=== PATIENT | male | born 1980 | race Caucasian/White ===

== ENCOUNTER 2019-11-26 11:50 | Inpatient (IN) | payer MEDICARE, MEDICAID ==
[~2019-11-26] VITALS: Ht 175.3 cm; Wt 83.0 kg
[~2019-11-26 11:50] MED LIST: LITH300C43; PALI6TAB3 PO
[2019-11-29] MEDS ORDERED: NICOTINE POLACRILEX 2 MG LOZENGE BC PRN ×2 (15:10→19:55)
[2019-11-29] MEDS ORDERED: loperamide 2mg capsule PO PRN (15:10)
[2019-11-29] MEDS ORDERED: LORazepam 1 MG tablet PO PRN ×2 (15:10)
[2019-11-29] MEDS ORDERED: haloperidol 5mg tablet PO PRN (15:10)
[2019-11-29] MEDS ORDERED: magnesium hydroxide 30ml (MOM) UD suspension PO PRN (15:10)
[2019-11-29] MEDS ORDERED: acetaminophen 325mg tablet PO PRN ×2 (15:10)
[2019-11-29] MEDS ORDERED: diphenhydrAMINE 25mg capsule PO PRN (15:10)
[2019-11-29] MEDS ORDERED: traZODone 50mg tablet PO PRN (15:10)
[2019-11-29] MEDS ORDERED: mag hydrox/Alum hydrox/simeth 30ml oral suspension PO PRN (15:10)
[2019-11-29] MEDS ORDERED: OXCA300T16 PO (17:52)
[2019-11-29] MEDS ORDERED: PALI6TAB PO (17:52)
[2019-11-29] MEDS ORDERED: BENZ1TAB7 PO (17:52)
[2019-11-29] MEDS ORDERED: LITH600C PO (17:52)
[2019-11-29] MEDS ORDERED: LEVO25TA2 PO (17:52)
[2019-11-29] MEDS ORDERED: HALO10TA13 PO (17:52)
[2019-11-29] MEDS ORDERED: HALO5TAB PO (17:52)
[2019-11-29 19:49] VITALS: BP 111/78
[2019-11-29] MEDS: benztropine 1mg tablet PO SCH (20:34)
[2019-11-29] MEDS: lithium carbonate 150mg capsule PO SCH (20:34)
[2019-11-29] MEDS: oxcarbazepine 150mg tablet PO SCH (20:34)
[2019-11-29] MEDS: haloperidol 5mg tablet PO SCH ×2 (20:35)
--- NOTE | 2019-11-30 00:38 | NUR ---
Admit Note Pt arrived prior to evening shift at 1600. 2 person skin check was completed and skin was clear. Pt is LPS conserved. He eloped from [facility] in [facility] multiple times and was transferred here until a more secure living arrangement can be made. Pt has history of Schizoaffective, Bipolar type and Cluster B traits. Pt has Hx of Etoh abuse, cannibis and nicotine dependance. Pt states "I was drinking and smokin doobies and they told me to stay out of the park, so I had to get outta there." Pts tox screen is negative. Pt states "Im in a great mood, Im glad to be back home in [place]." Pt is delusional believes he is a member of the [employer]. Pt states "Joselyn been on a mission and I've been to 13 places because of the peace act." He then states "but don't write that down, that I said that."
[2019-11-30 07:30] VITALS: BP 88/58
[2019-11-30] MEDS: levoTHYROXINE 25mcg tablet PO SCH (08:12)
[2019-11-30] MEDS: haloperidol 5mg tablet PO SCH ×3 (08:13→20:22)
[2019-11-30] MEDS: PALIPERIDONE 3 MG TAB.ER.24 PO SCH (08:15)
[2019-11-30] MEDS: benztropine 1mg tablet PO SCH ×2 (08:16→20:21)
[2019-11-30] MEDS: lithium carbonate 150mg capsule PO SCH ×2 (08:16→20:20)
[2019-11-30] MEDS: oxcarbazepine 150mg tablet PO SCH ×2 (08:20→20:21)
[2019-11-30] MEDS: nicotine 21mg patch - 24 hr TD SCH (08:23)
[2019-11-30 19:26] LABS: BASOPHILS # (AUTO) 0.1 X10'3 (0-0.2); EOSINOPHILS # (AUTO) 0.2 X10'3 (0-0.9); EOSINOPHILS % (AUTO) 2.3 % (0-6); HEMATOCRIT 43.2 % (42.0-52.0); HEMOGLOBIN 14.9 g/dl (14.0-17.9); LYMPHOCYTES # (AUTO) 2.2 X10'3 (1.1-4.8); LYMPHOCYTES % (AUTO) 28.2 % (21-51); MEAN CORPUSCULAR HEMOGLOBIN 31.6 PG (27.0-31.0); MEAN CORPUSCULAR HGB CONC 34.5 g/dL (33.0-36.5); MEAN CORPUSCULAR VOLUME 91.6 FL (78-98); MEAN PLATELET VOLUME 8.3 FL (7.4-10.4); MONOCYTES # (AUTO) 0.7 X10'3 (0-0.9); MONOCYTES % (AUTO) 8.6 % (2-12); NEUTROPHILS # (AUTO) 4.6 X10'3 (1.8-7.7); NEUTROPHILS % (AUTO) 59.9 % (42-75); PLATELET COUNT 198 X10'3 (140-440); RED BLOOD COUNT 4.72 X10'6 (4.70-6.10); RED CELL DISTRIBUTION WIDTH 12.5 % (11.5-14.5); WHITE BLOOD COUNT 7.7 X10'3 (4.5-11.0)
[2019-11-30 19:46] LABS: ALANINE AMINOTRANSFERASE 16 U/L (12-78); ALBUMIN/GLOBULIN RATIO 1.4 (1.1-1.5); ALKALINE PHOSPHATASE 108 IU/L (46-116); ANION GAP 6 (8-16); ASPARTATE AMINO TRANSFERASE 21 U/L (10-37); BILIRUBIN,TOTAL 0.2 MG/DL (0.1-1.0); BLOOD UREA NITROGEN 12 MG/DL (7-18); BUN/CREATININE RATIO 12.4 (5.4-32.0); CALCIUM 8.8 MG/DL (8.5-10.1); CHLORIDE 104 MMOL/L (99-107); CHOL/HDL RATIO 3.6 (0.00-4.99); CHOLESTEROL 160 MG/DL (0-200); CREATININE 0.97 MG/DL (0.60-1.10); GLUCOSE 83 MG/DL (70-104); HDL CHOLESTEROL 44 MG/DL (35-60); LDL CHOLESTEROL 98 MG/DL (50-100); POTASSIUM 4.2 MMOL/L (3.5-5.1); SODIUM 139 MMOL/L (135-145); TOTAL CARBON DIOXIDE 29.3 MMOL/L (24-32); TOTAL PROTEIN 6.9 G/DL (6.4-8.2); TRIGLYCERIDES 236 MG/DL (20-135); eGFR 86 ML/MIN
[2019-11-30 20:25] VITALS: BP 112/64
--- NOTE | 2019-11-30 21:14 | NUR ---
NURSING PROGRESS NOTE: Legal hold: Conserved Client on involuntary status for DTS. Report received from XANDER Mahan with use of SBAR. Why are they here: Pt is LPS conserved. He eloped from [facility] in [facility] multiple times and was transferred here until a more secure living arrangement can be made. Pt has history of Schizoaffective, Bipolar type and Cluster B traits. Pt has Hx of Etoh abuse, cannibis and nicotine dependance. Pt states "I was drinking and smokin doobies and they told me to stay out of the park, so I had to get outta there." Pts tox screen is negative. Pt states "Im in a great mood, Im glad to be back home in [place]." Pt is delusional believes he is a member of the [employer]. Pt states "Joselyn been on a mission and I've been to 13 places because of the peace act." He then states "but don't write that down, that I said that." Assessment What has happened this shift: Pt was resting in his room at change of shift. During assessment patient states he had a good day, he is happy to be here. Pt states the only thing better would be if he could go out and smoke a cigarette twice a day because he doesnt like nicotine patches. Pt is in a pleasant mood, laughing and joking, states during med pass "you can give me whatever you want, I've been doing this for 17 years and I know it messes up my liver so Im careful to drink a lot of water, I know all about the system." Pt interacts pleasantly with other patients and staff. SI/HI: Denies A/VH: Denies Sleep: Pt. states he slept good ADL's: Independent Group attendance: N/A Were Meds taken: Yes Any med S/E: None observed or reported Mental Status Exam Appearance: Disheveled, wearing green scrubs and ball cap Eye contact: Good Behavior: Cooperative, friendly, anxious Speech: Hyperverbal, clear Mood: Euthymic Affect: congruent Thought process: Tangential. Delusional Thought Content: Delusions of grandeur about working for the [employer] Cognition: A/O X 4 Insight: Fair. Judgment: Fair. Interventions PRN's used: None Therapeutic interventions: provided 1:1 assessment w/therapeutic communication and active listening, medication administration/education/monitoring, positive reinforcement, Q 15 min safety checks. Restraints/seclusion/emergency medication: N/A Justification of Continued Inpatient Treatment: Continued therapeutic support and medication management and monitoring needed to prevent decompensation, and improve coping mechanisms decreasing risk to patient and re-admittance. Addendum: 11/30/19 at 1753 by David Jefferson RN What has happened this shift: Pt. is asleep at start of shift. Pt. took medications and ate breakfast and then went back to bed. 1:1 done at bedside, pt. is friendly and social, states that he is here because he wanted to drink and smoke now and then and that his shelter would not allow this. However, as pt. 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 Pt. isolated to his room most of the day and found laying in bed, although does not appear to be sleeping. Pt. social when approached by other patients.
[2019-12-01 07:50] VITALS: BP 86/57
[2019-12-01] MEDS: nicotine 21mg patch - 24 hr TD SCH (08:00)
[2019-12-01] MEDS: oxcarbazepine 150mg tablet PO SCH ×2 (08:01→20:23)
[2019-12-01] MEDS: levoTHYROXINE 25mcg tablet PO SCH (08:02)
[2019-12-01] MEDS: haloperidol 5mg tablet PO SCH ×3 (08:02→20:23)
[2019-12-01] MEDS: lithium carbonate 150mg capsule PO SCH ×2 (08:03→20:22)
[2019-12-01] MEDS: benztropine 1mg tablet PO SCH ×2 (08:03→20:22)
[2019-12-01] MEDS: PALIPERIDONE 3 MG TAB.ER.24 PO SCH (08:04)
--- NOTE | 2019-12-01 09:23 | NUR ---
PSYCHOSOCIAL ASSESSMENT Derick is a 39 y/o male who is on [facility] conservatorship with a history of Schizoaffective Disorder, Bipolar Type. He was previously placed at [facility] and was is in need of a higher level of care due to elopement. He has been conserved for the past 17 years. He presented as paranoid and delusional. He stated, "everyone was talking shit about me" in regards to his last placement. He reported he works for the [employer] and would not disclose what type of work he does. [facility], [place] office, will be looking for placement. BART Rollins Addendum: 12/01/19 at 0924 by Daisha Robert Amended: Links added.
--- NOTE | 2019-12-01 17:11 | NUR ---
NURSING PROGRESS NOTE: Legal hold: Conserved Client on involuntary status for DTS. Report received from XANDER Garcia with use of SBAR. Why are they here: Pt is LPS conserved. He eloped from [facility] in [facility] multiple times and was transferred here until a more secure living arrangement can be made. Pt has history of Schizoaffective, Bipolar type and Cluster B traits. Pt has Hx of Etoh abuse, cannibis and nicotine dependance. Pt states "I was drinking and smokin doobies and they told me to stay out of the park, so I had to get outta there." Pts tox screen is negative. Pt states "Im in a great mood, Im glad to be back home in [place]." Pt is delusional believes he is a member of the [employer]. Assessment What has happened this shift: Pt. asleep at start of shift. Pt. awake for breakfast and medication. Pt.took all meds and ate all meals in his room. 1:1 done at bedside. Pt. is in a jovial mood, states, Its been nice to be here, Im getting lots of rest. But Im getting out of here today, the nurse told me so. When this RN told the pt. 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 I was in [place] [employer] and then I got out and worked for [employer]. Pt. denies SI/HI, A/V hallucinations. Pt. is isolative to his room, however, when pt. comes out he is social. Pt. overheard talking with his roommate and laughing. Pt. went outside to [facility] and was cooperative, playing basketball. Pt. seen pacing the halls and talking with other patients in the afternoon. SI/HI: Denies A/VH: Denies Sleep: Pt. napped most of the morning. ADL's: Independent Group attendance: N/A Were Meds taken: Yes Any med S/E: Denies Mental Status Exam Appearance: Disheveled, wearing green scrubs and ball cap Eye contact: Good Behavior: Cooperative, friendly, isolates to his room in AM. More social in afternoon. Speech: Hyperverbal, clear Mood: Euthymic becoming Elated at times. Affect: congruent Thought process: Tangential. Delusional. Thought Content: Delusions of grandeur about working for the [employer] Cognition: A/O X 4 Insight: Poor. Judgment: Poor. Interventions PRN's used: None Therapeutic interventions: provided 1:1 assessment w/therapeutic communication and active listening, medication administration/education/monitoring, positive reinforcement, Q 15 min safety checks. Restraints/seclusion/emergency medication: N/A Justification of Continued Inpatient Treatment: Continued therapeutic support and medication management and monitoring needed to prevent decompensation, and improve coping mechanisms decreasing risk to patient and re-admittance.
[2019-12-01 20:00] VITALS: BP 118/67
--- NOTE | 2019-12-02 03:20 | NUR ---
NURSING PROGRESS NOTE: Legal hold: Conserved Client on involuntary status for DTS. Report received from XANDER Hernandez with use of SBAR. Why are they here: Pt is LPS conserved. He eloped from [facility] in [facility] multiple times and was transferred here until a more secure living arrangement can be made. Pt has history of Schizoaffective, Bipolar type and Cluster B traits. Pt has Hx of Etoh abuse, cannibis and nicotine dependance. Pt states "I was drinking and smokin doobies and they told me to stay out of the park, so I had to get outta there." Pts tox screen is negative. Pt states "Im in a great mood, Im glad to be back home in [place]." Pt is delusional believes he is a member of the [employer]. Assessment What has happened this shift: Pt was in his room at the start of shift. He states he had a good day today. He took all of his medications with no problem. He denies having any S/I or H/I at this time. Pt states he did feel a little irritable, like he wants to punch the door. He states that he just is ready to leave and that he has been here too long. SI/HI: Denies A/VH: Denies Sleep: Pt slept well. ADL's: Independent Group attendance: N/A Were Meds taken: Yes Any med S/E: Denies Mental Status Exam Appearance: Clean, wearing green scrubs and ball cap Eye contact: Good Behavior: Cooperative, friendly, isolates to his room. Social this evening. Speech: Hyperverbal, clear Mood: Euthymic becoming Elated at times. Affect: congruent Thought process: Tangential. Delusional. Thought Content: Delusions of grandeur about working for the [employer] Cognition: A/O X 4 Insight: Poor. Judgment: Poor. Interventions PRN's used: None Therapeutic interventions: provided 1:1 assessment w/therapeutic communication and active listening, medication administration/education/monitoring, positive reinforcement, Q 15 min safety checks. Restraints/seclusion/emergency medication: N/A Justification of Continued Inpatient Treatment: Continued therapeutic support and medication management and monitoring needed to prevent decompensation, and improve coping mechanisms decreasing risk to patient and re-admittance.
[2019-12-02 08:00] VITALS: BP 104/59
[2019-12-02] MEDS: nicotine 21mg patch - 24 hr TD SCH (08:00)
[2019-12-02] MEDS: lithium carbonate 150mg capsule PO SCH ×2 (08:02→20:41)
[2019-12-02] MEDS: PALIPERIDONE 3 MG TAB.ER.24 PO SCH (08:03)
[2019-12-02] MEDS: oxcarbazepine 150mg tablet PO SCH ×2 (08:03→20:44)
[2019-12-02] MEDS: benztropine 1mg tablet PO SCH ×2 (08:03→20:41)
[2019-12-02] MEDS: levoTHYROXINE 25mcg tablet PO SCH (08:04)
[2019-12-02] MEDS: haloperidol 5mg tablet PO SCH ×3 (08:04→21:12)
--- NOTE | 2019-12-02 17:54 | NUR ---
NURSING PROGRESS NOTE: Legal hold: Conserved Client on involuntary status for DTS. Report received from XANDER Garcia with use of SBAR. Why are they here: Pt is LPS conserved. He eloped from [facility] in [facility] multiple times and was transferred here until a more secure living arrangement can be made. Pt has history of Schizoaffective, Bipolar type and Cluster B traits. Pt has Hx of Etoh abuse, cannibis and nicotine dependance. Pt states "I was drinking and smokin doobies and they told me to stay out of the park, so I had to get outta there." Pts tox screen is negative. Pt states "Im in a great mood, Im glad to be back home in [place]." Pt is delusional believes he is a member of the [employer]. Assessment What has happened this shift: Pt awoke for breakfast and medications and then went back to sleep for majority of AM. Pt. ate all meals in his room. 1:1 done at bedside, pt. states he is great. Pt denies SI/HI, A/V hallucinations. Pt. states, I hope I get discharged today. Pt. did not speak of delusions about working for the [employer] today. Pt. talking with peers and playing guitar in hallway. SI/HI: Denies A/VH: Denies Sleep: Pt. napped most of the morning. ADL's: Independent. Pt. showered today. Group attendance: N/A Were Meds taken: Yes Any med S/E: Denies Mental Status Exam Appearance: Disheveled, wearing green scrubs and ball cap Eye contact: Good Behavior: Cooperative, social, sleeping in AM. More social in afternoon. Speech: Hyperverbal, clear Mood: Jovial Affect: congruent with mood Thought process: Linear Thought Content: Future oriented, hoping for discharge soon. Cognition: A/O X 4 Insight: Poor. Judgment: Poor. Interventions PRN's used: None Therapeutic interventions: provided 1:1 assessment w/therapeutic communication and active listening, medication administration/education/monitoring, positive reinforcement, Q 15 min safety checks. Restraints/seclusion/emergency medication: N/A Justification of Continued Inpatient Treatment: Continued therapeutic support and medication management and monitoring needed to prevent decompensation, and improve coping mechanisms decreasing risk to patient and re-admittance.
[2019-12-02 20:10] VITALS: BP 128/73
--- NOTE | 2019-12-03 01:45 | NUR ---
NURSING PROGRESS NOTE: Legal hold: LPS Conserved Client on involuntary status for DTS. Report received from XANDER Ramírez with use of SBAR. Why are they here: Patient s LPS conserved. He eloped from [facility] in [facility] multiple times and was transferred here until a more secure living arrangement can be made. Patient has history of Schizoaffective, Bipolar type and Cluster B traits. Patient has history of ETOH abuse, cannabis and nicotine dependence. Patient states "I was drinking and smokin doobies and they told me to stay out of the park, so I had to get outta there." Patients tox screen is negative. Patient states "Im in a great mood, Im glad to be back home in [place]." Patient is delusional believes he is a member of the [employer]. Assessment What has happened this shift: Patient was sitting in the hallway with another peer conversing and talking about playing the guitar. Patient is calm and cooperative. 1:1 was completed at bedside. Patient was asked what brought him to [facility] Life, life brought me here. 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 I work for the [employer]. During HS medication pass, pt. brought up how drugs are okay, I dabble in a little drugs. I smoke a little dobbie and maybe snort a little line here and there (pt. holds nose as if snorting). Pt. states these drugs (meaning his scheduled meds) dont do anything to me, just ruins my liver. Patient talks about riding his horses, and his [employer] he skies a lot. Patient denies SI, A/VH. [place] level is 0.6 drawn on 11/29. SI/HI: Patient denies, none observed. A/VH: Patient denies, none observed. Sleep: Pt. napped most of the morning. ADL's: Independent. Patient shaved this shift. 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 Were Meds taken: Yes, without hesitation. Any med S/E: None observed, or reported. Mental Status Exam Appearance: Clean, wearing green unit scrubs and a ball cap Eye contact: Good Behavior: Cooperative, grandiose, friendly. Speech: Hyperverbal, clear Mood: Upbeat, friendly Affect: Congruent with mood Thought process: Linear to delusional Thought Content: Hoping for discharge, so he can go ride his "Brock" and go skiing. Cognition: A/O X 4 Insight: Poor. Judgment: Poor. Interventions PRN's used: None Therapeutic interventions: provided 1:1 assessment w/therapeutic communication and active listening, medication administration/education/monitoring, positive reinforcement, Q 15 min safety checks. Restraints/seclusion/emergency medication: N/A Justification of Continued Inpatient Treatment: Continued therapeutic support and medication management and monitoring needed to prevent decompensation, and improve coping mechanisms decreasing risk to patient and re-admittance.
[2019-12-03 08:00] VITALS: BP 101/56
[2019-12-03] MEDS: haloperidol 5mg tablet PO SCH ×3 (08:24→21:16)
[2019-12-03] MEDS: benztropine 1mg tablet PO SCH ×2 (08:24→20:49)
[2019-12-03] MEDS: lithium carbonate 150mg capsule PO SCH ×2 (08:25→20:49)
[2019-12-03] MEDS: levoTHYROXINE 25mcg tablet PO SCH (08:25)
[2019-12-03] MEDS: oxcarbazepine 150mg tablet PO SCH ×2 (08:25→20:48)
[2019-12-03] MEDS: PALIPERIDONE 3 MG TAB.ER.24 PO SCH (08:29)
--- NOTE | 2019-12-03 13:13 | NUR ---
PLACEMENT Faxed packet to [facility] office so they can look for placement. BART Rollins
--- NOTE | 2019-12-03 17:17 | NUR ---
NURSING PROGRESS NOTE: Legal hold: Conserved Client on involuntary status for DTS. Report received from RN with use of SBAR. Why are they here: Pt is LPS conserved. [facility] multiple times and was transferred here until a more secure living arrangement can be made. Pt has history of Schizoaffective, Bipolar type and Cluster B traits. Pt has Hx of Etoh abuse, cannibis and nicotine dependance. Pt states "I was drinking and smokin doobies and they told me to stay out of the park, so I had to get outta there." Pts tox screen is negative. Pt states "Im in a great mood, Im glad to be back home in [place]." Pt is delusional believes he is a member of the [employer]. Assessment What has happened this shift: Received pt in bed sleeping w/o distres at beginning of shift. Pt awoke for vitals, breakfast and medications and was pleasant and cooperative. He tolerated assessments well and willing to engage in conversation. Pt took a nap in the morning. In afternoon he went outside to [facility], was walking halls and interacting with peers in good mood, laughing and singing at one point with another Pt. Pt denies SI/HI, A/V hallucinations. Pt speaks respectfully and asked for coffee often in afternoon and watched TV with peers appropriately. SI/HI: Denies A/VH: Denies Sleep: Pt. Napped in morning. ADL's: Independent Group attendance: N/A Were Meds taken: Yes Any med S/E: Denies Mental Status Exam Appearance: Casual, wearing own clothes Eye contact: Good Behavior: Cooperative, social in afternoon. Speech: Hyperverbal, clear Mood: Jovial Affect: congruent with mood Thought process: Linear Thought Content: About future, hoping for discharge Cognition: A/O X 4 Insight: Poor. Judgment: Poor. Interventions PRN's used: None Therapeutic interventions: provided 1:1 assessment w/therapeutic communication and active listening, medication administration/education/monitoring, positive reinforcement, Q 15 min safety checks. Restraints/seclusion/emergency medication: N/A Justification of Continued Inpatient Treatment: Continued therapeutic support and medication management and monitoring needed to prevent decompensation, and improve coping mechanisms decreasing risk to patient and re-admittance.
[2019-12-03 19:47] VITALS: BP 113/59
--- NOTE | 2019-12-04 02:59 | NUR ---
NURSING PROGRESS NOTE: Legal hold: LPS Conserved Client on involuntary status for DTS. Report received from XANDER Ramírez with use of SBAR. Why are they here: Patient s LPS conserved. He eloped from [facility] in [facility] multiple times and was transferred here until a more secure living arrangement can be made. Patient has history of Schizoaffective, Bipolar type and Cluster B traits. Patient has history of ETOH abuse, cannabis and nicotine dependence. Patient states "I was drinking and smokin doobies and they told me to stay out of the park, so I had to get outta there." Patients tox screen is negative. Patient states "Im in a great mood, Im glad to be back home in [place]." Patient is delusional believes he is a member of the [employer]. Assessment What has happened this shift: Patient is observed walking the halls at shift change. Patient is upbeat and friendly with staff and peers. Patient denies any psychotic symptoms. Patient talks about his situation and states he is going to be getting a lot of money soon and will be taking his family with him when he leaves [place]. Patient mentions his grandpa "I sure love my grandpa, not sure where he is but he is out building houses so the whole family can come live with him." Talks about his grandpa "pumping iron" at the age of 96. Patient presents with a bright, animated affect. Patient continues to endorse the delusion that he works for the [employer]. Patient is cooperative with 1:1 assessment and medication administration. [place] level is 0.6 drawn on 11/29. SI/HI: Patient denies, none observed. A/VH: Patient denies, none observed. Sleep: No issue falling asleep. See Sleep Assessment for total hours. ADL's: Independent. 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 Were Meds taken: Yes, without hesitation. Any med S/E: None observed, or reported. Mental Status Exam Appearance: Clean, wearing green scrub bottoms, briscoe sweatshirt and a beanie. Eye contact: Good Behavior: Cooperative, friendly. Speech: Hyperverbal, clear Mood: Upbeat, friendly, animated Affect: Congruent with mood Thought process: Linear to delusional Thought Content: Hoping for discharge. Cognition: A/O X 4 Insight: Poor. Judgment: Poor. Interventions PRN's used: None Therapeutic interventions: provided 1:1 assessment w/therapeutic communication and active listening, medication administration/education/monitoring, positive reinforcement, Q 15 min safety checks. Restraints/seclusion/emergency medication: N/A Justification of Continued Inpatient Treatment: LPS conserved. Patient is gravely disabled and unable to formulate a plan to safely meet his basic needs of food, clothing, long term due to the severity of his mental illness.
[2019-12-04 07:11] VITALS: BP 101/64
[2019-12-04] MEDS: oxcarbazepine 150mg tablet PO SCH ×2 (08:00→20:34)
[2019-12-04] MEDS: levoTHYROXINE 25mcg tablet PO SCH (08:01)
[2019-12-04] MEDS: haloperidol 5mg tablet PO SCH ×3 (08:01→21:08)
[2019-12-04] MEDS: lithium carbonate 150mg capsule PO SCH ×2 (08:01→20:34)
[2019-12-04] MEDS: benztropine 1mg tablet PO SCH ×2 (08:01→20:34)
[2019-12-04] MEDS: PALIPERIDONE 3 MG TAB.ER.24 PO SCH (08:02)
--- NOTE | 2019-12-04 16:58 | NUR ---
Legal hold: LPS Conserved Client on involuntary status for DTS. Report received from Night RN with use of SBAR. Why are they here: Patient s LPS conserved. [facility] and was transferred here until a more secure living arrangement can be made. Patient has history of Schizoaffective, Bipolar type and Cluster B traits. Patient has history of ETOH abuse, cannabis and nicotine dependence. Patient states "I was drinking and smokin doobies and they told me to stay out of the park, so I had to get outta there." Patients tox screen is negative. Patient states "Im in a great mood, Im glad to be back home in [place]." Patient is delusional believes he is a member of the [employer]. Assessment What has happened this shift: Patient is observed walking the halls several times. Has been upbeat and friendly with staff and peers. Patient denies any psychotic symptoms. Has not voiced any delusions to this RN. Spent time in recreation room socializing. Has some conflict with his roommate over door being closed. Very restless after lunch, frequently ambulating up and down halls. SI/HI: Patient denies, none observed. A/VH: Patient denies, none observed. Sleep: Napping ADL's: Independent. Group attendance: N/A Were Meds taken: Yes, without hesitation. Any med S/E: None observed, or reported. Mental Status Exam Appearance: Clean, wearing green scrub bottoms, br[employer]e sweatshirt and a beanie. Eye contact: Good Behavior: Cooperative, friendly. Speech: Hyperverbal, clear Mood: Upbeat, friendly, animated Affect: Congruent with mood Thought process: Linear to delusional Thought Content: Hoping for discharge. Cognition: A/O X 4 Insight: Poor. Judgment: Poor. Interventions PRN's used: None Therapeutic interventions: provided 1:1 assessment w/therapeutic communication and active listening, medication administration/education/monitoring, positive reinforcement, Q 15 min safety checks. Restraints/seclusion/emergency medication: N/A Justification of Continued Inpatient Treatment: LPS conserved. Patient is gravely disabled and unable to formulate a plan to safely meet his basic needs of food, clothing, prison due to the severity of his mental illness.
[2019-12-04 19:45] VITALS: BP 121/71
--- NOTE | 2019-12-05 01:15 | NUR ---
NURSING PROGRESS NOTE: Legal hold: LPS Conserved Client on involuntary status for DTS. Report received from XANDER Ramírez with use of SBAR. Why are they here: Patient s LPS conserved. He eloped from [facility] in [facility] multiple times and was transferred here until a more secure living arrangement can be made. Patient has history of Schizoaffective, Bipolar type and Cluster B traits. Patient has history of ETOH abuse, cannabis and nicotine dependence. Patient states "I was drinking and smokin doobies and they told me to stay out of the park, so I had to get outta there." Patients tox screen is negative. Patient states "Im in a great mood, Im glad to be back home in [place]." Patient is delusional believes he is a member of the [employer]. Assessment What has happened this shift: Patient was observed walking the subramanian with his roommate, engaged in conversation. When asked how his day was patient responded "you know it was good, just hanging out waiting to go home." " I have been locked up in mental facilities for seventeen years, I am ready to go home." "If I was in shelter at least I could smoke, even a dobbie now and then." Patient's affect is friendly and bright. Patient is compliant with care. Patient is social and acts appropriately with peers and staff. [place] level is 0.6 drawn on 11/29. SI/HI: Patient denies, none observed. A/VH: Patient denies, none observed. Sleep: No issue falling asleep. See Sleep Assessment for total hours. ADL's: Independent. 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 Were Meds taken: Yes, without hesitation. Any med S/E: None observed, or reported. Mental Status Exam Appearance: Clean, wearing green scrub bottoms, briscoe sweatshirt and a ball cap. Eye contact: Good Behavior: Cooperative, friendly. Speech: Less rapid speech, clear Mood: Upbeat, friendly, animated Affect: Congruent with mood Thought process: Linear to delusional Thought Content: Wants to go home. Cognition: A/O X 4 Insight: Poor. Judgment: Poor. Interventions PRN's used: None Therapeutic interventions: provided 1:1 assessment w/therapeutic communication and active listening, medication administration/education/monitoring, positive reinforcement, Q 15 min safety checks. Restraints/seclusion/emergency medication: N/A Justification of Continued Inpatient Treatment: LPS conserved. Patient gravely disabled and unable to formulate a plan to safely meet his basic needs of food, clothing, group home due to the severity of his mental illness.
[2019-12-05] MEDS: benztropine 1mg tablet PO SCH ×2 (07:24→20:38)
[2019-12-05] MEDS: PALIPERIDONE 3 MG TAB.ER.24 PO SCH (07:24)
[2019-12-05] MEDS: levoTHYROXINE 25mcg tablet PO SCH (07:24)
[2019-12-05] MEDS: haloperidol 5mg tablet PO SCH ×3 (07:24→20:38)
[2019-12-05] MEDS: lithium carbonate 150mg capsule PO SCH ×2 (07:25→20:37)
[2019-12-05] MEDS: oxcarbazepine 150mg tablet PO SCH ×2 (07:25→20:38)
[2019-12-05 07:36] VITALS: BP 98/65
--- NOTE | 2019-12-05 11:00 | NUR ---
Initial: Pt admit DX schizoaffective disorder hx meth abuse and mild cannabinoid/etoh abuse per EMR. MCV WNL. Pt PO 100% avg regular diet meeting needs. LBM 12/02. No nutrition concerns at this time. Will continue to monitor. Rec: 1. advance diet as medically indicated to heart healthy 2. bowel care as needed 3. wt per rx Addendum: 12/05/19 at [address] Amended: Links added.
--- NOTE | 2019-12-05 16:01 | NUR ---
NURSING PROGRESS NOTE: Richard Laguerre Legal hold: Conserved Client on involuntary status for DTS. Report received from RN with use of SBAR. Why are they here: Pt is LPS conserved. He eloped from [facility] in [facility] multiple times and was transferred here until a more secure living arrangement can be made. Pt has history of Schizoaffective, Bipolar type and Cluster B traits. Pt has Hx of Etoh abuse, cannibis and nicotine dependance. Pt states "I was drinking and smokin doobies and they told me to stay out of the park, so I had to get outta there." Pts tox screen is negative. Pt states "Im in a great mood, Im glad to be back home in [place]." Pt is delusional believes he is a member of the [employer]. Assessment What has happened this shift: Pleasant and cooperative. Tolerated vitals, medications, and assessment well. Slept until noon then awoke for lunch and conversed with fellow patients in the subramanian before placing a call to someone then going back to sleep. Patient has been very appreicative and respectful. Patient was encouraged to discuss feelings several times but has expressed no desire to at this time. SI/HI: Denies A/VH: Denies Sleep: Pt. Napped in morning, woke for lunch, napped again the afternoon. ADL's: Independent Group attendance: cancelled due to Covid Were Meds taken: Yes Any med S/E: Denies Mental Status Exam Appearance: Casual, wearing own clothes. Eye contact: Good Behavior: Cooperative, apprieciative, respectful. Speech: clear Mood: Pleasant. Affect: Euthymic Thought process: Linear Thought Content: Cognition: A/O X 4 Insight: Poor. Judgment: Poor. Interventions PRN's used: None Therapeutic interventions: provided 1:1 assessment w/therapeutic communication and active listening, medication administration/education/monitoring, positive reinforcement, Q 15 min safety checks. Restraints/seclusion/emergency medication: N/A Justification of Continued Inpatient Treatment: Continued therapeutic support and medication management and monitoring needed to prevent decompensation, and improve coping mechanisms decreasing risk to patient and re-admittance.
[2019-12-05 20:00] VITALS: BP 112/67
--- NOTE | 2019-12-06 02:49 | NUR ---
NURSING PROGRESS NOTE: Richard Laguerre Legal hold: Conserved Client on involuntary status for DTS. Report received from Desiree TERRELL with use of SBAR. Why are they here: Pt is LPS conserved. He eloped from [facility] in [facility] multiple times and was transferred here until a more secure living arrangement can be made. Pt has history of Schizoaffective, Bipolar type and Cluster B traits. Pt has Hx of Etoh abuse, cannibis and nicotine dependance. Pt states "I was drinking and smokin doobies and they told me to stay out of the park, so I had to get outta there." Pts tox screen is negative. Pt states "Im in a great mood, Im glad to be back home in [place]." Pt is delusional believes he is a member of the [employer]. Assessment What has happened this shift: Patient up and social with peers telling stories of his growing up. 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 Pt is pleasant and states I dont know why they keep me here I just want to live in the area and smoke pot and drink once in a while and settle down and get a job. SI/HI: Denies A/VH: Denies Sleep: Pt. Napped in morning, woke for lunch, napped again the afternoon. ADL's: Independent Group attendance: cancelled due to Covid Were Meds taken: Yes Any med S/E: Denies Mental Status Exam Appearance: Casual, wearing own clothes. Eye contact: Good Behavior: Cooperative, apprieciative, respectful. Speech: clear Mood: Pleasant. Affect: Euthymic Thought process: Linear Thought Content: Cognition: A/O X 4 Insight: Poor. Judgment: Poor. Interventions PRN's used: None Therapeutic interventions: provided 1:1 assessment w/therapeutic communication and active listening, medication administration/education/monitoring, positive reinforcement, Q 15 min safety checks. Restraints/seclusion/emergency medication: N/A Justification of Continued Inpatient Treatment: Continued therapeutic support and medication management and monitoring needed to prevent decompensation, and improve coping mechanisms decreasing risk to patient and re-admittance.
[2019-12-06 07:33] VITALS: BP 104/60
[2019-12-06] MEDS: haloperidol 5mg tablet PO SCH ×3 (08:21→20:20)
[2019-12-06] MEDS: benztropine 1mg tablet PO SCH ×2 (08:21→20:21)
[2019-12-06] MEDS: levoTHYROXINE 25mcg tablet PO SCH (08:22)
[2019-12-06] MEDS: oxcarbazepine 150mg tablet PO SCH ×2 (08:22→20:20)
[2019-12-06] MEDS: lithium carbonate 150mg capsule PO SCH ×2 (08:22→20:19)
[2019-12-06] MEDS: PALIPERIDONE 3 MG TAB.ER.24 PO SCH (08:22)
--- NOTE | 2019-12-06 17:09 | NUR ---
NURSING PROGRESS NOTE Legal hold: Conserved Client on involuntary status for DTS. Report received from JACQUIE Agustin with use of SBAR. Why are they here: Pt is LPS conserved. He eloped from [facility] in [facility] multiple times and was transferred here until a more secure living arrangement can be made. Pt has history of Schizoaffective, Bipolar type and Cluster B traits. Pt has Hx of Etoh abuse, cannibis and nicotine dependance. Pt states "I was drinking and smokin doobies and they told me to stay out of the park, so I had to get outta there." Pts tox screen is negative. Pt states "Im in a great mood, Im glad to be back home in [place]." Pt is delusional believes he is a member of the [employer]. Assessment What has happened this shift: Asleep at change of shift. Ate breakfast and took all medications then slept until after lunch. Up walking in hallway. Pleasantly grandiose, smiling, friendly. Talks of attending [employer], working for the [employer], going to school and working for the [employer]. Eating well. SI/HI: Denies A/VH: Denies Sleep: Pt. Slept all morning ADL's: Independent Group attendance: N/A Were Meds taken: Yes Any med S/E: Denies Mental Status Exam Appearance: Casual, wearing own clothes. Eye contact: Good Behavior: Cooperative, respectful. Speech: clear Mood: Pleasant. Affect: Euthymic Thought process: Linear Thought Content: Cognition: A/O X 4 Insight: Poor. Judgment: Poor. Interventions PRN's used: None Therapeutic interventions: provided 1:1 assessment w/therapeutic communication and active listening, medication administration/education/monitoring, positive reinforcement, Q 15 min safety checks. Restraints/seclusion/emergency medication: N/A Justification of Continued Inpatient Treatment: Continued therapeutic support and medication management and monitoring needed to prevent decompensation, and improve coping mechanisms decreasing risk to patient and re-admittance.
[2019-12-06 20:00] VITALS: BP 115/66
--- NOTE | 2019-12-07 00:45 | NUR ---
NURSING PROGRESS NOTE Legal hold: Conserved Client on involuntary status for DTS. Report received from Desiree TERRELL with use of SBAR. Why are they here: Pt is LPS conserved. He eloped from [facility] in [facility] multiple times and was transferred here until a more secure living arrangement can be made. Pt has history of Schizoaffective, Bipolar type and Cluster B traits. Pt has Hx of Etoh abuse, cannibis and nicotine dependance. Pt states "I was drinking and smokin doobies and they told me to stay out of the park, so I had to get outta there." Pts tox screen is negative. Pt states "Im in a great mood, Im glad to be back home in [place]." Pt is delusional believes he is a member of the [employer]. Assessment What has happened this shift: Patient was up pacing the halls and doing pushups. Pt continues to make grandiose statements that he works for the [employer]. He states he is glad to be back in [place].He denies SI/HI and AH/VH. He is very social with peers. SI/HI: Denies A/VH: Denies Sleep: Pt. Slept all nite ADL's: Independent Group attendance: N/A Were Meds taken: Yes Any med S/E: Denies Mental Status Exam Appearance: Casual, wearing own clothes. Eye contact: Good Behavior: Cooperative, respectful. Speech: clear Mood: Pleasant. Affect: Euthymic Thought process: Linear Thought Content: Cognition: A/O X 4 Insight: Poor. Judgment: Poor. Interventions PRN's used: None Therapeutic interventions: provided 1:1 assessment w/therapeutic communication and active listening, medication administration/education/monitoring, positive reinforcement, Q 15 min safety checks. Restraints/seclusion/emergency medication: N/A Justification of Continued Inpatient Treatment: Continued therapeutic support and medication management and monitoring needed to prevent decompensation, and improve coping mechanisms decreasing risk to patient and re-admittance.
[2019-12-07 07:52] VITALS: BP 90/50
[2019-12-07] MEDS: oxcarbazepine 150mg tablet PO SCH ×2 (07:58→20:21)
[2019-12-07] MEDS: lithium carbonate 150mg capsule PO SCH ×2 (07:59→20:19)
[2019-12-07] MEDS: levoTHYROXINE 25mcg tablet PO SCH (07:59)
[2019-12-07] MEDS: benztropine 1mg tablet PO SCH ×2 (07:59→20:17)
[2019-12-07] MEDS: haloperidol 5mg tablet PO SCH ×3 (07:59→20:18)
[2019-12-07] MEDS: PALIPERIDONE 3 MG TAB.ER.24 PO SCH (07:59)
--- NOTE | 2019-12-07 10:24 | NUR ---
NURSING PROGRESS NOTE Legal hold: Conserved Client on involuntary status for DTS. Report received from XANDER Garcia with use of SBAR. Why are they here: Pt is LPS conserved. He eloped from [facility] in [facility] multiple times and was transferred here until a more secure living arrangement can be made. Pt has history of Schizoaffective, Bipolar type and Cluster B traits. Pt has Hx of Etoh abuse, cannibis and nicotine dependance. Pt states "I was drinking and smokin doobies and they told me to stay out of the park, so I had to get outta there." Pts tox screen is negative. Pt states "Im in a great mood, Im glad to be back home in [place]." Pt is delusional believes he is a member of the [employer]. Assessment What has happened this shift: Asleep at change of shift. Ate breakfast and took all medications then slept all morning. Up walking in hallway. Pleasantly grandiose, smiling, friendly. Talks of attending [employer], working for the [email or web address], going to school and working for the [employer]. Eating well. No new changes in behavior or mood. SI/HI: Denies A/VH: Denies Sleep: Pt. Slept all morning ADL's: Independent Group attendance: N/A Were Meds taken: Yes Any med S/E: Denies Mental Status Exam Appearance: Casual, wearing own clothes. Eye contact: Good Behavior: Cooperative, respectful. Speech: clear Mood: Pleasant. Affect: Euthymic Thought process: Linear Thought Content: Cognition: A/O X 4 Insight: Poor. Judgment: Poor. Interventions PRN's used: None Therapeutic interventions: provided 1:1 assessment w/therapeutic communication and active listening, medication administration/education/monitoring, positive reinforcement, Q 15 min safety checks. Restraints/seclusion/emergency medication: N/A Justification of Continued Inpatient Treatment: Continued therapeutic support and medication management and monitoring needed to prevent decompensation, and improve coping mechanisms decreasing risk to patient and re-admittance.
[2019-12-07 20:00] VITALS: BP 127/68
--- NOTE | 2019-12-08 00:23 | NUR ---
NURSING PROGRESS NOTE Legal hold: Conserved Client on involuntary status for DTS. Report received from XANDER Lowery with use of SBAR. Why are they here: Pt is LPS conserved. He eloped from [facility] in [facility] multiple times and was transferred here until a more secure living arrangement can be made. Pt has history of Schizoaffective, Bipolar type and Cluster B traits. Pt has Hx of Etoh abuse, cannibis and nicotine dependance. Pt states "I was drinking and smokin doobies and they told me to stay out of the park, so I had to get outta there." Pts tox screen is negative. Pt states "Im in a great mood, Im glad to be back home in [place]." Pt is delusional believes he is a member of the [employer]. Assessment What has happened this shift: Patient was up and pacing the subramanian getting exercise at the start of the shift. He retired to his room before snack. Pt stayed in his room Meds given and he went to sleep. Pt was more isolative today than normal. SI/HI: Denies A/VH: Denies Sleep: Pt. Slept all morning ADL's: Independent Group attendance: N/A Were Meds taken: Yes Any med S/E: Denies Mental Status Exam Appearance: Casual, wearing own clothes. Eye contact: Good Behavior: Cooperative, respectful. Speech: clear Mood: Pleasant. Affect: Euthymic Thought process: Linear Thought Content: Cognition: A/O X 4 Insight: Poor. Judgment: Poor. Interventions PRN's used: None Therapeutic interventions: provided 1:1 assessment w/therapeutic communication and active listening, medication administration/education/monitoring, positive reinforcement, Q 15 min safety checks. Restraints/seclusion/emergency medication: N/A Justification of Continued Inpatient Treatment: Continued therapeutic support and medication management and monitoring needed to prevent decompensation, and improve coping mechanisms decreasing risk to patient and re-admittance.
[2019-12-08 08:00] VITALS: BP 109/49
[2019-12-08] MEDS: levoTHYROXINE 25mcg tablet PO SCH (08:17)
[2019-12-08] MEDS: PALIPERIDONE 3 MG TAB.ER.24 PO SCH (08:17)
[2019-12-08] MEDS: haloperidol 5mg tablet PO SCH ×3 (08:17→20:16)
[2019-12-08] MEDS: benztropine 1mg tablet PO SCH ×2 (08:17→20:14)
[2019-12-08] MEDS: lithium carbonate 150mg capsule PO SCH ×2 (08:18→20:14)
[2019-12-08] MEDS: oxcarbazepine 150mg tablet PO SCH ×2 (08:18→20:15)
--- NOTE | 2019-12-08 14:38 | NUR ---
NURSING PROGRESS NOTE: Legal hold: Conserved Client on involuntary status for DTS. Report received from RN with use of SBAR. Why are they here: Pt is LPS conserved. He eloped from [facility] in [facility] multiple times and was transferred here until a more secure living arrangement can be made. Pt has history of Schizoaffective, Bipolar type and Cluster B traits. Pt has Hx of Etoh abuse, cannibis and nicotine dependance. Pt states "I was drinking and smokin doobies and they told me to stay out of the park, so I had to get outta there." Pts tox screen is negative. Pt states "Im in a great mood, Im glad to be back home in [place]." Pt is delusional believes he is a member of the [employer]. Assessment What has happened this shift: Received pt in bed sleeping w/o distres at beginning of shift. Pt awoke for vitals, breakfast and medications and was pleasant and cooperative. He tolerated assessments well and willing to engage in conversation r/t his involvement, work and being tracked by the [employer]. Pt took a nap in the morning. Interacted with peers a bit in the afternoon and walked halls for exercise. Overall Pt is isolative, delusional and pleasant. SI/HI: Denies A/VH: Denies Sleep: Pt. Napped in morning. ADL's: Independent Group attendance: N/A Were Meds taken: Yes Any med S/E: Denies Mental Status Exam Appearance: Casual Eye contact: Good Behavior: Cooperative, isolative Speech: Clear Mood: Euthymic Affect: Congruent with mood Thought process: Linear Thought Content: About future, hoping for discharge Cognition: A/O X 4 Insight: Poor. Judgment: Poor. Interventions PRN's used: None Therapeutic interventions: provided 1:1 assessment w/therapeutic communication and active listening, medication administration/education/monitoring, positive reinforcement, Q 15 min safety checks. Restraints/seclusion/emergency medication: N/A Justification of Continued Inpatient Treatment: Continued therapeutic support and medication management and monitoring needed to prevent decompensation, and improve coping mechanisms decreasing risk to patient and re-admittance.
--- NOTE | 2019-12-08 15:58 | NUR ---
MANUEL Sepulveda's packet is currently at [facility]. TAD office believes he has been turned down by a couple facilities already. BART Rollins
[2019-12-08 20:00] VITALS: BP 125/75
[2019-12-09] MEDS: benztropine 1mg tablet PO SCH ×2 (07:31→21:10)
[2019-12-09] MEDS: haloperidol 5mg tablet PO SCH ×3 (07:31→21:10)
[2019-12-09] MEDS: lithium carbonate 150mg capsule PO SCH ×2 (07:32→21:09)
[2019-12-09] MEDS: PALIPERIDONE 3 MG TAB.ER.24 PO SCH (07:32)
[2019-12-09] MEDS: levoTHYROXINE 25mcg tablet PO SCH (07:32)
[2019-12-09] MEDS: oxcarbazepine 150mg tablet PO SCH ×2 (07:32→21:09)
[2019-12-09 08:00] VITALS: BP 97/66
--- NOTE | 2019-12-09 15:56 | NUR ---
Nursing Progress Note: Legal hold: LPS Client on involuntary status for GD Report received from nurse with use of SBAR: XANDER Garcia Why are they here: [facility] multiple times and was transferred here until a more secure living arrangement can be made. Pt has history of Schizoaffective, Bipolar type and Cluster B traits. Pt has Hx of Etoh abuse, Cannibis and nicotine dependance. Pt states, "I was drinking and smokin doobies and they told me to stay out of the park, so I had to get outta there." Pt's tox screen is negative. Pt states "Im in a great mood, Im glad to be back home in [place]." Pt is delusional believes he is a member of the [employer]. Assessment What has happened this shift: Received pt. laying in bed sleeping this shift, he awoke and appropriately greeted this fiction writer. Pt. presents as cooperative and pleasant, and is compliant with all medications. 1:1 completed at bedside, he denies all MH s/s and does not present as internally preoccupied. Pt. is A&O X3, not to why he is on the unit, however no delusional statements made this shift. Pt. remains in bed throughout much of the shift, up for meals, and returns to bed. When questioned by this fiction writer regarding why he has remained in bed, pt. denies any depression or anxiety. He states, "I'm just catching up on rest I guess," will endorse to Noc shift and monitor. S/I, H/I: Denies A/VH: Denies Sleep: Slept 7.75 hours last night. Remains in bed throughout this shift ADL's: Requires some direction from staff Group attendance: N/A Were meds taken: Yes Any med S/E: None Mental Status Exam Appearance: Hair disheveled r/t laying in bed, appropriately dressed Eye contact: Good Behavior: Pleasant and cooperative Speech: Soft and WNL Mood: Pleasant Affect: Blunted Thought process: Circumstantial Thought Content: Per KARMEN Villasenor pt. remains delusional at times Cognition: A&O X3 Insight: Poor Judgment: Poor to fair Interventions PRN's used: None Therapeutic interventions: Introduced self and established rapport, ensured contract for safety, maintained a safe and supportive environment, provided clear and simple instructions, provided active listening and positive encouragement, and maintained a safe and supportive environment. Restraints/seclusion/emergency medication: N/A Justification of Continued Inpatient Treatment: KARMEN Grace pt. remains gravely disabled and awaits placement.
[2019-12-09 19:49] VITALS: BP 109/72
--- NOTE | 2019-12-09 23:46 | NUR ---
NURSING PROGRESS NOTE Legal hold: LPS conserved Client on involuntary status for DTS. Report received from FRANCOISE Mahan with use of SBAR. Why are they here: Pt is LPS conserved. He eloped from [facility] in [facility] multiple times and was transferred here until a more secure living arrangement can be made. Pt has history of Schizoaffective, Bipolar type and Cluster B traits. Pt has Hx of Etoh abuse, cannabis and nicotine dependance. Pt states "I was drinking and smokin doobies and they told me to stay out of the park, so I had to get outta there." Pts tox screen is negative. Pt states "Im in a great mood, Im glad to be back home in [place]." Pt is delusional believes he is a member of the [employer]. Assessment What has happened this shift: Patient is visible on the unit and is observed socializing and having conversation with peers. He is very pleasant and cooperative. He is said his day went well and he worked out. He denies SI/HI/AH/VH at this time. SI/HI: Denies A/VH: Denies Sleep: Pt. Slept all morning ADL's: Independent Group attendance: N/A Were Meds taken: Yes Any med S/E: Denies Mental Status Exam Appearance: Casual, wearing own clothes. Eye contact: Good Behavior: Cooperative, respectful. Speech: clear Mood: Pleasant. Affect: Euthymic Thought process: Linear Thought Content: Cognition: A/O X 4 Insight: Poor. Judgment: Poor. Interventions PRN's used: None Therapeutic interventions: provided 1:1 assessment w/therapeutic communication and active listening, medication administration/education/monitoring, positive reinforcement, Q 15 min safety checks. Restraints/seclusion/emergency medication: N/A Justification of Continued Inpatient Treatment: Continued therapeutic support and medication management and monitoring needed to prevent decompensation, and improve coping mechanisms decreasing risk to patient and re-admittance.
--- NOTE | 2019-12-09 23:48 | NUR ---
PREVIOUS NOTE ENTERED IN ERROR, DISREGARD.
--- NOTE | 2019-12-09 23:50 | NUR ---
NURSING PROGRESS NOTE Legal hold: LPS conserved Client on involuntary status for DTS. Report received from FRANCOISE Mahan with use of SBAR. Why are they here: Pt is LPS conserved. He eloped from [facility] multiple times and was transferred here until a more secure living arrangement can be made. Pt has history of Schizoaffective, Bipolar type and Cluster B traits. Pt has Hx of Etoh abuse, cannibis and nicotine dependance. Pt states "I was drinking and smokin doobies and they told me to stay out of the park, so I had to get outta there." Pts tox screen is negative. Pt states "Im in a great mood, Im glad to be back home in [place]." Pt is delusional believes he is a member of the [employer]. Assessment What has happened this shift: Pt was in his room resting during shift change. Pt continues to interact appropriately with other patients and appeared to be very pleasant and friendly. He was cooperative during 1:1 physical assessment and took all his meds. When asked what had brought him here he states well I've been locked up for about 17 years and also I have been working for the [employer] for that long. Pt has other grandiose delusions such as he believes that his grandmother is Queen Jo and his great grandfather is Sahil Burns. He denies any A/VH, S/I, H/I, depression or anxiety I've never had any of that. Pt was observed talking on the phone and when questioned who he was talking to he says it was his brother. Pt continued to ambulated the isles for a little longer before going to sleep. 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 Speech: clear, normal rate and rhythm. Mood: "mellow" pt appears to be in a good mood Affect: Appropriate, congruent with mood. Thought process: Mostly linear, does make a few delusional statements Thought Content: Grandiose delusions about working for the [employer] and Queen Jo being his grandmother Cognition: A/O X 4 Insight: Poor. Judgment: Poor. Interventions PRN's used: None Therapeutic interventions: provided 1:1 assessment w/therapeutic communication and active listening, medication administration/education/monitoring, positive reinforcement, Q 15 min safety checks. Restraints/seclusion/emergency medication: N/A Justification of Continued Inpatient Treatment: Continued therapeutic support and medication management and monitoring needed to prevent decompensation, and improve coping mechanisms decreasing risk to patient and re-admittance.
[2019-12-10] MEDS: benztropine 1mg tablet PO SCH ×2 (07:09→20:49)
[2019-12-10] MEDS: haloperidol 5mg tablet PO SCH ×3 (07:09→20:50)
[2019-12-10] MEDS: lithium carbonate 150mg capsule PO SCH ×2 (07:09→20:49)
[2019-12-10] MEDS: levoTHYROXINE 25mcg tablet PO SCH (07:10)
[2019-12-10] MEDS: oxcarbazepine 150mg tablet PO SCH ×2 (07:10→20:50)
[2019-12-10] MEDS: PALIPERIDONE 3 MG TAB.ER.24 PO SCH (07:10)
[2019-12-10 08:00] VITALS: BP 102/58
--- NOTE | 2019-12-10 12:33 | NUR ---
Nursing Progress Note: Legal hold: LPS Client on involuntary status for GD Report received from nurse with use of SBAR: XANDER Jon Why are they here: He eloped from [facility] in [facility] multiple times and was transferred here until a more secure living arrangement can be made. Pt has history of Schizoaffective, Bipolar type and Cluster B traits. Pt has Hx of Etoh abuse, Cannibis and nicotine dependance. Pt states, "I was drinking and smokin doobies and they told me to stay out of the park, so I had to get outta there." Pt's tox screen is negative. Pt states "Im in a great mood, Im glad to be back home in [place]." Pt is delusional believes he is a member of the [employer]. Assessment What has happened this shift: Received pt. laying in bed sleeping this shift, he continues to isolate here throughout most of the shift getting up for meals and to attend assessment with the doctor. Pt. continues to presents as cooperative and pleasant, and is compliant with all medications. 1:1 completed at bedside, and he continues to deny all M/H s/s, states, "I'm in pretty good spirits!" Pt. does make some delusional statements this shift when questioned by this marine underwriter if he plans to continue to take his medications upon discharge. Pt. becomes slightly defensive and states, "I don't need medication, there is noting wrong with my brain. I like to smoke weed and do a little speed. Medications don't do anything unless they are uppers or downers." This marine underwriter attempted to provide medication education, however pt. appeared unable to understand this, and continue to make delusional statements with a tangental thought process. 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 The [place] came to my aide." Pt. continued to isolate throughout the shift, however was observed to be interacting minimally with others. Will continue to monitor. S/I, H/I: Denies A/VH: Denies Sleep: Slept 6.75 hours last night. Remains in bed throughout this shift ADL's: Requires some direction from staff Group attendance: N/A Were meds taken: Yes Any med S/E: None Mental Status Exam Appearance: Hair disheveled r/t laying in bed, appropriately dressed Eye contact: Good Behavior: Pleasant and cooperative Speech: Soft and WNL Mood: Pleasant, becomes defensive at times Affect: Blunted Thought process: Tangental Thought Content: Continues to make delusional statements. Preoccupation with desire to discharge Cognition: A&O X3 Insight: Poor Judgment: Poor to fair Interventions PRN's used: None Therapeutic interventions: Ensured contract for safety, maintained a safe and supportive environment, provided clear and simple instructions, provided active listening and positive encouragement, provided medication education, and maintained a safe and supportive environment. Restraints/seclusion/emergency medication: N/A Justification of Continued Inpatient Treatment: KARMEN Grace pt. remains gravely disabled and awaits placement.
[2019-12-10 20:00] VITALS: BP 105/61
--- NOTE | 2019-12-11 00:48 | NUR ---
NURSING PROGRESS NOTE Legal hold: LPS conserved Client on involuntary status for DTS. Report received from FRANCOISE Mahan with use of SBAR. Why are they here: Pt is LPS conserved. He eloped from [facility] in [facility] multiple times and was transferred here until a more secure living arrangement can be made. Pt has history of Schizoaffective, Bipolar type and Cluster B traits. Pt has Hx of Etoh abuse, cannibis and nicotine dependance. Pt states "I was drinking and smokin doobies and they told me to stay out of the park, so I had to get outta there." Pts tox screen is negative. Pt states "Im in a great mood, Im glad to be back home in [place]." Pt is delusional believes he is a member of the [employer]. Assessment What has happened this shift: Pt was in his room sleeping during shift change. Pt was cooperative during 1:1 physical assessment and took all his HS meds. He begins to talk about how he feels like he could go off his med and feel okay. He states yeah its not like Im crazy, I dont feel suicidal or homicidal. I think I would feel more clear without all these meds. Pt then proceed to make some delusional statements about how he is BRENDEN and he is here to help his family. yeah I almost my cousin thats 86 but shes very beautiful and young looking because she uses the [employer]. She ended up marrying my grandfather and having a baby with him. Pt continues to make more delusional statements, some that are rastafari in nature. Pt was very animated and calm, did not experience any agitation. Denies any A/H, V/H, S/I, H/I, anxiety or depression. Pt continued to ambulate the isles for a little longer before going to bed. 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 Mood: "pretty good" Affect: Appropriate, congruent with mood. Thought process: Circumstantial Thought Content: Medication, grandiose delusions Cognition: A/O X 4 Insight: Poor. Judgment: Poor. Interventions PRN's used: None Therapeutic interventions: provided 1:1 assessment w/therapeutic communication and active listening, medication administration/education/monitoring, positive reinforcement, Q 15 min safety checks. Restraints/seclusion/emergency medication: N/A Justification of Continued Inpatient Treatment: Continued therapeutic support and medication management and monitoring needed to prevent decompensation, and improve coping mechanisms decreasing risk to patient and re-admittance.
[2019-12-11] MEDS: benztropine 1mg tablet PO SCH ×2 (07:57→21:17)
[2019-12-11] MEDS: PALIPERIDONE 3 MG TAB.ER.24 PO SCH (07:57)
[2019-12-11] MEDS: levoTHYROXINE 25mcg tablet PO SCH (07:57)
[2019-12-11] MEDS: haloperidol 5mg tablet PO SCH ×3 (07:58→21:17)
[2019-12-11] MEDS: oxcarbazepine 150mg tablet PO SCH ×2 (07:58→21:17)
[2019-12-11] MEDS: lithium carbonate 150mg capsule PO SCH ×2 (07:58→21:17)
[2019-12-11 08:00] VITALS: BP 102/60
--- NOTE | 2019-12-11 17:10 | NUR ---
Nursing Progress Note: Legal hold: LPS Client on involuntary status for GD Report received from nurse with use of SBAR: XANDER Jon Why are they here: He eloped from [facility] in [facility] multiple times and was transferred here until a more secure living arrangement can be made. Pt has history of Schizoaffective, Bipolar type and Cluster B traits. Pt has Hx of Etoh abuse, Cannibis and nicotine dependance. Pt states, "I was drinking and smokin doobies and they told me to stay out of the park, so I had to get outta there." Pt's tox screen is negative. Pt states "Im in a great mood, Im glad to be back home in [place]." Pt is delusional believes he is a member of the [employer]. Assessment What has happened this shift: Patient resting in bed peacefully at change of shift. He is pleasant and cooperative with care and takes his medications without incident. Currently denies A/VH and does not appear to be internally preoccupied or responding to internal stimuli. He continues to isolate to room throughout most of the shift, eats meals in his room although he jennifer get up to walk in the subramanian and socializes with his roommate. 1:1 completed at bedside, and he denies all M/H s/s, states, "I'm doing good" Pt. made no delusional statements this shift. S/I, H/I: Denies A/VH: Denies Sleep: isolates to room and naps intermittently ADL's: Requires some direction from staff Group attendance: N/A Were meds taken: Yes Any med S/E: None Mental Status Exam Appearance: Hat, appropriately dressed in street clothing Eye contact: Good Behavior: Pleasant and cooperative Speech: Soft and WNL Mood: Pleasant Affect: Blunted Thought process: Tangential Thought Content: "I'm good". Cognition: A&O X3 Insight: Poor Judgment: Poor to fair Interventions PRN's used: None Therapeutic interventions: Ensured contract for safety, maintained a safe and supportive environment, provided clear and simple instructions, provided active listening and positive encouragement, provided medication education, and maintained a safe and supportive environment. Restraints/seclusion/emergency medication: N/A Justification of Continued Inpatient Treatment: Per KARMEN Villasenor pt. remains gravely disabled and awaits placement.
[2019-12-11 19:12] VITALS: BP 113/77
--- NOTE | 2019-12-11 20:51 | NUR ---
Omit 19:12 hour vital signs, wrong patient.
--- NOTE | 2019-12-12 00:20 | NUR ---
NURSING PROGRESS NOTE Legal hold: LPS conserved Client on involuntary status for DTS. Report received from FRANCOISE Mahan with use of SBAR. Why are they here: Pt is LPS conserved. He eloped from [facility] in [facility] multiple times and was transferred here until a more secure living arrangement can be made. Pt has history of Schizoaffective, Bipolar type and Cluster B traits. Pt has Hx of Etoh abuse, cannibis and nicotine dependance. Pt states "I was drinking and smokin doobies and they told me to stay out of the park, so I had to get outta there." Pts tox screen is negative. Pt states "Im in a great mood, Im glad to be back home in [place]." Pt is delusional believes he is a member of the [employer]. Assessment What has happened this shift: Pt was in his room sleeping during shift change. Pt was cooperative during 1:1 physical assessment and Pt was observed outside of his room for a little while interacting with other patients appropriately but then returned to his room to take a nap. Pt was cooperative during 1:1 physical assessment and took all his meds without any issues. Pt denies S/I, H/I, A/VH but does make some delusional statements. He says Im not allowed to have any prns. I was having a ton of caffeine because I just wanted to stay up and alliance party but my grandpa told them not to give me any. He states that his grandfather is Ba Trimble and has power of title attorney over him. When asked to describe his mood, he states I feel nila okay nila lazy, I was going to do some sit ups but just felt really lazy. Pt did not make any other delusional statements and retired to bed after medication pass. SI/HI: Denies A/VH: Denies Sleep: Currently sleeping, see sleep assessment for total hours ADL's: Independent Group attendance: None during emergency physician Were Meds taken: Yes Any med S/E: None reported or observed Mental Status Exam Appearance: Appropriately dressed wearing personal clothing Eye contact: Good, direct Behavior: Cooperative, respectful, friendly, calm Speech: clear, normal rate and rhythm. Mood: "nila okay, nila lazy." Affect: Constricted Thought process: Circumstantial Thought Content: Medication, grandiose delusions, believes his grandfather is Ba Trimble Cognition: A/O X 4 Insight: Poor. Judgment: Poor. Interventions PRN's used: None Therapeutic interventions: provided 1:1 assessment w/therapeutic communication and active listening, medication administration/education/monitoring, positive reinforcement, Q 15 min safety checks. Restraints/seclusion/emergency medication: N/A Justification of Continued Inpatient Treatment: Continued therapeutic support and medication management and monitoring needed to prevent decompensation, and improve coping mechanisms decreasing risk to patient and re-admittance.
[2019-12-12] MEDS: benztropine 1mg tablet PO SCH ×2 (07:51→21:22)
[2019-12-12] MEDS: haloperidol 5mg tablet PO SCH ×3 (07:51→21:22)
[2019-12-12] MEDS: lithium carbonate 150mg capsule PO SCH ×2 (07:52→21:23)
[2019-12-12] MEDS: oxcarbazepine 150mg tablet PO SCH ×2 (07:52→21:22)
[2019-12-12] MEDS: PALIPERIDONE 3 MG TAB.ER.24 PO SCH (07:52)
[2019-12-12] MEDS: levoTHYROXINE 25mcg tablet PO SCH (07:52)
[2019-12-12 08:11] VITALS: BP 94/63
--- NOTE | 2019-12-12 14:33 | NUR ---
NURSING PROGRESS NOTE: Legal hold: Conserved Client on involuntary status for DTS. Report received from RN with use of SBAR. Why are they here: Pt is LPS conserved. [facility] multiple times and was transferred here until a more secure living arrangement can be made. Pt has history of Schizoaffective, Bipolar type and Cluster B traits. Pt has Hx of Etoh abuse, cannibis and nicotine dependance. Pt states "I was drinking and smokin doobies and they told me to stay out of the park, so I had to get outta there." Pts tox screen is negative. Pt states "Im in a great mood, Im glad to be back home in [place]." Pt is delusional believes he is a member of the [employer]. Assessment What has happened this shift: Received pt in bed sleeping w/o distress at beginning of shift. Pt awoke for vitals, breakfast and medications and was pleasant and cooperative. Pt is guarded but will engage in short conversation. He tolerated assessments well and napped for most of morning. Pt continues to speak delusionally about working and being tracked by the [employer]. Watched TV in afternoon as well as laying in bed. Overall pleasant and cooperative yet isolative. SI/HI: Denies A/VH: Denies Sleep: Pt. Napped in morning. ADL's: Independent Group attendance: N/A Were Meds taken: Yes Any med S/E: Denies Mental Status Exam Appearance: Casual Eye contact: Good Behavior: Cooperative, isolative Speech: Clear Mood: Euthymic Affect: Congruent with mood Thought process: Linear Thought Content: Immediate needs Cognition: A/O X 4 Insight: Poor. Judgment: Poor. Interventions PRN's used: None Therapeutic interventions: provided 1:1 assessment w/therapeutic communication and active listening, medication administration/education/monitoring, positive reinforcement, Q 15 min safety checks. Restraints/seclusion/emergency medication: N/A Justification of Continued Inpatient Treatment: Continued therapeutic support and medication management and monitoring needed to prevent decompensation, and improve coping mechanisms decreasing risk to patient and re-admittance.
[2019-12-12 20:02] VITALS: BP 128/71
--- NOTE | 2019-12-12 23:54 | NUR ---
NURSING PROGRESS NOTE Legal hold: LPS conserved Client on involuntary status for DTS. Report received from FRANCOISE Mahan with use of SBAR. Why are they here: Pt is LPS conserved. He eloped from [facility] in [facility] multiple times and was transferred here until a more secure living arrangement can be made. Pt has history of Schizoaffective, Bipolar type and Cluster B traits. Pt has Hx of Etoh abuse, cannibis and nicotine dependance. Pt states "I was drinking and smokin doobies and they told me to stay out of the park, so I had to get outta there." Pts tox screen is negative. Pt states "Im in a great mood, Im glad to be back home in [place]." Pt is delusional believes he is a member of the [employer]. Assessment What has happened this shift: Pt was seen in his room during shift change. He states that he still feels pretty lazy and pretty much didnt do anything all day. Planned on exercising but just didnt feel like it. He was observed ambulating the isles and socializing with other patients but for the most part he was isolative to his room. Pt denies any A/VH, S/I, H/I, depression or anxiety and did not make any delusional statements per this shift. He was compliant with 1:1 physical assessment and took all his HS meds without any issues. He retired to bed after medication pass and was not seen out of his room all night. SI/HI: Denies A/VH: Denies, does not appear to be responding to internal stimuli Sleep: Currently sleeping, see sleep assessment for total hours ADL's: Independent Group attendance: None during [facility] shift lead Were Meds taken: Yes Any med S/E: None reported or observed Mental Status Exam Appearance: Appropriately dressed wearing personal clothing Eye contact: Good, direct Behavior: Cooperative, respectful, calm, less talkative today, isolative Speech: clear, normal rate and rhythm, minimal. Mood: "I'm pretty good." Affect: Constricted Thought process: Circumstantial Thought Content: Exercise, medication Cognition: A/O X 4 Insight: Poor. Judgment: Poor. Interventions PRN's used: None Therapeutic interventions: provided 1:1 assessment w/therapeutic communication and active listening, medication administration/education/monitoring, positive reinforcement, Q 15 min safety checks. Restraints/seclusion/emergency medication: N/A Justification of Continued Inpatient Treatment: Continued therapeutic support and medication management and monitoring needed to prevent decompensation, and improve coping mechanisms decreasing risk to patient and re-admittance.
[2019-12-13] MEDS: PALIPERIDONE 3 MG TAB.ER.24 PO SCH (08:09)
[2019-12-13] MEDS: oxcarbazepine 150mg tablet PO SCH ×2 (08:09→21:33)
[2019-12-13] MEDS: lithium carbonate 150mg capsule PO SCH ×2 (08:09→21:35)
[2019-12-13] MEDS: haloperidol 5mg tablet PO SCH ×3 (08:09→21:34)
[2019-12-13] MEDS: levoTHYROXINE 25mcg tablet PO SCH (08:09)
[2019-12-13] MEDS: benztropine 1mg tablet PO SCH ×2 (08:10→21:34)
[2019-12-13 08:55] VITALS: BP 102/60
--- NOTE | 2019-12-13 12:21 | NUR ---
NURSING PROGRESS NOTE: Legal hold: Conserved, LPS Client on involuntary status for DTS. Report received from XANDER Bean with use of SBAR. Why are they here: Pt is LPS conserved. He eloped from [facility] in [facility] multiple times and was transferred here until a more secure living arrangement can be made. Pt has history of Schizoaffective, Bipolar type and Cluster B traits. Pt has Hx of ETOH abuse, cannabis and nicotine dependance. Pt states "I was drinking and smokin' doobies and they told me to stay out of the park, so I had to get outta there." Pts tox screen is negative. Pt states "Im in a great mood, Im glad to be back home in [place]." Pt is delusional believes he is a member of the [employer]. Assessment: What has happened this shift: Patient was resting in bed peacefully at change of shift. He is pleasant and cooperative with care and takes his medications as ordered without incident. He continues to isolate in his room. He eats his meals in his room. He denies SI/HI, A/VH. He states "i feel good", "I am just chillin'". SI/HI: Denies A/VH: Denies Sleep: Pt. Napped most of shift. ADL's: Independent Group attendance: N/A Were Meds taken: Yes Any med S/E: Denies Mental Status Exam Appearance: Casual, in sweatshirt and green scrub pants Eye contact: Good, direct Behavior: Cooperative, isolative Speech: Clear Mood: Euthymic Affect: Congruent with mood Thought process: Linear Thought Content: Immediate needs Cognition: A/O X 4 Insight: Poor. Judgment: Poor. Interventions PRN's used: None Therapeutic interventions: provided 1:1 assessment w/therapeutic communication and active listening, medication administration/education/monitoring, positive reinforcement, Q 15 min safety checks. Restraints/seclusion/emergency medication: N/A Justification of Continued Inpatient Treatment: Continued therapeutic support and medication management and monitoring needed to prevent decompensation, and improve coping mechanisms decreasing risk to patient and re-admittance. Addendum: 12/13/19 at 1557 by Bonny Gage RN Patient asked for number of public guardian and this was provided. He is seen in the afternoon ambulating in the halls and interacting with peers. Behavior appropriate.
[2019-12-13 20:13] VITALS: BP 114/65
--- NOTE | 2019-12-13 23:26 | NUR ---
NURSING PROGRESS NOTE Legal hold: LPS conserved Client on involuntary status for DTS Report received from FRANCOISE Mahan with use of SBAR. Why are they here: Pt is LPS conserved. He eloped from [facility] in [facility] multiple times and was transferred here until a more secure living arrangement can be made. Pt has history of Schizoaffective, Bipolar type and Cluster B traits. Pt has Hx of Etoh abuse, cannibis and nicotine dependance. Pt states "I was drinking and smokin' doobies and they told me to stay out of the park, so I had to get outta there." Pts tox screen is negative. Pt states "Im in a great mood, Im glad to be back home in [place]." Pt is delusional believes he is a member of the [employer]. Assessment What has happened this shift: Pt walking around, engaging with peers most of the shift. Pt is observed to be laughing and behaving in a pleasant manner. Pt denies all signs and symptoms, and did not make any delusional statements. Over heard discussing wanting to leave, and hoping the "staff gets its act together so I can get out of here" with a peer, but remains cooperative with care. Pt requested a shower this evening then took his HS medications and retired to sleep. SI/HI: Denies A/VH: Denies, does not appear to be responding to internal stimuli Sleep:See Sleep Assessment ADL's: Independent Group attendance: N/A Were Meds taken: Yes Any med S/E: None reported nor observed Mental Status Exam Appearance: Appropriately dressed, wearing personal shirt, hat and unit scrub pants, took a shower Eye contact: Direct Behavior: Cooperative, Calm, Walking the unit, engaging with peers Speech: Clear, normal rate and rhythm Mood: "I'm pretty good." Affect: Congruent to mood Thought process: Circumstantial Thought Content: wanting to shower Cognition: A&Ox4 Insight: Poor Judgment: Poor Interventions PRN's used: None Therapeutic interventions: provided 1:1 assessment w/therapeutic communication and active listening, medication administration/education/monitoring, positive reinforcement, Q 15 min safety checks. Restraints/seclusion/emergency medication: N/A Justification of Continued Inpatient Treatment: Continued therapeutic support and medication management and monitoring needed to prevent decompensation, and improve coping mechanisms decreasing risk to patient and re-admittance.
[2019-12-14 07:35] VITALS: BP 104/69
[2019-12-14] MEDS: PALIPERIDONE 3 MG TAB.ER.24 PO SCH (08:05)
[2019-12-14] MEDS: lithium carbonate 150mg capsule PO SCH ×2 (08:05→20:45)
[2019-12-14] MEDS: oxcarbazepine 150mg tablet PO SCH ×2 (08:05→20:46)
[2019-12-14] MEDS: haloperidol 5mg tablet PO SCH ×3 (08:05→20:46)
[2019-12-14] MEDS: benztropine 1mg tablet PO SCH ×2 (08:05→20:46)
[2019-12-14] MEDS: levoTHYROXINE 25mcg tablet PO SCH (08:06)
--- NOTE | 2019-12-14 10:25 | NUR ---
Reassessment: Pt PO 100% avg regular diet meeting needs. LBM 12/11. No nutrition concerns at this time. Will continue to monitor. Rec: 1. advance diet as medically indicated to heart healthy 2. bowel care as needed 3. wt per rx Addendum: 12/14/19 at [address] Amended: Links added.
--- NOTE | 2019-12-14 15:14 | NUR ---
NURSING PROGRESS NOTE: Legal hold: Conserved, LPS Client on involuntary status for DTS. Report received from XANDER Bean with use of SBAR. Why are they here: Pt is LPS conserved. He eloped from [facility] in [facility] multiple times and was transferred here until a more secure living arrangement can be made. Pt has history of Schizoaffective, Bipolar type and Cluster B traits. Pt has Hx of ETOH abuse, cannabis and nicotine dependance. Pt states "I was drinking and smokin' doobies and they told me to stay out of the park, so I had to get outta there." Pts tox screen is negative. Pt states "Im in a great mood, Im glad to be back home in [place]." Pt is delusional believes he is a member of the [employer]. Assessment: What has happened this shift: Patient was comfortably resting in bed at beggining of the shift. he is pleasant and cooperative with care and medication administration, after counting every pill individually. He continues to isolate in his room nad nap most of the day. He eats his meals in his room. He denies SI/HI, A/VH. He states "I am doing well, today is a good day.". SI/HI: Denies A/VH: Denies Sleep: Pt. Napped most of shift. ADL's: Independent Group attendance: N/A Were Meds taken: Yes Any med S/E: Denies Mental Status Exam Appearance: comfortable wrapped in blanket with green scrub pants and no shirt, Eye contact: Good, direct Behavior: Cooperative, isolative Speech: Clear Mood: Euthymic Affect: Congruent with mood Thought process: Linear Thought Content: Immediate needs Cognition: A/O X 4 Insight: Poor. Judgment: Poor. Interventions PRN's used: None Therapeutic interventions: provided 1:1 assessment w/therapeutic communication and active listening, medication administration/education/monitoring, positive reinforcement, Q 15 min safety checks. Restraints/seclusion/emergency medication: N/A Justification of Continued Inpatient Treatment: Continued therapeutic support and medication management and monitoring needed to prevent decompensation, and improve coping mechanisms decreasing risk to patient and re-admittance.
[2019-12-14 20:15] VITALS: BP 110/78
--- NOTE | 2019-12-15 02:39 | NUR ---
NURSING PROGRESS NOTE Legal hold: LPS conserved Client on involuntary status for DTS Report received from FRANCOISE Mahan with use of SBAR. Why are they here: Pt is LPS conserved. He eloped from [facility] in [facility] multiple times and was transferred here until a more secure living arrangement can be made. Pt has history of Schizoaffective, Bipolar type and Cluster B traits. Pt has Hx of Etoh abuse, cannibis and nicotine dependance. Pt states "I was drinking and smokin' doobies and they told me to stay out of the park, so I had to get outta there." Pts tox screen is negative. Pt states "Im in a great mood, Im glad to be back home in [place]." Pt is delusional believes he is a member of the [employer]. Assessment What has happened this shift: Pt walking around, engaging with peers most of the shift. Pt is observed to be laughing and behaving in a pleasant manner. Pt denies all signs and symptoms, and did not make any delusional statements. Pt watched TV and attended snack, then went to sleep immediately after medication administration. Pt woke one time to request a snack before returning to bed. SI/HI: Denies A/VH: Denies, does not appear to be responding to internal stimuli Sleep:See Sleep Assessment ADL's: Independent Group attendance: N/A Were Meds taken: Yes Any med S/E: None reported nor observed Mental Status Exam Appearance: Appropriately dressed, wearing personal shirt, hat and unit scrub pants Eye contact: Direct Behavior: Cooperative, Calm, Walking the unit, engaging with peers Speech: Clear, normal rate and rhythm Mood: "Good" Affect: Congruent to mood Thought process: Circumstantial Thought Content: bored Cognition: A&Ox4 Insight: Poor Judgment: Poor to fair Interventions PRN's used: None Therapeutic interventions: provided 1:1 assessment w/therapeutic communication and active listening, medication administration/education/monitoring, positive reinforcement, Q 15 min safety checks. Restraints/seclusion/emergency medication: N/A Justification of Continued Inpatient Treatment: Continued therapeutic support and medication management and monitoring needed to prevent decompensation, and improve coping mechanisms decreasing risk to patient and re-admittance.
[2019-12-15] MEDS: haloperidol 5mg tablet PO SCH ×3 (08:04→21:43)
[2019-12-15] MEDS: benztropine 1mg tablet PO SCH ×2 (08:04→20:55)
[2019-12-15] MEDS: PALIPERIDONE 3 MG TAB.ER.24 PO SCH (08:05)
[2019-12-15] MEDS: oxcarbazepine 150mg tablet PO SCH ×2 (08:05→20:56)
[2019-12-15] MEDS: lithium carbonate 150mg capsule PO SCH ×2 (08:05→21:43)
[2019-12-15] MEDS: levoTHYROXINE 25mcg tablet PO SCH (08:05)
[2019-12-15 08:06] VITALS: BP 95/50
[2019-12-15 08:30] VITALS: BP 120/80
--- NOTE | 2019-12-15 13:26 | NUR ---
Nursing Progress Note: Legal hold: LPS Client on involuntary status for GD Report received from nurse with use of SBAR: Radha RN Why are they here: He eloped from [facility] in [facility] multiple times and was transferred here until a more secure living arrangement can be made. Pt has history of Schizoaffective, Bipolar type and Cluster B traits. Pt has Hx of Etoh abuse, Cannibis and nicotine dependance. Pt states, "I was drinking and smokin doobies and they told me to stay out of the park, so I had to get outta there." Pt's tox screen is negative. Pt states "Im in a great mood, Im glad to be back home in [place]." Pt is delusional believes he is a member of the [employer]. Assessment What has happened this shift: Received pt. laying in bed sleeping at the beginning of the shift, he awakens for breakfast and appropriately greets this commercial loan underwriter. 1:1 completed at bedside, pt. continues to deny all M/H s/s, however makes occasional delusional statements. He states, "I bet you're jealous that I get to sleep all day and get paid for it by my boss." This commercial loan underwriter questioned pt. regarding who his "Boss" is, and he stated, "I can't tell you." Pt. continues to talk about discharging to go and live with his family on a "b[place] land." He is up in the hallway throughout the shift, interacting appropriately with others. A/VH: Denies Sleep: Pt. reports that he had difficulty falling asleep last night, sleep hours are 5 ADL's: Requires some direction from staff Group attendance: N/A Were meds taken: Yes Any med S/E: None Mental Status Exam Appearance: Hair disheveled r/t laying in bed, appropriately dressed Eye contact: Good Behavior: Pleasant and cooperative Speech: Soft and WNL Mood: Pleasant Affect: Blunted Thought process: Tangental Thought Content: Continues to make delusional statements. Preoccupation with desire to discharge Cognition: A&O X3 Insight: Poor Judgment: Poor to fair Interventions PRN's used: None Therapeutic interventions: Ensured contract for safety, maintained a safe and supportive environment, provided clear and simple instructions, provided active listening and positive encouragement, provided medication education, and maintained a safe and supportive environment. Restraints/seclusion/emergency medication: N/A Justification of Continued Inpatient Treatment: Per Young Mckeon PA, pt. remains pleasantly psychotic and continues to require a safe and supportive environment.
--- NOTE | 2019-12-15 13:47 | NUR ---
PLACEMENT Faxed packet to [facility] office for placement purposes. BART Rollins
[2019-12-15 20:00] VITALS: BP 122/74
--- NOTE | 2019-12-16 01:25 | NUR ---
NURSING PROGRESS NOTE Legal hold: LPS conserved Client on involuntary status for DTS Report received XANDER Quach with use of SBAR. Why are they here: Patient is LPS conserved. [facility] multiple times and was transferred here until a more secure living arrangement can be made. Pt has history of Schizoaffective, Bipolar type and Cluster B traits. Pt has Hx of Etoh abuse, cannibis and nicotine dependance. Pt states "I was drinking and smokin' doobies and they told me to stay out of the park, so I had to get outta there." Pt's tox screen is negative. Patient states "I'm in a great mood, I'm glad to be back home in [place]." Patient is delusional believes he is a member of the [employer]. Assessment What has happened this shift: Patient resting in his bed at shift change. Patient rouses to name "Ya I'm just relaxing." By the way I did wash my sweatshirt last night, I only have 2 shirts." Patient showed this advertising copy writer an [employer] shirt and stated "I got it from Gulshan Bray he is my cousin." Patient continues to deny all symptoms. Patient is cooperative with 1:1 assessment completed at bedside. Patient appeared a little more fatigued this shift. Patient went to bed immediatly after night time medications administered. [place] level 0.6 on 11/29. SI/HI: Denies A/VH: Denies Sleep: No issue falling asleep. Up once for a snack then back to bed. See Sleep Assessment for total hours. ADL's: Independent Group attendance: shift superintendent caustic cresylate, no group. Were Meds taken: Yes, without incident. Any med S/E: None observed or reported. Mental Status Exam Appearance: Appropriately dressed, wearing personal shirt, hat and unit scrub pants. Eye contact: Direct Behavior: Cooperative, calm, a little fatigued this shift. Speech: Clear, normal rate and rhythm Mood: "Good, ya I'm good." "Just hanging out." Affect: Bright. Thought process: Circumstantial Thought Content: Cognition: A&Ox4 Insight: Poor Judgment: Poor to fair Interventions PRN's used: None Therapeutic interventions: provided 1:1 assessment w/therapeutic communication and active listening, medication administration/education/monitoring, positive reinforcement, Q 15 min safety checks. Restraints/seclusion/emergency medication: N/A Justification of Continued Inpatient Treatment: Patient is LPS conserved. Patient is stable per Dr. Dale last progress note. Patient is awaiting placement and contineus to receive medication adjustment and mangement in a therapeutic environment.
[2019-12-16 07:36] VITALS: BP 106/62
[2019-12-16] MEDS: oxcarbazepine 150mg tablet PO SCH ×2 (08:25→20:57)
[2019-12-16] MEDS: levoTHYROXINE 25mcg tablet PO SCH (08:25)
[2019-12-16] MEDS: PALIPERIDONE 3 MG TAB.ER.24 PO SCH (08:25)
[2019-12-16] MEDS: haloperidol 5mg tablet PO SCH ×3 (08:26→21:19)
[2019-12-16] MEDS: lithium carbonate 150mg capsule PO SCH ×2 (08:26→21:18)
[2019-12-16] MEDS: benztropine 1mg tablet PO SCH ×2 (08:26→20:57)
--- NOTE | 2019-12-16 10:36 | NUR ---
MANUEL Sepulveda's packet is currently at [facility], [facility], and [facility]. BART Rollins
--- NOTE | 2019-12-16 16:56 | NUR ---
Nursing Progress Note: Legal hold: LPS Client on involuntary status for GD Report received from nurse with use of SBAR: Radha RN Why are they here: [facility] and was transferred here until a more secure living arrangement can be made. Pt has history of Schizoaffective, Bipolar type and Cluster B traits. Pt has Hx of Etoh abuse, Cannibis and nicotine dependance. Pt states, "I was drinking and smoking doobies and they told me to stay out of the park, so I had to get outta there." Pt's tox screen is negative. Pt states "Im in a great mood, Im glad to be back home in [place]." Pt is delusional believes he is a member of the [employer]. Assessment What has happened this shift: Received pt. laying in bed sleeping at the beginning of the shift, he awakens for breakfast and appropriately greets this aligner typewriter. 1:1 completed at bedside, pt. continues to deny all M/H s/s, however makes occasional delusional statements. He is up in the hallway, interacting appropriately with others. Mostly stays in his room. A/VH: Denies Sleep: Pt reports that he slept fairly well ADL's: independent Group attendance: N/A Were meds taken: Yes Any med S/E: None Mental Status Exam Appearance: Hair disheveled r/t laying in bed, appropriately dressed Eye contact: Good Behavior: Pleasant and cooperative Speech: WNL Mood: Pleasant Affect: Blunted Thought process: Tangental Thought Content: Continues to make delusional statements. Preoccupation with desire to discharge Cognition: A&O X3 Insight: Poor Judgment: Poor to fair Interventions PRN's used: None Therapeutic interventions: Ensured contract for safety, maintained a safe and supportive environment, provided clear and simple instructions, provided active listening and positive encouragement, provided medication education, and maintained a safe and supportive environment. Restraints/seclusion/emergency medication: N/A Justification of Continued Inpatient Treatment: Per KARMEN Barnes, pt. remains pleasantly psychotic and continues to require a safe and supportive environment.
[2019-12-16 19:00] VITALS: BP 105/78
--- NOTE | 2019-12-17 01:14 | NUR ---
NURSING PROGRESS NOTE Legal hold: LPS conserved Client on involuntary status for DTS Report received from FRANCOISE Ramírez with use of SBAR. Why are they here: Pt is LPS conserved. He eloped from [facility] in [facility] multiple times and was transferred here until a more secure living arrangement can be made. Pt has history of Schizoaffective, Bipolar type and Cluster B traits. Pt has Hx of Etoh abuse, cannabis and nicotine dependance. Pt states "I was drinking and smokin' doobies and they told me to stay out of the park, so I had to get outta there." Pt's tox screen is negative. Pt states "Im in a great mood, I'm glad to be back home in [place]." Pt is delusional believes he is a member of the [employer]. Assessment What has happened this shift: Patient was in his room resting at shift change, patient rouses to name. Patient presents as sedated, but patient denies feeling tired, "I am just resting." Patient has dark circles under his eyes. Patient makes no delusional statements this shift. Patient is cooperative with care and compliant with medication. Patient remains in bed most of shift is up for snack walks the halls for a short time then returns to bed. [place] level 0.6 drawn on 11/30/19. SI/HI: Patient denies, none observed. A/VH: Patient denies, none observed. Sleep: Falls asleep without issue. See Sleep Assessment for total hours. ADL's: Independent Group attendance: supervisor polishing, no group. Were Meds taken: Takes medication without incident. Any med S/E: None observed or reported. Mental Status Exam Appearance: Appropriately dressed, wearing personal sweatshirt, hat and unit scrub pants Eye contact: Good Behavior: Cooperative, sedated, friendly Speech: Clear, normal rate/rhythm Mood: "I am feeling relaxed" Affect: Congruent to mood Thought process: Circumstantial Thought Content: Sedated Cognition: A&Ox4 Insight: Poor Judgment: Poor to fair Interventions PRN's used: None Therapeutic interventions: provided 1:1 assessment w/therapeutic communication and active listening, medication administration/education/monitoring, positive reinforcement, Q 15 min safety checks. Restraints/seclusion/emergency medication: N/A Justification of Continued Inpatient Treatment: Patient is LPS conserved waiting placement. Patient continues to receive therapeutic support and medication management.
[2019-12-17 07:57] VITALS: BP 91/56
[2019-12-17] MEDS: benztropine 1mg tablet PO SCH ×2 (08:31→20:53)
[2019-12-17] MEDS: PALIPERIDONE 3 MG TAB.ER.24 PO SCH (08:31)
[2019-12-17] MEDS: haloperidol 5mg tablet PO SCH ×3 (08:31→20:54)
[2019-12-17] MEDS: levoTHYROXINE 25mcg tablet PO SCH (08:32)
[2019-12-17] MEDS: oxcarbazepine 150mg tablet PO SCH ×2 (08:32→20:53)
[2019-12-17] MEDS: lithium carbonate 150mg capsule PO SCH ×2 (08:32→20:53)
--- NOTE | 2019-12-17 15:45 | NUR ---
Nursing Progress Note: Legal hold: LPS Client on involuntary status for GD Report received from nurse with use of SBAR: Sona Garcia RN Why are they here: He eloped from [facility] in [facility] multiple times and was transferred here until a more secure living arrangement can be made. Pt has history of Schizoaffective, Bipolar type and Cluster B traits. Pt has Hx of Etoh abuse, Cannibis and nicotine dependance. Pt states, "I was drinking and smoking doobies and they told me to stay out of the park, so I had to get outta there." Pt's tox screen is negative. Pt states "Im in a great mood, Im glad to be back home in [place]." Pt is delusional believes he is a member of the [employer]. Assessment What has happened this shift: Pt remained in bed most of the morning. Pt up and visible more in the afternoon. Pt pleasant with bright affect. Pt interacting intermittently but appropriately with staff and peers. Pt denies suicidal and homicidal thoughts and denies hallucinations. SI/HI: denies A/VH: denies Sleep: Pt reports that he slept fairly well ADL's: independent Group attendance: N/A Were meds taken: Yes Any med S/E: None Mental Status Exam Appearance: Hair disheveled r/t laying in bed, appropriately dressed Eye contact: Good Behavior: Pleasant and cooperative Speech: WNL Mood: Pleasant Affect: Blunted Thought process: Tangental Thought Content: Continues to make delusional statements. Preoccupation with desire to discharge Cognition: A&O X3 Insight: Poor Judgment: Poor to fair Interventions PRN's used: None Therapeutic interventions: Ensured contract for safety, maintained a safe and supportive environment, provided clear and simple instructions, provided active listening and positive encouragement, provided medication education, and maintained a safe and supportive environment. Restraints/seclusion/emergency medication: N/A Justification of Continued Inpatient Treatment: Per KARMEN Barnes, pt. remains pleasantly psychotic and continues to require a safe and supportive environment.
[2019-12-17 19:00] VITALS: BP 109/79
--- NOTE | 2019-12-18 03:20 | NUR ---
NURSING PROGRESS NOTE Legal hold: LPS conserved Client on involuntary status for DTS Report received from XANDER Ramírez with use of SBAR. Why are they here: Pt is LPS conserved. He eloped from [facility] in [facility] multiple times and was transferred here until a more secure living arrangement can be made. Pt has history of Schizoaffective, Bipolar type and Cluster B traits. Pt has Hx of Etoh abuse, cannabis and nicotine dependance. Pt states "I was drinking and smokin' doobies and they told me to stay out of the park, so I had to get outta there." Pt's tox screen is negative. Pt states "Im in a great mood, I'm glad to be back home in [place]." Pt is delusional believes he is a member of the [employer]. Assessment What has happened this shift: Patient was in the shower at shift change. Patient is later observed walking the subramanian with peers, socializing appropriately. This leader writer overheard him talking about "all the houses he has and will be leaving here soon." Patient takes medication without incident and 1:1 assessment completed at bedside. Patient appears less sedated then last night. Patient states he is not tired, "there is just nothing to do." [place] level 0.6 drawn on 11/30/19. SI/HI: Patient denies, none observed. A/VH: Patient denies, none observed. Sleep: Falls asleep without issue. See Sleep Assessment for total hours. ADL's: Independent. Patient showered this shift. Group attendance: telecasting technician, no group. Were Meds taken: Takes medication without incident. Any med S/E: None observed or reported. Mental Status Exam Appearance: Appropriately dressed, wearing red beanie, black shirt and unit scrub pants Eye contact: Good Behavior: Cooperative, pleasant, polite, Speech: Clear, normal rate/rhythm Mood: Bored Affect: Congruent to mood Thought process: Circumstantial Thought Content: Grandiose Cognition: A&Ox3 Insight: Poor Judgment: Poor to fair Interventions PRN's used: None Therapeutic interventions: provided 1:1 assessment w/therapeutic communication and active listening, medication administration/education/monitoring, positive reinforcement, Q 15 min safety checks. Restraints/seclusion/emergency medication: N/A Justification of Continued Inpatient Treatment: Patient is LPS conserved waiting placement. Patient continues to receive therapeutic support and medication management.
[2019-12-18 07:42] VITALS: BP 111/68
[2019-12-18] MEDS: oxcarbazepine 150mg tablet PO SCH ×2 (07:56→20:19)
[2019-12-18] MEDS: PALIPERIDONE 3 MG TAB.ER.24 PO SCH (07:56)
[2019-12-18] MEDS: haloperidol 5mg tablet PO SCH ×3 (07:57→20:18)
[2019-12-18] MEDS: benztropine 1mg tablet PO SCH ×2 (07:57→20:17)
[2019-12-18] MEDS: levoTHYROXINE 25mcg tablet PO SCH (07:57)
[2019-12-18] MEDS: lithium carbonate 150mg capsule PO SCH ×2 (07:57→20:19)
--- NOTE | 2019-12-18 17:26 | NUR ---
Nursing Progress Note: Legal hold: LPS Client on involuntary status for GD Report received from nurse with use of SBAR: Sona Garcia RN Why are they here: He eloped from [facility] in [facility] multiple times and was transferred here until a more secure living arrangement can be made. Pt has history of Schizoaffective, Bipolar type and Cluster B traits. Pt has Hx of Etoh abuse, Cannibis and nicotine dependance. Pt states, "I was drinking and smoking doobies and they told me to stay out of the park, so I had to get outta there." Pt's tox screen is negative. Pt states "Im in a great mood, Im glad to be back home in [place]." Pt is delusional believes he is a member of the [employer]. Assessment What has happened this shift: Patient eats all meals in his room and takes medications without incident. Patient reports that he is doing good. Reports that when he is discharged he is going to go home to his family, and meet his children for the first time. Patient makes delusional statements such as: I went to school with Giuseppe son. My ex ran off with Vamsi Armijo son. Patient slept until lunch and has been socializing appropriately on the unit with peers. SI/HI: denies A/VH: denies Sleep: Napped in a.m. ADL's: independent Group attendance: N/A Were meds taken: Yes Any med S/E: None Mental Status Exam Appearance: Hair disheveled r/t laying in bed, appropriately dressed in unit attire. Eye contact: Good Behavior: Pleasant and cooperative Speech: Clear, normal rate and volume. Mood: Pleasant Affect: Blunted Thought process: Delusions. Thought Content: Continues to make delusional statements. Preoccupation with desire to discharge Cognition: A&O X3 Insight: Poor Judgment: Poor Interventions PRN's used: None Therapeutic interventions: Ensured contract for safety, maintained a safe and supportive environment, provided clear and simple instructions, provided active listening and positive encouragement, provided medication education, and maintained a safe and supportive environment. Restraints/seclusion/emergency medication: N/A Justification of Continued Inpatient Treatment: Per KARMEN Barnes, pt. remains pleasantly psychotic and continues to require a safe and supportive environment.
[2019-12-18 20:00] VITALS: BP 116/70
--- NOTE | 2019-12-19 00:47 | NUR ---
Nursing Progress Note: Legal hold: LPS Client on involuntary status for GD Report received from nurse with use of SBAR: XANDER Ramírez Why are they here: He eloped from [facility] in [facility] multiple times and was transferred here until a more secure living arrangement can be made. Pt has history of Schizoaffective, Bipolar type and Cluster B traits. Pt has Hx of Etoh abuse, Cannibis and nicotine dependance. Pt states, "I was drinking and smoking doobies and they told me to stay out of the park, so I had to get outta there." Pt's tox screen is negative. Pt states "Im in a great mood, Im glad to be back home in [place]." Pt is delusional believes he is a member of the [employer]. Assessment What has happened this shift: Patient in room at the start of shift. Pt stating I'm not realy sleeping just resting. Pt got up for snack and meds. He paced the subramanian for awhile before returning to his room. Pt is very social when he is up. SI/HI: denies A/VH: denies Sleep: Napped in a.m. ADL's: independent Group attendance: N/A Were meds taken: Yes Any med S/E: None Mental Status Exam Appearance: Hair disheveled r/t laying in bed, appropriately dressed in unit attire. Eye contact: Good Behavior: Pleasant and cooperative Speech: Clear, normal rate and volume. Mood: Pleasant Affect: Blunted Thought process: Delusions. Thought Content: Continues to make delusional statements. Preoccupation with desire to discharge Cognition: A&O X3 Insight: Poor Judgment: Poor Interventions PRN's used: None Therapeutic interventions: Ensured contract for safety, maintained a safe and supportive environment, provided clear and simple instructions, provided active listening and positive encouragement, provided medication education, and maintained a safe and supportive environment. Restraints/seclusion/emergency medication: N/A Justification of Continued Inpatient Treatment: Per KARMEN Barnes, pt. remains pleasantly psychotic and continues to require a safe and supportive environment.
[2019-12-19 07:49] VITALS: BP 91/58
[2019-12-19] MEDS: benztropine 1mg tablet PO SCH ×2 (08:32→20:33)
[2019-12-19] MEDS: PALIPERIDONE 3 MG TAB.ER.24 PO SCH (08:36)
[2019-12-19] MEDS: levoTHYROXINE 25mcg tablet PO SCH (08:37)
[2019-12-19] MEDS: lithium carbonate 150mg capsule PO SCH ×2 (08:37→20:34)
[2019-12-19] MEDS: oxcarbazepine 150mg tablet PO SCH ×2 (08:37→20:33)
[2019-12-19] MEDS: haloperidol 5mg tablet PO SCH ×3 (08:37→20:33)
--- NOTE | 2019-12-19 17:46 | NUR ---
Nursing Progress Note: Legal hold: LPS Client on involuntary status for GD Report received from nurse with use of SBAR: Why are they here: He eloped from [facility] in [facility] multiple times and was transferred here until a more secure living arrangement can be made. Pt has history of Schizoaffective, Bipolar type and Cluster B traits. Pt has Hx of Etoh abuse, Cannabis and nicotine dependence. Pt states, "I was drinking and smoking doobies and they told me to stay out of the park, so I had to get outta there." Pt's tox screen is negative. Pt states "Im in a great mood, Im glad to be back home in [place]." Pt is delusional believes he is a member of the [employer]. Assessment What has happened this shift: Patient attends all meals in the dining room, then returns to his room to sleep. 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 Patient states that he doesnt like to talk about the work that he does for the [employer], because no one believes him. Patient is pleasantly delusional. SI/HI: denies A/VH: denies Sleep: Slept most of the day. ADL's: independent Group attendance: N/A Were meds taken: Yes Any med S/E: None Mental Status Exam Appearance: Clean, disheveled in personal attire. Eye contact: Good Behavior: Pleasant and cooperative Speech: Clear, normal rate and volume. Mood: Euthymic. Affect: Blunted Thought process: Delusions. Thought Content: Continues to make delusional statements. Believes he will be leaving soon. Cognition: A&O X3 Insight: Poor Judgment: Poor Interventions PRN's used: None Therapeutic interventions: Ensured contract for safety, maintained a safe and supportive environment, provided clear and simple instructions, provided active listening and positive encouragement, provided medication education, and maintained a safe and supportive environment. Restraints/seclusion/emergency medication: N/A Justification of Continued Inpatient Treatment: Per Young Mckeon PA, pt. remains pleasantly psychotic and continues to require a safe and supportive environment.
[2019-12-19 20:00] VITALS: BP 106/67
--- NOTE | 2019-12-20 00:23 | NUR ---
Nursing Progress Note: Legal hold: LPS Client on involuntary status for GD Report received from nurse with use of SBAR: Why are they here: He eloped from [facility] in [facility] multiple times and was transferred here until a more secure living arrangement can be made. Pt has history of Schizoaffective, Bipolar type and Cluster B traits. Pt has Hx of Etoh abuse, Cannabis and nicotine dependence. Pt states, "I was drinking and smoking doobies and they told me to stay out of the park, so I had to get outta there." Pt's tox screen is negative. Pt states "Im in a great mood, Im glad to be back home in [place]." Pt is delusional believes he is a member of the [employer]. Assessment What has happened this shift: Patient up and in the subramanian at shift change. He is social with peers talking about his past hospital stays. He is happy and compliant. Pt up for snacks and meds then going to bed. Pt states that he would like to go to a IMD. or board and care when discharged. SI/HI: denies A/VH: denies Sleep: Slept most of the day. ADL's: independent Group attendance: N/A Were meds taken: Yes Any med S/E: None Mental Status Exam Appearance: Clean, disheveled in personal attire. Eye contact: Good Behavior: Pleasant and cooperative Speech: Clear, normal rate and volume. Mood: Euthymic. Affect: Blunted Thought process: Delusions. Thought Content: Continues to make delusional statements. Believes he will be leaving soon. Cognition: A&O X3 Insight: Poor Judgment: Poor Interventions PRN's used: None Therapeutic interventions: Ensured contract for safety, maintained a safe and supportive environment, provided clear and simple instructions, provided active listening and positive encouragement, provided medication education, and maintained a safe and supportive environment. Restraints/seclusion/emergency medication: N/A Justification of Continued Inpatient Treatment: KARMEN Kaur, pt. remains pleasantly psychotic and continues to require a safe and supportive environment.
[2019-12-20 07:51] VITALS: BP 103/63
[2019-12-20] MEDS: oxcarbazepine 150mg tablet PO SCH ×2 (07:51→20:25)
[2019-12-20] MEDS: benztropine 1mg tablet PO SCH ×2 (07:51→20:25)
[2019-12-20] MEDS: levoTHYROXINE 25mcg tablet PO SCH (07:51)
[2019-12-20] MEDS: lithium carbonate 150mg capsule PO SCH ×2 (07:52→20:27)
[2019-12-20] MEDS: haloperidol 5mg tablet PO SCH ×3 (07:52→20:26)
[2019-12-20] MEDS: PALIPERIDONE 3 MG TAB.ER.24 PO SCH (07:52)
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
[2019-12-20 20:00] VITALS: BP 111/69
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
[2019-12-21] MEDS: benztropine 1mg tablet PO SCH ×2 (08:16→20:18)
[2019-12-21] MEDS: PALIPERIDONE 3 MG TAB.ER.24 PO SCH (08:16)
[2019-12-21] MEDS: oxcarbazepine 150mg tablet PO SCH ×2 (08:17→20:19)
[2019-12-21] MEDS: levoTHYROXINE 25mcg tablet PO SCH (08:17)
[2019-12-21] MEDS: lithium carbonate 150mg capsule PO SCH ×2 (08:17→20:20)
[2019-12-21] MEDS: haloperidol 5mg tablet PO SCH ×3 (08:18→20:19)
--- NOTE | 2019-12-21 15:28 | NUR ---
Nursing Progress Note: Legal hold: LPS Client on involuntary status for GD Report received from nurse Radha RN with use of SBAR: Why are they here: He eloped from [facility] multiple times and was transferred here until a more secure living arrangement can be made. Pt has history of Schizoaffective, Bipolar type and Cluster B traits. Pt has Hx of ETOH abuse, Cannabis and nicotine dependence. Pt states, "I was drinking and smoking doobies and they told me to stay out of the park, so I had to get outta there." Pt's tox screen is negative. Pt states "Im in a great mood, Im glad to be back home in [place]." Pt is delusional believes he is a member of the [employer]. Assessment What has happened this shift: Pt was up for breakfast but went back to bed immediately afterwards. He woke up to take his pills, counted them, was pleasant and cooperative then went back to sleep. Pt refused lunch despite encouragement from PCT and this nurse. Pt stated that he wasn't hungry and would be fine until dinner. Pt stated, "thanks for checking though." Pt reported his mood as "good." Pt got up out of bed around 1500. He was alert, bright, and friendly. He went out on the patio and socialized with peers. SI/HI: Pt denied. A/VH: Pt denied. Sleep: Pt slept 8 hours last night per noc shift report, he has slept for most of the day. ADL's: Independent Group attendance: N/A Were meds taken: Yes Any med S/E: None noted or reported. Mental Status Exam Appearance: Clean, dressed in street clothes and a beanie. Eye contact: Good Behavior: Pleasant, cooperatives, pt is not an early riser; he sleeps for most of the day ,wakes up in the afternoon. Speech: Clear, audible, polite,normal rate and rhythm. Mood: Good Affect: Bright, affable Thought process: Pleasantly delusional Thought Content: He didn't need lunch today Cognition: A/O X 3, disoriented to situation. Insight: Impaired Judgment: Poor Interventions PRN's used: None Therapeutic interventions: 1;1 assessment, active listening, ensured contract for safety, encouraged pt to get up out of bed, maintained a safe and supportive environment, medication administration/education/monitoring, Q 15 minute safety checks. Restraints/seclusion/emergency medication: N/A Justification of Continued Inpatient Treatment: Per KARMEN Barnes, pt. remains pleasantly psychotic and continues to require a safe and supportive environment awaiting placement.
[2019-12-21 20:17] VITALS: BP 113/53
--- NOTE | 2019-12-21 22:52 | NUR ---
Nursing Progress Note: Legal hold: LPS Client on involuntary status for GD Report received from nurse Desiree TERRELL with use of SBAR: Why are they here: He eloped from [facility] in [facility] multiple times and was transferred here until a more secure living arrangement can be made. Pt has history of Schizoaffective, Bipolar type and Cluster B traits. Pt has Hx of ETOH abuse, Cannabis and nicotine dependence. Pt states, "I was drinking and smoking doobies and they told me to stay out of the park, so I had to get outta there." Pt's tox screen is negative. Pt states "Im in a great mood, Im glad to be back home in [place]." Pt is delusional believes he is a member of the [employer]. Assessment What has happened this shift: Pt up on unit social with peers. Pt watched tv for awhile and paced the subramanian. Pt states that he feels good and would like to go to a board and care. but states its nice here to. Pt is med compliant denies any SI/HI and AH/VH. Pt ate snack and went to bed. SI/HI: Pt denied. A/VH: Pt denied. Sleep: Pt slept 8 hours last night per noc shift report, he has slept for most of the day. ADL's: Independent Group attendance: N/A Were meds taken: Yes Any med S/E: None noted or reported. Mental Status Exam Appearance: Clean, dressed in street clothes and a beanie. Eye contact: Good Behavior: Pleasant, cooperatives, pt is not an early riser; he sleeps for most of the day ,wakes up in the afternoon. Speech: Clear, audible, polite,normal rate and rhythm. Mood: Good Affect: Bright, affable Thought process: Pleasantly delusional Thought Content: He didn't need lunch today Cognition: A/O X 3, disoriented to situation. Insight: Impaired Judgment: Poor Interventions PRN's used: None Therapeutic interventions: 1;1 assessment, active listening, ensured contract for safety, encouraged pt to get up out of bed, maintained a safe and supportive environment, medication administration/education/monitoring, Q 15 minute safety checks. Restraints/seclusion/emergency medication: N/A Justification of Continued Inpatient Treatment: Per R. Mike, PA, pt. remains pleasantly psychotic and continues to require a safe and supportive environment awaiting placement.
[2019-12-22] MEDS: benztropine 1mg tablet PO SCH ×2 (07:37→20:36)
[2019-12-22] MEDS: levoTHYROXINE 25mcg tablet PO SCH (07:38)
[2019-12-22] MEDS: lithium carbonate 150mg capsule PO SCH ×2 (07:38→20:36)
[2019-12-22] MEDS: haloperidol 5mg tablet PO SCH ×3 (07:38→20:37)
[2019-12-22] MEDS: oxcarbazepine 150mg tablet PO SCH ×2 (07:38→20:36)
[2019-12-22] MEDS: PALIPERIDONE 3 MG TAB.ER.24 PO SCH (07:38)
[2019-12-22 08:00] VITALS: BP 99/60
--- NOTE | 2019-12-22 15:28 | NUR ---
Nursing Progress Note: Legal hold: LPS Client on involuntary status for GD Report received from nurse with use of SBAR: Radha RN Why are they here: He eloped from [facility] in [facility] multiple times and was transferred here until a more secure living arrangement can be made. Pt has history of Schizoaffective, Bipolar type and Cluster B traits. Pt has Hx of Etoh abuse, Cannibis and nicotine dependance. Pt states, "I was drinking and smokin doobies and they told me to stay out of the park, so I had to get outta there." Pt's tox screen is negative. Pt states "Im in a great mood, Im glad to be back home in [place]." Pt is delusional believes he is a member of the [employer]. Assessment What has happened this shift: Received pt. laying in bed sleeping at the beginning of the shift, he awoke with some prompting for breakfast. Pt. presents as cooperative, withdrawn, guarded, and fatigued. 1:1 completed at bedside, pt. denies all MH s/s and does not make any delusional statements this shift. He remains in bed throughout much of the day, however attends all meals and is observed to be interacting appropriately with others. Will endorse to Noc shift, and continue to monitor. A/VH: Denies Sleep: Pt. reports he slept well, sleep hours are 8.75 ADL's: Requires some direction from staff Group attendance: No Were meds taken: Yes Any med S/E: None Mental Status Exam Appearance: Hair disheveled r/t laying in bed, appropriately dressed Eye contact: Good Behavior: Pleasant and cooperative Speech: Soft and WNL Mood: Pleasant Affect: Blunted Thought process: Linear Thought Content: Continued preoccupation with desire to discharge Cognition: A&O X3 Insight: Poor Judgment: Fair Interventions PRN's used: None Therapeutic interventions: Ensured contract for safety, maintained a safe and supportive environment, provided clear and simple instructions, provided positive encouragement and encouraged participation on the unit, and maintained a safe and supportive environment. Restraints/seclusion/emergency medication: N/A Justification of Continued Inpatient Treatment: Per Dr. Dale, pt. is at baseline and continues to require a safe and supportive environment while he awaits placement by [facility] at an IMD.
[2019-12-22 20:00] VITALS: BP 142/72
--- NOTE | 2019-12-23 01:13 | NUR ---
Nursing Progress Note: Legal hold: LPS Client on involuntary status for GD Report received from nurse Main RN with use of SBAR: Why are they here: He eloped from [facility] in [facility] multiple times and was transferred here until a more secure living arrangement can be made. Pt has history of Schizoaffective, Bipolar type and Cluster B traits. Pt has Hx of ETOH abuse, Cannabis and nicotine dependence. Pt states, "I was drinking and smoking doobies and they told me to stay out of the park, so I had to get outta there." Pt's tox screen is negative. Pt states "Im in a great mood, Im glad to be back home in [place]." Pt is delusional believes he is a member of the [employer]. Assessment What has happened this shift: Pt walking around the unit and engaging with a few of his peers this evening. He is polite and pleasant during assessment, denying all sx/s. This RN overheard pt talking to mother on the phone, endorsing multiple delusions: "I'm with the [employer]/I gotta quite the partying because there is going to be an Armageddon/I can't keep running from the FBI", however none of these were directly endorsed to the nurse. Pt went to bed early and woke for a snack before returning to bed. SI/HI: Pt denies A/VH: Pt denies Sleep: See Sleep Assessment ADL's: Independent Group attendance: N/A Were meds taken: Yes Any med S/E: None noted or reported. Mental Status Exam Appearance: Clean, dressed in street clothes and a beanie Eye contact: Good Behavior: Pleasant, Cooperative, Engaging with staff/peers, talking on the phone Speech: Clear, audible, normal rate and rhythm. Mood: "I'm alright" Affect: Affable Thought process: Pleasantly delusional Thought Content: Cognition: A/Ox3, disoriented to situation. Insight: Impaired Judgment: Poor Interventions PRN's used: None Therapeutic interventions: 1;1 assessment, active listening, ensured contract for safety, encouraged pt to get up out of bed, maintained a safe and supportive environment, medication administration/education/monitoring, Q 15 minute safety checks. Restraints/seclusion/emergency medication: N/A Justification of Continued Inpatient Treatment: Per KARMEN Barnes, pt. remains pleasantly psychotic and continues to require a safe and supportive environment awaiting placement.
[2019-12-23] MEDS: benztropine 1mg tablet PO SCH ×2 (07:25→20:42)
[2019-12-23] MEDS: PALIPERIDONE 3 MG TAB.ER.24 PO SCH (07:26)
[2019-12-23] MEDS: lithium carbonate 150mg capsule PO SCH ×2 (07:26→20:44)
[2019-12-23] MEDS: haloperidol 5mg tablet PO SCH ×3 (07:26→20:43)
[2019-12-23] MEDS: levoTHYROXINE 25mcg tablet PO SCH (07:26)
[2019-12-23] MEDS: oxcarbazepine 150mg tablet PO SCH ×2 (07:27→20:43)
[2019-12-23 08:24] VITALS: BP 105/50
[2019-12-23 09:00] VITALS: BP 105/50
--- NOTE | 2019-12-23 17:42 | NUR ---
Nursing Progress Note: Legal hold: LPS Client on involuntary status for GD Report received from nurse with use of SBAR: XANDER Garcia Why are they here: He eloped from [facility] multiple times and was transferred here until a more secure living arrangement can be made. Pt has history of Schizoaffective, Bipolar type and Cluster B traits. Pt has Hx of Etoh abuse, Cannibis and nicotine dependance. Pt states, "I was drinking and smokin doobies and they told me to stay out of the park, so I had to get outta there." Pt's tox screen is negative. Pt states "Im in a great mood, Im glad to be back home in [place]." Pt is delusional believes he is a member of the [employer]. Assessment What has happened this shift: Received pt. laying in bed sleeping at the beginning of the shift, awoke to administer AM medications. 1:1 completed at bedside, pt. states, "I feel like a million bucks!" He is animated and denies all MH s/s. When questioned regarding any A/V/, pt. states, "Only when I so acid or mushrooms." This ghost writer questioned pt. regarding any plans to continue to use drugs when he leaves, and he denied this stated, "I'm done partying." Education provided regarding how drug use will negatively affect medications, pt. reported understanding. Pt. continues to make some occasional delusional statements regarding his plan to discharge to his grandfathers house, but admits that he does not know where his grandfather currently lives. He remains in bed throughout much of the day, however attends all meals and is observed to be interacting appropriately with others. A/VH: Denies Sleep: Pt. reports he slept well ADL's: Requires some direction from staff Group attendance: No Were meds taken: Yes Any med S/E: None Mental Status Exam Appearance: Hair disheveled r/t laying in bed, appropriately dressed Eye contact: Good Behavior: Pleasant and cooperative Speech: Soft and WNL Mood: Pleasant Affect: Blunted Thought process: Linear Thought Content: Some ongoing delusional statements Cognition: A&O X3 Insight: Poor Judgment: Fair Interventions PRN's used: None Therapeutic interventions: Ensured contract for safety, maintained a safe and supportive environment, provided clear and simple instructions, provided positive encouragement and encouraged participation on the unit, and maintained a safe and supportive environment. Restraints/seclusion/emergency medication: N/A Justification of Continued Inpatient Treatment: Per Dr. Dale, pt. is at baseline and continues to require a safe and supportive environment while he awaits placement by [facility] at an D.
[2019-12-23 19:00] VITALS: BP 127/75
--- NOTE | 2019-12-24 00:15 | NUR ---
Nursing Progress Note: Legal hold: LPS Client on involuntary status for GD Report received from nurse XANDER Mahan with use of SBAR: Why are they here: He eloped from [facility] in [facility] multiple times and was transferred here until a more secure living arrangement can be made. Pt has history of Schizoaffective, Bipolar type and Cluster B traits. Pt has Hx of ETOH abuse, Cannabis and nicotine dependence. Pt states, "I was drinking and smoking doobies and they told me to stay out of the park, so I had to get outta there." Pt's tox screen is negative. Pt states "Im in a great mood, Im glad to be back home in [place]." Pt is delusional believes he is a member of the [employer]. Assessment What has happened this shift: Pt walking around the unit and engaging with a few of his peers this evening. He is polite and pleasant during assessment, denying all sx/s. Pt compliant with evening medications. Pt went to bed early and woke for a snack before returning to bed. SI/HI: Pt denies A/VH: Pt denies Sleep: See Sleep Assessment ADL's: Independent Group attendance: N/A Were meds taken: Yes Any med S/E: None noted nor reported. Mental Status Exam Appearance: Clean, dressed in street clothes and a beanie Eye contact: Good Behavior: Pleasant, Cooperative, engaging with staff/peers Speech: Clear, audible, normal rate and rhythm. Mood: "I'm alright" Affect: Affable Thought process: Pleasantly delusional Thought Content: Pt talked about snacks, and how he will not be partying any longer Cognition: A/Ox3, disoriented to situation. Insight: Impaired Judgment: Poor Interventions PRN's used: None Therapeutic interventions: 1;1 assessment, active listening, ensured contract for safety, encouraged pt to get up out of bed, maintained a safe and supportive environment, medication administration/education/monitoring, Q 15 minute safety checks. Restraints/seclusion/emergency medication: N/A Justification of Continued Inpatient Treatment: Per KARMEN Barnes, pt. remains pleasantly psychotic and continues to require a safe and supportive environment awaiting placement.
[2019-12-24] MEDS: benztropine 1mg tablet PO SCH ×2 (07:32→20:38)
[2019-12-24] MEDS: haloperidol 5mg tablet PO SCH ×3 (07:32→20:38)
[2019-12-24] MEDS: oxcarbazepine 150mg tablet PO SCH ×2 (07:33→20:37)
[2019-12-24] MEDS: PALIPERIDONE 3 MG TAB.ER.24 PO SCH (07:33)
[2019-12-24] MEDS: levoTHYROXINE 25mcg tablet PO SCH (07:33)
[2019-12-24] MEDS: lithium carbonate 150mg capsule PO SCH ×2 (07:33→20:38)
[2019-12-24 08:00] VITALS: BP 97/59
--- NOTE | 2019-12-24 08:14 | NUR ---
PLACEMENT Derick has been accepted at [facility] and [facility] pending bed availability. BART Rollins
--- NOTE | 2019-12-24 14:52 | NUR ---
Nursing Progress Note: Legal hold: LPS Client on involuntary status for GD Report received from nurse with use of SBAR: XANDER Jon Why are they here: He eloped from [facility] in [facility] multiple times and was transferred here until a more secure living arrangement can be made. Pt has history of Schizoaffective, Bipolar type and Cluster B traits. Pt has Hx of Etoh abuse, Cannibis and nicotine dependance. Pt states, "I was drinking and smokin doobies and they told me to stay out of the park, so I had to get outta there." Pt's tox screen is negative. Pt states "Im in a great mood, Im glad to be back home in [place]." Pt is delusional believes he is a member of the [employer]. Assessment What has happened this shift: Awoke patient to administer AM medications, he was cooperative with medications, however promptly returned back to sleep. Pt. up for all meals and then returned back to bed as is his usual routine, he usually awakens and interacts with others in the late afternoon. Attempted to complete 1:1 at bedside, however r/t fatigue, pt. is minimally responsive to questions. He denies all MH s/s and no delusional statements made. Pt. does not attend group despite prompting from staff, he is observed to be appropriately interacting with others in the late afternoon. S/I/H/I: Denies A/VH: Denies, does not appear internally preoccupied Sleep: Pt. reports he slept well ADL's: Requires some direction from staff Group attendance: No Were meds taken: Yes Any med S/E: None Mental Status Exam Appearance: Hair disheveled r/t laying in bed, appropriately dressed Eye contact: Good Behavior: Animated and cooperative Speech: Soft and WNL Mood: Pleasant Affect: Blunted Thought process: Circumstantial Thought Content: Some ongoing delusional statements at times, but no spontaneous delusional statements made this shift Cognition: A&O X3 Insight: Poor Judgment: Fair Interventions PRN's used: None Therapeutic interventions: Ensured contract for safety, maintained a safe and supportive environment, provided clear and simple instructions, provided positive encouragement and encouraged participation on the unit, and maintained a safe and supportive environment. Restraints/seclusion/emergency medication: N/A Justification of Continued Inpatient Treatment: Pt. continues to require a safe and supportive environment while he awaits placement by [facility] at an IMD.
[2019-12-24 20:18] VITALS: BP 112/79
--- NOTE | 2019-12-25 00:36 | NUR ---
Nursing Progress Note: Legal hold: LPS Client on involuntary status for GD Report received from nurse XANDER Mahan with use of SBAR: Why are they here: He eloped from [facility] in [facility] multiple times and was transferred here until a more secure living arrangement can be made. Pt has history of Schizoaffective, Bipolar type and Cluster B traits. Pt has Hx of ETOH abuse, Cannabis and nicotine dependence. Pt states, "I was drinking and smoking doobies and they told me to stay out of the park, so I had to get outta there." Pt's tox screen is negative. Pt states "Im in a great mood, Im glad to be back home in [place]." Pt is delusional believes he is a member of the [employer]. Assessment What has happened this shift: Pt was visible in the unit, walking the halls during shift change. He was pleasant and socializing appropriately with other patients. When asked how his day had gone he states that he felt very tired so he slept for most of it. 1:1 was done at bedside and pt took all his HS meds but did make a comment about them. I really dont need all this meds, Im going to take them anyways Pt denies any AV/H, anxiety, or depression. There were no delusional statements made by patient and he seems to be at baseline. He requested water and snacks a couple more times before retiring to bed. SI/HI: Pt denies A/VH: Pt denies Sleep: See Sleep Assessment ADL's: Independent Group attendance: N/A Were meds taken: Yes Any med S/E: None noted nor reported. Mental Status Exam Appearance: Clean, dressed in street clothes and a beanie Eye contact: Good Behavior: Pleasant, Cooperative, socializing appropriately with other patients and staff Speech: Clear, audible, normal rate and rhythm. Mood: Euthymic Affect: Congruent with mood Thought process: Circumstantial Thought Content: Snack, exercising, medications Cognition: A/Ox3, disoriented to situation. Insight: Poor Judgment: Poor Interventions PRN's used: None Therapeutic interventions: 1;1 assessment, active listening, ensured contract for safety, encouraged pt to get up out of bed, maintained a safe and supportive environment, medication administration/education/monitoring, Q 15 minute safety checks. Restraints/seclusion/emergency medication: N/A Justification of Continued Inpatient Treatment: Per KARMEN Barnes, pt. remains pleasantly psychotic and continues to require a safe and supportive environment awaiting placement.
[2019-12-25] MEDS: lithium carbonate 150mg capsule PO SCH ×2 (07:55→20:13)
[2019-12-25] MEDS: benztropine 1mg tablet PO SCH ×2 (07:55→20:13)
[2019-12-25] MEDS: oxcarbazepine 150mg tablet PO SCH ×2 (07:55→20:13)
[2019-12-25] MEDS: PALIPERIDONE 3 MG TAB.ER.24 PO SCH (07:56)
[2019-12-25] MEDS: levoTHYROXINE 25mcg tablet PO SCH (07:56)
[2019-12-25] MEDS: haloperidol 5mg tablet PO SCH ×3 (07:56→20:14)
[2019-12-25 08:00] VITALS: BP 90/49
--- NOTE | 2019-12-25 12:10 | NUR ---
Nurse Progress Note for half-shift RN received report from Jennifer OLIVAS. Pt. awoken for AM medications. Pt. took all medications and ate breakfast in community room and then went back to sleep. Endorsed 1:1 assessment to Derick TERRELL. Derick TERRELL assumed care of pt. for afternoon.
--- NOTE | 2019-12-25 13:20 | NUR ---
Nursing Progress Note: Legal hold: LPS Client on involuntary status for GD Report received from RN with use of SBAR Why are they here: He eloped from [facility] in [facility] multiple times and was transferred here until a more secure living arrangement can be made. Pt has history of Schizoaffective, Bipolar type and Cluster B traits. Pt has Hx of Etoh abuse, Cannibis and nicotine dependance. Pt states, "I was drinking and smokin doobies and they told me to stay out of the park, so I had to get outta there." Pt's tox screen is negative. Pt states "Im in a great mood, Im glad to be back home in [place]." Pt is delusional believes he is a member of the [employer]. Assessment What has happened this shift: Pt. awoken for AM medications. Pt. took all medications and ate breakfast in community room and then went back to sleep. Pt ate lunch and interacted with others appropriately and enjoyed a cup of decaf coffee. He is pleasant and cooperative while being guarded and delusional related to his knowledge and involvement with [employer] operations. Pt. came out of his room in the afternoon and interacted with others as per his norm. S/I/H/I: Denies A/VH: Denies, does not appear internally preoccupied Sleep: Pt. reports he slept well ADL's: Requires some direction from staff Group attendance: No Were meds taken: Yes Any med S/E: None Mental Status Exam Appearance: Casual in own clothes Eye contact: Good Behavior: Animated, pleasant and cooperative Speech: Soft and WNL Mood: Pleasant Affect: Blunted Thought process: Circumstantial Thought Content: Some ongoing delusional statements at times, but no spontaneous delusional statements made this shift Cognition: A&O X3 Insight: Poor Judgment: Fair Interventions PRN's used: None Therapeutic interventions: Ensured contract for safety, maintained a safe and supportive environment, provided clear and simple instructions, provided positive encouragement and encouraged participation on the unit, and maintained a safe and supportive environment. Restraints/seclusion/emergency medication: N/A Justification of Continued Inpatient Treatment: Pt. continues to require a safe and supportive environment while he awaits placement by [facility] at an IMD.
[2019-12-25 20:05] VITALS: BP 116/67
--- NOTE | 2019-12-26 00:47 | NUR ---
Nursing Progress Note: Legal hold: LPS Client on involuntary status for GD Report received from nurse XANDER Mahan with use of SBAR: Why are they here: He eloped from [facility] in [facility] multiple times and was transferred here until a more secure living arrangement can be made. Pt has history of Schizoaffective, Bipolar type and Cluster B traits. Pt has Hx of ETOH abuse, Cannabis and nicotine dependence. Pt states, "I was drinking and smoking doobies and they told me to stay out of the park, so I had to get outta there." Pt's tox screen is negative. Pt states "Im in a great mood, Im glad to be back home in [place]." Pt is delusional believes he is a member of the [employer]. Assessment What has happened this shift: Pt is seen walking the halls and smiling at shift change. He appears to keep to himself or isolate in his room but is polite and smiles at peers and staff. At snack pt came out and got his food but returned back to his room and ate in the dark. Pt is cooperative with 1:1 assessment and medication compliant. He denies SI/HI/AH/VH at this time. He does not make any delusional statements this shift. SI/HI: Pt denies A/VH: Pt denies Sleep: See Sleep Assessment ADL's: Independent Group attendance: N/A Were meds taken: Yes Any med S/E: None noted nor reported. Mental Status Exam Appearance: Clean, dressed in street clothes and a beanie Eye contact: Good Behavior: Pleasant, Cooperative, socializing appropriately with other patients and staff Speech: Clear, audible, normal rate and rhythm. Mood: Euthymic Affect: Congruent with mood Thought process: Circumstantial Thought Content: Snack, exercising, medications Cognition: A/Ox3, disoriented to situation. Insight: Poor Judgment: Poor Interventions PRN's used: None Therapeutic interventions: 1;1 assessment, active listening, ensured contract for safety, encouraged pt to get up out of bed, maintained a safe and supportive environment, medication administration/education/monitoring, Q 15 minute safety checks. Restraints/seclusion/emergency medication: N/A Justification of Continued Inpatient Treatment: Per KARMEN Barnes, pt. remains pleasantly psychotic and continues to require a safe and supportive environment awaiting placement.
[2019-12-26 08:00] VITALS: BP 110/52
[2019-12-26] MEDS: oxcarbazepine 150mg tablet PO SCH ×2 (08:14→20:16)
[2019-12-26] MEDS: lithium carbonate 150mg capsule PO SCH ×2 (08:14→20:16)
[2019-12-26] MEDS: PALIPERIDONE 3 MG TAB.ER.24 PO SCH (08:14)
[2019-12-26] MEDS: haloperidol 5mg tablet PO SCH ×3 (08:14→20:15)
[2019-12-26] MEDS: levoTHYROXINE 25mcg tablet PO SCH (08:15)
[2019-12-26] MEDS: benztropine 1mg tablet PO SCH ×2 (08:15→20:16)
[2019-12-26] MEDS ORDERED: pantoprazole 40mg Tablet.DR PO ONE ×2 (08:45→09:25)
[2019-12-26 09:36] LABS: BASOPHILS % (AUTO) 0.4 % (0-1); EOSINOPHILS # (AUTO) 0.2 X10'3 (0-0.9); EOSINOPHILS % (AUTO) 2.5 % (0-6); HEMATOCRIT 41.7 % (42.0-52.0); HEMOGLOBIN 14.4 g/dl (14.0-17.9); LYMPHOCYTES # (AUTO) 2.4 X10'3 (1.1-4.8); LYMPHOCYTES % (AUTO) 35.4 % (21-51); MEAN CORPUSCULAR HEMOGLOBIN 31.3 PG (27.0-31.0); MEAN CORPUSCULAR HGB CONC 34.6 g/dL (33.0-36.5); MEAN CORPUSCULAR VOLUME 90.3 FL (78-98); MEAN PLATELET VOLUME 7.8 FL (7.4-10.4); MONOCYTES # (AUTO) 0.4 X10'3 (0-0.9); MONOCYTES % (AUTO) 5.8 % (2-12); NEUTROPHILS # (AUTO) 3.8 X10'3 (1.8-7.7); NEUTROPHILS % (AUTO) 55.9 % (42-75); PLATELET COUNT 180 X10'3 (140-440); RED BLOOD COUNT 4.62 X10'6 (4.70-6.10); RED CELL DISTRIBUTION WIDTH 12.6 % (11.5-14.5); WHITE BLOOD COUNT 6.8 X10'3 (4.5-11.0)
--- NOTE | 2019-12-26 17:34 | NUR ---
Nursing Progress Note: Legal hold: LPS Client on involuntary status for GD Report received from nurse XANDER Mahan with use of SBAR: Why are they here: [facility] multiple times and was transferred here until a more secure living arrangement can be made. Pt has history of Schizoaffective, Bipolar type and Cluster B traits. Pt has Hx of ETOH abuse, Cannabis and nicotine dependence. Pt states, "I was drinking and smoking doobies and they told me to stay out of the park, so I had to get outta there." Pt's tox screen is negative. Pt states "Im in a great mood, Im glad to be back home in [place]." Pt is delusional believes he is a member of the [employer]. Assessment What has happened this shift: Pt. asleep at start of shift. Pt. woken up for breakfast. Pt. c/o of spitting up blood for the past week. Pt showed this RN bright red blood that he spit up. RN contacted hospitalist and received order for STAT CBC. CBC was unremarkable. Orders are to continue to monitor pt. no further action taken. Pt. started on pantoprazole 40mg q am. Pt. slept majority of the AM. Pt. awake in afternoon and 1:1 done at bedside. Pt. denies SI/HI, A/V hallucinations. Pt. reports he is in a good mood. Pt. has some d/o delusional thinking, states, [place]s, Im a [place]. Pt. isolates to his room majority of the day. SI/HI: Pt denies A/VH: Pt denies Sleep: Pt. napped for 5 hours intermittently today. ADL's: Independent Group attendance: N/A Were meds taken: Yes Any med S/E: None noted nor reported. Mental Status Exam Appearance: Disheveled, unshaven, dressed in green scrub bottom, street clothes top and a beanie Eye contact: Good Behavior: Isolates to room majority of the AM. Pt. is Pleasant, Cooperative, socializing appropriately with other patients and staff Speech: Clear, audible, normal rate, and rhythm. Mood: Euthymic Affect: Congruent with mood Thought process: Circumstantial, delusional and d/o at times. Thought Content: Food Cognition: A/Ox3, disoriented to situation. Insight: Poor Judgment: Poor Interventions PRN's used: None Therapeutic interventions: 1;1 assessment, active listening, ensured contract for safety, encouraged pt to get up out of bed, maintained a safe and supportive environment, medication administration/education/monitoring, Q 15 minute safety checks. Restraints/seclusion/emergency medication: N/A Justification of Continued Inpatient Treatment: Per KARMEN Barnes, pt. remains pleasantly psychotic and continues to require a safe and supportive environment awaiting placement.
[2019-12-26 20:04] VITALS: BP 108/54
--- NOTE | 2019-12-27 01:22 | NUR ---
Nursing Progress Note: Legal hold: LPS Client on involuntary status for GD Report received from nurse XANDER Mahan with use of SBAR: Why are they here: [facility] multiple times and was transferred here until a more secure living arrangement can be made. Pt has history of Schizoaffective, Bipolar type and Cluster B traits. Pt has Hx of ETOH abuse, Cannabis and nicotine dependence. Pt states, "I was drinking and smoking doobies and they told me to stay out of the park, so I had to get outta there." Pt's tox screen is negative. Pt states "Im in a great mood, Im glad to be back home in [place]." Pt is delusional believes he is a member of the [employer]. Assessment What has happened this shift: Pt. Up on unit socializing with staff and other pts. Pt. denies SI/HI, A/V hallucinations. Pt. reports he is in a good mood. He did not make any delusional statements. Pt unable state any discharge goals or any preference as to where he will go when discharged. No c/o any bleeding from his mouth. SI/HI: Pt denies A/VH: Pt denies Sleep: Asleep at this time ADL's: Independent Group attendance: N/A Were meds taken: Yes Any med S/E: None noted nor reported. Mental Status Exam Appearance: Disheveled, unshaven, dressed in green scrub bottom, street clothes top and a beanie Eye contact: Good Behavior: Up on unit. Pt. is Pleasant, Cooperative, socializing appropriately with other patients and staff Speech: Clear, audible, normal rate, and rhythm. Mood: Euthymic Affect: Congruent with mood Thought process: Circumstantial, Thought Content: Food Cognition: A/Ox3, disoriented to situation. Insight: Poor Judgment: Poor Interventions PRN's used: None Therapeutic interventions: 1;1 assessment, active listening, ensured contract for safety, encouraged pt to get up out of bed, maintained a safe and supportive environment, medication administration/education/monitoring, Q 15 minute safety checks. Restraints/seclusion/emergency medication: N/A Justification of Continued Inpatient Treatment: Per KARMEN Barnes, pt. remains pleasantly psychotic and continues to require a safe and supportive environment awaiting placement.
[2019-12-27] MEDS ORDERED: pantoprazole 40mg Tablet.DR PO SCH (07:30)
[2019-12-27 08:00] VITALS: BP 95/46
[2019-12-27] MEDS: oxcarbazepine 150mg tablet PO SCH ×2 (08:12→19:37)
[2019-12-27] MEDS: lithium carbonate 150mg capsule PO SCH ×2 (08:12→19:38)
[2019-12-27] MEDS: haloperidol 5mg tablet PO SCH ×3 (08:12→20:05)
[2019-12-27] MEDS: PALIPERIDONE 3 MG TAB.ER.24 PO SCH (08:12)
[2019-12-27] MEDS: levoTHYROXINE 25mcg tablet PO SCH (08:13)
[2019-12-27] MEDS: pantoprazole 40mg Tablet.DR PO SCH (08:13)
[2019-12-27] MEDS: benztropine 1mg tablet PO SCH ×2 (08:13→19:38)
[2019-12-27 11:00] VITALS: BP 92/55
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
[2019-12-27 20:15] VITALS: BP 115/69
--- NOTE | 2019-12-27 23:41 | NUR ---
Nursing Progress Note: Legal hold: LPS Client on involuntary status for GD Report received from nurse XANDER Mahan with use of SBAR: Why are they here: He eloped from [facility] in [facility] multiple times and was transferred here until a more secure living arrangement can be made. Pt has history of Schizoaffective, Bipolar type and Cluster B traits. Pt has Hx of ETOH abuse, Cannabis and nicotine dependence. Pt states, "I was drinking and smoking doobies and they told me to stay out of the park, so I had to get outta there." Pt's tox screen is negative. Pt states "Im in a great mood, Im glad to be back home in [place]." Pt is delusional believes he is a member of the [employer]. Assessment What has happened this shift: Pt. Up on unit socializing with staff and other pts, pt continues to be friendly and outgoing. Pt. denies SI/HI, A/V hallucinations, when asked, stated, "I only hear voices if someone is talking to me," and then laughed. Pt was seen walking the halls at various times during the evening with a smile on his face. Pt took a shower, took all hs meds without issue and went to bed. SI/HI: Pt denies A/VH: Pt denies Sleep: Asleep at this time ADL's: Independent Group attendance: N/A Were meds taken: Yes Any med S/E: None noted nor reported. Mental Status Exam Appearance: in clean clothes, pt showered this meena Eye contact: Good Behavior: Up on unit. Pt. is Pleasant, Cooperative, socializing appropriately with other patients and staff Speech: Clear, audible, normal rate, and rhythm. Mood: Euthymic Affect: Congruent with mood Thought process: Circumstantial, Thought Content: coffee, socializing Cognition: A/Ox3, disoriented to situation. Insight: Poor Judgment: Poor Interventions PRN's used: None Therapeutic interventions: 1;1 assessment, active listening, ensured contract for safety, encouraged pt to get up out of bed, maintained a safe and supportive environment, medication administration/education/monitoring, Q 15 minute safety checks. Restraints/seclusion/emergency medication: N/A Justification of Continued Inpatient Treatment: Per KARMEN Barnes, pt. remains pleasantly psychotic and continues to require a safe and supportive environment awaiting placement.
[2019-12-28 07:00] VITALS: BP 86/51
[2019-12-28] MEDS: levoTHYROXINE 25mcg tablet PO SCH (07:38)
[2019-12-28] MEDS: PALIPERIDONE 3 MG TAB.ER.24 PO SCH (07:38)
[2019-12-28] MEDS: benztropine 1mg tablet PO SCH ×2 (07:38→19:21)
[2019-12-28] MEDS: lithium carbonate 150mg capsule PO SCH ×2 (07:38→19:21)
[2019-12-28] MEDS: haloperidol 5mg tablet PO SCH ×3 (07:38→20:21)
[2019-12-28] MEDS: pantoprazole 40mg Tablet.DR PO SCH (07:38)
[2019-12-28] MEDS: oxcarbazepine 150mg tablet PO SCH ×2 (07:38→19:22)
--- NOTE | 2019-12-28 11:23 | NUR ---
Reassessment: Pt PO 75-100% avg regular diet meeting needs. LBM 12/27. No nutrition concerns at this time. Will continue to monitor. Rec: 1. advance diet as medically indicated to heart healthy 2. bowel care as needed 3. wt per rx Addendum: 12/28/19 at [address] Amended: Links added.
--- NOTE | 2019-12-28 17:27 | NUR ---
Nursing Progress Note: Legal hold: LPS Client on involuntary status for GD Report received from FRANCOISE Garcia with use of SBAR: Why are they here: [facility] and was transferred here until a more secure living arrangement can be made. Pt has history of Schizoaffective, Bipolar type and Cluster B traits. Pt has Hx of ETOH abuse, Cannabis and nicotine dependence. Pt states, "I was drinking and smoking doobies and they told me to stay out of the park, so I had to get outta there." Pt's tox screen is negative. Pt states "Im in a great mood, Im glad to be back home in [place]." Pt is delusional believes he is a member of the [employer]. Assessment What has happened this shift: Received pt. sleeping in bed at shift change. Patient awakens for medications and breakfast. Attends all meals in dining room. Patient isolates to his room and sleeps on and off during the day. Otherwise patient seems to be in a good mood while awake. Patient states that he is just "tired". SI/HI: Denies A/VH: Denies Sleep: Slept on and off during the day. ADL's: Independent Group attendance: No Were meds taken: Yes Any med S/E: None noted nor reported. Mental Status Exam Appearance: Neat and clean in street clothes. Eye contact: Direct Behavior: Withdrawn and isolating, sleeping. Speech: Normal rate and rhythm Mood: Euthymic Affect: Congruent with mood Thought process: Circumstantial Thought Content: Feeling tired and sleeps when he can. Cognition: A/Ox3, disoriented to situation. Insight: Poor Judgment: Poor Interventions PRN's used: None Therapeutic interventions: 1;1 assessment, active listening, ensured contract for safety, encouraged pt to get up out of bed, maintained a safe and supportive environment, medication administration/education/monitoring, Q 15 minute safety checks. Restraints/seclusion/emergency medication: N/A Justification of Continued Inpatient Treatment: Pt on LPS conservatorship for GD is unable to verbalize a plan for food, clothing and prison. He requires a safe and supportive environment while awaiting placement.
[2019-12-28 20:05] VITALS: BP 107/73
--- NOTE | 2019-12-29 00:14 | NUR ---
Nursing Progress Note: Legal hold: LPS Client on involuntary status for GD Report received from nurse XANDER Mahan with use of SBAR: Why are they here: He eloped from [facility] multiple times and was transferred here until a more secure living arrangement can be made. Pt has history of Schizoaffective, Bipolar type and Cluster B traits. Pt has Hx of ETOH abuse, Cannabis and nicotine dependence. Pt states, "I was drinking and smoking doobies and they told me to stay out of the park, so I had to get outta there." Pt's tox screen is negative. Pt states "Im in a great mood, Im glad to be back home in [place]." Pt is delusional believes he is a member of the [employer]. Assessment What has happened this shift: Pt. Up on unit socializing with staff and other pts, pt continues to be friendly and outgoing. Pt. denies SI/HI, A/V hallucinations. Pt was cooperative for 1:1 and accepted all hs meds without issue. Pt continues to believe that "he has something in his body that he needs to flush out." Pt was drinking an excessive amount of water, at least 6 pitchers during noc shift so pt was encouraged to not drink so much. Pt was agreeable to this. SI/HI: Pt denies A/VH: Pt denies Sleep: Asleep at this time ADL's: Independent Group attendance: N/A Were meds taken: Yes Any med S/E: None noted nor reported. Mental Status Exam Appearance: in clean clothes Eye contact: Good Behavior: Up on unit. Pt. is Pleasant, Cooperative, socializing appropriately with other patients and staff Speech: Clear, audible, normal rate, and rhythm. Mood: Euthymic Affect: Congruent with mood Thought process: "blood in his mouth" Thought Content: coffee, socializing Cognition: A/Ox3, disoriented to situation. Insight: Poor Judgment: Poor Interventions PRN's used: None Therapeutic interventions: 1;1 assessment, active listening, ensured contract for safety, encouraged pt to get up out of bed, maintained a safe and supportive environment, medication administration/education/monitoring, Q 15 minute safety checks. Restraints/seclusion/emergency medication: N/A Justification of Continued Inpatient Treatment: Per KARMEN Barnes, pt. remains pleasantly psychotic and continues to require a safe and supportive environment awaiting placement.
[2019-12-29 07:38] VITALS: BP 121/100
[2019-12-29] MEDS: pantoprazole 40mg Tablet.DR PO SCH (09:21)
[2019-12-29] MEDS: benztropine 1mg tablet PO SCH ×2 (09:21→20:31)
[2019-12-29] MEDS: PALIPERIDONE 3 MG TAB.ER.24 PO SCH (09:22)
[2019-12-29] MEDS: haloperidol 5mg tablet PO SCH ×3 (09:22→20:31)
[2019-12-29] MEDS: lithium carbonate 150mg capsule PO SCH ×2 (09:22→20:31)
[2019-12-29] MEDS: oxcarbazepine 150mg tablet PO SCH ×2 (09:23→20:30)
[2019-12-29] MEDS: levoTHYROXINE 25mcg tablet PO SCH (09:23)
--- NOTE | 2019-12-29 13:13 | NUR ---
Nursing Progress Note: Legal hold: LPS Client on involuntary status for GD Report received from nurse with use of SBAR: Radha RN Why are they here: He eloped from [facility] in [facility] multiple times and was transferred here until a more secure living arrangement can be made. Pt has history of Schizoaffective, Bipolar type and Cluster B traits. Pt has Hx of Etoh abuse, Cannibis and nicotine dependance. Pt states, "I was drinking and smokin doobies and they told me to stay out of the park, so I had to get outta there." Pt's tox screen is negative. Pt states "Im in a great mood, Im glad to be back home in [place]." Pt is delusional believes he is a member of the [employer]. Assessment What has happened this shift: Awoke patient to administer AM medications, he continues to present as cooperative, pleasant, fatigued, withdrawn, and guarded. Pt. up for all meals and then returned back to bed, states, "I'm waiting for the doctor to get here and then I will get up". 1:1 completed at bedside, pt. continues to deny all MH s/s. No delusional statements made, and when questioned by this fiction writer regarding his plans for discharge, pt. states, "They are trying to find a place for me." Pt. is again out of bed in the late afternoon interacting appropriately with others. S/I/H/I: Denies A/VH: Denies, does not appear internally preoccupied Sleep: Pt. reports he slept well, 7 hours recorded ADL's: Requires some direction from staff Group attendance: No Were meds taken: Yes Any med S/E: None Mental Status Exam Appearance: Hair disheveled r/t laying in bed, appropriately dressed Eye contact: Good Behavior: Cooperative, pleasant, fatigued, withdrawn, and guarded Speech: Soft and WNL Mood: Pleasant Affect: Blunted Thought process: Linear Thought Content: WNL Cognition: A&O X3 Insight: Poor Judgment: Fair Interventions PRN's used: None Therapeutic interventions: Ensured contract for safety, maintained a safe and supportive environment, provided clear and simple instructions, provided positive encouragement and encouraged participation on the unit, and maintained a safe and supportive environment. Restraints/seclusion/emergency medication: N/A Justification of Continued Inpatient Treatment: Pt. continues to require a safe and supportive environment while he awaits placement by [facility] at an D.
[2019-12-29 20:16] VITALS: BP 107/71
--- NOTE | 2019-12-30 02:29 | NUR ---
Nursing Progress Note: Legal hold: LPS Client on involuntary status for GD Report received from nurse Main RN with use of SBAR: Why are they here: He eloped from [facility] in [facility] multiple times and was transferred here until a more secure living arrangement can be made. Pt has history of Schizoaffective, Bipolar type and Cluster B traits. Pt has Hx of ETOH abuse, Cannabis and nicotine dependence. Pt states, "I was drinking and smoking doobies and they told me to stay out of the park, so I had to get outta there." Pt's tox screen is negative. Pt states "Im in a great mood, Im glad to be back home in [place]." Pt is delusional believes he is a member of the [employer]. Assessment What has happened this shift: Pt appears to keep to himself or isolate in his room but is polite and smiles at peers and staff. At snack pt came out and got his food but returned back to his room and ate in the dark. Pt is cooperative with 1:1 assessment and medication compliant. He denies SI/HI/AH/VH at this time. He does not make any delusional statements this shift. SI/HI: Pt denies A/VH: Pt denies Sleep: See Sleep Assessment ADL's: Independent Group attendance: N/A Were meds taken: Yes Any med S/E: None noted nor reported. Mental Status Exam Appearance: Clean, dressed in street clothes and a beanie Eye contact: Good Behavior: Pleasant, Cooperative, socializing appropriately with other patients and staff Speech: Clear, audible, normal rate and rhythm. Mood: Euthymic Affect: Congruent with mood Thought process: Circumstantial Thought Content: Snack, exercising, medications Cognition: A/Ox3, disoriented to situation. Insight: Poor Judgment: Poor Interventions PRN's used: None Therapeutic interventions: 1;1 assessment, active listening, ensured contract for safety, encouraged pt to get up out of bed, maintained a safe and supportive environment, medication administration/education/monitoring, Q 15 minute safety checks. Restraints/seclusion/emergency medication: N/A Justification of Continued Inpatient Treatment: Per KARMEN Barnes, pt. remains pleasantly psychotic and continues to require a safe and supportive environment awaiting placement.
[2019-12-30 07:06] VITALS: BP 113/67
[2019-12-30] MEDS: benztropine 1mg tablet PO SCH ×2 (07:31→20:41)
[2019-12-30] MEDS: lithium carbonate 150mg capsule PO SCH ×2 (07:31→20:42)
[2019-12-30] MEDS: levoTHYROXINE 25mcg tablet PO SCH (07:31)
[2019-12-30] MEDS: pantoprazole 40mg Tablet.DR PO SCH (07:31)
[2019-12-30] MEDS: haloperidol 5mg tablet PO SCH ×3 (07:31→20:42)
[2019-12-30] MEDS: oxcarbazepine 150mg tablet PO SCH ×2 (07:31→20:41)
[2019-12-30] MEDS: PALIPERIDONE 3 MG TAB.ER.24 PO SCH (07:31)
--- NOTE | 2019-12-30 15:52 | NUR ---
NURSING PROGRESS NOTE Legal hold: LPS Client on involuntary status for GD Report received from nurse XANDER Garcia with use of SBAR Why are they here: He eloped from [facility] in [facility] multiple times and was transferred here until a more secure living arrangement can be made. Pt has history of Schizoaffective, Bipolar type and Cluster B traits. Pt has Hx of ETOH abuse, Cannabis and nicotine dependence. Pt states, "I was drinking and smoking doobies and they told me to stay out of the park, so I had to get outta there." Pt's tox screen is negative. Pt states "Im in a great mood, Im glad to be back home in [place]." Pt is delusional believes he is a member of the [employer]. Assessment What has happened this shift: Patient is asleep nearly all shift. He is up to meals and eating and drinking fluids. When he is awake he is pleasant, friendly to others and smiling. Isolates to room Denies SI/HI/A/VH. SI/HI: Pt denies A/VH: Pt denies Sleep: See Sleep Assessment ADL's: Independent Group attendance: No Were meds taken: Yes Any med S/E: None noted nor reported. Mental Status Exam Appearance: Clean and neat Eye contact: Good Behavior: Pleasant, Cooperative, isolative Speech: Clear, audible, normal rate and rhythm. Mood: Euthymic Affect: Congruent with mood Thought process: Circumstantial Thought Content: Food, conversing with peers, medications Cognition: Alert Insight: Poor Judgment: Poor Interventions PRN's used: None Therapeutic interventions: 1;1 assessment, active listening, ensured contract for safety, encouraged pt to get up out of bed, maintained a safe and supportive environment, medication administration/education/monitoring, Q 15 minute safety checks. Restraints/seclusion/emergency medication: N/A Justification of Continued Inpatient Treatment: Per KARMEN Barnes, pt. remains pleasantly psychotic and continues to require a safe and supportive environment awaiting placement.
[2019-12-30 19:00] VITALS: BP 116/63
--- NOTE | 2019-12-31 00:55 | NUR ---
Nursing Progress Note: Legal hold: LPS Client on involuntary status for GD Report received from nurse XANDER Ramírez with use of SBAR: Why are they here: He el[facility] multiple times and was transferred here until a more secure living arrangement can be made. Pt has history of Schizoaffective, Bipolar type and Cluster B traits. Pt has Hx of ETOH abuse, Cannabis and nicotine dependence. Pt states, "I was drinking and smoking doobies and they told me to stay out of the park, so I had to get outta there." Pt's tox screen is negative. Pt states "Im in a great mood, Im glad to be back home in [place]." Pt is delusional believes he is a member of the [employer]. Assessment What has happened this shift: Pt as in his room resting in bed during shift change. He states that he is feeling okay, not really tired just passing the time. Pt continues to be pleasantly delusional. He was cooperative during 1:1 physical assessment and took all his HS meds. Denies any S/I, H/I, A/VH, anxiety or depression. Talks about his meds and how the first time he took Haldol it felt like someone was digging into his heart with a spoon. He then goes on to talk about how he believes people in [place] eat other people. He perseverates somewhat about this, as he goes on to make more delusional statements about [place]. He also talks about how his grandfather performs magic tricks where he tells people what to do or how to feel. Pt states that he didnt have lunch or dinner because he was sleeping so he was feeling pretty hungry. [place] was provided. Encouraged pt to let day staff know he would be like to be woken up for meals. Pt spent some time in community area watching TV and interacting with other patients appropriately before going to bed. Pt was observed out in the unit asking for snack a couple more times. SI/HI: Denies A/VH: Denies Sleep: Currently sleeping, see sleep assessment for total hours ADL's: Independent Group attendance: N/A Were meds taken: Yes Any med S/E: None noted nor reported. Mental Status Exam Appearance: Clean, dressed in street clothes, a beanie, and oversized jacket Eye contact: Good, direcgt Behavior: Pleasant, Cooperative, somewhat isolative but does socialize appropriately with peers Speech: Clear, audible, normal rate and rhythm. Mood: Euthymic Affect: Congruent with mood Thought process: Circumstantial Thought Content: delusions about [place], medications, magic and his grandfather, snacks Cognition: A/Ox3, disoriented to situation. Insight: Poor Judgment: Poor Interventions PRN's used: None Therapeutic interventions: 1;1 assessment, active listening, ensured contract for safety, encouraged pt to get up out of bed, maintained a safe and supportive environment, medication administration/education/monitoring, Q 15 minute safety checks. Restraints/seclusion/emergency medication: N/A Justification of Continued Inpatient Treatment: Per KARMEN Barnes, pt. remains pleasantly psychotic and continues to require a safe and supportive environment awaiting placement.
[2019-12-31 08:00] VITALS: BP 107/73
[2019-12-31] MEDS: levoTHYROXINE 25mcg tablet PO SCH (08:18)
[2019-12-31] MEDS: haloperidol 5mg tablet PO SCH ×3 (08:18→21:05)
[2019-12-31] MEDS: benztropine 1mg tablet PO SCH ×2 (08:18→21:04)
[2019-12-31] MEDS: lithium carbonate 150mg capsule PO SCH ×2 (08:19→21:04)
[2019-12-31] MEDS: PALIPERIDONE 3 MG TAB.ER.24 PO SCH (08:19)
[2019-12-31] MEDS: oxcarbazepine 150mg tablet PO SCH ×2 (08:19→21:05)
[2019-12-31] MEDS: pantoprazole 40mg Tablet.DR PO SCH (08:19)
--- NOTE | 2019-12-31 16:52 | NUR ---
NURSING PROGRESS NOTE Legal hold: LPS Client on involuntary status for GD Report received from nurse Radha RN with use of SBAR Why are they here: He el[facility] from [facility] in [facility] multiple times and was transferred here until a more secure living arrangement can be made. Pt has history of Schizoaffective, Bipolar type and Cluster B traits. Pt has Hx of ETOH abuse, Cannabis and nicotine dependence. Pt states, "I was drinking and smoking doobies and they told me to stay out of the park, so I had to get outta there." Pt's tox screen is negative. Pt states "Im in a great mood, Im glad to be back home in [place]." Pt is delusional believes he is a member of the [employer]. Assessment What has happened this shift: Patient is asleep nearly all shift. He is up to meals and eating and drinking fluids. When he is awake he is pleasant, friendly to others and smiling. Isolates to room Denies SI/HI/A/VH. SI/HI: Pt denies A/VH: Pt denies Sleep: See Sleep Assessment ADL's: Independent Group attendance: No Were meds taken: Yes Any med S/E: None noted nor reported. Mental Status Exam Appearance: Clean and neat Eye contact: Good Behavior: Pleasant, Cooperative, isolative Speech: Clear, audible, normal rate and rhythm. Mood: Euthymic Affect: Congruent with mood Thought process: Circumstantial Thought Content: Food, conversing with peers, medications Cognition: Alert Insight: Poor Judgment: Poor Interventions PRN's used: None Therapeutic interventions: 1;1 assessment, active listening, ensured contract for safety, encouraged pt to get up out of bed, maintained a safe and supportive environment, medication administration/education/monitoring, Q 15 minute safety checks. Restraints/seclusion/emergency medication: N/A Justification of Continued Inpatient Treatment: Per KARMEN Barnes, pt. remains pleasantly psychotic and continues to require a safe and supportive environment awaiting placement. Addendum: 12/31/19 at 1655 by Tonja Gonzalez RN (Lee) Accidently hit the enter button, please disregard, see next nursing note.
--- NOTE | 2019-12-31 16:56 | NUR ---
CORRECTED NURSING PROGRESS NOTE 12/31/19: Legal hold: LPS Client on involuntary status for GD Report received from nurse XANDER Graham with use of SBAR Why are they here: He eloped from [facility] in [facility] multiple times and was transferred here until a more secure living arrangement can be made. Pt has history of Schizoaffective, Bipolar type and Cluster B traits. Pt has Hx of ETOH abuse, Cannabis and nicotine dependence. Pt states, "I was drinking and smoking doobies and they told me to stay out of the park, so I had to get outta there." Pt's tox screen is negative. Pt states "Im in a great mood, Im glad to be back home in [place]." Pt is delusional believes he is a member of the [employer]. Assessment What has happened this shift: Pt slept for the majority of the shift. He is up and wide awake for meals but returns immediately back to bed. He is pleasant, cooperative, and polite. Pt makes pleasantly delusional statements when engaged in conversation, socializes with peers. SI/HI: Pt denies A/VH: Pt denies Sleep: Pt slept all night, pt slept for most of the day. ADL's: Independent Group attendance: No Were meds taken: Yes Any med S/E: None noted or reported. Mental Status Exam Appearance: Clean and neat, dressed in street clothes. Eye contact: Good Behavior: Pleasant, Cooperative,polite, likes to sleep. Speech: Clear, audible, normal rate and rhythm. Mood: Good Affect: Affable Thought process: Delusional Thought Content: Just wants to sleep. Cognition: A/O X 3 Insight: Poor Judgment: Poor Interventions PRN's used: None Therapeutic interventions: 1;1 assessment, active listening, ensured contract for safety, encouraged pt to get up out of bed, maintained a safe and supportive environment, medication administration/education/monitoring, Q 15 minute safety checks. Restraints/seclusion/emergency medication: N/A Justification of Continued Inpatient Treatment: Per KARMEN Barnes, pt. remains pleasantly psychotic and continues to require a safe and supportive environment awaiting placement.
[2019-12-31 19:47] VITALS: BP 98/70
--- NOTE | 2020-01-01 01:34 | NUR ---
Nursing Progress Note: Legal hold: LPS Client on involuntary status for GD Report received from nurse XANDER Ramírez with use of SBAR: Why are they here: He eloped from [facility] in [facility] multiple times and was transferred here until a more secure living arrangement can be made. Pt has history of Schizoaffective, Bipolar type and Cluster B traits. Pt has Hx of ETOH abuse, Cannabis and nicotine dependence. Pt states, "I was drinking and smoking doobies and they told me to stay out of the park, so I had to get outta there." Pt's tox screen is negative. Pt states "Im in a great mood, Im glad to be back home in [place]." Pt is delusional believes he is a member of the [employer]. Assessment What has happened this shift: Pt was in his room sleeping during shift change. Pt continues to isolate to his room for the rest of the evening. He states that he had a good day but was spent mostly sleeping. Pt was cooperative during 1:1 physical assessment and took all his HS meds without any issues. Continues to be pleasantly delusional. He makes several delusional statements related to druze. 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 Denies any A/VH, depression or anxiety. Pt requested water a couple more times and snack before returning to bed. SI/HI: Denies A/VH: Denies Sleep: Currently sleeping, see sleep assessment for total hours ADL's: Independent Group attendance: N/A Were meds taken: Yes Any med S/E: None noted nor reported. Mental Status Exam Appearance: Clean, dressed in street clothes, a beanie, and oversized jacket Eye contact: Good, direct Behavior: Pleasant, Cooperative, isolative Speech: Clear, audible, normal rate and rhythm. Mood: Tired Affect: Constricted Thought process: Circumstantial Thought Content: Zoroastrianism, medication, his new roommate, snacks Cognition: A/Ox3, disoriented to situation. Insight: Poor Judgment: Poor Interventions PRN's used: None Therapeutic interventions: 1;1 assessment, active listening, ensured contract for safety, encouraged pt to get up out of bed, maintained a safe and supportive environment, medication administration/education/monitoring, Q 15 minute safety checks. Restraints/seclusion/emergency medication: N/A
[2020-01-01 07:40] VITALS: BP 102/49
[2020-01-01] MEDS: benztropine 1mg tablet PO SCH ×2 (08:25→20:40)
[2020-01-01] MEDS: pantoprazole 40mg Tablet.DR PO SCH (08:25)
[2020-01-01] MEDS: haloperidol 5mg tablet PO SCH ×3 (08:25→20:40)
[2020-01-01] MEDS: lithium carbonate 150mg capsule PO SCH ×2 (08:26→20:39)
[2020-01-01] MEDS: PALIPERIDONE 3 MG TAB.ER.24 PO SCH (08:27)
[2020-01-01] MEDS: oxcarbazepine 150mg tablet PO SCH ×2 (08:28→20:40)
[2020-01-01] MEDS: levoTHYROXINE 25mcg tablet PO SCH (08:28)
--- NOTE | 2020-01-01 17:52 | NUR ---
Nursing Progress Note: Legal hold: LPS Client on involuntary status for GD Report received from nurse XANDER Jon with use of SBAR: Why are they here: He eloped from [facility] in [facility] multiple times and was transferred here until a more secure living arrangement can be made. Pt has history of Schizoaffective, Bipolar type and Cluster B traits. Pt has Hx of ETOH abuse, Cannabis and nicotine dependence. Pt states, "I was drinking and smoking doobies and they told me to stay out of the park, so I had to get outta there." Pt's tox screen is negative. Pt states "Im in a great mood, Im glad to be back home in [place]." Pt is delusional believes he is a member of the [employer]. Assessment What has happened this shift: Pt is cooperative and engaging in conversation with RN in the morning. He is polite and asks questions. He then took a nap after breakfast and again after lunch. He was isolative to room and slept most of the day. SI/HI: Pt Denies A/VH: Pt Denies Sleep: 7.25 h per noc assessment ADL's: Independent Group attendance: No Were meds taken: Yes Any med S/E: None noted. Mental Status Exam Appearance: Clean, dressed in street clothes, a beanie, and oversized jacket Eye contact: Direct Behavior: Pleasant, Isolative, Cooperative Speech: WNL Mood: Tired Affect: Bright Thought process: Circumstantial Thought Content: Going home Cognition: A/Ox3, disoriented to situation. Insight: Poor Judgment: Poor Interventions PRN's used: None Therapeutic interventions: 1;1 assessment, active listening, ensured contract for safety, encouraged pt to get up out of bed, maintained a safe and supportive environment, medication administration/education/monitoring, Q 15 minute safety checks. Restraints/seclusion/emergency medication: N/A
--- NOTE | 2020-01-01 17:58 | NUR ---
Pt out of bed for dinner. He socializes with others at his table.
[2020-01-01 20:00] VITALS: BP 115/64
--- NOTE | 2020-01-01 22:34 | NUR ---
Nursing Progress Note: Legal hold: LPS Client on involuntary status for GD Report received from Desiree OWUSU with use of SBAR: Why are they here: He eloped from [facility] in [facility] multiple times and was transferred here until a more secure living arrangement can be made. Pt has history of Schizoaffective, Bipolar type and Cluster B traits. Pt has Hx of ETOH abuse, Cannabis and nicotine dependence. Pt states, "I was drinking and smoking doobies and they told me to stay out of the park, so I had to get outta there." Pt's tox screen is negative. Pt states "Im in a great mood, Im glad to be back home in [place]." Pt is delusional believes he is a member of the [employer]. Assessment What has happened this shift: Asleep in bed at start of shift. Awakened easily for medications. Pt denies depression or SI "Never". No delusional statements. Stayed awake up in halls. Social and pleasant with other pts. Went back to sleep, sleeping at this time. SI/HI: Pt Denies A/VH: Pt Denies Sleep: Asleep at this time ADL's: Independent Group attendance: No Were meds taken: Yes Any med S/E: None noted. Mental Status Exam Appearance: Clean neat Eye contact: Direct Behavior: Pleasant, Isolative, Cooperative Speech: WNL Mood: "happy" per pt Affect: Bright Thought process: Circumstantial Thought Content: Going home Cognition: A/Ox3, disoriented to situation. Insight: Poor Judgment: Poor Interventions PRN's used: None Therapeutic interventions: 1;1 assessment, active listening, ensured contract for safety, encouraged pt to get up out of bed, maintained a safe and supportive environment, medication administration/education/monitoring, Q 15 minute safety checks. Restraints/seclusion/emergency medication: N/A
[2020-01-02 07:38] VITALS: BP 105/77
[2020-01-02] MEDS: levoTHYROXINE 25mcg tablet PO SCH (08:23)
[2020-01-02] MEDS: oxcarbazepine 150mg tablet PO SCH ×2 (08:23→20:07)
[2020-01-02] MEDS: benztropine 1mg tablet PO SCH ×2 (08:23→20:06)
[2020-01-02] MEDS: haloperidol 5mg tablet PO SCH ×3 (08:23→20:08)
[2020-01-02] MEDS: pantoprazole 40mg Tablet.DR PO SCH (08:23)
[2020-01-02] MEDS: lithium carbonate 150mg capsule PO SCH ×2 (08:23→20:07)
[2020-01-02] MEDS: PALIPERIDONE 3 MG TAB.ER.24 PO SCH (08:23)
[2020-01-02 20:23] VITALS: BP 108/73
--- NOTE | 2020-01-03 00:16 | NUR ---
Nursing Progress Note: Legal hold: LPS Client on involuntary status for GD Report received from Desiree TERRELL with use of SBAR: Why are they here: He eloped from [facility] in [facility] multiple times and was transferred here until a more secure living arrangement can be made. Pt has history of Schizoaffective, Bipolar type and Cluster B traits. Pt has Hx of ETOH abuse, Cannabis and nicotine dependence. Pt states, "I was drinking and smoking doobies and they told me to stay out of the park, so I had to get outta there." Pt's tox screen is negative. Pt states "Im in a great mood, Im glad to be back home in [place]." Pt is delusional believes he is a member of the [employer]. Assessment What has happened this shift: The patient was seen at bedside for 1:1. He remains pleasantly psychotic, and always seems to be in a good mood. "I just been catching up on sleep, you know, doing what I should be doing. I really just want to go home to be with my family. We're all really close. When asked when he thinks that might happen, "my grandpa will probably come get me, but I don't know when." The patient denies any depression, SI/HI, or AV/H. He reports that he's always happy. SI/HI: Denies A/VH: Denies Sleep: See sleep assessment ADL's: Independent Group attendance: No night groups Were meds taken: Yes Any med S/E: None reported or observed. Mental Status Exam Appearance: Clean, neat, wears a beenie on his head. Eye contact: Direct Behavior: Pleasant, Isolative, but sociable Speech: Normal rate/volume Mood: "Always good" Affect: Bright Thought process: Circumstantial Thought Content: Going home Cognition: A/Ox3, disoriented to situation. Insight: Poor Judgment: Poor Interventions PRN's used: None Therapeutic interventions: 1;1 assessment, active listening, ensured contract for safety, encouraged pt to get up out of bed, maintained a safe and supportive environment, medication administration/education/monitoring, Q 15 minute safety checks. Restraints/seclusion/emergency medication: N/A Justification of Continued Inpatient Treatment: KARMEN Kaur, pt. remains pleasantly psychotic and continues to require a safe and supportive environment awaiting placement.
[2020-01-03 07:55] VITALS: BP 133/71
[2020-01-03] MEDS: benztropine 1mg tablet PO SCH ×2 (08:26→20:32)
[2020-01-03] MEDS: lithium carbonate 150mg capsule PO SCH ×2 (08:26→20:35)
[2020-01-03] MEDS: haloperidol 5mg tablet PO SCH ×3 (08:26→20:38)
[2020-01-03] MEDS: levoTHYROXINE 25mcg tablet PO SCH (08:26)
[2020-01-03] MEDS: PALIPERIDONE 3 MG TAB.ER.24 PO SCH (08:26)
[2020-01-03] MEDS: pantoprazole 40mg Tablet.DR PO SCH (08:26)
[2020-01-03] MEDS: oxcarbazepine 150mg tablet PO SCH ×2 (08:26→20:38)
--- NOTE | 2020-01-03 16:58 | NUR ---
NURSING PROGRESS NOTE Legal hold: LPS Client on involuntary status for GD Report received from nurse Gina RN with use of SBAR Why are they here: He eloped from [facility] in [facility] multiple times and was transferred here until a more secure living arrangement can be made. Pt has history of Schizoaffective, Bipolar type and Cluster B traits. Pt has Hx of ETOH abuse, Cannabis and nicotine dependence. Pt states, "I was drinking and smoking doobies and they told me to stay out of the park, so I had to get outta there." Pt's tox screen is negative. Pt states "Im in a great mood, Im glad to be back home in [place]." Pt is delusional believes he is a member of the [employer]. Assessment What has happened this shift: Patient is asleep nearly all shift. He is up to meals and eating and drinking fluids. When he is awake he is pleasant, friendly to others and smiling. Isolates to room Denies SI/HI/A/VH. Pt did c/o blood in his mouth, It only happens when I suck really hard MD notified, no new orders at this time. Pt informed to not suck and let us know if it gets any worse. SI/HI: Pt denies A/VH: Pt denies Sleep: See Sleep Assessment ADL's: Independent Group attendance: No Were meds taken: Yes Any med S/E: None noted nor reported. Mental Status Exam Appearance: Clean and neat Eye contact: Good Behavior: Pleasant, Cooperative, isolative Speech: Clear, audible, normal rate and rhythm. Mood: Euthymic Affect: Congruent with mood Thought process: Circumstantial Thought Content: Food, conversing with peers, medications Cognition: Alert Insight: Poor Judgment: Poor Interventions PRN's used: None Therapeutic interventions: 1;1 assessment, active listening, ensured contract for safety, encouraged pt to get up out of bed, maintained a safe and supportive environment, medication administration/education/monitoring, Q 15 minute safety checks. Restraints/seclusion/emergency medication: N/A Justification of Continued Inpatient Treatment: Per KARMEN Barnes, pt. remains pleasantly psychotic and continues to require a safe and supportive environment awaiting placement.
[2020-01-03 20:31] VITALS: BP 115/65
--- NOTE | 2020-01-04 01:19 | NUR ---
Nursing Progress Note: Legal hold: LPS Client on involuntary status for GD Report received from Desiree TERRELL with use of SBAR: Why are they here: He eloped from [facility] in [facility] multiple times and was transferred here until a more secure living arrangement can be made. Pt has history of Schizoaffective, Bipolar type and Cluster B traits. Pt has Hx of ETOH abuse, Cannabis and nicotine dependence. Pt states, "I was drinking and smoking doobies and they told me to stay out of the park, so I had to get outta there." Pt's tox screen is negative. Pt states "Im in a great mood, Im glad to be back home in [place]." Pt is delusional believes he is a member of the [employer]. Assessment What has happened this shift: The patient was sleeping at shift change. 1:1 attempted, but was interrupted by a phone call from his brother. Tried later, but the patient was tired, "I just want to sleep, no reason, just tired." Asked if everything is ok, "nothing really bothering me...at least, nothing I want to talk about...just thinking about home." The patient was compliant with HS meds, then went back to sleep. SI/HI: Denies A/VH: Denies Sleep: See sleep assessment ADL's: Independent Group attendance: No night groups Were meds taken: Yes Any med S/E: None reported or observed. Mental Status Exam Appearance: Clean, neat, lying in bed with covers on. Eye contact: Direct Behavior: Pleasant, Isolative, but sociable Speech: Normal rate/volume Mood: "Happy, easy going" Affect: Bright Thought process: Circumstantial Thought Content: Going home Cognition: A/Ox3, disoriented to situation. Insight: Poor Judgment: Poor Interventions PRN's used: None Therapeutic interventions: 1;1 assessment, active listening, ensured contract for safety, encouraged pt to get up out of bed, maintained a safe and supportive environment, medication administration/education/monitoring, Q 15 minute safety checks. Restraints/seclusion/emergency medication: N/A Justification of Continued Inpatient Treatment: Per KARMEN Barnes, pt. remains pleasantly psychotic and continues to require a safe and supportive environment awaiting placement.
[2020-01-04] MEDS: levoTHYROXINE 25mcg tablet PO SCH (07:36)
[2020-01-04] MEDS: pantoprazole 40mg Tablet.DR PO SCH (07:36)
[2020-01-04] MEDS: oxcarbazepine 150mg tablet PO SCH ×2 (07:37→20:14)
[2020-01-04] MEDS: benztropine 1mg tablet PO SCH ×2 (07:37→20:14)
[2020-01-04] MEDS: haloperidol 5mg tablet PO SCH ×3 (07:38→20:15)
[2020-01-04] MEDS: PALIPERIDONE 3 MG TAB.ER.24 PO SCH (07:39)
[2020-01-04] MEDS: lithium carbonate 150mg capsule PO SCH ×2 (07:39→20:14)
[2020-01-04 08:00] VITALS: BP 112/90
--- NOTE | 2020-01-04 11:33 | NUR ---
Reassessment: Pt continues meeting nutrient needs with documented 75-100% PO intake. [facility] 01/01. Pt with PRN bowel care available. No nutrition intervention warranted at this time. Will continue to follow. Rec: 1. advance diet as medically indicated to heart healthy 2. bowel care as needed 3. wt per rx Addendum: 01/04/20 at [address] Amended: Links added.
[2020-01-04 13:46] LABS: PARTIAL THROMBOPLASTIN TIME 29 SECONDS (22-32)
--- NOTE | 2020-01-04 18:06 | NUR ---
NURSING PROGRESS NOTE Legal hold: LPS Client on involuntary status for GD Report received from nurse XANDER Garcia with use of SBAR Why are they here: He eloped from [facility] in [facility] multiple times and was transferred here until a more secure living arrangement can be made. Pt has history of Schizoaffective, Bipolar type and Cluster B traits. Pt has Hx of ETOH abuse, Cannabis and nicotine dependence. Pt states, "I was drinking and smoking doobies and they told me to stay out of the park, so I had to get outta there." Pt's tox screen is negative. Pt states "Im in a great mood, Im glad to be back home in [place]." Pt is delusional believes he is a member of the [employer]. Assessment What has happened this shift: Pt. is asleep at start of shift. Pt. awake for medications. Pt. appears suspicious and states, I think someone wants to kill me. I could have been dreaming But I think there was a hit man hired to take me out RN reinforced that pt. was safe. Pt. quickly changed his demeanor, becoming friendly. Pt. ate breakfast and then went back to sleep and slept for the rest of the shift. SI/HI: Pt denies A/VH: Pt denies Sleep: Pt. slept majority of the day. ADL's: Independent Group attendance: No Were meds taken: Yes Any med S/E: Denies symptoms Mental Status Exam Appearance: disheveled but clean Eye contact: Good Behavior: Pleasant, Cooperative, isolative Speech: Clear, audible, normal rate and rhythm. Mood: Euthymic Affect: Congruent with mood Thought process: Circumstantial Thought Content: Paranoid delusions about hit men being hired to kill him. Cognition: Alert Insight: Poor Judgment: Poor Interventions PRN's used: None Therapeutic interventions: 1;1 assessment, active listening, ensured contract for safety, encouraged pt to get up out of bed, maintained a safe and supportive environment, medication administration/education/monitoring, Q 15 minute safety checks. Restraints/seclusion/emergency medication: N/A Justification of Continued Inpatient Treatment: Per KARMEN Barnes, pt. remains pleasantly psychotic and continues to require a safe and supportive environment awaiting placement.
[2020-01-04 20:00] VITALS: BP 101/60
--- NOTE | 2020-01-05 00:22 | NUR ---
Nursing Progress Note: Legal hold: LPS Client on involuntary status for GD Report received from Desiree TERRELL with use of SBAR: Why are they here: He eloped from [facility] in [facility] multiple times and was transferred here until a more secure living arrangement can be made. Pt has history of Schizoaffective, Bipolar type and Cluster B traits. Pt has Hx of ETOH abuse, Cannabis and nicotine dependence. Pt states, "I was drinking and smoking doobies and they told me to stay out of the park, so I had to get outta there." Pt's tox screen is negative. Pt states "Im in a great mood, Im glad to be back home in [place]." Pt is delusional believes he is a member of the [employer]. Assessment What has happened this shift: The patient was found sleeping. Attempted to wake him, but he wouldn't wake at this time. Went back with HS meds, and was finally able to wake him. Asked him if he would talk to me, but he was more concerned with getting a shower and having clothes washed. he took his HS meds, had a shower, then went back to bed. SI/HI: Denies A/VH: States he thought someone was going to kill him this morning Sleep: See sleep assessment ADL's: Independent Group attendance: No night groups Were meds taken: Yes Any med S/E: None reported or observed. Mental Status Exam Appearance: Clean, neat, freshly showered wearing appropriate street clothes. Eye contact: Direct Behavior: Pleasant, Isolative, but sociable Speech: Normal rate/volume Mood: "great" Affect: Bright Thought process: Circumstantial Thought Content: Going home Cognition: A/Ox3, disoriented to situation. Insight: Poor Judgment: Poor Interventions PRN's used: None Therapeutic interventions: 1;1 assessment, active listening, ensured contract for safety, encouraged pt to get up out of bed, maintained a safe and supportive environment, medication administration/education/monitoring, Q 15 minute safety checks. Restraints/seclusion/emergency medication: N/A Justification of Continued Inpatient Treatment: Per KARMEN Barnes, pt. remains pleasantly psychotic and continues to require a safe and supportive environment awaiting placement.
[2020-01-05 07:39] LABS: BASOPHILS % (AUTO) 0.4 % (0-1); EOSINOPHILS # (AUTO) 0.1 X10'3 (0-0.9); EOSINOPHILS % (AUTO) 1.4 % (0-6); HEMATOCRIT 39.6 % (42.0-52.0); HEMOGLOBIN 13.6 g/dl (14.0-17.9); LYMPHOCYTES # (AUTO) 2.2 X10'3 (1.1-4.8); LYMPHOCYTES % (AUTO) 29.1 % (21-51); MEAN CORPUSCULAR HEMOGLOBIN 30.9 PG (27.0-31.0); MEAN CORPUSCULAR HGB CONC 34.4 g/dL (33.0-36.5); MEAN CORPUSCULAR VOLUME 89.9 FL (78-98); MEAN PLATELET VOLUME 7.8 FL (7.4-10.4); MONOCYTES # (AUTO) 0.7 X10'3 (0-0.9); MONOCYTES % (AUTO) 9.4 % (2-12); NEUTROPHILS # (AUTO) 4.5 X10'3 (1.8-7.7); NEUTROPHILS % (AUTO) 59.7 % (42-75); PLATELET COUNT 166 X10'3 (140-440); RED CELL DISTRIBUTION WIDTH 12.3 % (11.5-14.5); WHITE BLOOD COUNT 7.6 X10'3 (4.5-11.0)
[2020-01-05 08:00] VITALS: BP 116/75
[2020-01-05] MEDS: pantoprazole 40mg Tablet.DR PO SCH (08:16)
[2020-01-05] MEDS: levoTHYROXINE 25mcg tablet PO SCH (08:16)
[2020-01-05] MEDS: PALIPERIDONE 3 MG TAB.ER.24 PO SCH (08:16)
[2020-01-05] MEDS: benztropine 1mg tablet PO SCH ×2 (08:16→21:53)
[2020-01-05] MEDS: oxcarbazepine 150mg tablet PO SCH ×2 (08:17→21:54)
[2020-01-05] MEDS: lithium carbonate 150mg capsule PO SCH ×2 (08:17→21:53)
[2020-01-05] MEDS: haloperidol 5mg tablet PO SCH ×3 (08:17→21:57)
--- NOTE | 2020-01-05 09:53 | NUR ---
NURSING PROGRESS NOTE Legal hold: LPS Client on involuntary status for GD Report received from XANDER Garcia with use of SBAR Why are they here: He eloped from [facility] in [facility] multiple times and was transferred here until a more secure living arrangement can be made. Pt has history of Schizoaffective, Bipolar type and Cluster B traits. Pt has Hx of ETOH abuse, Cannabis and nicotine dependence. Pt states, "I was drinking and smoking doobies and they told me to stay out of the park, so I had to get outta there." Pt's tox screen is negative. Pt states "Im in a great mood, Im glad to be back home in [place]." Pt is delusional believes he is a member of the [employer]. Assessment What has happened this shift: Unusually awake at change of shift, out in hallway and talking with roommate. Reports his "teeth are bleeding." Encouraged to practice oral hygiene several times per day. States, "I brush my teeth everyday." Cooperative and pleasant. Delusional statements, "I met this Agent, but he was good to me, a nice lashell, he's probably watching us right now." Took meds, drank water, ate breakfast and was asleep again by 0930. He is arousable and will answer questions. Denies SI/hallucinations. SI/HI: Denies A/VH: Denies Sleep: Slept often ADL's: Independent Group attendance: No Were meds taken: Yes Any med S/E: Sleepy Mental Status Exam Appearance: Clean, neat Eye contact: Direct Behavior: cooperative Speech: clear Mood: euthymic Affect: mild anxiety at times Thought process: delusional at times Thought Content: bleeding gums, [employer] agents watching him/listening Cognition: Alert Insight: Poor Judgment: Poor Interventions PRN's used: None Therapeutic interventions: 1;1 assessment, active listening, ensured contract for safety, encouraged pt to get up out of bed, maintained a safe and supportive environment, medication administration/education/monitoring, Q 15 minute safety checks. Restraints/seclusion/emergency medication: N/A Justification of Continued Inpatient Treatment: Per KARMEN Barnes, pt. remains pleasantly psychotic and continues to require a safe and supportive environment awaiting placement.
--- NOTE | 2020-01-05 14:57 | NUR ---
Completed and faxed status report to [facility] per their request. Phone# [phone] Fax# [phone] BART Rollins
[2020-01-05 20:52] VITALS: BP 130/90
--- NOTE | 2020-01-06 04:04 | NUR ---
Nursing Progress Note: Legal hold: LPS Client on involuntary status for GD Report received from XANDER Hernandez with use of SBAR: Why are they here: He eloped from [facility] in [facility] multiple times and was transferred here until a more secure living arrangement can be made. Pt has history of Schizoaffective, Bipolar type and Cluster B traits. Pt. has Hx of ETOH abuse, cannabis and nicotine dependence. Pt states, "I was drinking and smoking doobies and they told me to stay out of the park, so I had to get outta there." Pt's tox screen is negative. Pt. states "Im in a great mood, Im glad to be back home in [place]." Pt. is delusional believes he is a member of the [employer]. Assessment What has happened this shift: Patient was sleeping at shift change. Patient was difficult to rouse, after several attempts patient woke up and went to the restroom. Patient was verbal, but seemed a little disorganized. Patient was cooperative with HS medications and 1:1 assessment. Patient has remained in bed sleeping this shift. [place] level 0.6 drawn on 12/21. SI/HI: Patient denies. A/VH: Patient mumbles, no. Sleep: Patient sleeping a majority of the shift. See Sleep Assessment for total hours. 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 Any med S/E: Patient is sedated. Mental Status Exam Appearance: Clean, wearing green unit scrubs. Eye contact: Sleepy. Behavior: Sedated, lying in bed, up to the restroom then back to bed. Pleasant for the short duration he was awake. Speech: Clear, minimal Mood: Sedated Affect: Sedated Thought process: Thought Content: Sleep. Cognition: A/Ox3, disoriented to situation. Insight: Poor Judgment: Poor Interventions PRN's used: None Therapeutic interventions: 1;1 assessment, active listening, encouraged patient to get up out of bed, maintained a safe and supportive environment, medication administration/education/monitoring, Q 15 minute safety checks. Restraints/seclusion/emergency medication: N/A Justification of Continued Inpatient Treatment: Per KARMEN Barnes, pt. remains pleasantly psychotic and continues to require a safe and supportive environment awaiting placement.
[2020-01-06] MEDS: benztropine 1mg tablet PO SCH ×2 (07:52→20:14)
[2020-01-06] MEDS: haloperidol 5mg tablet PO SCH ×3 (07:52→21:00)
[2020-01-06] MEDS: lithium carbonate 150mg capsule PO SCH ×2 (07:52→20:14)
[2020-01-06] MEDS: oxcarbazepine 150mg tablet PO SCH ×2 (07:52→20:15)
[2020-01-06] MEDS: PALIPERIDONE 3 MG TAB.ER.24 PO SCH (07:52)
[2020-01-06] MEDS: levoTHYROXINE 25mcg tablet PO SCH (07:53)
[2020-01-06] MEDS: pantoprazole 40mg Tablet.DR PO SCH (07:53)
[2020-01-06 08:05] VITALS: BP 107/65
--- NOTE | 2020-01-06 10:44 | NUR ---
NURSING PROGRESS NOTE Legal hold: LPS Client on involuntary status for GD Report received from XANDER Garcia with use of SBAR Why are they here: He eloped from [facility] in [facility] multiple times and was transferred here until a more secure living arrangement can be made. Pt has history of Schizoaffective, Bipolar type and Cluster B traits. Pt has Hx of ETOH abuse, Cannabis and nicotine dependence. Pt states, "I was drinking and smoking doobies and they told me to stay out of the park, so I had to get outta there." Pt's tox screen is negative. Pt states "Im in a great mood, Im glad to be back home in [place]." Pt is delusional believes he is a member of the [employer]. Assessment What has happened this shift: Asleep at shift change, up for breakfast and conversing with roommate. Came out to breakfast and when up and awke is very social and cooperative. Remains delusional, speaks of [employer], knowing them and being watched by them. Medication compliant. Sleeps after breakfast. No other changes. SI/HI: Denies A/VH: Denies Sleep: Slept often ADL's: Independent Group attendance: No Were meds taken: Yes Any med S/E: Sleepy Mental Status Exam Appearance: Clean, neat Eye contact: Direct Behavior: cooperative Speech: clear Mood: euthymic Affect: smiling and talkative when awake Thought process: delusional at times Thought Content: [employer] agents watching him Cognition: Alert Insight: Poor Judgment: Poor Interventions PRN's used: None Therapeutic interventions: 1;1 assessment, active listening, ensured contract for safety, encouraged pt to get up out of bed, maintained a safe and supportive environment, medication administration/education/monitoring, Q 15 minute safety checks. Restraints/seclusion/emergency medication: N/A Justification of Continued Inpatient Treatment: Per KARMEN Barnes, pt. remains pleasantly psychotic and continues to require a safe and supportive environment awaiting placement.
--- NOTE | 2020-01-06 17:52 | NUR ---
[facility] office requesting update PNs as Cranenataliia Huffman wants to review pt's packet. SS faxed updated notes & lab to TAD' office. Grace Agustin LCSW Addendum: 01/06/20 at 1754 by Grace Agustin Amended: Links added.
[2020-01-06 20:00] VITALS: BP 100/44
--- NOTE | 2020-01-07 04:14 | NUR ---
NURSING PROGRESS NOTE Legal hold: LPS Client on involuntary status for GD Report received from XANDER Quach with use of SBAR Why are they here: He eloped from [facility] in [facility] multiple times and was transferred here until a more secure living arrangement can be made. Pt has history of Schizoaffective, Bipolar type and Cluster B traits. Pt has Hx of ETOH abuse, Cannabis and nicotine dependence. Pt states, "I was drinking and smoking doobies and they told me to stay out of the park, so I had to get outta there." Pt's tox screen is negative. Pt states "Im in a great mood, Im glad to be back home in [place]." Pt is delusional believes he is a member of the [employer]. Assessment What has happened this shift: Patient self isolated and remained in bed after shift change. The patient was medication compliant. Patient is well oriented. Patient denies S/I or H/I. Patient believes that the room light might fall on him, especially if there is an earthquake. The patient is upbeat, he denies any problems. SI/HI: Denies. A/VH: Denies. Sleep: Patient sleeps from nearly shift change forward. ADL's: Independent. Group attendance: No group on nights. Were meds taken: Yes, patient is medication compliant. Any med S/E: None. Mental Status Exam Appearance: Appropriate dress, well groomed. Eye contact: Direct. Behavior: cooperative Speech: Clear, normal rate, rhythm, and tone. Mood: Euthymic Affect: Normal Thought process: Delusional to a rare degree. Thought Content: Patient talks about high school football. Cognition: Alert. Insight: Poor. Judgment: Poor. Interventions PRN's used: None Therapeutic interventions: 1;1 assessment, active listening, ensured contract for safety, encouraged pt to get up out of bed, maintained a safe and supportive environment, medication administration/education/monitoring, Q 15 minute safety checks. Restraints/seclusion/emergency medication: N/A Justification of Continued Inpatient Treatment: Per KARMEN Barnes, pt. remains pleasantly psychotic and continues to require a safe and supportive environment awaiting placement.
[2020-01-07] MEDS: haloperidol 5mg tablet PO SCH ×3 (07:43→22:39)
[2020-01-07] MEDS: benztropine 1mg tablet PO SCH ×2 (07:43→22:38)
[2020-01-07] MEDS: PALIPERIDONE 3 MG TAB.ER.24 PO SCH (07:43)
[2020-01-07] MEDS: oxcarbazepine 150mg tablet PO SCH ×2 (07:43→22:39)
[2020-01-07] MEDS: levoTHYROXINE 25mcg tablet PO SCH (07:44)
[2020-01-07] MEDS: lithium carbonate 150mg capsule PO SCH ×2 (07:44→22:38)
[2020-01-07] MEDS: pantoprazole 40mg Tablet.DR PO SCH (07:44)
[2020-01-07 09:29] VITALS: BP 113/83
--- NOTE | 2020-01-07 14:12 | NUR ---
NURSING PROGRESS NOTE Legal hold: LPS Client on involuntary status for GD Report received from XANDER Bean with use of SBAR Why are they here: He eloped from [facility] in [facility] multiple times and was transferred here until a more secure living arrangement can be made. Pt has history of Schizoaffective, Bipolar type and Cluster B traits. Pt has Hx of ETOH abuse, Cannabis and nicotine dependence. Pt states, "I was drinking and smoking doobies and they told me to stay out of the park, so I had to get outta there." Pt's tox screen is negative. Pt states "Im in a great mood, Im glad to be back home in [place]." Pt is delusional believes he is a member of the [employer]. Assessment What has happened this shift: Awake early, agreeable and polite. Med compliant. Remains pleasantly delusional, "I guess those Agents are going to be here soon, but it's ok because they are cool, its cool." Up to all meals and sleeping most of day. Denies suicidal thoughts and all hallucinations. SI/HI: Denies A/VH: Denies Sleep: Slept often ADL's: Independent Group attendance: No Were meds taken: Yes Any med S/E: Sleepy Mental Status Exam Appearance: Clean, neat Eye contact: Direct Behavior: cooperative Speech: clear Mood: euthymic Affect: smiling and talkative when awake Thought process: delusional at times Thought Content: [employer] agents coming here Cognition: Alert Insight: Poor Judgment: Poor Interventions PRN's used: None Therapeutic interventions: 1;1 assessment, active listening, ensured contract for safety, encouraged pt to get up out of bed, maintained a safe and supportive environment, medication administration/education/monitoring, Q 15 minute safety checks. Restraints/seclusion/emergency medication: N/A Justification of Continued Inpatient Treatment: Per KARMEN Barnes, pt. remains pleasantly psychotic and continues to require a safe and supportive environment awaiting placement.
[2020-01-07 19:00] VITALS: BP 100/62
--- NOTE | 2020-01-08 03:43 | NUR ---
NURSING PROGRESS NOTE Legal hold: LPS Client on involuntary status for GD Report received from XANDER Quach with use of SBAR Why are they here: He eloped from [facility] in [facility] multiple times and was transferred here until a more secure living arrangement can be made. Pt has history of Schizoaffective, Bipolar type and Cluster B traits. Pt has Hx of ETOH abuse, Cannabis and nicotine dependence. Pt states, "I was drinking and smoking doobies and they told me to stay out of the park, so I had to get outta there." Pt's tox screen is negative. Pt states "Im in a great mood, Im glad to be back home in [place]." Pt is delusional believes he is a member of the [employer]. Assessment What has happened this shift: Patient remains isolating in his room throughout the shift. He awakens for his first round of evening medications. Patient is sleepy, cooperative, no distress. Patient denies H/I or S/I at this time. SI/HI: Denies. A/VH: Denies. Sleep: Patient sleeps from nearly shift change forward. ADL's: Independent. Group attendance: No group on nights. Were meds taken: Yes, patient is medication compliant. Any med S/E: None. Mental Status Exam Appearance: Appropriate dress, well groomed. Eye contact: Direct. Behavior: Cooperative and upbeat. Speech: Clear, normal rate, rhythm, and tone. Mood: Euthymic Affect: Normal Thought process: Delusional to a rare degree. Thought Content: Tired, going back to sleep. Cognition: Alert, oriented to person, place, situation. Insight: Poor. Judgment: Poor. Interventions PRN's used: None Therapeutic interventions: 1;1 assessment, active listening, ensured contract for safety, encouraged pt to get up out of bed, maintained a safe and supportive environment, medication administration/education/monitoring, Q 15 minute safety checks. Restraints/seclusion/emergency medication: N/A Justification of Continued Inpatient Treatment: Per KARMEN Barnes, pt. remains pleasantly psychotic and continues to require a safe and supportive environment awaiting placement.
[2020-01-08] MEDS: levoTHYROXINE 25mcg tablet PO SCH (07:36)
[2020-01-08] MEDS: oxcarbazepine 150mg tablet PO SCH ×2 (07:36→21:45)
[2020-01-08] MEDS: PALIPERIDONE 3 MG TAB.ER.24 PO SCH (07:37)
[2020-01-08] MEDS: lithium carbonate 150mg capsule PO SCH ×2 (07:37→21:39)
[2020-01-08] MEDS: haloperidol 5mg tablet PO SCH ×3 (07:37→21:55)
[2020-01-08] MEDS: pantoprazole 40mg Tablet.DR PO SCH (07:37)
[2020-01-08] MEDS: benztropine 1mg tablet PO SCH ×2 (07:37→21:40)
[2020-01-08 08:00] VITALS: BP 104/69
--- NOTE | 2020-01-08 16:54 | NUR ---
NURSING PROGRESS NOTE Derick Carlotta Legal hold: LPS Client on involuntary status for GD Report received from Vikas TERRELL Why are they here: He eloped from [facility] in [facility] multiple times and was transferred here until a more secure living arrangement can be made. Pt has history of Schizoaffective, Bipolar type and Cluster B traits. Pt has Hx of ETOH abuse, Cannabis and nicotine dependence. Pt states, "I was drinking and smoking doobies and they told me to stay out of the park, so I had to get outta there." Pt's tox screen is negative. Pt states "Im in a great mood, Im glad to be back home in [place]." Pt is delusional believes he is a member of the [employer]. Assessment What has happened this shift: Patient remains more social with staff and peers this am. Medication compliant. No behavioral issues so far this shift. Client presented for am meal and consumed majority of it. Client returned to his room and isolated after am meal but presented for lunch. Behavior is appropriate, eye contact is good and client denies any thoughts self harm or harming others. Client states that, "I have worked for the [employer] for 17 years". Isolated to room most of the shift but presents for meals and medications. SI/HI: Denies. A/VH: Denies. Sleep: ADL's: Independent. Group attendance: no Were meds taken: Yes, patient is medication compliant. Any med S/E: None. Mental Status Exam Appearance: Appropriate dress, well groomed. Eye contact: Direct. Behavior: Cooperative and upbeat. Speech: Clear, normal rate, rhythm, and tone. Mood: Euthymic Affect: Normal Thought process: Delusional to a rare degree. Thought Content: Tired, going back to sleep. Cognition: Alert, oriented to person, place, situation. Insight: Poor. Judgment: Poor. Interventions PRN's used: None Therapeutic interventions: 1;1 assessment, active listening, ensured contract for safety, encouraged pt to get up out of bed, maintained a safe and supportive environment, medication administration/education/monitoring, Q 15 minute safety checks. Restraints/seclusion/emergency medication: N/A Justification of Continued Inpatient Treatment: Per KARMEN Barnes, pt. remains pleasantly psychotic and continues to require a safe and supportive environment awaiting placement.
[2020-01-08 19:00] VITALS: BP 93/40
--- NOTE | 2020-01-09 03:32 | NUR ---
NURSING PROGRESS NOTE Legal hold: LPS Client on involuntary status for GD Report received from Main TERRELL Why are they here: He eloped from [facility] in [facility] multiple times and was transferred here until a more secure living arrangement can be made. Pt has history of Schizoaffective, Bipolar type and Cluster B traits. Pt has Hx of ETOH abuse, Cannabis and nicotine dependence. Pt states, "I was drinking and smoking doobies and they told me to stay out of the park, so I had to get outta there." Pt's tox screen is negative. Pt states "Im in a great mood, Im glad to be back home in [place]." Pt is delusional believes he is a member of the [employer]. Assessment What has happened this shift: Patient self isolates to room and mostly sleeps. Patient is well oriented, polite, he is cooperative. Patient denies S/I, H/I, or any hallucinations. Patient is upbeat, he is without complaint. SI/HI: Denies. A/VH: Denies. Sleep: Will tally at 0500 hours. ADL's: Independent. Group attendance: N/A Were meds taken: Yes, patient is medication compliant. Any med S/E: None. Mental Status Exam Appearance: Appropriate dress, well groomed. Eye contact: Direct. Behavior: Cooperative and upbeat. Speech: Clear, normal rate, rhythm, and tone. Mood: Euthymic Affect: Normal Thought process: Linear.. Thought Content: . Cognition: Alert, oriented to person, place, situation. Insight: Fair.. Judgment: Fair.. Interventions PRN's used: None Therapeutic interventions: 1;1 assessment, active listening, ensured contract for safety, encouraged pt to get up out of bed, maintained a safe and supportive environment, medication administration/education/monitoring, Q 15 minute safety checks. Restraints/seclusion/emergency medication: N/A Justification of Continued Inpatient Treatment: Per KARMEN Barnes, pt. remains pleasantly psychotic and continues to require a safe and supportive environment awaiting placement.
[2020-01-09] MEDS: haloperidol 5mg tablet PO SCH ×2 (07:45→22:10)
[2020-01-09] MEDS: pantoprazole 40mg Tablet.DR PO SCH (07:45)
[2020-01-09] MEDS: benztropine 1mg tablet PO SCH ×2 (07:45→22:10)
[2020-01-09] MEDS: PALIPERIDONE 3 MG TAB.ER.24 PO SCH (07:46)
[2020-01-09] MEDS: lithium carbonate 150mg capsule PO SCH ×2 (07:46→22:10)
[2020-01-09] MEDS: oxcarbazepine 150mg tablet PO SCH ×2 (07:46→22:10)
[2020-01-09 07:51] VITALS: BP 122/79
[2020-01-09] MEDS: levoTHYROXINE 25mcg tablet PO SCH (07:55)
--- NOTE | 2020-01-09 14:43 | NUR ---
NURSING PROGRESS NOTE: Legal hold: LPS Client on involuntary status for GD Report received from RN with use of SBAR Why are they here: He eloped from [facility] in [facility] multiple times and was transferred here until a more secure living arrangement can be made. Pt has history of Schizoaffective, Bipolar type and Cluster B traits. Pt has Hx of ETOH abuse, Cannabis and nicotine dependence. Pt states, "I was drinking and smoking doobies and they told me to stay out of the park, so I had to get outta there." Pt's tox screen is negative. Pt states "Im in a great mood, Im glad to be back home in [place]." Pt is delusional believes he is a member of the [employer]. Assessment What has happened this shift: Received Pt in bed sleeping at change of shift. He awoke soon after report for vitals and was pleasant and cooperative. Pt took AM meds without issue and ate breakfast with others and interacted pleasantly and appropriately. Pt talkative and delusional at times about [employer] agents and his past work with the [employer]. He talked excitedly about possibly going to [facility] where he can smoke 13 cigarettes a day. Pt denies that he is delusional and denies SI/HI. Pt napped after lunch. SI/HI: Denies A/VH: Denies Sleep: Napped ADL's: Independent Group attendance: No Were meds taken: Yes Any med S/E: He states Haldol makes him tired Mental Status Exam Appearance: Clean, neat Eye contact: Direct Behavior: cooperative Speech: clear Mood: euthymic Affect: Pleasant, smiling and talkative Thought process: Delusional at times Thought Content: [employer] agents coming here Cognition: Alert Insight: Poor Judgment: Poor Interventions PRN's used: None Therapeutic interventions: 1;1 assessment, active listening, ensured contract for safety, encouraged pt to get up out of bed, maintained a safe and supportive environment, medication administration/education/monitoring, Q 15 minute safety checks. Restraints/seclusion/emergency medication: N/A Justification of Continued Inpatient Treatment: Pt. remains psychotic and continues to require a safe and supportive environment awaiting placement.
[2020-01-09 19:00] VITALS: BP 102/0
--- NOTE | 2020-01-10 02:01 | NUR ---
NURSING PROGRESS NOTE: Legal hold: LPS Client on involuntary status for GD Report received from XANDER Quach with use of SBAR Why are they here: He eloped from [facility] in [facility] multiple times and was transferred here until a more secure living arrangement can be made. Pt has history of Schizoaffective, Bipolar type and Cluster B traits. Pt has Hx of ETOH abuse, Cannabis and nicotine dependence. Pt states, "I was drinking and smoking doobies and they told me to stay out of the park, so I had to get outta there." Pt's tox screen is negative. Pt states "Im in a great mood, Im glad to be back home in [place]." Pt is delusional believes he is a member of the [facility]. Assessment What has happened this shift: Patient was sleeping following shift change. Patient color was good, he was W/D with no respiratory distress. Patient was left to sleep. The tech doing vital signs advised this service writer that the patient was hypotensive. This service writer immediately performed an exam/evaluation of this patient. The patients radial pulses were strong and regular with a rate of 60 BPM and regular in rhythm. Conjunctiva is pink. A manual blood pressure was taken which was 102/0. Lung vogel were clear and equal bilaterally with good tidal volume. Heart sounds reveal S1, S2 sounds, no gallops or murmurs noted. The abdomen soft and non tender with active bowel sounds. The patient is afebrile. The patient was awoken, although drowsy patients mentation was consistent with the past three shifts. Alert, pleasant, cooperative. Patient presents as linear but as the conversation travels a delusional state is revealed. e.g. Patients father is associated with the [employer], etc. This service writer consulted with KARMEN Paiz. Orders were taken to discontinue the patients 2100 hour scheduled dose of Haldol, this was done. All other medications were administered. The day shift RN will be advised of the diastolic blood pressure reading for possible consult with the hospitalist. SI/HI: Denies. A/VH: Denies. Sleep: Sleeping following shift change, brief awake period then back to sleep. ADL's: Independent. Group attendance: Not on days. Were meds taken: Yes, patient is medication compliant. Any med S/E: He states Haldol makes him tired. Mental Status Exam Appearance: Clean, neat. Eye contact: Direct. Behavior: Cooperative and friendly. Speech: Sluggish upon awakening, clear afterwards. Mood: Euthymic. Affect: Pleasant, smiling and talkative. Thought process: Delusional at times. Thought Content: Feeling tired. Wants to leave. Cognition: Oriented to person, place, year, delusional. Insight: Poor. Judgment: Poor. Interventions PRN's used: None Therapeutic interventions: 1;1 assessment, active listening, ensured contract for safety, encouraged pt to get up out of bed, maintained a safe and supportive environment, medication administration/education/monitoring, Q 15 minute safety checks. Restraints/seclusion/emergency medication: N/A Justification of Continued Inpatient Treatment: Pt. remains psychotic and continues to require a safe and supportive environment awaiting placement.
[2020-01-10 06:43] LABS: BASOPHILS % (AUTO) 0.5 % (0-1); EOSINOPHILS # (AUTO) 0.1 X10'3 (0-0.9); EOSINOPHILS % (AUTO) 1.8 % (0-6); HEMATOCRIT 41.3 % (42.0-52.0); HEMOGLOBIN 14.3 g/dl (14.0-17.9); LYMPHOCYTES # (AUTO) 1.6 X10'3 (1.1-4.8); LYMPHOCYTES % (AUTO) 25.8 % (21-51); MEAN CORPUSCULAR HEMOGLOBIN 31.2 PG (27.0-31.0); MEAN CORPUSCULAR HGB CONC 34.6 g/dL (33.0-36.5); MEAN CORPUSCULAR VOLUME 90.4 FL (78-98); MEAN PLATELET VOLUME 7.7 FL (7.4-10.4); MONOCYTES # (AUTO) 0.5 X10'3 (0-0.9); MONOCYTES % (AUTO) 8.4 % (2-12); NEUTROPHILS % (AUTO) 63.5 % (42-75); PLATELET COUNT 150 X10'3 (140-440); RED BLOOD COUNT 4.57 X10'6 (4.70-6.10); RED CELL DISTRIBUTION WIDTH 12.7 % (11.5-14.5); WHITE BLOOD COUNT 6.3 X10'3 (4.5-11.0)
[2020-01-10 07:04] LABS: ALANINE AMINOTRANSFERASE 35 U/L (12-78); ALBUMIN 3.8 G/DL (3.4-5.0); ALBUMIN/GLOBULIN RATIO 1.4 (1.1-1.5); ALKALINE PHOSPHATASE 84 IU/L (46-116); ANION GAP 8 (8-16); ASPARTATE AMINO TRANSFERASE 22 U/L (10-37); BILIRUBIN,TOTAL 0.3 MG/DL (0.1-1.0); BLOOD UREA NITROGEN 15 MG/DL (7-18); CALCIUM 8.7 MG/DL (8.5-10.1); CHLORIDE 105 MMOL/L (99-107); CREATININE 1.07 MG/DL (0.60-1.10); GLUCOSE 103 MG/DL (70-104); POTASSIUM 4.2 MMOL/L (3.5-5.1); SODIUM 139 MMOL/L (135-145); TOTAL CARBON DIOXIDE 26.5 MMOL/L (24-32); TOTAL PROTEIN 6.6 G/DL (6.4-8.2); eGFR 77 ML/MIN
[2020-01-10] MEDS: oxcarbazepine 150mg tablet PO SCH ×2 (07:54→20:32)
[2020-01-10] MEDS: pantoprazole 40mg Tablet.DR PO SCH (07:54)
[2020-01-10] MEDS: lithium carbonate 150mg capsule PO SCH ×2 (07:55→20:32)
[2020-01-10] MEDS: haloperidol 5mg tablet PO SCH ×2 (07:55→20:33)
[2020-01-10] MEDS: levoTHYROXINE 25mcg tablet PO SCH (07:55)
[2020-01-10] MEDS: benztropine 1mg tablet PO SCH ×2 (07:55→20:32)
[2020-01-10] MEDS: PALIPERIDONE 3 MG TAB.ER.24 PO SCH (07:55)
[2020-01-10 08:46] VITALS: BP 114/79
--- NOTE | 2020-01-10 17:25 | NUR ---
NURSING PROGRESS NOTE: Legal hold: LPS Client on involuntary status for GD Report received from RN with use of SBAR Why are they here: He eloped from [facility] in [facility] multiple times and was transferred here until a more secure living arrangement can be made. Pt has history of Schizoaffective, Bipolar type and Cluster B traits. Pt has Hx of ETOH abuse, Cannabis and nicotine dependence. Pt states, "I was drinking and smoking doobies and they told me to stay out of the park, so I had to get outta there." Pt's tox screen is negative. Pt states "Im in a great mood, Im glad to be back home in [place]." Pt is delusional believes he is a member of the [employer]. Assessment What has happened this shift: Patient awake shortly after shift change, socializing with peers on the unit. Pt. eats meals, then goes back to bed. Attempted 1:1, but patient is too groggy to stay awake. SI/HI: Denies A/VH: Denies Sleep: 10.25 hrs NOC, slept on hi. ADL's: Independent Group attendance: N/A Were meds taken: Yes Any med S/E: Fatigue. Mental Status Exam Appearance: Well groomed. Eye contact: Direct Behavior: cooperative and calm. Speech: clear, loud Mood: euthymic Affect: Blunted. Thought process: Delusional at times Thought Content: Working for the [employer]. Cognition: Alert Insight: Poor Judgment: Poor Interventions PRN's used: None Therapeutic interventions: 1;1 assessment, active listening, ensured contract for safety, encouraged pt to get up out of bed, maintained a safe and supportive environment, medication administration/education/monitoring, Q 15 minute safety checks. Restraints/seclusion/emergency medication: N/A Justification of Continued Inpatient Treatment: Pt. remains psychotic and continues to require a safe and supportive environment awaiting placement.
[2020-01-10 20:00] VITALS: BP 105/70
--- NOTE | 2020-01-11 02:36 | NUR ---
NURSING PROGRESS NOTE: Legal hold: LPS Client on involuntary status for GD Report received from XANDER Quach with use of SBAR Why are they here: He eloped from [facility] in [facility] multiple times and was transferred here until a more secure living arrangement can be made. Pt has history of Schizoaffective, Bipolar type and Cluster B traits. Pt has Hx of ETOH abuse, Cannabis and nicotine dependence. Pt states, "I was drinking and smoking doobies and they told me to stay out of the park, so I had to get outta there." Pt's tox screen is negative. Pt states "Im in a great mood, Im glad to be back home in [place]." Pt is delusional believes he is a member of the [employer]. Assessment What has happened this shift: Received Pt in bed sleeping at change of shift. He wakes for snack and vitals then returns to his bed. Pt intermittently delusional during assessment, stating he cannot go to the patio due to being arrested by the [employer] (this RN attempted reality orientation to reassure pt no arrests would be made and he should go enjoy some fresh air to which pt replied Okay...but if I do get arrested Im giving them your name! [smile]) and the toothpaste being poison. RN reassured pt the paste is safe to use and oral hygiene is important pt agreed and proceeded to brush his teeth. Pt voluntarily spoke about the mountain ranges with in view form his window, pointing and stating I think that one is [place]! Pt compliant with medications, and requested additional snack after administration before turning into sleep. SI/HI: Denies A/VH: Denies Sleep: Sleep well. See Sleep Assessment. ADL's: Independent Group attendance: No Were meds taken: Yes Any med S/E: None reported nor observed Mental Status Exam Appearance: Clean,wearing personal shirt and beanie with unit scrub pants and nonskid socks Eye contact: Direct Behavior: Cooperative, Isolates to room, sleeping Speech: Clear, normal rate Mood: Euthymic Affect: Bright Thought process: Intermittently delusional or paranoid Thought Content: toothpaste being poison, [employer] may come and arrest him if he goes to the patio, discussing mountains he can view from his window Cognition: Alert&Ox3 (off for circumstance) Insight: Poor Judgment: Poor Interventions PRN's used: None Therapeutic interventions: 1;1 assessment, active listening, ensured contract for safety, encouraged pt to get up out of bed, maintained a safe and supportive environment, medication administration/education/monitoring, Q 15 minute safety checks. Restraints/seclusion/emergency medication: N/A Justification of Continued Inpatient Treatment: Pt. Is chronically delusional and continues to require a safe and supportive environment awaiting placement.
[2020-01-11] MEDS: haloperidol 5mg tablet PO SCH ×2 (08:22→20:44)
[2020-01-11] MEDS: PALIPERIDONE 3 MG TAB.ER.24 PO SCH (08:22)
[2020-01-11] MEDS: oxcarbazepine 150mg tablet PO SCH ×2 (08:22→20:43)
[2020-01-11] MEDS: levoTHYROXINE 25mcg tablet PO SCH (08:22)
[2020-01-11] MEDS: benztropine 1mg tablet PO SCH ×2 (08:22→20:44)
[2020-01-11] MEDS: pantoprazole 40mg Tablet.DR PO SCH (08:23)
[2020-01-11] MEDS: lithium carbonate 150mg capsule PO SCH ×2 (08:23→20:42)
[2020-01-11 08:25] VITALS: BP 130/78
--- NOTE | 2020-01-11 15:48 | NUR ---
NURSING PROGRESS NOTE: Legal hold: LPS Client on involuntary status for GD Report received from XANDER Garcia with use of SBAR Why are they here: He eloped from [facility] in [facility] multiple times and was transferred here until a more secure living arrangement can be made. Pt has history of Schizoaffective, Bipolar type and Cluster B traits. Pt has Hx of ETOH abuse, Cannabis and nicotine dependence. Pt states, "I was drinking and smoking doobies and they told me to stay out of the park, so I had to get outta there." Pt's tox screen is negative. Pt states "Im in a great mood, Im glad to be back home in [place]." Pt is delusional believes he is a member of the [employer]. Assessment What has happened this shift: Patient awake shortly after shift change. Patient is loud and socializing on unit. Pt. appears to be in a good mood. Patient takes medications without incident. Pleasant and cooperative in all interactions. Patient tends to isolate to his room and sleeps most of the day. SI/HI: Denies A/VH: Denies Sleep: 9.25 hrs NOC, slept on hi. ADL's: Independent Group attendance: No Were meds taken: Yes Any med S/E: Fatigue. Mental Status Exam Appearance: Disheveled male in personal attire. Eye contact: Direct Behavior: cooperative and calm. Speech: clear, loud Mood: euthymic Affect: Blunted. Thought process: Delusional at times Thought Content: Getting sleep. Cognition: Alert Insight: Poor Judgment: Poor Interventions PRN's used: None Therapeutic interventions: 1;1 assessment, active listening, ensured contract for safety, encouraged pt to get up out of bed, maintained a safe and supportive environment, medication administration/education/monitoring, Q 15 minute safety checks. Restraints/seclusion/emergency medication: N/A Justification of Continued Inpatient Treatment: Pt. remains psychotic and continues to require a safe and supportive environment awaiting placement.
[2020-01-11 20:00] VITALS: BP 142/73
[2020-01-11] MEDS ORDERED: LORazepam 0.5 MG tablet PO PRN ×2 (22:57→22:58)
--- NOTE | 2020-01-12 04:58 | NUR ---
NURSING PROGRESS NOTE: Legal hold: LPS Client on involuntary status for GD Report received from XANDER Quach with use of SBAR Why are they here: He eloped from [facility] in [facility] multiple times and was transferred here until a more secure living arrangement can be made. Pt has history of Schizoaffective, Bipolar type and Cluster B traits. Pt has Hx of ETOH abuse, Cannabis and nicotine dependence. Pt states, "I was drinking and smoking doobies and they told me to stay out of the park, so I had to get outta there." Pt's tox screen is negative. Pt states "Im in a great mood, Im glad to be back home in [place]." Pt is delusional believes he is a member of the [employer]. Assessment What has happened this shift: Pt walking around, engaging with peers majority of shift. He is observed to talk loudly, laugh, and smile often. 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 Pt did not endorse any paranoias this shift, and remains compliant with medications. He turned in to sleep after administration. At 0300, pts roommate poured water on the patient while he was asleep. Pt tolerated the situation well, and assisted as we remade his bed. Pt said thank you and Now I can get some sleep! SI/HI: Denies A/VH: Denies Sleep: Sleeping interrupted this evening due to roommates psychotic behavior. See Sleep Assessment. ADL's: Independent Group attendance: N/A Were meds taken: Yes Any med S/E: None reported nor observed Mental Status Exam Appearance: Clean, wearing personal shirt and beanie with unit scrub pants and nonskid socks Eye contact: Direct Behavior: Walking around unit engaging with staff Speech: Clear, normal rate, occasionally loud Mood: Euthymic Affect: Bright Thought process: Intermittently delusional Thought Content: various topics brought up through conversation: old history teachers and delusional thoughts Cognition: Alert&Ox3 (off for circumstance) Insight: Poor Judgment: Poor Interventions PRN's used: None Therapeutic interventions: 1;1 assessment, active listening, ensured contract for safety, encouraged pt to get up out of bed, maintained a safe and supportive environment, medication administration/education/monitoring, Q 15 minute safety checks. Restraints/seclusion/emergency medication: N/A Justification of Continued Inpatient Treatment: Pt. Is chronically delusional and continues to require a safe and supportive environment awaiting placement.
[2020-01-12] MEDS: levoTHYROXINE 25mcg tablet PO SCH (08:09)
[2020-01-12] MEDS: oxcarbazepine 150mg tablet PO SCH ×2 (08:09→20:02)
[2020-01-12] MEDS: benztropine 1mg tablet PO SCH ×2 (08:09→20:01)
[2020-01-12] MEDS: haloperidol 5mg tablet PO SCH ×2 (08:10→20:01)
[2020-01-12] MEDS: pantoprazole 40mg Tablet.DR PO SCH (08:10)
[2020-01-12] MEDS: PALIPERIDONE 3 MG TAB.ER.24 PO SCH (08:10)
[2020-01-12] MEDS: lithium carbonate 150mg capsule PO SCH ×2 (08:10→20:02)
[2020-01-12 08:20] VITALS: BP 117/79
--- NOTE | 2020-01-12 10:31 | NUR ---
Reassessment: Pt continues with 100% PO intake on regular diet however noted that pt did refuse dinner 01/08. Overall pt still meeting nutrient needs given mostly good PO intake. LBM 01/10. No nutrition intervention warranted at this time. Will continue to follow. Rec: 1. advance diet as medically indicated to heart healthy 2. bowel care as needed 3. wt per rx Addendum: 01/12/20 at [address] Amended: Links added.
--- NOTE | 2020-01-12 14:56 | NUR ---
NURSING PROGRESS NOTE: Legal hold: LPS Client on involuntary status for GD Report received from XANDER Garcia with use of SBAR Why are they here: He eloped from [facility] in [facility] multiple times and was transferred here until a more secure living arrangement can be made. Pt has history of Schizoaffective, Bipolar type and Cluster B traits. Pt has Hx of ETOH abuse, Cannabis and nicotine dependence. Pt states, "I was drinking and smoking doobies and they told me to stay out of the park, so I had to get outta there." Pt's tox screen is negative. Pt states "Im in a great mood, Im glad to be back home in [place]." Pt is delusional believes he is a member of the [employer]. Assessment What has happened this shift: Pt up and out of room for meals. Pt is pleasant, cooperative, and very polite. Pt asked for coffee after lunch and was quite appreciative of it. Pt has good manners and says please and thank you, he calls this RN ma'am and doesn't ever seem to remember working with me previously. Asked pt if he was intentionally growing a davenport. Pt seemed ambivalent about it. Reminded pt that he could ask to shave if he wished to do so. Pt thought about it for a moment and said that maybe he would later. SI/HI: Pt denies A/VH: Pt denies Sleep: Pt slept 8 hours last night per noc shift report. ADL's: Independent Group attendance: No Were meds taken: Yes Any med S/E: None noted or reported Mental Status Exam Appearance: Neat, clean, with full davenport, wearing a burgundy beanie. Eye contact: Good Behavior: Pleasant, cooperative, got along well with roommate, sleeps majority of day shift though up and wide awake for meals. Speech: Clear, audible, minimal Mood: Euthymic Affect: Bright Thought process: Intermittently delusional Thought Content: Likes coffee, might shave later. Cognition: A/O x 3 (off for circumstance) Insight: Poor Judgment: Poor Interventions PRN's used: None Therapeutic interventions: 1;1 assessment, active listening,therapeutic conversation, encouraged pt to get up out of bed, maintained a safe and supportive environment, medication administration/education/monitoring, Q 15 minute safety checks. Restraints/seclusion/emergency medication: N/A Justification of Continued Inpatient Treatment: Pt. Is chronically delusional and continues to require a safe and supportive environment awaiting placement.
[2020-01-12 19:00] VITALS: BP 102/59
--- NOTE | 2020-01-13 03:48 | NUR ---
RN PROGRESS NOTE: LEGAL HOLD: LPS conserved. ADMISSION: Hx of schizophrenia. THIS SHIFT: Client stayed in room during shift. Client was sleeping but was easy to waken. Up for snack time. Compliant with medications. Client is agreeable and pleasant. Denies any side effects from medications. Clean and appropriately dressed. Fell asleep shortly after having snack. DISCHARGE: Client is unable to formulate a plan of care. Waiting for placement.
[2020-01-13 08:00] VITALS: BP 112/68
[2020-01-13] MEDS: PALIPERIDONE 3 MG TAB.ER.24 PO SCH (08:02)
[2020-01-13] MEDS: haloperidol 5mg tablet PO SCH ×2 (08:02→21:11)
[2020-01-13] MEDS: benztropine 1mg tablet PO SCH ×2 (08:02→21:11)
[2020-01-13] MEDS: lithium carbonate 150mg capsule PO SCH ×2 (08:02→21:12)
[2020-01-13] MEDS: oxcarbazepine 150mg tablet PO SCH ×2 (08:03→21:12)
[2020-01-13] MEDS: pantoprazole 40mg Tablet.DR PO SCH (08:03)
[2020-01-13] MEDS: levoTHYROXINE 25mcg tablet PO SCH (08:03)
--- NOTE | 2020-01-13 11:00 | NUR ---
PLACEMENT Packet is currently at [facility], [facility], and [facility]. BART Rollins
[2020-01-13] MEDS ORDERED: LORazepam 1 MG tablet PO PRN ×2 (11:43→11:44)
--- NOTE | 2020-01-13 13:40 | NUR ---
NURSING PROGRESS NOTE: Legal hold: LPS Client on involuntary status for GD Report received from XANDER Garcia with use of SBAR Why are they here: He eloped from [facility] in [facility] multiple times and was transferred here until a more secure living arrangement can be made. Pt has history of Schizoaffective, Bipolar type and Cluster B traits. Pt has Hx of ETOH abuse, Cannabis and nicotine dependence. Pt states, "I was drinking and smoking doobies and they told me to stay out of the park, so I had to get outta there." Pt's tox screen is negative. Pt states "Im in a great mood, Im glad to be back home in [place]." Pt is delusional believes he is a member of the [employer]. Assessment What has happened this shift: Pt spent more time out in the milieu today. He did not take his usual nap after breakfast. Pt burped quietly while walking in the subramanian and said, "excuse me ladies." Pt observed interacting with peers socializing, joking, and telling stories. The stories he tells are mostly full of delusional content, heard pt state, "my grandpa's 98 and pumpin' iron twice a week." Pt is jovial and polite. He frequently has encouraging and uplifting things to say to other patients. SI/HI: Pt denies A/VH: Pt denies Sleep: Pt slept 8.75 hours last night per noc shift report. ADL's: Independent Group attendance: No Were meds taken: Yes Any med S/E: None noted or reported Mental Status Exam Appearance: Neat, clean, trim man with short brown hair and a reddish brown davenport wearing a camo baseball cap, a green [employer] t-shirt, and blue jeans. Eye contact: Good Behavior: Pleasant, cooperative, friendly, awake and interacting on the milieu today. Speech: Clear, audible Mood: Euthymic Affect: Bright Thought process: Pleasantly delusional Thought Content: Focused on discharge, optimistic he will be discharged next week. Cognition: A/O x 3 (off for circumstance) Insight: Poor Judgment: Fair Interventions PRN's used: None Therapeutic interventions: 1:1 assessment, active listening,therapeutic conversation, maintained a safe and supportive environment, medication administration/education/monitoring, positive reinforcement, Q 15 minute safety checks. Restraints/seclusion/emergency medication: N/A Justification of Continued Inpatient Treatment: Pt. Is chronically delusional and continues to require a safe and supportive environment awaiting placement.
[2020-01-13 19:00] VITALS: BP 138/74
--- NOTE | 2020-01-14 04:09 | NUR ---
NURSING PROGRESS NOTE: Legal hold: LPS Client on involuntary status for GD Report received from XANDER Ramírez with use of SBAR Why are they here: He eloped from [facility] in [facility] multiple times and was transferred here until a more secure living arrangement can be made. Pt has history of Schizoaffective, Bipolar type and Cluster B traits. Pt has Hx of ETOH abuse, Cannabis and nicotine dependence. Pt states, "I was drinking and smoking doobies and they told me to stay out of the park, so I had to get outta there." Pt's tox screen is negative. Pt states "Im in a great mood, Im glad to be back home in [place]." Pt is delusional believes he is a member of the [employer]. Assessment What has happened this shift: Received patient sleeping at shift change, respirations even and unlabored. Patient had to be woke up for HS medications. Patient was easily roused. Patient was up to void then returned to bed where he has remained this shift, no distress noted. Encouraged patient to get up and walk around the unit Nah, Im just kind of tired. Patient is pleasant. SI/HI: Patient denies both. A/VH: Patient denies both. Sleep: No PRNs administered for sleep. See Sleep Assessment for total hours. 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 Were meds taken: Yes, without incident. Any med S/E: None observed or reported. Mental Status Exam Appearance: Clean, wearing jeans, [place] [employer] shirt, sleeping in bed. Eye contact: Good Behavior: Sleepy, cooperative. Speech: Clear, audible. Mood: Sleepy Affect: Congruent with mood. Thought process: Circumstantial Thought Content: Sleep Cognition: A&O x3 (off for circumstance) Insight: Poor Judgment: Poor Interventions PRN's used: None Therapeutic interventions: 1:1 assessment, active listening, encouraged patient to get up out of bed, maintained a safe and supportive environment, medication administration/education/monitoring, Q 15 minute safety checks. Restraints/seclusion/emergency medication: N/A Justification of Continued Inpatient Treatment: Patient is chronically delusional and continues to require a safe and supportive environment awaiting placement. Patient is LPS Conserved.
[2020-01-14 08:00] VITALS: BP 114/79
[2020-01-14] MEDS: levoTHYROXINE 25mcg tablet PO SCH (08:12)
[2020-01-14] MEDS: benztropine 1mg tablet PO SCH ×2 (08:12→21:27)
[2020-01-14] MEDS: pantoprazole 40mg Tablet.DR PO SCH (08:12)
[2020-01-14] MEDS: PALIPERIDONE 3 MG TAB.ER.24 PO SCH (08:12)
[2020-01-14] MEDS: haloperidol 5mg tablet PO SCH ×2 (08:12→21:27)
[2020-01-14] MEDS: lithium carbonate 150mg capsule PO SCH ×2 (08:12→21:27)
[2020-01-14] MEDS: oxcarbazepine 150mg tablet PO SCH ×2 (08:12→21:27)
--- NOTE | 2020-01-14 14:42 | NUR ---
NURSING PROGRESS NOTE: Legal hold: LPS Client on involuntary status for GD Report received from Sona Lin RN with use of SBAR Why are they here: He eloped from [facility] in [facility] multiple times and was transferred here until a more secure living arrangement can be made. Pt has history of Schizoaffective, Bipolar type and Cluster B traits. Pt has Hx of ETOH abuse, Cannabis and nicotine dependence. Pt states, "I was drinking and smoking doobies and they told me to stay out of the park, so I had to get outta there." Pt's tox screen is negative. Pt states "Im in a great mood, Im glad to be back home in [place]." Pt is delusional believes he is a member of the [employer]. Assessment What has happened this shift: Pt was up for breakfast with bright affect, friendly, cooperative and joking with this RN. This RN asked pt if he ever has one of those days where he keeps dropping things. Pt looked at this RN and said, "no" then smiled, laughed and said, "that's what my dad would have said! He was always doing things like that." Pt then looked worried and asked, "you know I'm just kidding with you right?" Reassured pt that everything was okay. Pt was once again awake more today like yesterday. His new room and roommate seems to be contributing to pt staying awake and out of his room more. Pt asked for coffee and refills of his water pitcher a few times today. Pt is polite and expresses gratitude. Later in the shift, pt again apologized for kidding with this RN earlier. It seemed important to him that he didn't offend anyone or hurt anyone's feelings. Did not hear patient make any obvious delusional statements today. SI/HI: Pt denies A/VH: Pt denies Sleep: Pt slept 9.75 hours last night per noc shift report. ADL's: Independent Group attendance: No Were meds taken: Yes Any med S/E: None noted or reported Mental Status Exam Appearance: Neat, clean, trim man with short brown hair and a reddish brown davenport wearing street clothes. Eye contact: Good Behavior: Pleasant, cooperative, friendly, kind, awake and interacting in the milieu today. Speech: Clear, audible Mood: Elevated, jovial Affect: Bright, affable Thought process: Pleasantly delusional Thought Content: Concerned about other people's feelings. Cognition: A/O x 3 (off for circumstance) Insight: Poor Judgment: Good Interventions PRN's used: None Therapeutic interventions: 1:1 assessment, active listening,therapeutic conversation, maintained a safe and supportive environment, medication administration/education/monitoring, positive reinforcement, Q 15 minute safety checks. Restraints/seclusion/emergency medication: N/A Justification of Continued Inpatient Treatment: Pt is chronically pleasantly delusional and continues to require a safe and supportive environment awaiting placement.
[2020-01-14 19:44] VITALS: BP 103/63
--- NOTE | 2020-01-15 00:44 | NUR ---
NURSING PROGRESS NOTE: Legal hold: LPS Client on involuntary status for GD Report received from XANDER Ramírez with use of SBAR Why are they here: He eloped from [facility] in [facility] multiple times and was transferred here until a more secure living arrangement can be made. Pt has history of Schizoaffective, Bipolar type and Cluster B traits. Pt has Hx of ETOH abuse, Cannabis and nicotine dependence. Pt states, "I was drinking and smoking doobies and they told me to stay out of the park, so I had to get outta there." Pt's tox screen is negative. Pt states "Im in a great mood, Im glad to be back home in [place]." Pt is delusional believes he is a member of the [employer]. Assessment What has happened this shift: Received patient again sleeping at shift change, respirations even and unlabored. Patient had to be woke up for HS medications. Patient was easily roused. Patient was up to void then returned to bed where he has remained this shift, no distress noted. Patient was encouraged to get up out of bed and ambulate or get up for HS snack. Patient was compliant with medications and 1:1 assessment. SI/HI: Patient denies both. A/VH: Patient denies both. Sleep: No PRNs administered for sleep. See Sleep Assessment for total hours. 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 Were meds taken: Yes, without incident. Any med S/E: None observed or reported. Mental Status Exam Appearance: Clean, balding middle age man, wearing personal clothing. Eye contact: Good Behavior: Sleepy, cooperative, pleasant. Speech: Clear, audible. Mood: Sleepy, but pleasant. Affect: Congruent with mood. Thought process: Circumstantial Thought Content: Sleep Cognition: Alert&Ox3 (off for circumstance) Insight: Poor Judgment: Poor Interventions PRN's used: None Therapeutic interventions: 1:1 assessment, active listening, encouraged patient to get up out of bed, maintained a safe and supportive environment, medication administration/education/monitoring, Q 15 minute safety checks. Restraints/seclusion/emergency medication: N/A Justification of Continued Inpatient Treatment: Patient is chronically delusional and continues to require a safe and supportive environment awaiting placement. Patient is LPS Conserved.
[2020-01-15] MEDS: lithium carbonate 150mg capsule PO SCH ×2 (07:11→20:00)
[2020-01-15] MEDS: PALIPERIDONE 3 MG TAB.ER.24 PO SCH (07:11)
[2020-01-15] MEDS: levoTHYROXINE 25mcg tablet PO SCH (07:12)
[2020-01-15] MEDS: pantoprazole 40mg Tablet.DR PO SCH (07:12)
[2020-01-15] MEDS: benztropine 1mg tablet PO SCH ×2 (07:12→20:00)
[2020-01-15] MEDS: haloperidol 5mg tablet PO SCH ×2 (07:12→20:00)
[2020-01-15] MEDS: oxcarbazepine 150mg tablet PO SCH ×2 (07:13→20:00)
[2020-01-15 07:48] VITALS: BP 98/69
--- NOTE | 2020-01-15 12:41 | NUR ---
NURSING PROGRESS NOTE: Legal hold: LPS Client on involuntary status for GD Report received from Sona Lin RN with use of SBAR Why are they here: [facility] from [facility] multiple times and was transferred here until a more secure living arrangement can be made. Pt has history of Schizoaffective, Bipolar type and Cluster B traits. Pt has Hx of ETOH abuse, Cannabis and nicotine dependence. Pt states, "I was drinking and smoking doobies and they told me to stay out of the park, so I had to get outta there." Pt's tox screen is negative. Pt states "Im in a great mood, Im glad to be back home in [place]." Pt is delusional believes he is a member of the [employer]. Assessment What has happened this shift: Patient was awake and socializing on the unit before and after breakfast. He ate well. He took all of his medications as prescribed. After breakfast client went to sleep. He did not participate much today and seemed very tired. Not much to report since client has spent the majority of the day in bed. SI/HI: Pt denies A/VH: Pt denies Sleep: Pt napped much of the day ADL's: Independent Group attendance: No Were meds taken: Yes Any med S/E: None noted or reported Mental Status Exam Appearance: Neat, clean, wearing street clothes. Eye contact: Good Behavior: Pleasant, cooperative, quiet Speech: Clear, audible, normal rate and rhythm Mood: I am good Affect: Bright, affable Thought process: Disorganized Thought Content: Focused on napping Cognition: A/O x 3 Insight: Poor Judgment: Poor Interventions PRN's used: None Therapeutic interventions: 1:1 assessment, active listening,therapeutic conversation, maintained a safe and supportive environment, medication administration/education/monitoring, positive reinforcement, Q 15 minute safety checks. Restraints/seclusion/emergency medication: N/A Justification of Continued Inpatient Treatment: Pt is chronically pleasantly delusional and continues to require a safe and supportive environment awaiting placement.
[2020-01-15 20:10] VITALS: BP 107/70
--- NOTE | 2020-01-16 02:16 | NUR ---
[facility] NURSING PROGRESS NOTE Legal hold: 1370 Client on involuntary status for GD Report received from XANDER Troncoso with SBAR Why are they here: Admitted from the [facility] for court competency; patient was found violating a restraining order and trespassing on property where she once lived with her boyfriend (who currently lives there and filed the order). Per chart, patient began to have mental health issues with the onset of menopause. Per patient, she has been hospitalized in [place], related to anxiety shortly after the onset of menopause. Assessment What has happened this shift: Pt up at beginning of shift. When RN introduced herself she right away requested milk of magnesia because she is stopped up. Pt had MOM within 12 h so RN asked if she could wait until it is time. Pt then came up to RN before breakfast and stated with bright eyes never mind, I finally went! She requested to have frequent prune juices today to keep things going. When RN went to give pt medication, pt stated I dont take anything what are you giving me and who ordered it?. RN stated it was [employer] ordered by KARMEN Gilliland and pt states this is a set up, Im not taking that; you tell her to go fly a kite and she walked away from RN. She sat in her room facing the window and listened to headphones. She was tearful when talking to RN later about not wanting to take medications. She denies SI/HI/AH/VH. S/I, H/I: Denies A/VH: Denies Sleep: 7 h per sleep assessment ADL's: Independent Group attendance: No Were Meds taken: Refused Any med S/E: None noted Mental Status Exam Appearance: Well put together, wearing her own clothes, hair done. Eye contact: Good Behavior: Isolative Speech: Pressured. Mood: Labile. Goes between friendly and pleasant to irritated and obstinate Affect: Constricted Thought process: Circumstantial Thought Content: Not wanting to be forced to take meds. Cognition: A&Ox3 Insight: Poor Judgment: Poor Interventions PRN's used: Motrin and Melatoni Therapeutic interventions: 1:1 assessment, provided therapeutic communication and active listening, medication administration/education/and monitoring its effects, encouraged bowel regimen, provide a safe and therapeutic environment, q15min safety checks. Restraints/seclusion/emergency medication: N/A Justification of Continued Inpatient Treatment: Patient requires evaluation and treatment for yazidism of competency to stand trial. Met patient in her room and her mood was pleasant. She was oriented and explained the reason she was admitted. No sign of distress and patient expressed how she wants to go back home and restart her life. She states "I need to figure out how to get back my life". patient was friendly and did request melatonin and motrin before going to sleep. She also wants to start doing arts because that is her passion. Patient states no sucidal ideation and wants to go see her family.
[2020-01-16] MEDS: benztropine 1mg tablet PO SCH ×2 (07:32→20:17)
[2020-01-16] MEDS: PALIPERIDONE 3 MG TAB.ER.24 PO SCH (07:32)
[2020-01-16] MEDS: haloperidol 5mg tablet PO SCH ×2 (07:32→20:17)
[2020-01-16] MEDS: oxcarbazepine 150mg tablet PO SCH ×2 (07:32→20:17)
[2020-01-16] MEDS: pantoprazole 40mg Tablet.DR PO SCH (07:33)
[2020-01-16] MEDS: levoTHYROXINE 25mcg tablet PO SCH (07:33)
[2020-01-16] MEDS: lithium carbonate 150mg capsule PO SCH ×2 (07:33→20:16)
[2020-01-16 07:51] VITALS: BP 98/65
--- NOTE | 2020-01-16 12:01 | NUR ---
NURSING PROGRESS NOTE: Legal hold: LPS Client on involuntary status for GD Report received from Sona Lin RN with use of SBAR Why are they here: He eloped from [facility] in [facility] multiple times and was transferred here until a more secure living arrangement can be made. Pt has history of Schizoaffective, Bipolar type and Cluster B traits. Pt has Hx of ETOH abuse, Cannabis and nicotine dependence. Pt states, "I was drinking and smoking doobies and they told me to stay out of the park, so I had to get outta there." Pt's tox screen is negative. Pt states "Im in a great mood, Im glad to be back home in [place]." Pt is delusional believes he is a member of the [employer]. Assessment What has happened this shift: Patient was asleep at change of shift. He stayed asleep until breakfast came. Then he was up and social. He ate well at breakfast. He showered afterwards and then exercised with the group. Afterwards he had help to shave his head and his face. He states he lost a lot of hair when he was treated with a chemotherapeutic agent for fungus that he had swallowed. He is looking forward to go home. He states he may be able to stay with his mom here in [place]. He took all of his medication s as prescribed and did not ask for any PRN medications. SI/HI: Pt denies A/VH: Pt denies Sleep: Pt only napped briefly in the afternoon ADL's: Independent Group attendance: No Were meds taken: Yes Any med S/E: None noted or reported Mental Status Exam Appearance: Neat, clean, wearing street clothes, shaved his head and his facial hair today Eye contact: Good Behavior: Pleasant, cooperative, quiet Speech: Clear, audible, normal rate and rhythm Mood: I am in a good mood. You have to stay in a good mood Affect: Bright, full Thought process: Disorganized Thought Content: Perseverating about his hair loss Cognition: A/O x 3 Insight: Poor Judgment: Poor Interventions PRN's used: None Therapeutic interventions: 1:1 assessment, active listening, therapeutic conversation, maintained a safe and supportive environment, medication administration/education/monitoring, positive reinforcement, Q 15 minute safety checks. Restraints/seclusion/emergency medication: N/A Justification of Continued Inpatient Treatment: Pt is chronically pleasantly delusional and continues to require a safe and supportive environment awaiting placement.
[2020-01-16 20:00] VITALS: BP 111/71
--- NOTE | 2020-01-16 22:39 | NUR ---
NURSING PROGRESS NOTE: Legal hold: LPS Client on involuntary status for GD Report received from Main RN with use of SBAR Why are they here: He eloped from [facility] in [facility] multiple times and was transferred here until a more secure living arrangement can be made. Pt has history of Schizoaffective, Bipolar type and Cluster B traits. Pt has Hx of ETOH abuse, Cannabis and nicotine dependence. Pt states, "I was drinking and smoking doobies and they told me to stay out of the park, so I had to get outta there." Pt's tox screen is negative. Pt states "Im in a great mood, Im glad to be back home in [place]." Pt is delusional believes he is a member of the [employer]. Assessment What has happened this shift: Patient was awake and social with peers at the start of shift. he was in the rec room watching tv with peers and exercising on the bike doing push up and walking the subramanian. Pt is friendly with everyone and cooperative. Pt states I'm just haning out till thay find a place to go. SI/HI: Pt denies A/VH: Pt denies Sleep: Pt only napped briefly in the afternoon ADL's: Independent Group attendance: No Were meds taken: Yes Any med S/E: None noted or reported Mental Status Exam Appearance: Neat, clean, wearing street clothes, shaved his head and his facial hair today Eye contact: Good Behavior: Pleasant, cooperative, quiet Speech: Clear, audible, normal rate and rhythm Mood: I am in a good mood. You have to stay in a good mood Affect: Bright, full Thought process: Disorganized Thought Content: Perseverating about his hair loss Cognition: A/O x 3 Insight: Poor Judgment: Poor Interventions PRN's used: None Therapeutic interventions: 1:1 assessment, active listening, therapeutic conversation, maintained a safe and supportive environment, medication administration/education/monitoring, positive reinforcement, Q 15 minute safety checks. Restraints/seclusion/emergency medication: N/A Justification of Continued Inpatient Treatment: Pt is chronically pleasantly delusional and continues to require a safe and supportive environment awaiting placement.
[2020-01-17 08:16] VITALS: BP 91/60
[2020-01-17] MEDS: lithium carbonate 150mg capsule PO SCH ×2 (08:28→20:17)
[2020-01-17] MEDS: PALIPERIDONE 3 MG TAB.ER.24 PO SCH (08:29)
[2020-01-17] MEDS: levoTHYROXINE 25mcg tablet PO SCH (08:29)
[2020-01-17] MEDS: oxcarbazepine 150mg tablet PO SCH ×2 (08:30→20:14)
[2020-01-17] MEDS: haloperidol 5mg tablet PO SCH ×2 (08:30→20:15)
[2020-01-17] MEDS: benztropine 1mg tablet PO SCH ×2 (08:30→20:14)
[2020-01-17] MEDS: pantoprazole 40mg Tablet.DR PO SCH (08:30)
--- NOTE | 2020-01-17 17:28 | NUR ---
NURSING PROGRESS NOTE: Legal hold: LPS Client on involuntary status for GD Report received from JACQUIE Agustin with use of SBAR Why are they here: He eloped from [facility] in [facility] multiple times and was transferred here until a more secure living arrangement can be made. Pt has history of Schizoaffective, Bipolar type and Cluster B traits. Pt has Hx of ETOH abuse, Cannabis and nicotine dependence. Pt states, "I was drinking and smoking doobies and they told me to stay out of the park, so I had to get outta there." Pt's tox screen is negative. Pt states "Im in a great mood, Im glad to be back home in [place]." Pt is delusional believes he is a member of the [employer]. Assessment What has happened this shift: Patient was asleep at change of shift. Pt. awoke for breakfast and medications. Pt. took all medications and ate all meals in the community room. 1:1 done at bedside. Pt. denies SI/HI, A/V hallucinations. Pt. delusional, stating that he was placed here by his boss and he works in [employer], for the [employer]. Pt. took a brief nap in the AM but was up for most of the day. Pt. c/o of gum bleeding, RN examined pt.s gums and did not see any sign of trauma. RN encouraged pt. to brush his teeth gently. Pt. social with peers and staff. SI/HI: Pt denies A/VH: Pt denies Sleep: Pt only napped briefly in the afternoon ADL's: Independent Group attendance: No Were meds taken: Yes Any med S/E: None noted or reported Mental Status Exam Appearance: Neat, clean, wearing street clothes, Eye contact: Good Behavior: Friendly, cooperative, social Speech: Clear, audible, normal rate and rhythm Mood: Good Affect: Bright Thought process: Delusional. Thought Content: Circumstantial. Cognition: A/O x 3 Not to situation (Pt. believes hes waiting here to go back to work for the [employer]) Insight: Poor Judgment: Poor Interventions PRN's used: None Therapeutic interventions: 1:1 assessment, active listening, therapeutic conversation, maintained a safe and supportive environment, medication administration/education/monitoring, positive reinforcement, Q 15 minute safety checks. Restraints/seclusion/emergency medication: N/A Justification of Continued Inpatient Treatment: Pt is chronically pleasantly delusional and continues to require a safe and supportive environment awaiting placement.
[2020-01-17 20:28] VITALS: BP 123/78
--- NOTE | 2020-01-17 23:18 | NUR ---
NURSING PROGRESS NOTE: Legal hold: LPS Client on involuntary status for GD Report received from XANDER Quach with use of SBAR Why are they here: He eloped from [facility] in [facility] multiple times and was transferred here until a more secure living arrangement can be made. Pt has history of Schizoaffective, Bipolar type and Cluster B traits. Pt has Hx of ETOH abuse, Cannabis and nicotine dependence. Pt states, "I was drinking and smoking doobies and they told me to stay out of the park, so I had to get outta there." Pt's tox screen is negative. Pt states "Im in a great mood, Im glad to be back home in [place]." Pt is delusional believes he is a member of the [employer]. Assessment What has happened this shift: Patient awake and in the subramanian talking with a peer and pacing the subramanian. Pt is in a good mood and was happy to see returning staff. Pt states that he wished this virus was over so he can go to a board and care. He says I just keep my self busy till then. SI/HI: Pt denies A/VH: Pt denies Sleep: Pt only napped briefly in the afternoon ADL's: Independent Group attendance: No Were meds taken: Yes Any med S/E: None noted or reported Mental Status Exam Appearance: Neat, clean, wearing street clothes, Eye contact: Good Behavior: Friendly, cooperative, social Speech: Clear, audible, normal rate and rhythm Mood: Good Affect: Bright Thought process: Delusional. Thought Content: Circumstantial. 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 Restraints/seclusion/emergency medication: N/A Justification of Continued Inpatient Treatment: Pt is chronically pleasantly delusional and continues to require a safe and supportive environment awaiting placement.
[2020-01-18 07:30] VITALS: BP 94/52
[2020-01-18] MEDS: benztropine 1mg tablet PO SCH ×2 (08:02→20:25)
[2020-01-18] MEDS: levoTHYROXINE 25mcg tablet PO SCH (08:03)
[2020-01-18] MEDS: lithium carbonate 150mg capsule PO SCH ×2 (08:03→20:25)
[2020-01-18] MEDS: oxcarbazepine 150mg tablet PO SCH ×2 (08:04→20:25)
[2020-01-18] MEDS: haloperidol 5mg tablet PO SCH ×2 (08:04→20:26)
[2020-01-18] MEDS: pantoprazole 40mg Tablet.DR PO SCH (08:05)
[2020-01-18] MEDS: PALIPERIDONE 3 MG TAB.ER.24 PO SCH (08:05)
--- NOTE | 2020-01-18 17:46 | NUR ---
NURSING PROGRESS NOTE: Legal hold: LPS Client on involuntary status for GD Report received from JACQUIE Agustin with use of SBAR Why are they here: He eloped from [facility] in [facility] multiple times and was transferred here until a more secure living arrangement can be made. Pt has history of Schizoaffective, Bipolar type and Cluster B traits. Pt has Hx of ETOH abuse, Cannabis and nicotine dependence. Pt states, "I was drinking and smoking doobies and they told me to stay out of the park, so I had to get outta there." Pt's tox screen is negative. Pt states "Im in a great mood, Im glad to be back home in [place]." Pt is delusional believes he is a member of the [employer]. Assessment What has happened this shift: Patient was asleep at change of shift. Pt. awoke for breakfast and medications. Pt. took all medications and ate all meals in the community room. 1:1 done at bedside. Pt. denies SI/HI, A/V hallucinations. Pt. c/o of enuresis last night, pt. pointed to dirty bed linen in hamper which was soaked and smelled strongly of urine. Pt. delusional, stating that a ninja comes in at night and puts a spell on him causing him to wet his bed. Pt. briefly became paranoid and agitated stating, If anyone tried to harm my family, thats when I become enraged. RN assured pt. that no one was coming after his family. Pt. napped briefly in the AM but was up most of the day. Pt. overheard socializing loudly with peers in chummy banter. SI/HI: Pt denies A/VH: Pt denies Sleep: Pt only napped briefly in the AM ADL's: Independent Group attendance: No Were meds taken: Yes Any med S/E: None noted or reported Mental Status Exam Appearance: Neat, clean, wearing street clothes, Eye contact: Good Behavior: Friendly, cooperative, social Speech: Clear, audible, normal rate and rhythm Mood: Good Affect: Bright Thought process: Delusional, paranoid, circumstantial. Thought Content: Mostly chummy banter, but becomes paranoid for his and his familys safety. 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 Restraints/seclusion/emergency medication: N/A Justification of Continued Inpatient Treatment: Pt is chronically pleasantly delusional and continues to require a safe and supportive environment awaiting placement.
[2020-01-18 20:00] VITALS: BP 131/80
--- NOTE | 2020-01-19 01:35 | NUR ---
Nursing Progress Note: Legal hold: LPS Client on involuntary status for GD Report received from Main RN with use of SBAR Why are they here: He eloped from [facility] in [facility] multiple times and was transferred here until a more secure living arrangement can be made. Pt has history of Schizoaffective, Bipolar type and Cluster B traits. Pt has Hx of ETOH abuse, Cannabis and nicotine dependence. Pt states, "I was drinking and smoking doobies and they told me to stay out of the park, so I had to get outta there." Pt's tox screen is negative. Pt states "Im in a great mood, Im glad to be back home in [place]." Pt is delusional believes he is a member of the [employer]. Assessment What has happened this shift: The patient was lying on his bed when this nurse entered the room. He was having an extended conversation with his roommate. They seem to have a good natured relationship. He denies wanting to harm himself or anybody else, "unless they come after my family, then its on." He continues to fairly happy in his delusional state. "I just want to get out of here, so I can see my people." He continues to be compliant with medications, and goes to sleep soon after. SI/HI: Denies A/VH: Denies Sleep: See sleep assessment ADL's: Independent Group attendance: No night groups Were meds taken: Yes Any med S/E: None observed or reported Mental Status Exam Appearance: Neat, clean, wearing street clothes, Eye contact: Good Behavior: Friendly, cooperative, social Speech: Clear, audible, normal rate and rhythm Mood: Good Affect: Bright Thought process: Delusional. Thought Content: Circumstantial. Cognition: A/O x 3 Not to situation. Insight: Poor Judgment: Poor Interventions PRN's used: None Therapeutic interventions: 1:1 assessment, active listening, therapeutic conversation, maintained a safe and supportive environment, medication administration/education/monitoring, positive reinforcement, Q 15 minute safety checks. Restraints/seclusion/emergency medication: N/A Justification of Continued Inpatient Treatment: Pt is chronically pleasantly delusional and continues to require a safe and supportive environment awaiting placement.
[2020-01-19 07:40] VITALS: BP 119/68
[2020-01-19] MEDS: levoTHYROXINE 25mcg tablet PO SCH (08:05)
[2020-01-19] MEDS: benztropine 1mg tablet PO SCH ×2 (08:05→20:23)
[2020-01-19] MEDS: PALIPERIDONE 3 MG TAB.ER.24 PO SCH (08:06)
[2020-01-19] MEDS: oxcarbazepine 150mg tablet PO SCH ×2 (08:07→20:22)
[2020-01-19] MEDS: haloperidol 5mg tablet PO SCH ×2 (08:08→20:22)
[2020-01-19] MEDS: pantoprazole 40mg Tablet.DR PO SCH (08:08)
[2020-01-19] MEDS: lithium carbonate 150mg capsule PO SCH ×2 (08:08→20:22)
--- NOTE | 2020-01-19 17:03 | NUR ---
NURSING PROGRESS NOTE: Legal hold: LPS Client on involuntary status for GD Report received from XANDER Garcia with use of SBAR Why are they here: He eloped from [facility] in [facility] multiple times and was transferred here until a more secure living arrangement can be made. Pt has history of Schizoaffective, Bipolar type and Cluster B traits. Pt has Hx of ETOH abuse, Cannabis and nicotine dependence. Pt states, "I was drinking and smoking doobies and they told me to stay out of the park, so I had to get outta there." Pt's tox screen is negative. Pt states "Im in a great mood, Im glad to be back home in [place]." Pt is delusional believes he is a member of the [employer]. Assessment What has happened this shift: Patient was asleep at change of shift. Pt. awoke for breakfast and medications. Pt. took all medications and ate all meals in the community room. 1:1 done at bedside. Pt. denies SI/HI, A/V hallucinations. Pt. c/o of repeated enuresis last night, pt. states, I totally pissed all over my sheets last night, I didnt even realize it until I woke up soaked. Pt. delusional, stating someone comes into his room at night and makes him urinate on himself. Pt. appears frustrated, stating, I just want to get out of here. Joselyn been here to long But it could be worse. Joselyn been in some hospitals where I almost got stabbed Pt. napped briefly in the AM but was up most of the day. Pt. overheard socializing loudly with peers in [facility]. Pt. continues to c/o of bleeding gums, pt. is delusional and believes that he drank ammonia Provider is aware. SI/HI: Pt denies A/VH: Pt denies Sleep: Pt napped at brief intervals. ADL's: Independent Group attendance: No Were meds taken: Yes Any med S/E: None noted or reported Mental Status Exam Appearance: Neat, clean, wearing street clothes. Eye contact: Good Behavior: Friendly, cooperative, social Speech: Clear, audible, normal rate and rhythm Mood: Good Affect: Bright Thought process: Delusional, paranoid, circumstantial. Thought Content: Mostly chummy banter, but becomes paranoid when he talks about delusions of a man making him urinate his bed at night. 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 Restraints/seclusion/emergency medication: N/A Justification of Continued Inpatient Treatment: Pt is chronically pleasantly delusional and continues to require a safe and supportive environment awaiting placement.
[2020-01-19 19:30] VITALS: BP 115/80
--- NOTE | 2020-01-19 23:27 | NUR ---
NURSING PROGRESS NOTE: Legal hold: LPS Client on involuntary status for GD Report received from XANDER Garcia with use of SBAR Why are they here: He eloped from [facility] in [facility] multiple times and was transferred here until a more secure living arrangement can be made. Pt has history of Schizoaffective, Bipolar type and Cluster B traits. Pt has Hx of ETOH abuse, Cannabis and nicotine dependence. Pt states, "I was drinking and smoking doobies and they told me to stay out of the park, so I had to get outta there." Pt's tox screen is negative. Pt states "Im in a great mood, Im glad to be back home in [place]." Pt is delusional believes he is a member of the [employer]. Assessment What has happened this shift: Pt. is awake at change of shift lying in bed. Pt. friendly and talked at length about cooking fried chicken, discussing every part of the cooking process. Pt. then became delusional, talking at length about how he believed that his grandpa was Ba Trimble (the 1st [place] President) and is 600 years old and that he has fought in every [employer] war. Pt. took his meds without issue and went to bed after evening snack. SI/HI: Pt denies A/VH: Pt denies Sleep: See sleep hours ADL's: Independent Group attendance: Attended evening snack then went to bed. Were meds taken: Yes Any med S/E: None noted or reported Mental Status Exam Appearance: Neat, clean, wearing street clothes. Eye contact: Good Behavior: Friendly, cooperative, social Speech: Clear, audible, normal rate and rhythm Mood: Great Affect: Congruent with mood Thought process: Delusional, circumstantial Thought Content: Talking about the details of cooking fried chicken, but then becomes delusional talking about how he believes Ba Trimble is his grandfather and is still alive. 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 Restraints/seclusion/emergency medication: N/A Justification of Continued Inpatient Treatment: Pt is chronically pleasantly delusional and continues to require a safe and supportive environment awaiting placement.
--- NOTE | 2020-01-20 04:53 | NUR ---
Enuresis: So far pt. has had no episodes of enuresis, however, on 01/16 and 01/17 pt.'s linens were soaked with urine.
[2020-01-20] MEDS: levoTHYROXINE 25mcg tablet PO SCH (07:31)
[2020-01-20] MEDS: PALIPERIDONE 3 MG TAB.ER.24 PO SCH (07:31)
[2020-01-20] MEDS: lithium carbonate 150mg capsule PO SCH ×2 (07:31→19:50)
[2020-01-20] MEDS: pantoprazole 40mg Tablet.DR PO SCH (07:32)
[2020-01-20] MEDS: haloperidol 5mg tablet PO SCH ×2 (07:32→19:51)
[2020-01-20] MEDS: benztropine 1mg tablet PO SCH ×2 (07:32→19:51)
[2020-01-20] MEDS: oxcarbazepine 150mg tablet PO SCH ×2 (07:32→19:51)
[2020-01-20 08:22] VITALS: BP 97/65
--- NOTE | 2020-01-20 11:10 | NUR ---
Reassessment: Pt continues with 100% PO intake and meeting nutrient No nutrition intervention warranted at this time. Will continue to follow. Rec: 1. advance diet as medically indicated to heart healthy 2. bowel care as needed 3. wt per rx Addendum: 01/20/20 at [address] Amended: Links added.
--- NOTE | 2020-01-20 16:18 | NUR ---
NURSING PROGRESS NOTE: [place] Legal hold: LPS Client on involuntary status for GD Report received from Manolo RN with use of SBAR Why are they here: He eloped from [facility] in [facility] multiple times and was transferred here until a more secure living arrangement can be made. Pt has history of Schizoaffective, Bipolar type and Cluster B traits. Pt has Hx of ETOH abuse, Cannabis and nicotine dependence. Pt states, "I was drinking and smoking doobies and they told me to stay out of the park, so I had to get outta there." Pt's tox screen is negative. Pt states "Im in a great mood, Im glad to be back home in [place]." Pt is delusional believes he is a member of the [employer]. Assessment: What has happened this shift: Client was resting in bed with eyes closed with even and unlabored respirations noted. Client woke for assessment and was compliant with medications. He came to dining room for breakfast and was social while eating with select peers. He has been visible and active on the unit and compliant with all aspects of his care. SI/HI: Pt denies A/VH: Pt denies Sleep: See sleep hours ADL's: Independent Group attendance: Were meds taken: Yes Any med S/E: None noted or reported Mental Status Exam Appearance: Neat, clean, wearing street clothes. Eye contact: Good Behavior: Friendly, cooperative, social Speech: Clear, audible, normal rate and rhythm Mood: Great Affect: Congruent with mood Thought process: Delusional, circumstantial Thought Content: Focused on snakes this am. 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 Restraints/seclusion/emergency medication: N/A Justification of Continued Inpatient Treatment: Pt is chronically pleasantly delusional and continues to require a safe and supportive environment awaiting placement.
[2020-01-20 20:00] VITALS: BP 100/75
--- NOTE | 2020-01-21 03:11 | NUR ---
Patient cooperative and pleasant. Took his meds. Denies SI/HI. Currently sleeping. No issues tonight.
[2020-01-21] MEDS: PALIPERIDONE 3 MG TAB.ER.24 PO SCH (07:29)
[2020-01-21] MEDS: lithium carbonate 150mg capsule PO SCH ×2 (07:30→20:10)
[2020-01-21] MEDS: oxcarbazepine 150mg tablet PO SCH ×2 (07:30→20:10)
[2020-01-21] MEDS: levoTHYROXINE 25mcg tablet PO SCH (07:31)
[2020-01-21] MEDS: pantoprazole 40mg Tablet.DR PO SCH (07:31)
[2020-01-21] MEDS: benztropine 1mg tablet PO SCH ×2 (07:31→20:10)
[2020-01-21] MEDS: haloperidol 5mg tablet PO SCH ×2 (07:31→20:10)
[2020-01-21 08:00] VITALS: BP 117/67
--- NOTE | 2020-01-21 17:08 | NUR ---
Nursing Progress Note Legal hold: LPS Client on involuntary status for GD Report received from Sona Garcia RN with use of SBAR Why are they here: He eloped from [facility] in [place], [place] multiple times and was transferred here until a more secure living arrangement can be made. Pt has history of Schizoaffective, Bipolar type and Cluster B traits. Pt has Hx of ETOH abuse, cannabis and nicotine dependence. Pt states, "I was drinking and smoking doobies and they told me to stay out of the park, so I had to get outta there." Pt's tox screen is negative. Pt states "Im in a great mood, Im glad to be back home in [place]." Pt is delusional believes he is a member of the [employer]. Assessment: What has happened this shift: Derick moves from his bed to the window then back to his bed. He stays in his room most of the day occasionally he will come out and talk briefly with staff then goes back to his room. SI/HI: Denies A/VH: Denies Sleep: Slept in the morning and then up most of the day ADL's: Independent Group attendance: No Were meds taken: Yes Any med S/E: None noted or reported Mental Status Exam Appearance: Neat, clean, wearing street clothes. Eye contact: Good Behavior: Friendly, cooperative, social Speech: Clear, audible, normal rate and rhythm Mood: Happy; Euthymic Affect: Congruent with mood Thought process: Delusional, circumstantial Thought Content: Focused on cleaning his room Cognition: A/O x 3 Insight: Poor Judgment: Poor Interventions PRN's used: None Therapeutic interventions: 1:1 assessment, therapeutic communication w/active listening, medication administration/education/monitoring,encouraged to go to groups, Q 15 minute safety checks. Restraints/seclusion/emergency medication: N/A Justification of Continued Inpatient Treatment: Pt is chronically pleasantly delusional and continues to require a safe and supportive environment awaiting placement.
[2020-01-21 19:27] VITALS: BP 114/66
--- NOTE | 2020-01-22 00:55 | NUR ---
Nursing Progress Note Legal hold: LPS Client on involuntary status for GD Report received from Sona Garcia RN with use of SBAR Why are they here: He eloped from [facility] in [place], [place] multiple times and was transferred here until a more secure living arrangement can be made. Pt has history of Schizoaffective, Bipolar type and Cluster B traits. Pt has Hx of ETOH abuse, cannabis and nicotine dependence. Pt states, "I was drinking and smoking doobies and they told me to stay out of the park, so I had to get outta there." Pt's tox screen is negative. Pt states "Im in a great mood, Im glad to be back home in [place]." Pt is delusional believes he is a member of the [employer]. Assessment: What has happened this shift: Patient was in his room since the start of shift. Patient was observed initially sitting up in a chair and occasionally ambulating around the room. Patient was sitting up on his bed when RN gave him his HS meds. Patient smiling and was friend with RN during medication administration. Patient now appears to be resting comfortably in his bed SI/HI: Denies A/VH: Denies Sleep: Slept in the morning and then up most of the day ADL's: Independent Group attendance: No Were meds taken: Yes Any med S/E: None noted or reported Mental Status Exam Appearance: Neat, clean, wearing street clothes. Eye contact: Good Behavior: Friendly, cooperative, social Speech: Clear, audible, normal rate and rhythm Mood: Happy; Euthymic Affect: Congruent with mood Thought process: Delusional, circumstantial Thought Content: Focused on cleaning his room Cognition: A/O x 3 Insight: Poor Judgment: Poor Interventions PRN's used: None Therapeutic interventions: 1:1 assessment, therapeutic communication w/active listening, medication administration/education/monitoring,encouraged to go to groups, Q 15 minute safety checks. Restraints/seclusion/emergency medication: N/A Justification of Continued Inpatient Treatment: Pt is chronically pleasantly delusional and continues to require a safe and supportive environment awaiting placement.
[2020-01-22] MEDS: pantoprazole 40mg Tablet.DR PO SCH (06:56)
[2020-01-22 08:00] VITALS: BP 112/78
[2020-01-22] MEDS: PALIPERIDONE 3 MG TAB.ER.24 PO SCH (08:29)
[2020-01-22] MEDS: lithium carbonate 150mg capsule PO SCH ×2 (08:29→20:26)
[2020-01-22] MEDS: levoTHYROXINE 25mcg tablet PO SCH (08:30)
[2020-01-22] MEDS: haloperidol 5mg tablet PO SCH ×2 (08:30→20:27)
[2020-01-22] MEDS: benztropine 1mg tablet PO SCH ×2 (08:30→20:27)
[2020-01-22] MEDS: oxcarbazepine 150mg tablet PO SCH ×2 (08:35→20:27)
[2020-01-22 20:00] VITALS: BP 117/76
--- NOTE | 2020-01-23 01:10 | NUR ---
Nursing Progress Note Legal hold: LPS Client on involuntary status for GD Report received from Sona Garcia RN with use of SBAR Why are they here: He eloped from [facility] in [place], [place] multiple times and was transferred here until a more secure living arrangement can be made. Pt has history of Schizoaffective, Bipolar type and Cluster B traits. Pt has Hx of ETOH abuse, cannabis and nicotine dependence. Pt states, "I was drinking and smoking doobies and they told me to stay out of the park, so I had to get outta there." Pt's tox screen is negative. Pt states "Im in a great mood, Im glad to be back home in [place]." Pt is delusional believes he is a member of the [employer]. Assessment: What has happened this shift: Pt slept until breakfast got up ate then went back to bed. Pt is compliant and pleasant with treatment. He spends time socializing and chatting with his roommate. He napped on and off during this shift. SI/HI: Denies A/VH: Denies Sleep: Slept in the morning and then up most of the day ADL's: Independent Group attendance: No Were meds taken: Yes Any med S/E: None noted or reported Mental Status Exam Appearance: Slept in his clothes from yesterday still in those clothes Eye contact: Good Behavior: Friendly, cooperative, social Speech: Clear, audible, normal rate and rhythm Mood: Happy; Euthymic Affect: Congruent with mood Thought process: Delusional, circumstantial Thought Content: Focused on cleaning his room Cognition: A/O x 3 Insight: Poor Judgment: Poor Interventions PRN's used: None Therapeutic interventions: 1:1 assessment, therapeutic communication w/active listening, medication administration/education/monitoring,encouraged to go to groups, Q 15 minute safety checks. Restraints/seclusion/emergency medication: N/A Justification of Continued Inpatient Treatment: Pt is chronically pleasantly delusional and continues to require a safe and supportive environment awaiting placement.
--- NOTE | 2020-01-23 01:11 | NUR ---
Nursing Progress Note Legal hold: LPS Client on involuntary status for GD Report received from Desiree TERRELL with use of SBAR Why are they here: He eloped from [facility] in [place], [place] multiple times and was transferred here until a more secure living arrangement can be made. Pt has history of Schizoaffective, Bipolar type and Cluster B traits. Pt has Hx of ETOH abuse, cannabis and nicotine dependence. Pt states, "I was drinking and smoking doobies and they told me to stay out of the park, so I had to get outta there." Pt's tox screen is negative. Pt states "Im in a great mood, Im glad to be back home in [place]." Pt is delusional believes he is a member of the [employer]. Assessment: What has happened this shift : ambulating in the room--good rapport with roommate. Quick physical assessment done, all findings wnl talkative/ supportive of roommate--has had no delusional thinking takes po meds without problems SI/HI: Denies A/VH: Denies Sleep: sleeping after midnight ADL's: Independent Group attendance: No Were meds taken: Yes Any med S/E: None noted or reported Mental Status Exam a/o x's 4 no delusions noted Appearance: Slept in his clothes from yesterday still in those clothes Eye contact: Good Behavior: Friendly, cooperative, social Speech: Clear, audible, normal rate and rhythm Mood: Happy; Euthymic Affect: Congruent with mood Thought process: Delusional, circumstantial Thought Content: Focused on cleaning his room Cognition: A/O x 3 Insight: Poor Judgment: Poor Interventions PRN's used: None Therapeutic interventions: 1:1 assessment, therapeutic communication w/active listening, medication administration/education/monitoring,encouraged to go to groups, Q 15 minute safety checks. Restraints/seclusion/emergency medication: N/A Justification of Continued Inpatient Treatment: Pt is chronically pleasantly delusional and continues to require a safe and supportive environment awaiting placement.
[2020-01-23] MEDS: PALIPERIDONE 3 MG TAB.ER.24 PO SCH (07:51)
[2020-01-23] MEDS: haloperidol 5mg tablet PO SCH ×2 (07:51→20:14)
[2020-01-23] MEDS: lithium carbonate 150mg capsule PO SCH ×2 (07:51→20:13)
[2020-01-23] MEDS: oxcarbazepine 150mg tablet PO SCH ×2 (07:52→20:15)
[2020-01-23] MEDS: levoTHYROXINE 25mcg tablet PO SCH (07:52)
[2020-01-23] MEDS: pantoprazole 40mg Tablet.DR PO SCH (07:52)
[2020-01-23] MEDS: benztropine 1mg tablet PO SCH ×2 (07:52→20:14)
[2020-01-23 08:00] VITALS: BP 104/65
--- NOTE | 2020-01-23 13:51 | NUR ---
Nursing Progress Note Legal hold: LPS Client on involuntary status for GD Report received from XANDER Mahan with use of SBAR Why are they here: He eloped from [facility] in [place], [place] multiple times and was transferred here until a more secure living arrangement can be made. Pt has history of Schizoaffective, Bipolar type and Cluster B traits. Pt has Hx of ETOH abuse, cannabis and nicotine dependence. Pt states, "I was drinking and smoking doobies and they told me to stay out of the park, so I had to get outta there." Pt's tox screen is negative. Pt states "Im in a great mood, Im glad to be back home in [place]." Pt is delusional believes he is a member of the [employer]. Assessment: What has happened this shift: Pt slept until breakfast he got up ate breakfast then went back to bed. He stayed in bed most of the day. Up just for meals. Pt is compliant and pleasant with treatment. He spends time socializing in the recreation room and chatting with his roommate. SI/HI: Denies A/VH: Denies Sleep: Slept ADL's: Independent Group attendance: No Were Meds taken: Yes Any med S/E: None noted or reported Mental Status Exam Appearance: Slept in the same clothing that he wore yesterday Eye contact: Good Behavior: Friendly, cooperative, social Speech: Clear, audible, normal rate and rhythm Mood: Happy; Euthymic Affect: Congruent with mood Thought process: Delusional, circumstantial Thought Content: Focused on cleaning his room Cognition: A/O x 3 Insight: Poor Judgment: Poor Interventions PRN's used: None Therapeutic interventions: 1:1 assessment, therapeutic communication w/active listening, medication administration/education/monitoring,encouraged to go to groups, encouraged to take a shower, Q 15 minute safety checks. Restraints/seclusion/emergency medication: N/A Justification of Continued Inpatient Treatment: Pt is chronically pleasantly delusional and continues to require a safe and supportive environment awaiting placement.
[2020-01-23 20:00] VITALS: BP 135/88
--- NOTE | 2020-01-24 00:53 | NUR ---
Nursing Progress Note: Legal hold: LPS Client on involuntary status for GD Report received from XANDER Ramírez with use of SBAR Why are they here: He eloped from [facility] in [facility] multiple times and was transferred here until a more secure living arrangement can be made. Pt has history of Schizoaffective, Bipolar type and Cluster B traits. Pt has Hx of ETOH abuse, Cannabis and nicotine dependence. Pt states, "I was drinking and smoking doobies and they told me to stay out of the park, so I had to get outta there." Pt's tox screen is negative. Pt states "Im in a great mood, Im glad to be back home in [place]." Pt is delusional believes he is a member of the [employer]. Assessment What has happened this shift: The patient was seen at bedside for 1:1. he was napping, but easily woke to talk. He has a good attitude, being pleasant and cooperative is his normal. The patient tends to isolate, but is also quite friendly out of his room. He has no complaints, other than being here. Compliant with meds. Patient seems to have a good relationship with his roommate, and they can sometimes be heard talking late into the night. SI/HI: Denies A/VH: Denies Sleep: See sleep assessment ADL's: Independent Group attendance: No night groups Were meds taken: Yes Any med S/E: None observed or reported Mental Status Exam Appearance: Neat, clean, wearing street clothes, and hat Eye contact: Good Behavior: Friendly, cooperative, social Speech: Clear, audible, normal rate and rhythm Mood: Doing good Affect: Bright Thought process: Logical, goal directed. Thought Content: Circumstantial. Cognition: A/O x 3 Not to situation. Insight: Poor Judgment: Poor Interventions PRN's used: None Therapeutic interventions: 1:1 assessment, active listening, therapeutic conversation, maintained a safe and supportive environment, medication administration/education/monitoring, positive reinforcement, Q 15 minute safety checks. Restraints/seclusion/emergency medication: N/A Justification of Continued Inpatient Treatment: Pt is chronically pleasantly delusional and continues to require a safe and supportive environment awaiting placement.
[2020-01-24 07:59] VITALS: BP 114/63
[2020-01-24] MEDS: lithium carbonate 150mg capsule PO SCH ×2 (08:15→20:18)
[2020-01-24] MEDS: PALIPERIDONE 3 MG TAB.ER.24 PO SCH (08:15)
[2020-01-24] MEDS: haloperidol 5mg tablet PO SCH ×2 (08:16→20:18)
[2020-01-24] MEDS: pantoprazole 40mg Tablet.DR PO SCH (08:16)
[2020-01-24] MEDS: benztropine 1mg tablet PO SCH ×2 (08:16→20:18)
[2020-01-24] MEDS: levoTHYROXINE 25mcg tablet PO SCH (08:16)
[2020-01-24] MEDS: oxcarbazepine 150mg tablet PO SCH ×2 (08:16→20:18)
--- NOTE | 2020-01-24 15:06 | NUR ---
Nursing Progress Note Legal hold: LPS Client on involuntary status for GD Report received from XANDER Mahan with use of SBAR Why are they here: He eloped from [facility] in [place], [place] multiple times and was transferred here until a more secure living arrangement can be made. Pt has history of Schizoaffective, Bipolar type and Cluster B traits. Pt has Hx of ETOH abuse, cannabis and nicotine dependence. Pt states, "I was drinking and smoking doobies and they told me to stay out of the park, so I had to get outta there." Pt's tox screen is negative. Pt states "Im in a great mood, Im glad to be back home in [place]." Pt is delusional believes he is a member of the [employer]. Assessment: What has happened this shift: Pt had a visit from his brother today. He stayed in bed most of the morning then got up for his visitor had lunch and stayed up the rest of the shift. He spoke on the phone for awhile. He is medication compliant, eats well and helpful on the unit following directions well. SI/HI: Denies A/VH: Denies Sleep: Slept in am ADL's: Independent Group attendance: No; stayed on the bed Were Meds taken: Yes Any med S/E: None noted or reported Mental Status Exam Appearance: same clothing that he wore yesterday Eye contact: Good Behavior: Friendly, cooperative, social Speech: Clear, audible, normal rate and rhythm Mood: Happy; Euthymic Affect: Congruent with mood Thought process: Delusional, circumstantial Thought Content: Focused on cleaning his room Cognition: A/O x 3 Insight: Poor Judgment: Poor Interventions PRN's used: None Therapeutic interventions: 1:1 assessment, therapeutic communication w/active listening, medication administration/education/monitoring,encouraged to go to groups, encouraged to take a shower, Q 15 minute safety checks. Restraints/seclusion/emergency medication: N/A Justification of Continued Inpatient Treatment: Pt is chronically pleasantly delusional and continues to require a safe and supportive environment awaiting placement.
[2020-01-24 20:40] VITALS: BP 122/81
--- NOTE | 2020-01-25 00:20 | NUR ---
Nursing Progress Note: Legal hold: LPS Client on involuntary status for GD Report received from XANDER Ramírez with use of SBAR Why are they here: He eloped from [facility] in [facility] multiple times and was transferred here until a more secure living arrangement can be made. Pt has history of Schizoaffective, Bipolar type and Cluster B traits. Pt has Hx of ETOH abuse, Cannabis and nicotine dependence. Pt states, "I was drinking and smoking doobies and they told me to stay out of the park, so I had to get outta there." Pt's tox screen is negative. Pt states "Im in a great mood, Im glad to be back home in [place]." Pt is delusional believes he is a member of the [employer]. Assessment What has happened this shift: The patient was seen at bedside for 1:1. He seems to be in a good mood as he had a call from his brother Pankaj. The patient holds his brother in high esteem. The patient has no complaints, except for still being here. He continues to be friendly with staff and patient's alike. He stayed mostly isolated to his room, except for snack time. he soon went back to his room for HS med pass, then went to sleep. SI/HI: Denies A/VH: Denies Sleep: See sleep assessment ADL's: Independent Group attendance: No night groups Were meds taken: Yes Any med S/E: None observed or reported Mental Status Exam Appearance: Neat, clean, wearing street clothes, and hat Eye contact: Good Behavior: Friendly, cooperative, social Speech: Clear, audible, normal rate and rhythm Mood: Doing good Affect: Bright Thought process: Logical, goal directed. Thought Content: Circumstantial. Cognition: A/O x 3 Not to situation. Insight: Poor Judgment: Poor Interventions PRN's used: None Therapeutic interventions: 1:1 assessment, active listening, therapeutic conversation, maintained a safe and supportive environment, medication administration/education/monitoring, positive reinforcement, Q 15 minute safety checks. Restraints/seclusion/emergency medication: N/A Justification of Continued Inpatient Treatment: Pt is chronically pleasantly delusional and continues to require a safe and supportive environment awaiting placement.
[2020-01-25 07:31] VITALS: BP 102/54
[2020-01-25] MEDS: levoTHYROXINE 25mcg tablet PO SCH (08:37)
[2020-01-25] MEDS: pantoprazole 40mg Tablet.DR PO SCH (08:37)
[2020-01-25] MEDS: lithium carbonate 150mg capsule PO SCH ×2 (08:38→20:22)
[2020-01-25] MEDS: benztropine 1mg tablet PO SCH ×2 (08:38→20:21)
[2020-01-25] MEDS: haloperidol 5mg tablet PO SCH ×2 (08:38→20:24)
[2020-01-25] MEDS: oxcarbazepine 150mg tablet PO SCH ×2 (08:38→20:23)
[2020-01-25] MEDS: PALIPERIDONE 3 MG TAB.ER.24 PO SCH (08:38)
--- NOTE | 2020-01-25 16:56 | NUR ---
Nursing Progress Note Legal hold: LPS Client on involuntary status for GD Report received from XANDER Mahan with use of SBAR Why are they here: He eloped from [facility] in [place], [place] multiple times and was transferred here until a more secure living arrangement can be made. Pt has history of Schizoaffective, Bipolar type and Cluster B traits. Pt has Hx of ETOH abuse, cannabis and nicotine dependence. Pt states, "I was drinking and smoking doobies and they told me to stay out of the park, so I had to get outta there." Pt's tox screen is negative. Pt states "Im in a great mood, Im glad to be back home in [place]." Pt is delusional believes he is a member of the [employer]. Assessment: What has happened this shift: Patient was asleep at change of shift and awoke after everybody was eating. Patient was pleasant and talkative today. Patient did not make any delusional statements today. Patient takes medication as prescribed. Patient does not go to group. Patient is pending IMD placement. SI/HI: Denies A/VH: Denies Sleep: Short naps ADL's: Independent Group attendance: No Were Meds taken: Yes Any med S/E: None noted or reported Mental Status Exam Appearance: Patient is neat and wearing his own clothes. Eye contact: Good Behavior: Friendly, cooperative, social Speech: Clear, audible, normal rate and rhythm Mood: Happy; Euthymic Affect: Congruent with mood Thought process: Linear Thought Content: being social Cognition: A/O x 3 Insight: Poor Judgment: Poor Interventions PRN's used: None Therapeutic interventions: 1:1 assessment, therapeutic communication w/active listening, medication administration/education/monitoring,encouraged to go to groups, encouraged to take a shower, Q 15 minute safety checks. Restraints/seclusion/emergency medication: N/A Justification of Continued Inpatient Treatment: Pt is chronically pleasantly delusional and continues to require a safe and supportive environment awaiting placement.shahid
[2020-01-25 20:25] VITALS: BP 121/80
--- NOTE | 2020-01-26 01:23 | NUR ---
Nursing Progress Note Legal hold: LPS Client on involuntary status for GD Report received from XANDER Ramírez with use of SBAR Why are they here: He eloped from [facility] in [place], [place] multiple times and was transferred here until a more secure living arrangement can be made. Pt has history of Schizoaffective, Bipolar type and Cluster B traits. Pt has Hx of ETOH abuse, cannabis and nicotine dependence. Pt states, "I was drinking and smoking doobies and they told me to stay out of the park, so I had to get outta there." Pt's tox screen is negative. Pt states "Im in a great mood, Im glad to be back home in [place]." Pt is delusional believes he is a member of the [employer]. Assessment: What has happened this shift: Patient was up and social at shift change. He stayed up for a while then went to bed before snack got up for snack and meds then went to bed. Pt is waiting placement . SI/HI: Denies A/VH: Denies Sleep: Short naps ADL's: Independent Group attendance: No Were Meds taken: Yes Any med S/E: None noted or reported Mental Status Exam Appearance: Patient is neat and wearing his own clothes. Eye contact: Good Behavior: Friendly, cooperative, social Speech: Clear, audible, normal rate and rhythm Mood: Happy; Euthymic Affect: Congruent with mood Thought process: Linear Thought Content: being social Cognition: A/O x 3 Insight: Poor Judgment: Poor Interventions PRN's used: None Therapeutic interventions: 1:1 assessment, therapeutic communication w/active listening, medication administration/education/monitoring,encouraged to go to groups, encouraged to take a shower, Q 15 minute safety checks. Restraints/seclusion/emergency medication: N/A Justification of Continued Inpatient Treatment: Pt is chronically pleasantly delusional and continues to require a safe and supportive environment awaiting placement.shahid
[2020-01-26 08:00] VITALS: BP 105/67
[2020-01-26] MEDS: lithium carbonate 150mg capsule PO SCH ×2 (08:23→20:56)
[2020-01-26] MEDS: PALIPERIDONE 3 MG TAB.ER.24 PO SCH (08:23)
[2020-01-26] MEDS: pantoprazole 40mg Tablet.DR PO SCH (08:24)
[2020-01-26] MEDS: levoTHYROXINE 25mcg tablet PO SCH (08:24)
[2020-01-26] MEDS: oxcarbazepine 150mg tablet PO SCH ×2 (08:24→20:57)
[2020-01-26] MEDS: haloperidol 5mg tablet PO SCH ×2 (08:25→20:57)
[2020-01-26] MEDS: benztropine 1mg tablet PO SCH ×2 (08:25→20:57)
--- NOTE | 2020-01-26 11:49 | NUR ---
Nursing Progress Note Legal hold: LPS Client on involuntary status for GD Report received from XANDER Mahan with use of SBAR Why are they here: He eloped from [facility] in [place], [place] multiple times and was transferred here until a more secure living arrangement can be made. Pt has history of Schizoaffective, Bipolar type and Cluster B traits. Pt has Hx of ETOH abuse, cannabis and nicotine dependence. Pt states, "I was drinking and smoking doobies and they told me to stay out of the park, so I had to get outta there." Pt's tox screen is negative. Pt states "Im in a great mood, Im glad to be back home in [place]." Pt is delusional believes he is a member of the [employer]. Assessment: What has happened this shift: Patient was asleep at change of shift and up for breakfast. Patient was pleasant and talkative today. Patient denies suicidal/homicidal ideation. Patient states he sleeps because he is bored. Patient takes medication as prescribed. Patient does not go to group. Patient is pending IMD placement. SI/HI: Denies A/VH: Denies Sleep: Short naps ADL's: Independent Group attendance: No Were Meds taken: Yes Any med S/E: None noted or reported Mental Status Exam Appearance: Patient is neat and wearing his own clothes. Eye contact: Good Behavior: Friendly, cooperative, social Speech: Clear, audible, normal rate and rhythm Mood: Happy; Euthymic Affect: Congruent with mood Thought process: Linear Thought Content: being social Cognition: A/O x 3 Insight: Poor Judgment: Poor Interventions PRN's used: None Therapeutic interventions: 1:1 assessment, therapeutic communication w/active listening, medication administration/education/monitoring,encouraged to go to groups, encouraged to take a shower, Q 15 minute safety checks. Restraints/seclusion/emergency medication: N/A Justification of Continued Inpatient Treatment: Pt is chronically pleasantly delusional and continues to require a safe and supportive environment awaiting placement.shahid
[2020-01-26 19:47] VITALS: BP 117/73
--- NOTE | 2020-01-26 23:26 | NUR ---
Nursing Progress Note: Legal hold: LPS Client on involuntary status for GD Report received from nurse Tonja RN with use of SBAR: Why are they here: [facility] multiple times and was transferred here until a more secure living arrangement can be made. Pt has history of Schizoaffective, Bipolar type and Cluster B traits. Pt has Hx of ETOH abuse, Cannabis and nicotine dependence. Pt states, "I was drinking and smoking doobies and they told me to stay out of the park, so I had to get outta there." Pt's tox screen is negative. Pt states "Im in a great mood, Im glad to be back home in [place]." Pt is delusional believes he is a member of the [employer]. Assessment What has happened this shift: Pt is social on the unit at shift change and smiles at peers and staff and is seen talking with others. Pt is cooperative with 1:1 assessment and medication compliant. He denies SI/HI/AH/VH at this time. He does not make any delusional statements this shift. SI/HI: Pt denies A/VH: Pt denies Sleep: See Sleep Assessment ADL's: Independent Group attendance: N/A Were meds taken: Yes Any med S/E: None noted nor reported. Mental Status Exam Appearance: Clean, dressed in street clothes Eye contact: Good Behavior: Pleasant, Cooperative, socializing appropriately with other patients and staff Speech: Clear, audible, normal rate and rhythm. Mood: Euthymic Affect: Congruent with mood Thought process: Circumstantial Thought Content: Snack, exercising, medications Cognition: A/Ox3, disoriented to situation. Insight: Poor Judgment: Poor Interventions PRN's used: None Therapeutic interventions: 1;1 assessment, active listening, ensured contract for safety, encouraged pt to get up out of bed, maintained a safe and supportive environment, medication administration/education/monitoring, Q 15 minute safety checks. Restraints/seclusion/emergency medication: N/A Justification of Continued Inpatient Treatment: pt. remains pleasantly psychotic and continues to require a safe and supportive environment awaiting placement.
[2020-01-27 08:00] VITALS: BP 102/60
[2020-01-27] MEDS: lithium carbonate 150mg capsule PO SCH ×2 (08:10→20:34)
[2020-01-27] MEDS: benztropine 1mg tablet PO SCH ×2 (08:11→20:37)
[2020-01-27] MEDS: pantoprazole 40mg Tablet.DR PO SCH (08:11)
[2020-01-27] MEDS: levoTHYROXINE 25mcg tablet PO SCH (08:11)
[2020-01-27] MEDS: PALIPERIDONE 3 MG TAB.ER.24 PO SCH (08:12)
[2020-01-27] MEDS: oxcarbazepine 150mg tablet PO SCH ×2 (08:12→20:36)
[2020-01-27] MEDS: haloperidol 5mg tablet PO SCH ×2 (08:13→20:36)
--- NOTE | 2020-01-27 11:49 | NUR ---
Reassessment: Pt continues with 100% PO intake and meeting nutrient No nutrition concerns at this time. Will continue to follow. Rec: 1. advance diet as medically indicated to heart healthy 2. bowel care as needed 3. wt per rx Addendum: 01/27/20 at [address] Amended: Links added.
--- NOTE | 2020-01-27 11:57 | NUR ---
PLACEMENT UPDATE Derick has been accepted at [facility] and [facility] (no beds available). [facility] packet [facility] at [facility]. BART Rollins
--- NOTE | 2020-01-27 16:05 | NUR ---
Nursing Progress Note Legal hold: LPS Client on involuntary status for GD Report received from XANDER Mahan with use of SBAR Why are they here: He eloped from [facility] in [place], [place] multiple times and was transferred here until a more secure living arrangement can be made. Pt has history of Schizoaffective, Bipolar type and Cluster B traits. Pt has Hx of ETOH abuse, cannabis and nicotine dependence. Pt states, "I was drinking and smoking doobies and they told me to stay out of the park, so I had to get outta there." Pt's tox screen is negative. Pt states "Im in a great mood, Im glad to be back home in [place]." Pt is delusional believes he is a member of the [employer]. Assessment: What has happened this shift: Patient was asleep at change of shift and up for breakfast. Patient was pleasant and talkative today. Patient denies suicidal/homicidal ideation. Patient inquiring about going to a board and care as opposed to an IMD. Patient takes medication as prescribed. Patient does not go to group. Patient slept off and on today. Patient is social and pleasant with peers. SI/HI: Denies A/VH: Denies Sleep: Short naps ADL's: Independent Group attendance: No Were Meds taken: Yes Any med S/E: None noted or reported Mental Status Exam Appearance: Patient is neat and wearing his own clothes. Eye contact: Good Behavior: Friendly, cooperative, social Speech: Clear, audible, normal rate and rhythm Mood: Happy; Euthymic Affect: Congruent with mood Thought process: Linear Thought Content: being social Cognition: A/O x 3 Insight: Fair Judgment: Fair Interventions PRN's used: None Therapeutic interventions: 1:1 assessment, therapeutic communication w/active listening, medication administration/education/monitoring,encouraged to go to groups, encouraged to take a shower, Q 15 minute safety checks. Restraints/seclusion/emergency medication: N/A Justification of Continued Inpatient Treatment: Pt is chronically pleasantly delusional and continues to require a safe and supportive environment awaiting placement.shahid
[2020-01-27 20:00] VITALS: BP 140/85
--- NOTE | 2020-01-28 03:40 | NUR ---
NURSING PROGRESS NOTE Legal hold: Conserved Client on involuntary status for DTS. Report received from XANDER Hernandez with use of SBAR. Why are they here: Pt is LPS conserved. He eloped from [facility] in [facility] multiple times and was transferred here until a more secure living arrangement can be made. Pt has history of Schizoaffective, Bipolar type and Cluster B traits. Pt has Hx of Etoh abuse, cannibis and nicotine dependance. Pt states "I was drinking and smokin doobies and they told me to stay out of the park, so I had to get outta there." Pts tox screen is negative. Pt states "Im in a great mood, Im glad to be back home in [place]." Pt is delusional believes he is a member of the [employer]. Assessment What has happened this shift: Patient is visible on the unit and is observed socializing and having conversation with peers. He is very pleasant and cooperative. He is said his day went well and he is "making the best of it." He denies SI/HI/AH/VH at this time. SI/HI: Denies A/VH: Denies Sleep: Pt. Slept all morning ADL's: Independent Group attendance: N/A Were Meds taken: Yes Any med S/E: Denies Mental Status Exam Appearance: Casual, wearing own clothes. Eye contact: Good Behavior: Cooperative, respectful. Speech: clear Mood: Pleasant. Affect: Euthymic Thought process: Linear Thought Content: Cognition: A/O X 4 Insight: Poor. Judgment: Poor. Interventions PRN's used: None Therapeutic interventions: provided 1:1 assessment w/therapeutic communication and active listening, medication administration/education/monitoring, positive reinforcement, Q 15 min safety checks. Restraints/seclusion/emergency medication: N/A Justification of Continued Inpatient Treatment: Continued therapeutic support and medication management and monitoring needed to prevent decompensation, and improve coping mechanisms decreasing risk to patient and re-admittance.
[2020-01-28] MEDS: haloperidol 5mg tablet PO SCH ×2 (07:39→21:31)
[2020-01-28] MEDS: PALIPERIDONE 3 MG TAB.ER.24 PO SCH (07:39)
[2020-01-28] MEDS: benztropine 1mg tablet PO SCH ×2 (07:39→21:31)
[2020-01-28] MEDS: lithium carbonate 150mg capsule PO SCH ×2 (07:39→21:30)
[2020-01-28] MEDS: pantoprazole 40mg Tablet.DR PO SCH (07:39)
[2020-01-28] MEDS: oxcarbazepine 150mg tablet PO SCH ×2 (07:39→21:30)
[2020-01-28] MEDS: levoTHYROXINE 25mcg tablet PO SCH (07:41)
[2020-01-28 08:00] VITALS: BP 100/57
--- NOTE | 2020-01-28 15:35 | NUR ---
NURSING PROGRESS NOTE [place] Legal hold: Conserved Client on involuntary status for DTS. Report received from Noc shift RN with use of SBAR. Why are they here: Pt is LPS conserved. He eloped from [facility] in [facility] multiple times and was transferred here until a more secure living arrangement can be made. Pt has history of Schizoaffective, Bipolar type and Cluster B traits. Pt has Hx of Etoh abuse, cannabis and nicotine dependence. Pt states "I was drinking and smoking doobies and they told me to stay out of the park, so I had to get outta there." Pts tox screen is negative. Pt states "Im in a great mood, I am glad to be back home in [place]." Pt is delusional believes he is a member of the [employer]. Assessment What has happened this shift: Patient was in bed to begin this shift. He woke for medications and assessment and was alert and oriented x 4 and pleasant. He presented for breakfast and then went back to his room to rest. Client has been out on the unit this afternoon and was social with staff as well as peer group. He has had no behavioral issues this shift and he has been compliant with all aspects of his care. He denies S/I or H/I and readily contracts for safe unit behavior. SI/HI: Denies A/VH: Denies Sleep: ADL's: Independent Group attendance: N/A Were Meds taken: Yes Any med S/E: Denies Mental Status Exam Appearance: Casual, wearing own clothes. Eye contact: Good Behavior: Cooperative, respectful. Speech: clear Mood: Pleasant. Affect: Euthymic Thought process: Linear Thought Content: Cognition: A/O X 4 Insight: Poor. Addendum: 01/28/20 at 1537 by Sebastián Singer RN Judgment: Poor. Interventions PRN's used: None Therapeutic interventions: provided 1:1 assessment w/therapeutic communication and active listening, medication administration/education/monitoring, positive reinforcement, Q 15 min safety checks. Restraints/seclusion/emergency medication: N/A Justification of Continued Inpatient Treatment: Continued therapeutic support and medication management and monitoring needed to prevent decompensation, and improve coping mechanisms decreasing risk to patient and re-admittance.
[2020-01-28 20:00] VITALS: BP 120/66
--- NOTE | 2020-01-29 03:58 | NUR ---
NURSING PROGRESS NOTE [place] Legal hold: Conserved Client on involuntary status for DTS. Report received from XANDER Hernandez with use of SBAR. Why are they here: Pt is LPS conserved. He eloped from [facility] multiple times and was transferred here until a more secure living arrangement can be made. Pt has history of Schizoaffective, Bipolar type and Cluster B traits. Pt has Hx of Etoh abuse, cannabis and nicotine dependence. Pt states "I was drinking and smoking doobies and they told me to stay out of the park, so I had to get outta there." Pts tox screen is negative. Pt states "Im in a great mood, I am glad to be back home in [place]." Pt is delusional believes he is a member of the [employer]. Assessment What has happened this shift: Patient self isolates in his room. Patient sleeps, he did eat dinner and snacks. Patient is well oriented. He is cooperative and medication compliant. Patient tells this financial writer he looks forward to going home. He plans to start smoking again "so I can then quit for good." Patient is upbeat, he is focused on his physical need to exercise. He denies S/I, H/I, or any hallucinations. No delusional features have been observed this shift. SI/HI: Denies. A/VH: Denies. Sleep: Patient sleeps all the time. ADL's: Independent. Group attendance: N/A Were Meds taken: Yes, patient is medication compliant. Any med S/E: Denies, none observed. Mental Status Exam Appearance: Casual, wearing own clothes. Eye contact: Good. Behavior: Cooperative, respectful. Speech: Clear, normal rate, rhythm, and tone. Mood: Pleasant. Affect: Euthymic. Thought process: Linear. Thought Content: Exercise, going home. Cognition: A/O X 4. Insight: Poor. Judgment: Poor. Interventions PRN's used: None Therapeutic interventions: provided 1:1 assessment w/therapeutic communication and active listening, medication administration/education/monitoring, positive reinforcement, Q 15 min safety checks. Restraints/seclusion/emergency medication: N/A Justification of Continued Inpatient Treatment: Continued therapeutic support and medication management and monitoring needed to prevent decompensation, and improve coping mechanisms decreasing risk to patient and re-admittance.
[2020-01-29 06:00] VITALS: BP 105/54
[2020-01-29] MEDS: benztropine 1mg tablet PO SCH ×2 (07:31→21:27)
[2020-01-29] MEDS: PALIPERIDONE 3 MG TAB.ER.24 PO SCH (07:31)
[2020-01-29] MEDS: oxcarbazepine 150mg tablet PO SCH ×2 (07:31→21:26)
[2020-01-29] MEDS: levoTHYROXINE 25mcg tablet PO SCH (07:31)
[2020-01-29] MEDS: pantoprazole 40mg Tablet.DR PO SCH (07:31)
[2020-01-29] MEDS: haloperidol 5mg tablet PO SCH ×2 (07:31→21:26)
[2020-01-29] MEDS: lithium carbonate 150mg capsule PO SCH ×2 (07:32→21:26)
[2020-01-29 08:00] VITALS: BP 105/54
--- NOTE | 2020-01-29 15:04 | NUR ---
NURSING PROGRESS NOTE [place] Legal hold: Conserved Client on involuntary status for DTS. Report received from XANDER Bean with use of SBAR. Why are they here: Pt is LPS conserved. He eloped from [facility] multiple times and was transferred here until a more secure living arrangement can be made. Pt has history of Schizoaffective, Bipolar type and Cluster B traits. Pt has Hx of Etoh abuse, cannabis and nicotine dependence. Pt states "I was drinking and smoking doobies and they told me to stay out of the park, so I had to get outta there." Pts tox screen is negative. Pt states "Im in a great mood, I am glad to be back home in [place]." Pt is delusional believes he is a member of the [employer]. Assessment What has happened this shift: Patient self isolates in his room. Patient sitting by window. Cheerfully talked to me. 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 Took all meds. SI/HI: Denies. A/VH: Denies. Sleep: Patient sleeps all the time. ADL's: Independent. Group attendance: N/A Were Meds taken: Yes, patient is medication compliant. Any med S/E: Denies, none observed. Mental Status Exam Appearance: Casual, wearing own clothes. Eye contact: Good. Behavior: Cooperative, respectful. Speech: Clear, normal rate, rhythm, and tone. Mood: Pleasant. Affect: Euthymic. Thought process: Linear. Thought Content: Exercise, going home. Cognition: A/O X 4. Insight: Poor. Judgment: Poor. Interventions PRN's used: None Therapeutic interventions: provided 1:1 assessment w/therapeutic communication and active listening, medication administration/education/monitoring, positive reinforcement, Q 15 min safety checks. Restraints/seclusion/emergency medication: N/A Justification of Continued Inpatient Treatment: Continued therapeutic support and medication management and monitoring needed to prevent decompensation, and improve coping mechanisms decreasing risk
[2020-01-29 19:00] VITALS: BP 126/76
--- NOTE | 2020-01-30 01:25 | NUR ---
NURSING PROGRESS NOTE [place] Legal hold: Conserved Client on involuntary status for DTS. Report received from XANDER Villarreal with use of SBAR. Why are they here: Pt is LPS conserved. He eloped from [facility] multiple times and was transferred here until a more secure living arrangement can be made. Pt has history of Schizoaffective, Bipolar type and Cluster B traits. Pt has Hx of Etoh abuse, cannabis and nicotine dependence. Pt states "I was drinking and smoking doobies and they told me to stay out of the park, so I had to get outta there." Pts tox screen is negative. Pt states "Im in a great mood, I am glad to be back home in [place]." Pt is delusional believes he is a member of the [employer]. Assessment What has happened this shift: Patient sleeping in his room, isolating as per his standard and practice. Patient awakens easily. Friendly conversation about his family and football. Patient is somewhat delusional about facts surrounding his brothers . Patients mood is upbeat. He smiles and laughs. Patient states he is looking forward to placement. SI/HI: Denies. A/VH: Denies. Sleep: Patient sleeps all the time. ADL's: Independent. Group attendance: N/A Were Meds taken: Yes, patient is medication compliant. Any med S/E: Denies, none observed. Mental Status Exam Appearance: Casual, wearing own clothes. Eye contact: Good. Behavior: Cooperative, respectful. Speech: Clear, normal rate, rhythm, and tone. Mood: Pleasant. Affect: Euthymic. Thought process: Linear. Thought Content: Exercise, going home, discussion about his brother. Cognition: A/O X 4. Insight: Poor. Judgment: Poor. Interventions PRN's used: None Therapeutic interventions: provided 1:1 assessment w/therapeutic communication and active listening, medication administration/education/monitoring, positive reinforcement, Q 15 min safety checks. Restraints/seclusion/emergency medication: N/A Justification of Continued Inpatient Treatment: Continued therapeutic support and medication management and monitoring needed to prevent decompensation, and improve coping mechanisms decreasing risk
[2020-01-30 08:00] VITALS: BP 107/84
[2020-01-30] MEDS: benztropine 1mg tablet PO SCH ×2 (08:08→20:20)
[2020-01-30] MEDS: haloperidol 5mg tablet PO SCH ×2 (08:08→20:20)
[2020-01-30] MEDS: PALIPERIDONE 3 MG TAB.ER.24 PO SCH (08:08)
[2020-01-30] MEDS: levoTHYROXINE 25mcg tablet PO SCH (08:08)
[2020-01-30] MEDS: lithium carbonate 150mg capsule PO SCH ×2 (08:08→20:21)
[2020-01-30] MEDS: pantoprazole 40mg Tablet.DR PO SCH (08:08)
[2020-01-30] MEDS: oxcarbazepine 150mg tablet PO SCH ×2 (08:08→20:20)
--- NOTE | 2020-01-30 13:32 | NUR ---
Patient was sleeping all morning. woke up in a good mood and has been walking the subramanian
--- NOTE | 2020-01-30 14:33 | NUR ---
NURSING PROGRESS NOTE [place] Legal hold: Conserved Client on involuntary status for DTS. Report received from Charge Nurse , RN with use of SBAR. Why are they here: Pt is LPS conserved. He eloped from [facility] multiple times and was transferred here until a more secure living arrangement can be made. Pt has history of Schizoaffective, Bipolar type and Cluster B traits. Pt has Hx of Etoh abuse, cannabis and nicotine dependence. Pt states "I was drinking and smoking doobies and they told me to stay out of the park, so I had to get outta there." Pts tox screen is negative. Pt states "Im in a great mood, I am glad to be back home in [place]." Pt is delusional believes he is a member of the [employer]. Assessment What has happened this shift: Patient has been sleeping in room most of the shift has came out to dine and chat with other Patients very happy and smiling. understands why he is here and states " he actually likes the place with a laugh." Patient is very respectful and understanding if he cant receive what he wants in a timely matter. SI/HI: Denies. A/VH: Denies. Sleep: Patient sleeps all the time. ADL's: Independent. Group attendance: N/A Were Meds taken: Yes, patient is medication compliant. Any med S/E: Denies, none observed. Mental Status Exam Appearance: Casual, wearing own clothes. Eye contact: Good. Behavior: Cooperative, respectful. Speech: Clear, normal rate, rhythm, and tone. Mood: Pleasant. Affect: Euthymic. Thought process: Linear. Thought Content: Exercise, going home, discussion about his brother. Cognition: A/O X 4. Insight: Poor. Judgment: Poor. Interventions PRN's used: None Therapeutic interventions: provided 1:1 assessment w/therapeutic communication and active listening, medication administration/education/monitoring, positive reinforcement, Q 15 min safety checks. Restraints/seclusion/emergency medication: N/A Justification of Continued Inpatient Treatment: Continued therapeutic support and medication management and monitoring needed to prevent decompensation, and improve coping mechanisms decreasing risk
[2020-01-30 20:06] VITALS: BP 138/86
--- NOTE | 2020-01-31 00:59 | NUR ---
NURSING PROGRESS NOTE [place] Legal hold: Conserved Client on involuntary status for DTS. Report received from Charge Nurse , RN with use of SBAR. Why are they here: Pt is LPS conserved. He eloped from [facility] multiple times and was transferred here until a more secure living arrangement can be made. Pt has history of Schizoaffective, Bipolar type and Cluster B traits. Pt has Hx of Etoh abuse, cannabis and nicotine dependence. Pt states "I was drinking and smoking doobies and they told me to stay out of the park, so I had to get outta there." Pts tox screen is negative. Pt states "Im in a great mood, I am glad to be back home in [place]." Pt is delusional believes he is a member of the [employer]. Assessment What has happened this shift: Patient was up and on the unit on and off the phone with family. Pt talked about needing a pbj to thicken his blood so his gums would not bleed. He was polite and cooperative social with staff and peers. pt went to bed after med pass. SI/HI: Denies. A/VH: Denies. Sleep: Patient sleeps all the time. ADL's: Independent. Group attendance: N/A Were Meds taken: Yes, patient is medication compliant. Any med S/E: Denies, none observed. Mental Status Exam Appearance: Casual, wearing own clothes. Eye contact: Good. Behavior: Cooperative, respectful. Speech: Clear, normal rate, rhythm, and tone. Mood: Pleasant. Affect: Euthymic. Thought process: Linear. Thought Content: Exercise, going home, discussion about his brother. Cognition: A/O X 4. Insight: Poor. Judgment: Poor. Interventions PRN's used: None Therapeutic interventions: provided 1:1 assessment w/therapeutic communication and active listening, medication administration/education/monitoring, positive reinforcement, Q 15 min safety checks. Restraints/seclusion/emergency medication: N/A Justification of Continued Inpatient Treatment: Continued therapeutic support and medication management and monitoring needed to prevent decompensation, and improve coping mechanisms decreasing risk
[2020-01-31] MEDS: benztropine 1mg tablet PO SCH ×2 (07:30→20:16)
[2020-01-31] MEDS: haloperidol 5mg tablet PO SCH ×2 (07:30→20:16)
[2020-01-31] MEDS: pantoprazole 40mg Tablet.DR PO SCH (07:30)
[2020-01-31] MEDS: levoTHYROXINE 25mcg tablet PO SCH (07:31)
[2020-01-31] MEDS: lithium carbonate 150mg capsule PO SCH ×2 (07:31→20:18)
[2020-01-31] MEDS: oxcarbazepine 150mg tablet PO SCH ×2 (07:31→20:17)
[2020-01-31] MEDS: PALIPERIDONE 3 MG TAB.ER.24 PO SCH (07:31)
[2020-01-31 08:00] VITALS: BP 114/64
--- NOTE | 2020-01-31 12:03 | NUR ---
Nursing Progress Note: Legal hold: LPS Client on involuntary status for GD Report received from nurse with use of SBAR: XANDER Fuentes Why are they here: He eloped from [facility] in [facility] multiple times and was transferred here until a more secure living arrangement can be made. Pt has history of Schizoaffective, Bipolar type and Cluster B traits. Pt has Hx of Etoh abuse, Cannibis and nicotine dependance. Pt states, "I was drinking and smokin doobies and they told me to stay out of the park, so I had to get outta there." Pt's tox screen is negative. Pt states "Im in a great mood, Im glad to be back home in [place]." Pt is delusional believes he is a member of the [employer]. Assessment What has happened this shift: Awoke patient to administer AM medications, he presents as cooperative and pleasant and remains out of bed throughout the morning. 1:1 completed at bedside, pt. continues to deny all MH s/s, and is not observed to be responding to internal stimuli. However, he continues to make occasional delusional statements at times and denies the need for medications. Pt. states, "I'm supposed to be bipolar, but my step dad said that just to pick a fight." Pt. does agree that his mood has stabilized, and this is most likely r/t his medications. He remains up throughout the shift and accompanies others to the patio. Pt. is observed to be interacting appropriately with others. S/I/H/I: Denies A/VH: Denies, does not appear internally preoccupied Sleep: Pt. reports he slept well, 7.5 hours recorded ADL's: Requires some direction from staff Group attendance: Attends the patio Were meds taken: Yes Any med S/E: None Mental Status Exam Appearance: Neat and appropriately dressed Eye contact: Good Behavior: Cooperative and pleasant Speech: Soft and WNL Mood: Pleasant Affect: Blunted Thought process: Circumstantial Thought Content: Some delusional statements at times Cognition: A&O X3 (not to why here) Insight: Poor Judgment: Fair Interventions PRN's used: None Therapeutic interventions: Ensured contract for safety, maintained a safe and supportive environment, provided clear and simple instructions, provided positive encouragement and encouraged participation on the unit, and maintained a safe and supportive environment. Restraints/seclusion/emergency medication: N/A Justification of Continued Inpatient Treatment: KARMEN Duenas, pt. is at baseline and is awaiting placement.
[2020-01-31 20:29] VITALS: BP 120/71
--- NOTE | 2020-02-01 00:55 | NUR ---
Nursing Progress Note: Legal hold: LPS Client on involuntary status for GD Report received from nurse with use of SBAR: XANDER Fuentes Why are they here: He el[facility] from [facility] multiple times and was transferred here until a more secure living arrangement can be made. Pt has history of Schizoaffective, Bipolar type and Cluster B traits. Pt has Hx of Etoh abuse, Cannibis and nicotine dependance. Pt states, "I was drinking and smokin doobies and they told me to stay out of the park, so I had to get outta there." Pt's tox screen is negative. Pt states "Im in a great mood, Im glad to be back home in [place]." Pt is delusional believes he is a member of the [employer]. Assessment What has happened this shift: Pt was up at shift change. He is friendly and cooperative with staff and peers. Pt had no complaints of s/s of SI/HI or AH/VH. Pt is waiting for placement. S/I/H/I: Denies A/VH: Denies, does not appear internally preoccupied Sleep: Pt. reports he slept well, 7.5 hours recorded ADL's: Requires some direction from staff Group attendance: Attends the patio Were meds taken: Yes Any med S/E: None Mental Status Exam Appearance: Neat and appropriately dressed Eye contact: Good Behavior: Cooperative and pleasant Speech: Soft and WNL Mood: Pleasant Affect: Blunted Thought process: Circumstantial Thought Content: Some delusional statements at times Cognition: A&O X3 (not to why here) Insight: Poor Judgment: Fair Interventions PRN's used: None Therapeutic interventions: Ensured contract for safety, maintained a safe and supportive environment, provided clear and simple instructions, provided positive encouragement and encouraged participation on the unit, and maintained a safe and supportive environment. Restraints/seclusion/emergency medication: N/A Justification of Continued Inpatient Treatment: KARMEN Duenas, pt. is at baseline and is awaiting placement.
[2020-02-01] MEDS: haloperidol 5mg tablet PO SCH ×2 (07:15→20:49)
[2020-02-01] MEDS: benztropine 1mg tablet PO SCH ×2 (07:15→20:49)
[2020-02-01] MEDS: pantoprazole 40mg Tablet.DR PO SCH (07:15)
[2020-02-01] MEDS: PALIPERIDONE 3 MG TAB.ER.24 PO SCH (07:16)
[2020-02-01] MEDS: lithium carbonate 150mg capsule PO SCH ×2 (07:16→20:49)
[2020-02-01] MEDS: oxcarbazepine 150mg tablet PO SCH ×2 (07:16→20:49)
[2020-02-01] MEDS: levoTHYROXINE 25mcg tablet PO SCH (07:16)
[2020-02-01 08:58] VITALS: BP 129/63
--- NOTE | 2020-02-01 14:50 | NUR ---
Nursing Progress Note: Legal hold: LPS Client on involuntary status for GD Report received from nurse with use of SBAR: XANDER Garcia Why are they here: He el[facility] from [facility] multiple times and was transferred here until a more secure living arrangement can be made. Pt has history of Schizoaffective, Bipolar type and Cluster B traits. Pt has Hx of Etoh abuse, Cannibis and nicotine dependance. Pt states, "I was drinking and smokin doobies and they told me to stay out of the park, so I had to get outta there." Pt's tox screen is negative. Pt states "Im in a great mood, Im glad to be back home in [place]." Pt is delusional believes he is a member of the [facility]. Assessment What has happened this shift: Received pt. sleeping in bed at the beginning of the shift, he awoke for breakfast and then returned back to bed. 1:1 completed at bedside, pt. continues to deny all MH s/s, however continues to make delusional statements. When questioned by this check writer salesperson regarding discharge, pt. reports that he lives all over [place], states, "I have some nice pads." When this check writer salesperson reminds pt. that he is awaiting placement by his conservators he states, "I think they are going to let me out in court because of all of the government things I have done over the past 18 years." He then goes on to report that a "crazy women" who is his Aunt by marriage, got him locked up for five more years with her "smooth talking." Pt's speech becomes more tangental and disorganized as he continues with his delusional thought process, and he begins to list off all of the famous people his family is related to including the head of the [facility], the head of [facility], [place], and Rayshawn Valentino. Pt. returns back to bed and sleeps until the afternoon, he then gets up and is observed to be interacting appropriately with others on the unit. S/I/H/I: Denies A/VH: Denies, does not appear internally preoccupied Sleep: Pt. reports he slept well, 7.5 hours recorded ADL's: Requires some direction from staff Group attendance: No Were meds taken: Yes Any med S/E: None Mental Status Exam Appearance: Neat and appropriately dressed Eye contact: Good Behavior: Cooperative and pleasant Speech: Soft and WNL Mood: Pleasant Affect: Blunted Thought process: Circumstantial, becomes more tangental and disorganized as he continues with his delusional thought process Thought Content: Ongoing delusions Cognition: A&O X3 (not to why here) Insight: Poor Judgment: Fair Interventions PRN's used: None Therapeutic interventions: Ensured contract for safety, maintained a safe and supportive environment, provided clear and simple instructions, provided positive encouragement and encouraged participation on the unit, and maintained a safe and supportive environment. Restraints/seclusion/emergency medication: N/A Justification of Continued Inpatient Treatment: Pt. continues to require a safe and supportive environment while awaiting placement.
--- NOTE | 2020-02-01 15:35 | NUR ---
PLACEMENT TAD office called to report that Derick has been accepted at [facility]. They are requesting 2 weeks of notes, temps, and a Covid test. Asked if they actually have a bed for him, if not, a Covid test is pointless until they have an intake date. [place] office is going to check on this and get back to news writer. BART Rollins
[2020-02-01 20:29] VITALS: BP 132/72
--- NOTE | 2020-02-01 21:09 | NUR ---
Nursing Progress Note: Legal hold: LPS Client on involuntary status for GD Report received from nurse with use of SBAR: XANDER Mahan Why are they here: He el[facility] from [facility] multiple times and was transferred here until a more secure living arrangement can be made. Pt has history of Schizoaffective, Bipolar type and Cluster B traits. Pt has Hx of Etoh abuse, Cannibis and nicotine dependance. Pt states, "I was drinking and smokin doobies and they told me to stay out of the park, so I had to get outta there." Pt's tox screen is negative. Pt states "Im in a great mood, Im glad to be back home in [place]." Pt is delusional believes he is a member of the [employer]. Assessment What has happened this shift: Pt was resting in bed at change of shift. Pt states his day is good, "nothing new just the same old thing, different day." Pt states his mood is good. Pt states he has been sleeping good appetite is good. S/I/H/I: Denies A/VH: Denies "I never have those" Sleep: reports sleeping well see sleep hours ADL's: Requires some direction from staff, showered tonight before bed Group attendance: No Were meds taken: Yes Any med S/E: None Mental Status Exam Appearance: Neat and appropriately dressed Eye contact: Good Behavior: Cooperative and pleasant Speech: Soft and WNL Mood: Pleasant Affect: Blunted Thought process: Circumstantial, becomes more tangental and disorganized as he continues with his delusional thought process Thought Content: Ongoing delusions Cognition: A&O X3 (not to why here) Insight: Poor Judgment: Fair Interventions PRN's used: None Therapeutic interventions: Ensured contract for safety, maintained a safe and supportive environment, provided clear and simple instructions, provided positive encouragement and encouraged participation on the unit, and maintained a safe and supportive environment. Restraints/seclusion/emergency medication: N/A Justification of Continued Inpatient Treatment: Pt. continues to require a safe and supportive environment while awaiting placement.
[2020-02-02] MEDS: pantoprazole 40mg Tablet.DR PO SCH (07:10)
[2020-02-02] MEDS: haloperidol 5mg tablet PO SCH ×2 (07:10→20:00)
[2020-02-02] MEDS: benztropine 1mg tablet PO SCH ×2 (07:10→20:00)
[2020-02-02] MEDS: PALIPERIDONE 3 MG TAB.ER.24 PO SCH (07:11)
[2020-02-02] MEDS: oxcarbazepine 150mg tablet PO SCH ×2 (07:11→20:00)
[2020-02-02] MEDS: lithium carbonate 150mg capsule PO SCH ×2 (07:11→20:00)
[2020-02-02] MEDS: levoTHYROXINE 25mcg tablet PO SCH (07:11)
[2020-02-02 08:00] VITALS: BP 95/55
--- NOTE | 2020-02-02 08:20 | NUR ---
Faxed 2 weeks of notes to TAD office for placement purposes. He has been accepted at [facility]. It is unknown if they currently have beds available or not. BART Rollins
--- NOTE | 2020-02-02 16:14 | NUR ---
Nursing Progress Note: Legal hold: LPS Client on involuntary status for GD Report received from nurse with use of SBAR: XANDER Garcia Why are they here: He el[facility] from [facility] multiple times and was transferred here until a more secure living arrangement can be made. Pt has history of Schizoaffective, Bipolar type and Cluster B traits. Pt has Hx of Etoh abuse, Cannibis and nicotine dependance. Pt states, "I was drinking and smokin doobies and they told me to stay out of the park, so I had to get outta there." Pt's tox screen is negative. Pt states "Im in a great mood, Im glad to be back home in [place]." Pt is delusional believes he is a member of the [employer]. Assessment What has happened this shift: Received pt. sleeping in bed at the beginning of the shift, he awoke for breakfast and then returned back to bed as is his routine. 1:1 completed at bedside, pt. continues to deny all MH s/s, and no delusional statements made this shift. Pt. states animatedly, "I'm doing all right. I'm just thinking of all the places I'd rather be, like [place] on a rope swing." Pt. is observed to be up interacting appropriately with others throughout the afternoon, he remains animated and pleasant. S/I/H/I: Denies A/VH: Denies, does not appear internally preoccupied Sleep: Pt. reports he slept well, 8.75 hours recorded ADL's: Requires some direction from staff Group attendance: No Were meds taken: Yes Any med S/E: None Mental Status Exam Appearance: Neat and appropriately dressed Eye contact: Good Behavior: Cooperative and pleasant Speech: Soft and WNL Mood: Pleasant Affect: Blunted Thought process: Circumstantial Thought Content: preoccupation with desire to discharge Cognition: A&O X3 (not to why here) Insight: Poor Judgment: Fair Interventions PRN's used: None Therapeutic interventions: Ensured contract for safety, maintained a safe and supportive environment, provided clear and simple instructions, provided positive encouragement and encouraged participation on the unit, and maintained a safe and supportive environment. Restraints/seclusion/emergency medication: N/A Justification of Continued Inpatient Treatment: Pt. continues to require a safe and supportive environment while awaiting placement.
[2020-02-02 19:41] VITALS: BP 134/85
--- NOTE | 2020-02-02 21:15 | NUR ---
Nursing Progress Note: Legal hold: LPS Client on involuntary status for GD Report received from nurse with use of SBAR: XANDER Albert Why are they here: He eloped from [facility] in [facility] multiple times and was transferred here until a more secure living arrangement can be made. Pt has history of Schizoaffective, Bipolar type and Cluster B traits. Pt has Hx of Etoh abuse, Cannibis and nicotine dependance. Pt states, "I was drinking and smokin doobies and they told me to stay out of the park, so I had to get outta there." Pt's tox screen is negative. Pt states "Im in a great mood, Im glad to be back home in [place]." Pt is delusional believes he is a member of the [employer]. Assessment What has happened this shift: Pt resting in his bed at change of shift. Pt sat in group room with peers listening to music and had a snack. Pt socializes with peers and is med compliant. pt reports a good day, no changes. S/I/H/I: Denies A/VH: Denies, does not appear internally preoccupied Sleep: Pt. reports he slept well, see sleep hours ADL's: Requires some direction from staff Group attendance: No Were meds taken: Yes Any med S/E: None Mental Status Exam Appearance: Neat and appropriately dressed wearing personal clothing and a ball cap Eye contact: Good Behavior: Cooperative and pleasant Speech: Soft and WNL Mood: Pleasant Affect: Blunted Thought process: Circumstantial Thought Content: preoccupation with desire to discharge Cognition: A&O X3 (not to why here) Insight: Poor Judgment: Fair Interventions PRN's used: None Therapeutic interventions: Ensured contract for safety, maintained a safe and supportive environment, provided clear and simple instructions, provided positive encouragement and encouraged participation on the unit, and maintained a safe and supportive environment. Restraints/seclusion/emergency medication: N/A Justification of Continued Inpatient Treatment: Pt. continues to require a safe and supportive environment while awaiting placement.
[2020-02-03 07:47] VITALS: BP 115/69
[2020-02-03] MEDS: haloperidol 5mg tablet PO SCH ×2 (07:53→22:34)
[2020-02-03] MEDS: oxcarbazepine 150mg tablet PO SCH ×2 (07:53→22:35)
[2020-02-03] MEDS: lithium carbonate 150mg capsule PO SCH ×2 (07:53→22:35)
[2020-02-03] MEDS: PALIPERIDONE 3 MG TAB.ER.24 PO SCH (07:53)
[2020-02-03] MEDS: levoTHYROXINE 25mcg tablet PO SCH (07:54)
[2020-02-03] MEDS: benztropine 1mg tablet PO SCH ×2 (07:54→22:34)
[2020-02-03] MEDS: pantoprazole 40mg Tablet.DR PO SCH (07:54)
--- NOTE | 2020-02-03 10:00 | NUR ---
Reassessment: Pt continues meeting nutrient needs with 75-100% PO intake. LBM 02/01. No nutrition intervention warranted at this time. Will continue to follow. Rec: 1. advance diet as medically indicated to heart healthy 2. bowel care as needed 3. scaled wt per rx Addendum: 02/03/20 at [address] Amended: Links added.
--- NOTE | 2020-02-03 11:46 | NUR ---
Nursing Progress Note: Legal hold: LPS Client on involuntary status for GD Report received from nurse with use of SBAR: XANDER Garcia Why are they here: He eloped from [facility] in [facility] multiple times and was transferred here until a more secure living arrangement can be made. Pt has history of Schizoaffective, Bipolar type and Cluster B traits. Pt has Hx of Etoh abuse, Cannibis and nicotine dependance. Pt states, "I was drinking and smokin doobies and they told me to stay out of the park, so I had to get outta there." Pt's tox screen is negative. Pt states "Im in a great mood, Im glad to be back home in [place]." Pt is delusional believes he is a member of the [employer]. Assessment What has happened this shift: Patient was resting in bed peacefully at change of shift. He is pleasant and cooperative with care and takes his medication as ordered. He does not participate in groups nor does he participate in going to the patio. He mostly isolates to his room but is pleasant during interactions with staff and peers. He states "I am doing good, I am just chilling, can't complain". S/I/H/I: Denies A/VH: Denies, does not appear internally preoccupied Sleep: Pt. naps throughout the shift ADL's: Requires some direction from staff Group attendance: No Were meds taken: Yes Any med S/E: None Mental Status Exam Appearance: Neat and appropriately dressed with a hat on Eye contact: Good Behavior: Cooperative and pleasant Speech: Soft and WNL Mood: Pleasant Affect: Blunted Thought process: Circumstantial Thought Content: "I am good" Cognition: A&O X3 (not to why here) Insight: Poor Judgment: Fair Interventions PRN's used: None Therapeutic interventions: Ensured contract for safety, maintained a safe and supportive environment, provided clear and simple instructions, provided positive encouragement and encouraged participation on the unit, and maintained a safe and supportive environment. Restraints/seclusion/emergency medication: N/A Justification of Continued Inpatient Treatment: Pt. continues to require a safe and supportive environment while awaiting placement. Addendum: 02/03/20 at 1238 by Bonny Gage RN Patient is seen up out of bed before lunch. He is interacting and socializing appropriately with peers.
[2020-02-03 20:00] VITALS: BP 116/78
--- NOTE | 2020-02-04 03:58 | NUR ---
Nursing Progress Note: Derick Laguerre Legal hold: LPS Client on involuntary status for GD Report received from XANDER Ramírez with use of SBAR. Why are they here: [facility] multiple times and was transferred here until a more secure living arrangement can be made. Pt has history of Schizoaffective, Bipolar type and Cluster B traits. Pt has Hx of Etoh abuse, Cannibis and nicotine dependance. Pt states, "I was drinking and smokin doobies and they told me to stay out of the park, so I had to get outta there." Pt's tox screen is negative. Pt states "Im in a great mood, Im glad to be back home in [place]." Pt is delusional believes he is a member of the [employer]. Assessment What has happened this shift: Patient self isolates in his room. He did talk on the phone and did leave his room for dinner and snacks. The patient sleeps and lays in his bed. Patient has a blunted affect, he is not quite sure why he is here. This patient states he is feeling good. Patient is focused on exercise, sleep, and discharge. Patient states he hopes he can return to his [employer] trade. S/I/H/I: Denies. A/VH: Denies, does not appear internally preoccupied. Sleep: Will tally at 0500 hours. ADL's: Requires some direction from staff Group attendance: No groups on awake overnight counselor . Were med's taken: Yes, patient is medication compliant. Any med S/E: None. Mental Status Exam Appearance: Clean cut, appropriate dress. Eye contact: Good, Behavior: Cooperative and friendly. Speech: Soft, normal rate, rhythm, and tone. Mood: Pleasant and cooperative. Affect: Blunted. Thought process: Mostly linear. Thought Content: Discharge and the future. Cognition: A&O to person, place, time, questionable to situation. Insight: Poor. Judgment: Fair. Interventions PRN's used: None Therapeutic interventions: Ensured contract for safety, maintained a safe and supportive environment, provided clear and simple instructions, provided positive encouragement and encouraged participation on the unit, and maintained a safe and supportive environment. Restraints/seclusion/emergency medication: N/A Justification of Continued Inpatient Treatment: Pt. continues to require a safe and supportive environment while awaiting placement.
[2020-02-04 08:00] VITALS: BP 97/54
[2020-02-04] MEDS: PALIPERIDONE 3 MG TAB.ER.24 PO SCH (08:34)
[2020-02-04] MEDS: oxcarbazepine 150mg tablet PO SCH ×2 (08:35→20:40)
[2020-02-04] MEDS: lithium carbonate 150mg capsule PO SCH ×2 (08:35→20:40)
[2020-02-04] MEDS: pantoprazole 40mg Tablet.DR PO SCH (08:35)
[2020-02-04] MEDS: haloperidol 5mg tablet PO SCH ×2 (08:35→20:41)
[2020-02-04] MEDS: levoTHYROXINE 25mcg tablet PO SCH (08:35)
[2020-02-04] MEDS: benztropine 1mg tablet PO SCH ×2 (08:35→20:41)
--- NOTE | 2020-02-04 16:34 | NUR ---
NURSING PROGRESS NOTE Legal hold: LPS Client on involuntary status for GD Report received from XANDER Alva with use of SBAR Why are they here: He eloped from [facility] in [facility] multiple times and was transferred here until a more secure living arrangement can be made. Pt has history of Schizoaffective, Bipolar type and Cluster B traits. Pt has Hx of Etoh abuse, Cannibis and nicotine dependance. Pt states, "I was drinking and smokin doobies and they told me to stay out of the park, so I had to get outta there." Pt's tox screen is negative. Pt states "Im in a great mood, Im glad to be back home in [place]." Pt is delusional believes he is a member of the [employer]. Assessment What has happened this shift: Awaiting placement, has been accepted at [facility] but no date to leave yet. Pleasant in all interactions, and cooperative. Medication compliant. Sleeps until late morning, and isolates at times but when interacting with peers is pleasant and kind. S/I/H/I: Denies A/VH: Denies, does not appear internally preoccupied Sleep: Pt. naps throughout the shift ADL's: self Group attendance: No Were meds taken: Yes Any med S/E: None Mental Status Exam Appearance: clean and neat, shaven Eye contact: Good Behavior: Cooperative and pleasant Speech: clear Mood: Pleasant Affect: animated Thought process: Circumstantial Thought Content: talks about whatever happens to be going on at the time Cognition: Alert Insight: Poor Judgment: Fair Interventions PRN's used: None Therapeutic interventions: Ensured contract for safety, maintained a safe and supportive environment, provided clear and simple instructions, provided positive encouragement and encouraged participation on the unit, and maintained a safe and supportive environment. Restraints/seclusion/emergency medication: N/A Justification of Continued Inpatient Treatment: Pt. continues to require a safe and supportive environment while awaiting placement.
[2020-02-04 19:56] VITALS: BP 139/69
--- NOTE | 2020-02-05 04:51 | NUR ---
Nursing Progress Note: Derick Laguerre Legal hold: LPS Client on involuntary status for GD Report received from XANDER Ramírez with use of SBAR. Why are they here: He el[facility] from [facility] multiple times and was transferred here until a more secure living arrangement can be made. Pt has history of Schizoaffective, Bipolar type and Cluster B traits. Pt has Hx of Etoh abuse, Cannibis and nicotine dependance. Pt states, "I was drinking and smokin doobies and they told me to stay out of the park, so I had to get outta there." Pt's tox screen is negative. Pt states "Im in a great mood, Im glad to be back home in [place]." Pt is delusional believes he is a member of the [employer]. Assessment What has happened this shift: Patient ambulated hallways and socialized with others. Patient presents as linear. He smiles and tells this va underwriter he is feeling great. Patient denied any problems this shift. Patient is focused on future placement and then going home and getting a job. S/I/H/I: Denies. A/VH: Denies, does not appear internally preoccupied. Sleep: Will tally at 0500 hours. ADL's: Requires some direction from staff Group attendance: No groups on cook night . Were med's taken: Yes, patient is medication compliant. Any med S/E: None. Mental Status Exam Appearance: Clean cut, appropriate dress. Eye contact: Good, Behavior: Cooperative and friendly. Speech: Soft, normal rate, rhythm, and tone. Mood: Pleasant and cooperative. Affect: Blunted. Thought process: Linear. Thought Content: Discharge and the future. Cognition: A&O to person, place, time, questionable to situation. Insight: Poor. Judgment: Fair. Interventions PRN's used: None Therapeutic interventions: Ensured contract for safety, maintained a safe and supportive environment, provided clear and simple instructions, provided positive encouragement and encouraged participation on the unit, and maintained a safe and supportive environment. Restraints/seclusion/emergency medication: N/A Justification of Continued Inpatient Treatment: Pt. continues to require a safe and supportive environment while awaiting placement.
[2020-02-05 07:53] VITALS: BP 103/66
[2020-02-05] MEDS: pantoprazole 40mg Tablet.DR PO SCH (07:59)
[2020-02-05] MEDS: PALIPERIDONE 3 MG TAB.ER.24 PO SCH (07:59)
[2020-02-05] MEDS: oxcarbazepine 150mg tablet PO SCH ×2 (07:59→20:33)
[2020-02-05] MEDS: levoTHYROXINE 25mcg tablet PO SCH (07:59)
[2020-02-05] MEDS: benztropine 1mg tablet PO SCH ×2 (07:59→20:34)
[2020-02-05] MEDS: haloperidol 5mg tablet PO SCH ×2 (08:00→20:33)
[2020-02-05] MEDS: lithium carbonate 150mg capsule PO SCH ×2 (08:00→20:33)
--- NOTE | 2020-02-05 16:31 | NUR ---
NURSING PROGRESS NOTE Legal hold: LPS Client on involuntary status for GD Report received from XANDER Cunningham with use of SBAR Why are they here: He eloped from [facility] in [facility] multiple times and was transferred here until a more secure living arrangement can be made. Pt has history of Schizoaffective, Bipolar type and Cluster B traits. Pt has Hx of Etoh abuse, Cannibis and nicotine dependance. Pt states, "I was drinking and smokin doobies and they told me to stay out of the park, so I had to get outta there." Pt's tox screen is negative. Pt states "Im in a great mood, Im glad to be back home in [place]." Pt is delusional believes he is a member of the [employer]. Assessment What has happened this shift: Awaiting placement, has been accepted at [facility] but no date to leave yet. Pleasant in all interactions, and cooperative. Medication compliant. Sleeps until late morning, and isolates at times but when interacting with peers is pleasant and kind. No changes, patient is consistent in everything. S/I/H/I: Denies A/VH: Denies, does not appear internally preoccupied Sleep: Pt. naps throughout the shift ADL's: self Group attendance: No Were meds taken: Yes Any med S/E: None Mental Status Exam Appearance: neat and clean Eye contact: Good Behavior: Cooperative and pleasant Speech: clear Mood: Pleasant Affect: animated Thought process: Circumstantial Thought Content: talks about whatever happens to be going on at the time Cognition: Alert Insight: Poor Judgment: Fair Interventions PRN's used: None Therapeutic interventions: Ensured contract for safety, maintained a safe and supportive environment, provided clear and simple instructions, provided positive encouragement and encouraged participation on the unit, and maintained a safe and supportive environment. Restraints/seclusion/emergency medication: N/A Justification of Continued Inpatient Treatment: Pt. continues to require a safe and supportive environment while awaiting placement.
[2020-02-05 20:00] VITALS: BP 136/49
--- NOTE | 2020-02-06 00:41 | NUR ---
NURSING PROGRESS NOTE Legal hold: LPS Client on involuntary status for GD Report received from XANDER Ramírez with use of SBAR Why are they here: He eloped from [facility] in [facility] multiple times and was transferred here until a more secure living arrangement can be made. Pt has history of Schizoaffective, Bipolar type and Cluster B traits. Pt has Hx of Etoh abuse, Cannibis and nicotine dependance. Pt states, "I was drinking and smokin doobies and they told me to stay out of the park, so I had to get outta there." Pt's tox screen is negative. Pt states "Im in a great mood, Im glad to be back home in [place]." Pt is delusional believes he is a member of the [employer]. Assessment What has happened this shift: Patient asleep at change of shift. He woke just before snacks and was social with peers and staff. Pt is happy and polite with his peers and staff. When talking with room mate about being placed he stated I'm happy for you I might get to go soon too. S/I/H/I: Denies A/VH: Denies, does not appear internally preoccupied Sleep: Pt. naps throughout the shift ADL's: self Group attendance: No Were meds taken: Yes Any med S/E: None Mental Status Exam Appearance: neat and clean Eye contact: Good Behavior: Cooperative and pleasant Speech: clear Mood: Pleasant Affect: animated Thought process: Circumstantial Thought Content: talks about whatever happens to be going on at the time Cognition: Alert Insight: Poor Judgment: Fair Interventions PRN's used: None Therapeutic interventions: Ensured contract for safety, maintained a safe and supportive environment, provided clear and simple instructions, provided positive encouragement and encouraged participation on the unit, and maintained a safe and supportive environment. Restraints/seclusion/emergency medication: N/A Justification of Continued Inpatient Treatment: Pt. continues to require a safe and supportive environment while awaiting placement.
[2020-02-06 08:00] VITALS: BP 122/77
[2020-02-06] MEDS: PALIPERIDONE 3 MG TAB.ER.24 PO SCH (08:17)
[2020-02-06] MEDS: haloperidol 5mg tablet PO SCH ×2 (08:17→20:42)
[2020-02-06] MEDS: levoTHYROXINE 25mcg tablet PO SCH (08:18)
[2020-02-06] MEDS: oxcarbazepine 150mg tablet PO SCH ×2 (08:18→20:43)
[2020-02-06] MEDS: pantoprazole 40mg Tablet.DR PO SCH (08:19)
[2020-02-06] MEDS: benztropine 1mg tablet PO SCH ×2 (08:19→20:43)
[2020-02-06] MEDS: lithium carbonate 150mg capsule PO SCH ×2 (08:19→20:44)
--- NOTE | 2020-02-06 17:38 | NUR ---
NURSING PROGRESS NOTE Legal hold: LPS Client on involuntary status for GD Report received from FRANCOISE Troncoso with use of SBAR Why are they here: He eloped from [facility] in [facility] multiple times and was transferred here until a more secure living arrangement can be made. Pt has history of Schizoaffective, Bipolar type and Cluster B traits. Pt has Hx of Etoh abuse, Cannibis and nicotine dependance. Pt states, "I was drinking and smokin doobies and they told me to stay out of the park, so I had to get outta there." Pt's tox screen is negative. Pt states "Im in a great mood, Im glad to be back home in [place]." Pt is delusional believes he is a member of the [employer]. Assessment What has happened this shift: Pt was pleasant and cooperative. He took naps during the day and socialized some. He went to the patio with others and played [employer]. He was interactive with RN and friendly. He denies SI/HI/AV/H. He socialized with other residents throughout the day. S/I/H/I: Denies A/VH: Denies Sleep: 8h per sleep assessment ADL's: Independent Group attendance: No Were meds taken: Yes Any med S/E: None Mental Status Exam Appearance: Wearing his own clothes. Eye contact: Direct Behavior: Social, content Speech: WNL Mood: Good Affect: Bright Thought process: Circumstantial Thought Content: Id love to go somewhere fun , like on a vacation. Cognition: AxOx3 Insight: Fair Judgment: Fair Interventions PRN's used: None Therapeutic interventions: Ensured contract for safety, maintained a safe and supportive environment, provided clear and simple instructions, provided positive encouragement and encouraged participation on the unit, and maintained a safe and supportive environment. Restraints/seclusion/emergency medication: N/A Justification of Continued Inpatient Treatment: Pt. continues to require a safe and supportive environment while awaiting placement.
[2020-02-06 20:00] VITALS: BP 131/89
--- NOTE | 2020-02-07 02:04 | NUR ---
NURSING PROGRESS NOTE Legal hold: LPS Client on involuntary status for GD Report received from FRANCOISE Ramírez with use of SBAR Why are they here: He eloped from [facility] in [facility] multiple times and was transferred here until a more secure living arrangement can be made. Pt has history of Schizoaffective, Bipolar type and Cluster B traits. Pt has Hx of Etoh abuse, Cannibis and nicotine dependance. Pt states, "I was drinking and smokin doobies and they told me to stay out of the park, so I had to get outta there." Pt's tox screen is negative. Pt states "Im in a great mood, Im glad to be back home in [place]." Pt is delusional believes he is a member of the [employer]. Assessment What has happened this shift: Pt was up and social on unit showered be fore snack time. Pt stated I'm just waiting for placement hang out and doing what I need to.Pt was incontinent of urine this shift. S/I/H/I: Denies A/VH: Denies Sleep: 8h per sleep assessment ADL's: Independent Group attendance: No Were meds taken: Yes Any med S/E: None Mental Status Exam Appearance: Wearing his own clothes. Eye contact: Direct Behavior: Social, content Speech: WNL Mood: Good Affect: Bright Thought process: Circumstantial Thought Content: Id love to go somewhere fun , like on a vacation. Cognition: AxOx3 Insight: Fair Judgment: Fair Interventions PRN's used: None Therapeutic interventions: Ensured contract for safety, maintained a safe and supportive environment, provided clear and simple instructions, provided positive encouragement and encouraged participation on the unit, and maintained a safe and supportive environment. Restraints/seclusion/emergency medication: N/A Justification of Continued Inpatient Treatment: Pt. continues to require a safe and supportive environment while awaiting placement.
[2020-02-07] MEDS: benztropine 1mg tablet PO SCH ×2 (07:37→20:31)
[2020-02-07] MEDS: pantoprazole 40mg Tablet.DR PO SCH (07:37)
[2020-02-07] MEDS: haloperidol 5mg tablet PO SCH ×2 (07:37→20:31)
[2020-02-07] MEDS: PALIPERIDONE 3 MG TAB.ER.24 PO SCH (07:38)
[2020-02-07] MEDS: levoTHYROXINE 25mcg tablet PO SCH (07:38)
[2020-02-07] MEDS: oxcarbazepine 150mg tablet PO SCH ×2 (07:38→20:31)
[2020-02-07] MEDS: lithium carbonate 150mg capsule PO SCH ×2 (07:38→20:32)
[2020-02-07 07:58] VITALS: BP 98/61
--- NOTE | 2020-02-07 12:23 | NUR ---
Nursing Progress Note: Legal hold: LPS Client on involuntary status for GD Report received from nurse with use of SBAR: XANDER Mahan Why are they here: He eloped from [facility] in [facility] multiple times and was transferred here until a more secure living arrangement can be made. Pt has history of Schizoaffective, Bipolar type and Cluster B traits. Pt has Hx of Etoh abuse, Cannibis and nicotine dependance. Pt states, "I was drinking and smokin doobies and they told me to stay out of the park, so I had to get outta there." Pt's tox screen is negative. Pt states "Im in a great mood, Im glad to be back home in [place]." Pt is delusional believes he is a member of the [employer]. Assessment What has happened this shift: Received pt. sleeping in bed at the beginning of the shift, he awoke for breakfast and then returned back to bed until the afternoon, as is his normal routine. Attempted to complete, 1:1 at bedside, however pt. presents with fatigue. He continues to deny all MH s/s, however appears to be somewhat confused in regard to discharge. When questioned by this bid writer regarding discharge, pt. reported that he believes he will be going to [facility], and this is alright with him because he has been there before, however he would really like to go to a [facility]. However, per notes, pt. has been accepted at [facility], but it is unknown if they currently have beds available. Will attempt to provided education and continue to monitor. No episodes of incontinence. S/I/H/I: Denies A/VH: Denies, does not appear internally preoccupied Sleep: Pt. reports he slept well, 7.5 hours recorded ADL's: Requires some direction from staff Group attendance: No Were meds taken: Yes Any med S/E: Continued fatigue, aware and monitoring [place] levels Mental Status Exam Appearance: Somewhat disheveled, and appropriately dressed Eye contact: Good Behavior: Cooperative, but fatigued Speech: Soft and WNL Mood: Pleasant Affect: Blunted Thought process: Circumstantial Thought Content: Appears to have some delusional thinking regarding discharge Cognition: A&O X3 (not to why here) Insight: Poor Judgment: Fair Interventions PRN's used: None Therapeutic interventions: Ensured contract for safety, maintained a safe and supportive environment, provided clear and simple instructions, monitored behaviors and need for intervention, and maintained a safe and supportive environment. Restraints/seclusion/emergency medication: N/A Justification of Continued Inpatient Treatment: Pt. continues to require a safe and supportive environment while awaiting placement.
[2020-02-07 20:00] VITALS: BP 117/80
[2020-02-07 20:43] VITALS: BP 117/80
--- NOTE | 2020-02-07 23:08 | NUR ---
Nursing Progress Note: Legal hold: LPS Client on involuntary status for GD Report received from nurse with use of SBAR: XANDER Ramírez Why are they here: He eloped from [facility] in [facility] multiple times and was transferred here until a more secure living arrangement can be made. Pt has history of Schizoaffective, Bipolar type and Cluster B traits. Pt has Hx of Etoh abuse, Cannibis and nicotine dependance. Pt states, "I was drinking and smokin doobies and they told me to stay out of the park, so I had to get outta there." Pt's tox screen is negative. Pt states "Im in a great mood, Im glad to be back home in [place]." Pt is delusional believes he is a member of the [employer]. Assessment What has happened this shift: Pt continues to circulate on the unit social and friendly with peers and staff. He is optimistic about possible placement soon. He wants to get back in the community. He is friendly with staff and peers . S/I/H/I: Denies A/VH: Denies, does not appear internally preoccupied Sleep: Pt. reports he slept well, 7.5 hours recorded ADL's: Requires some direction from staff Group attendance: No Were meds taken: Yes Any med S/E: Continued fatigue, aware and monitoring [place] levels Mental Status Exam Appearance: Somewhat disheveled, and appropriately dressed Eye contact: Good Behavior: Cooperative, but fatigued Speech: Soft and WNL Mood: Pleasant Affect: Blunted Thought process: Circumstantial Thought Content: Appears to have some delusional thinking regarding discharge Cognition: A&O X3 (not to why here) Insight: Poor Judgment: Fair Interventions PRN's used: None Therapeutic interventions: Ensured contract for safety, maintained a safe and supportive environment, provided clear and simple instructions, monitored behaviors and need for intervention, and maintained a safe and supportive environment. Restraints/seclusion/emergency medication: N/A Justification of Continued Inpatient Treatment: Pt. continues to require a safe and supportive environment while awaiting placement.
[2020-02-08] MEDS: haloperidol 5mg tablet PO SCH ×2 (07:15→20:18)
[2020-02-08] MEDS: pantoprazole 40mg Tablet.DR PO SCH (07:15)
[2020-02-08] MEDS: benztropine 1mg tablet PO SCH ×2 (07:15→20:18)
[2020-02-08] MEDS: oxcarbazepine 150mg tablet PO SCH ×2 (07:16→20:18)
[2020-02-08] MEDS: levoTHYROXINE 25mcg tablet PO SCH (07:16)
[2020-02-08] MEDS: lithium carbonate 150mg capsule PO SCH ×2 (07:16→20:19)
[2020-02-08] MEDS: PALIPERIDONE 3 MG TAB.ER.24 PO SCH (07:16)
[2020-02-08 07:41] VITALS: BP 93/57
--- NOTE | 2020-02-08 11:14 | NUR ---
CM-Placement SS had t/c w/[facility] Placement team, per t/c, pt's accepted @ [facility] and PG's working on scheduling transportation. Grace Agustin SEARCH MARKETING SPECIALIST Addendum: 02/08/20 at 1122 by Grace Agustin SS Amended: Links added.
--- NOTE | 2020-02-08 12:50 | NUR ---
Public guardian came to berry picker patient for his court hearing.
--- NOTE | 2020-02-08 14:34 | NUR ---
Nursing Progress Note: Legal hold: LPS Client on involuntary status for GD Report received from nurse with use of SBAR: XANDER Garcia Why are they here: He eloped from [facility] in [facility] multiple times and was transferred here until a more secure living arrangement can be made. Pt has history of Schizoaffective, Bipolar type and Cluster B traits. Pt has Hx of Etoh abuse, Cannibis and nicotine dependance. Pt states, "I was drinking and smokin doobies and they told me to stay out of the park, so I had to get outta there." Pt's tox screen is negative. Pt states "Im in a great mood, Im glad to be back home in [place]." Pt is delusional believes he is a member of the [employer]. Assessment What has happened this shift: Received pt. sleeping in bed at the beginning of the shift, he awoke for breakfast and remained up. 1:1 completed, pt. continues to deny all MH s/s, however presents with ongoing occasional delusional statements. When this typewriter ribbon winder questioned pt. regarding if he would like to attend group he stated in a slightly agitated delusional manner, "No, I went for seven years! It's 4th-5th grade material, I"m college educated! I'm only here for a temporary time and then I'm leaving. You guys think something's wrong with me!" This typewriter ribbon winder provided positive reassurance to pt. and he was able to be redirected. Pt. later attended his court where his conservatorship was upheld, he reported understanding and reports that he is looking forward to going to another facility where he will be able smoke. S/I/H/I: Denies A/VH: Denies, does not appear internally preoccupied Sleep: Pt. reports he slept well, 8.25 hours recorded ADL's: Requires some direction from staff Group attendance: No Were meds taken: Yes Any med S/E: None Mental Status Exam Appearance: Somewhat disheveled, and appropriately dressed Eye contact: Good Behavior: Cooperative, slightly restless/agitated, however able to be redirected Speech: Soft and WNL Mood: Mostly pleasant Affect: Blunted Thought process: Circumstantial Thought Content: Ongoing delusions Cognition: A&O X3 (not to why here) Insight: Poor Judgment: Fair Interventions PRN's used: None Therapeutic interventions: Ensured contract for safety, maintained a safe and supportive environment, provided clear and simple instructions, monitored behaviors and need for intervention, provided positive reassurance, and maintained a safe and supportive environment. Restraints/seclusion/emergency medication: N/A Justification of Continued Inpatient Treatment: Pt. continues to require a safe and supportive environment while awaiting placement.
[2020-02-08 20:00] VITALS: BP 124/70
--- NOTE | 2020-02-08 23:47 | NUR ---
Nursing Progress Note: Legal hold: LPS Client on involuntary status for GD Report received from nurse with use of SBAR: XANDER Ramírez Why are they here: He eloped from [facility] in [facility] multiple times and was transferred here until a more secure living arrangement can be made. Pt has history of Schizoaffective, Bipolar type and Cluster B traits. Pt has Hx of Etoh abuse, Cannibis and nicotine dependance. Pt states, "I was drinking and smokin doobies and they told me to stay out of the park, so I had to get outta there." Pt's tox screen is negative. Pt states "Im in a great mood, Im glad to be back home in [place]." Pt is delusional believes he is a member of the [employer]. Assessment What has happened this shift: Patient was in his room at change of shift looking out the window. Pt states he had a good day court was ok would of liked to have been released I'm looking forword to another facility where I can smoke and have outings. S/I/H/I: Denies A/VH: Denies, does not appear internally preoccupied Sleep: Pt. reports he slept well, 8.25 hours recorded ADL's: Requires some direction from staff Group attendance: No Were meds taken: Yes Any med S/E: None Mental Status Exam Appearance: Somewhat disheveled, and appropriately dressed Eye contact: Good Behavior: Cooperative, slightly restless/agitated, however able to be redirected Speech: Soft and WNL Mood: Mostly pleasant Affect: Blunted Thought process: Circumstantial Thought Content: Ongoing delusions Cognition: A&O X3 (not to why here) Insight: Poor Judgment: Fair Interventions PRN's used: None Therapeutic interventions: Ensured contract for safety, maintained a safe and supportive environment, provided clear and simple instructions, monitored behaviors and need for intervention, provided positive reassurance, and maintained a safe and supportive environment. Restraints/seclusion/emergency medication: N/A Justification of Continued Inpatient Treatment: Pt. continues to require a safe and supportive environment while awaiting placement.
[2020-02-09] MEDS: benztropine 1mg tablet PO SCH ×2 (07:12→20:35)
[2020-02-09] MEDS: PALIPERIDONE 3 MG TAB.ER.24 PO SCH (07:12)
[2020-02-09] MEDS: haloperidol 5mg tablet PO SCH ×2 (07:12→20:36)
[2020-02-09] MEDS: levoTHYROXINE 25mcg tablet PO SCH (07:12)
[2020-02-09] MEDS: lithium carbonate 150mg capsule PO SCH ×2 (07:12→20:34)
[2020-02-09] MEDS: pantoprazole 40mg Tablet.DR PO SCH (07:12)
[2020-02-09] MEDS: oxcarbazepine 150mg tablet PO SCH ×2 (07:13→20:35)
[2020-02-09 07:43] VITALS: BP 101/67
--- NOTE | 2020-02-09 10:54 | NUR ---
Nursing Progress Note: Legal hold: LPS Client on involuntary status for GD Report received from nurse with use of SBAR: Radha RN Why are they here: [facility] times and was transferred here until a more secure living arrangement can be made. Pt has history of Schizoaffective, Bipolar type and Cluster B traits. Pt has Hx of Etoh abuse, Cannibis and nicotine dependance. Pt states, "I was drinking and smokin doobies and they told me to stay out of the park, so I had to get outta there." Pt's tox screen is negative. Pt states "Im in a great mood, Im glad to be back home in [place]." Pt is delusional believes he is a member of the [employer]. Assessment What has happened this shift: Received pt. sitting up in bed at the beginning of the shift, he appeared to be in a pleasant mood and greeted this racebook writer animatedly. 1:1 completed at bedside, pt. continues to deny all MH s/s, however will make occasional delusional statements. He is A&O X3, not to why he is here, he states, "I'm here because people keep calling the pond supervisor on me and saying I'm crazy." When questioned by this racebook writer regarding discharge, pt. [place], but he will be a little sad to leave his family. Pt. returns to bed after breakfast which is his routine, and will awake in the afternoon and interact with others. S/I/H/I: Denies A/VH: Denies, does not appear internally preoccupied Sleep: Pt. reports he slept well, 8.75 hours recorded ADL's: Requires some direction from staff Group attendance: No Were meds taken: Yes Any med S/E: None Mental Status Exam Appearance: Neat and appropriately dressed Eye contact: Good Behavior: Cooperative and pleasant Speech: Soft and WNL Mood: WNL Affect: Animated Thought process: Circumstantial Thought Content: Ongoing delusions Cognition: A&O X3 (not to why here) Insight: Poor Judgment: Fair Interventions PRN's used: None Therapeutic interventions: Ensured contract for safety, maintained a safe and supportive environment, provided clear and simple instructions, attempted to orient to reality, provided positive reassurance, and maintained a safe and supportive environment. Restraints/seclusion/emergency medication: N/A Justification of Continued Inpatient Treatment: Pt. continues to require a safe and supportive environment while awaiting placement.
[2020-02-09] MEDS ORDERED: BENZ1TAB7 PO (17:17)
[2020-02-09] MEDS ORDERED: PALI6TAB PO (17:17)
[2020-02-09] MEDS ORDERED: PANT40TA4 PO (17:17)
[2020-02-09] MEDS ORDERED: LIT300C PO (17:17)
[2020-02-09] MEDS ORDERED: OXCA300T16 PO (17:17)
[2020-02-09] MEDS ORDERED: HALO10TA13 PO (17:17)
[2020-02-09] MEDS ORDERED: LEVO25TA2 PO (17:17)
[2020-02-09 20:11] VITALS: BP 131/82
--- NOTE | 2020-02-10 00:44 | NUR ---
NURSING PROGRESS NOTE Legal hold: Conserved Client on involuntary status for DTS. Report received from XANDER Quach with use of SBAR. Why are they here: Pt is LPS conserved. He eloped from [facility] in [facility] multiple times and was transferred here until a more secure living arrangement can be made. Pt has history of Schizoaffective, Bipolar type and Cluster B traits. Pt has Hx of Etoh abuse, cannibis and nicotine dependance. Pt states "I was drinking and smokin doobies and they told me to stay out of the park, so I had to get outta there." Pts tox screen is negative. Pt states "Im in a great mood, Im glad to be back home in [place]." Pt is delusional believes he is a member of the [employer]. Assessment What has happened this shift: Patient is visible on the unit and is observed socializing and having conversation with peers. He is very pleasant and cooperative. He states his day went "great". He makes jokes about Covid19 and not getting too close to anyone. He denies SI/HI/AH/VH at this time. He is medication compliant and cooperative with 1:1 assessment. SI/HI: Denies A/VH: Denies Sleep: see sleep assessment ADL's: Independent Group attendance: N/A Were Meds taken: Yes Any med S/E: Denies Mental Status Exam Appearance: Casual, wearing own clothes. Eye contact: Good Behavior: Cooperative, respectful. Speech: clear Mood: Pleasant. Affect: Euthymic Thought process: Linear Thought Content: Cognition: A/O X 4 Insight: Poor. Judgment: Poor. Interventions PRN's used: None Therapeutic interventions: provided 1:1 assessment w/therapeutic communication and active listening, medication administration/education/monitoring, positive reinforcement, Q 15 min safety checks. Restraints/seclusion/emergency medication: N/A Justification of Continued Inpatient Treatment: Continued therapeutic support and medication management and monitoring needed to prevent decompensation, and improve coping mechanisms decreasing risk to patient and re-admittance.
[2020-02-10 07:43] VITALS: BP 114/62
[2020-02-10] MEDS: lithium carbonate 150mg capsule PO SCH ×2 (08:01→21:05)
[2020-02-10] MEDS: PALIPERIDONE 3 MG TAB.ER.24 PO SCH (08:01)
[2020-02-10] MEDS: benztropine 1mg tablet PO SCH ×2 (08:01→21:06)
[2020-02-10] MEDS: pantoprazole 40mg Tablet.DR PO SCH (08:02)
[2020-02-10] MEDS: haloperidol 5mg tablet PO SCH ×2 (08:02→21:06)
[2020-02-10] MEDS: oxcarbazepine 150mg tablet PO SCH ×2 (08:02→21:06)
[2020-02-10] MEDS: levoTHYROXINE 25mcg tablet PO SCH (08:02)
--- NOTE | 2020-02-10 12:59 | NUR ---
NURSING PROGRESS NOTE Legal hold: Conserved Client on involuntary status for GD Report received from XANDER Garcia with use of SBAR Why are they here: Pt is LPS conserved. He eloped from [facility] in [facility] multiple times and was transferred here until a more secure living arrangement can be made. Pt has history of Schizoaffective, Bipolar type and Cluster B traits. Pt has Hx of Etoh abuse, cannibis and nicotine dependance. Pt states "I was drinking and smokin doobies and they told me to stay out of the park, so I had to get outta there." Pts tox screen is negative. Pt states "Im in a great mood, Im glad to be back home in [place]." Pt is delusional believes he is a member of the [employer]. Assessment What has happened this shift: Asleep at change of shift, up to breakfast and polite and pleasant with peers. Medication compliant. Seems pleasantly unaware of most circumstances. Denies SI/HI/ and hallucinations. Chest X-ray negative, and Rapid Covid Test performed and sent to lab. Discharging Friday, states, "that's cool." SI/HI: Denies A/VH: Denies Sleep: naps ADL's: Independent Group attendance: Patio Were Meds taken: Yes Any med S/E: Denies Mental Status Exam Appearance: Casual, wearing own clothes. Eye contact: Good Behavior: Cooperative, respectful. Speech: clear Mood: Pleasant. Affect: Euthymic Thought process: Linear Thought Content: having needs met, discharging Cognition: Alert Insight: Poor. Judgment: Poor. Interventions PRN's used: None Therapeutic interventions: provided 1:1 assessment w/therapeutic communication and active listening, medication administration/education/monitoring, positive reinforcement, Q 15 min safety checks. Restraints/seclusion/emergency medication: N/A Justification of Continued Inpatient Treatment: Continued therapeutic support and medication management and monitoring needed to prevent decompensation, and improve coping mechanisms decreasing risk to patient and re-admittance.
--- NOTE | 2020-02-10 15:11 | NUR ---
Reassessment: Pt continues meeting nutrient needs with 75-100% PO intake. [facility] 02/09. No nutrition problem. Will continue to follow. Rec: 1. continue diet 2. bowel care as needed 3. scaled wt per rx Addendum: 02/10/20 at [address] Amended: Links added.
[2020-02-10 20:14] VITALS: BP 134/86
--- NOTE | 2020-02-11 00:08 | NUR ---
NURSING PROGRESS NOTE Legal hold: Conserved Client on involuntary status for DTS. Report received from XANDER Mahan with use of SBAR. Why are they here: Pt is LPS conserved. He eloped from [facility] in [facility] multiple times and was transferred here until a more secure living arrangement can be made. Pt has history of Schizoaffective, Bipolar type and Cluster B traits. Pt has Hx of Etoh abuse, cannibis and nicotine dependance. Pt states "I was drinking and smokin doobies and they told me to stay out of the park, so I had to get outta there." Pts tox screen is negative. Pt states "Im in a great mood, Im glad to be back home in [place]." Pt is delusional believes he is a member of the [employer]. Assessment What has happened this shift: Patient is very pleasant and cooperative. He socializes with his peers and watches TV in the community room. He states his day went well and he is excited to be leaving on Friday. He denies SI/HI/AH/VH at this time. He is medication compliant and cooperative with 1:1 assessment. SI/HI: Denies A/VH: Denies Sleep: see sleep assessment ADL's: Independent Group attendance: N/A Were Meds taken: Yes Any med S/E: Denies Mental Status Exam Appearance: Casual, wearing own clothes. Eye contact: Good Behavior: Cooperative, respectful. Speech: clear Mood: Pleasant. Affect: Euthymic Thought process: Linear Thought Content: Cognition: A/O X 4 Insight: Poor. Judgment: Poor. Interventions PRN's used: None Therapeutic interventions: provided 1:1 assessment w/therapeutic communication and active listening, medication administration/education/monitoring, positive reinforcement, Q 15 min safety checks. Restraints/seclusion/emergency medication: N/A Justification of Continued Inpatient Treatment: Continued therapeutic support and medication management and monitoring needed to prevent decompensation, and improve coping mechanisms decreasing risk to patient and re-admittance.
[2020-02-11 08:00] VITALS: BP 132/60
[2020-02-11] MEDS: PALIPERIDONE 3 MG TAB.ER.24 PO SCH (08:03)
[2020-02-11] MEDS: levoTHYROXINE 25mcg tablet PO SCH (08:03)
[2020-02-11] MEDS: benztropine 1mg tablet PO SCH ×2 (08:04→20:35)
[2020-02-11] MEDS: pantoprazole 40mg Tablet.DR PO SCH (08:04)
[2020-02-11] MEDS: oxcarbazepine 150mg tablet PO SCH ×2 (08:04→20:34)
[2020-02-11] MEDS: lithium carbonate 150mg capsule PO SCH ×2 (08:04→20:34)
[2020-02-11] MEDS: haloperidol 5mg tablet PO SCH ×2 (08:04→20:35)
--- NOTE | 2020-02-11 12:17 | NUR ---
NURSING PROGRESS NOTE Legal hold: Conserved Client on involuntary status for GD Report received from XANDER Alva with use of SBAR Why are they here: Pt is LPS conserved. [facility] from [facility] multiple times and was transferred here until a more secure living arrangement can be made. Pt has history of Schizoaffective, Bipolar type and Cluster B traits. Pt has Hx of Etoh abuse, cannibis and nicotine dependance. Pt states "I was drinking and smokin doobies and they told me to stay out of the park, so I had to get outta there." Pts tox screen is negative. Pt states "Im in a great mood, Im glad to be back home in [place]." Pt is delusional believes he is a member of the [employer]. Assessment What has happened this shift: Asleep at change of shift, up to breakfast and polite and pleasant with peers. Medication compliant. Up more today and talking with others in subramanian and group room. Has ability to engage with others and seems genuinely interested in others. Denies SI/HI/ and hallucinations. No problems for this patient, has ability to adapt to situations on the unit without disturbance to himself. Looking forward to discharging on Friday. SI/HI: Denies A/VH: Denies Sleep: naps ADL's: Independent Group attendance: No Were Meds taken: Yes Any med S/E: Denies Mental Status Exam Appearance: Casual, wearing own clothes. Eye contact: Good Behavior: Cooperative, respectful. Speech: clear Mood: Pleasant. Affect: Euthymic Thought process: Linear Thought Content: having needs met, discharging Cognition: Alert Insight: Poor. Judgment: Poor. Interventions PRN's used: None Therapeutic interventions: provided 1:1 assessment w/therapeutic communication and active listening, medication administration/education/monitoring, positive reinforcement, Q 15 min safety checks. Restraints/seclusion/emergency medication: N/A Justification of Continued Inpatient Treatment: Continued therapeutic support and medication management and monitoring needed to prevent decompensation, and improve coping mechanisms decreasing risk to patient and re-admittance.
--- NOTE | 2020-02-11 13:01 | NUR ---
DISCHARGE Friday02/14/20 AT 6:15 AM Derick will be picked up by Public Guardian on Friday at 6:15 AM. Public Guardian sent the following request: Please have detailed inventory sheets for property & medication ready and send snacks & water with clients for the trip. Drivers will be able to purchase lunches. Any medication needed to be taken during the drive will need to be enveloped per dose with timing on the envelope to be handed to clients. Annual Giving Manager picked up a week supply of Derick's medications which need to go with him. BART Rollins
[2020-02-11 19:00] VITALS: BP 133/68
--- NOTE | 2020-02-11 23:59 | NUR ---
Nursing Progress Note: Legal hold: LPS Client on involuntary status for GD Report received from nurse XANDER Mahan with use of SBAR: Why are they here: He eloped from [facility] in [facility] multiple times and was transferred here until a more secure living arrangement can be made. Pt has history of Schizoaffective, Bipolar type and Cluster B traits. Pt has Hx of ETOH abuse, Cannabis and nicotine dependence. Pt states, "I was drinking and smoking doobies and they told me to stay out of the park, so I had to get outta there." Pt's tox screen is negative. Pt states "Im in a great mood, Im glad to be back home in [place]." Pt is delusional believes he is a member of the [employer]. Assessment What has happened this shift: Pt is seen laughing and socializing with patients. He is extremely pleasant and polite. Pt is cooperative with 1:1 assessment and medication compliant. He denies SI/HI/AH/VH at this time. He does not make any delusional statements this shift. SI/HI: Pt denies A/VH: Pt denies Sleep: See Sleep Assessment ADL's: Independent Group attendance: N/A Were meds taken: Yes Any med S/E: None noted nor reported. Mental Status Exam Appearance: Clean, dressed in street clothes and a beanie Eye contact: Good Behavior: Pleasant, Cooperative, socializing appropriately with other patients and staff Speech: Clear, audible, normal rate and rhythm. Mood: Euthymic Affect: Congruent with mood Thought process: Circumstantial Thought Content: Snack, exercising, medications Cognition: A/Ox3, disoriented to situation. Insight: Poor Judgment: Poor Interventions PRN's used: None Therapeutic interventions: 1;1 assessment, active listening, ensured contract for safety, encouraged pt to get up out of bed, maintained a safe and supportive environment, medication administration/education/monitoring, Q 15 minute safety checks. Restraints/seclusion/emergency medication: N/A Justification of Continued Inpatient Treatment: Per KARMEN Barnes, pt. remains pleasantly psychotic and continues to require a safe and supportive environment awaiting placement.
[2020-02-12 08:00] VITALS: BP 127/52
[2020-02-12] MEDS: benztropine 1mg tablet PO SCH ×2 (08:24→20:08)
[2020-02-12] MEDS: PALIPERIDONE 3 MG TAB.ER.24 PO SCH (08:24)
[2020-02-12] MEDS: pantoprazole 40mg Tablet.DR PO SCH (08:24)
[2020-02-12] MEDS: levoTHYROXINE 25mcg tablet PO SCH (08:24)
[2020-02-12] MEDS: haloperidol 5mg tablet PO SCH ×2 (08:24→20:08)
[2020-02-12] MEDS: lithium carbonate 150mg capsule PO SCH ×2 (08:25→20:07)
[2020-02-12] MEDS: oxcarbazepine 150mg tablet PO SCH ×2 (08:25→20:08)
--- NOTE | 2020-02-12 15:57 | NUR ---
NURSING PROGRESS NOTE Legal hold: Conserved Client on involuntary status for GD Report received from XANDER Alva with use of SBAR Why are they here: Pt is LPS conserved. He eloped from [facility] in [facility] multiple times and was transferred here until a more secure living arrangement can be made. Pt has history of Schizoaffective, Bipolar type and Cluster B traits. Pt has Hx of Etoh abuse, cannibis and nicotine dependance. Pt states "I was drinking and smokin doobies and they told me to stay out of the park, so I had to get outta there." Pts tox screen is negative. Pt states "Im in a great mood, Im glad to be back home in [place]." Pt is delusional believes he is a member of the [employer]. Assessment What has happened this shift: Asleep at change of shift, up to breakfast and polite and pleasant with peers. Medication compliant. Up more today and talking with others in subramanian and group room. Attended patio group with his peers and then told nurse how enjoyable it was to go outside, Also stated how he will enjoy smoking in the car on his trip down to [place]. Denies SI/HI/ and hallucinations. Looking forward to discharging on Friday. Does not appear to be having any increased anxiety about leaving Friday, just taking it in stride. SI/HI: Denies A/VH: Denies Sleep: naps ADL's: Independent Group attendance: patio Were Meds taken: Yes Any med S/E: Denies Mental Status Exam Appearance: Casual, wearing own clothes. Eye contact: Good Behavior: Cooperative, respectful. Speech: clear Mood: Pleasant. Affect: Euthymic Thought process: Linear Thought Content: having needs met, discharging Cognition: Alert Insight: Poor. Judgment: Good Interventions PRN's used: None Therapeutic interventions: provided 1:1 assessment w/therapeutic communication and active listening, medication administration/education/monitoring, positive reinforcement, Q 15 min safety checks. Restraints/seclusion/emergency medication: N/A Justification of Continued Inpatient Treatment: Continued therapeutic support and medication management and monitoring needed to prevent decompensation, and improve coping mechanisms decreasing risk to patient and re-admittance.
[2020-02-12 20:00] VITALS: BP 124/74
--- NOTE | 2020-02-13 04:47 | NUR ---
NURSING PROGRESS NOTE Legal hold: LPS Client on involuntary status for GD Report received from XANDER Mahan with use of SBAR Why are they here: Pt is LPS conserved. He eloped from [facility] in [facility] multiple times and was transferred here until a more secure living arrangement can be made. Pt has history of Schizoaffective, Bipolar type and Cluster B traits. Pt has Hx of Etoh abuse, cannibis and nicotine dependance. Pt states "I was drinking and smokin doobies and they told me to stay out of the park, so I had to get outta there." Pts tox screen is negative. Pt states "Im in a great mood, Im glad to be back home in [place]." Pt is delusional believes he is a member of the [employer]. Assessment What has happened this shift: Patient watching a movie and socializing with peers at the beginning of shift. Pleasant and cooperative with care, compliant with medication. Patient denies SI, HI, A/VH. Reports, "I'm doing well." Patient's plan for discharge to [facility] on Tuesday 02/13 and staff had a [place] democrat for a going away democrat. He expressed feeling overjoyed and thankful toward to staff. Patient continued to socialize with peers in group room until group room closed and then retired to bed. Does not appear to be having difficulty sleeping. SI/HI: Denies A/VH: Denies Sleep: Refer to sleep assessment ADL's: Independent Group attendance: No groups this shift Were Meds taken: Yes, without incident Any med S/E: None observed or reported Mental Status Exam Appearance: Neat, clean, appropriate personal attire. Eye contact: Good Behavior: Pleasant and cooperative, watching movies and socializing with peers Speech: Clear, audible, regular rate/rhythm Mood: Euthymic Affect: Animated Thought process: Linear Thought Content: Discharge, pizza democrat Cognition: Alert Insight: Poor Judgment: Good Interventions PRN's used: None Therapeutic interventions: provided 1:1 assessment w/therapeutic communication and active listening, medication administration/education/monitoring, positive reinforcement, Q 15 min safety checks. Restraints/seclusion/emergency medication: N/A Justification of Continued Inpatient Treatment: Continued therapeutic support and medication management and monitoring needed to prevent decompensation, and improve coping mechanisms decreasing risk to patient and re-admittance.
[2020-02-13 07:00] VITALS: BP 115/63
[2020-02-13] MEDS: lithium carbonate 150mg capsule PO SCH ×2 (07:58→20:07)
[2020-02-13] MEDS: haloperidol 5mg tablet PO SCH ×2 (07:58→20:08)
[2020-02-13] MEDS: oxcarbazepine 150mg tablet PO SCH ×2 (07:58→20:08)
[2020-02-13] MEDS: pantoprazole 40mg Tablet.DR PO SCH (07:58)
[2020-02-13] MEDS: PALIPERIDONE 3 MG TAB.ER.24 PO SCH (07:59)
[2020-02-13] MEDS: levoTHYROXINE 25mcg tablet PO SCH (07:59)
[2020-02-13] MEDS: benztropine 1mg tablet PO SCH ×2 (07:59→20:07)
--- NOTE | 2020-02-13 17:50 | NUR ---
NURSING PROGRESS NOTE Legal hold: LPS Conserved Client on involuntary status for GD Report received from XANDER Mahan with use of SBAR Why are they here: Pt is LPS conserved. He eloped from [facility] in [facility] multiple times and was transferred here until a more secure living arrangement can be made. Pt has history of Schizoaffective, Bipolar type and Cluster B traits. Pt has Hx of Etoh abuse, cannibis and nicotine dependance. Pt states "I was drinking and smokin doobies and they told me to stay out of the park, so I had to get outta there." Pts tox screen is negative. Pt states "Im in a great mood, Im glad to be back home in [place]." Pt is delusional believes he is a member of the [employer]. Assessment What has happened this shift: Received pt sleeping in bed at shift change. Awake for morning medications and breakfast. Pt. Took a nap and has been up on the unit, saying goodbye to his peers before discharge in the morning. Pt. Has been in a good mood, upbeat. SI/HI: Denies A/VH: Denies Sleep: naps ADL's: Independent Group attendance: NA Were Meds taken: Yes Any med S/E: Denies Mental Status Exam Appearance: Clean and neat in personal attire. Eye contact: Good Behavior: Cooperative, respectful. Speech: clear Mood: Euthymic Affect: Pleasant. Thought process: Linear Thought Content: Discharge. Saying goodbye to friends on unit. Cognition: Alert Insight: Poor. Judgment: Good Interventions PRN's used: None Therapeutic interventions: provided 1:1 assessment w/therapeutic communication and active listening, medication administration/education/monitoring, positive reinforcement, Q 15 min safety checks. Restraints/seclusion/emergency medication: N/A Justification of Continued Inpatient Treatment: Continued therapeutic support and medication management and monitoring needed to prevent decompensation, and improve coping mechanisms decreasing risk to patient and re-admittance.
[2020-02-13 20:00] VITALS: BP 114/59
--- NOTE | 2020-02-14 01:22 | NUR ---
NURSING PROGRESS NOTE Legal hold: LPS Client on involuntary status for GD Report received from XANDER Mahan with use of SBAR Why are they here: Pt is LPS conserved. He eloped from [facility] in [facility] multiple times and was transferred here until a more secure living arrangement can be made. Pt has history of Schizoaffective, Bipolar type and Cluster B traits. Pt has Hx of Etoh abuse, cannibis and nicotine dependance. Pt states "I was drinking and smokin doobies and they told me to stay out of the park, so I had to get outta there." Pts tox screen is negative. Pt states "Im in a great mood, Im glad to be back home in [place]." Pt is delusional believes he is a member of the [employer]. Assessment What has happened this shift: Patient laying in bed at the beginning of shift and shortly after visible on the unit socializing with peers. Patient expressed happiness for discharge and the morning. Pleasant and cooperative with all care; compliant with medication. Patient denies SI, HI, A/VH. He participated in HS snack in the group room and continued to socialize briefly with peers. Shortly after patient retired to bed. Does not appear to be having difficulty sleeping. SI/HI: Denies A/VH: Denies Sleep: Refer to sleep assessment ADL's: Independent Group attendance: No groups this shift Were Meds taken: Yes, without incident Any med S/E: None observed or reported Mental Status Exam Appearance: Neat, clean, appropriate personal attire. Eye contact: Good Behavior: Pleasant and cooperative, socializing with peers and staff Speech: Clear, audible, regular rate/rhythm Mood: Euthymic Affect: Animated Thought process: Linear Thought Content: Discharge in the morning Cognition: Alert Insight: Poor Judgment: Good Interventions PRN's used: None Therapeutic interventions: provided 1:1 assessment w/therapeutic communication and active listening, medication administration/education/monitoring, positive reinforcement, Q 15 min safety checks. Restraints/seclusion/emergency medication: N/A Justification of Continued Inpatient Treatment: Continued therapeutic support and medication management and monitoring needed to prevent decompensation, and improve coping mechanisms decreasing risk to patient and re-admittance.
[2020-02-14] MEDS: lithium carbonate 150mg capsule PO SCH (05:52)
[2020-02-14] MEDS: pantoprazole 40mg Tablet.DR PO SCH (05:52)
[2020-02-14] MEDS: haloperidol 5mg tablet PO SCH (05:52)
[2020-02-14] MEDS: oxcarbazepine 150mg tablet PO SCH (05:52)
[2020-02-14] MEDS: levoTHYROXINE 25mcg tablet PO SCH (05:52)
[2020-02-14] MEDS: PALIPERIDONE 3 MG TAB.ER.24 PO SCH (05:53)
[2020-02-14] MEDS: benztropine 1mg tablet PO SCH (05:53)
--- NOTE | 2020-02-14 06:39 | NUR ---
Patient discharging to [facility] this morning. Patient declined shower this morning. VSS 97.8, 106/68, 67, 96%RA no pain. Discharge paperwork signed and went over medication list with patient. Patient provided AM medication by this typewriter aligner and medication sent with [employer]. Patient provided coffee and snacks sent with drivers. Personal belongings returned to patient.
== END 2020-02-14 06:45 | disposition short-term general hospital (02) | DRG 885 ==
LOC: ADULT MH 11-29 14:59
PROVIDERS: ADMIT Psychiatry & Neurology Psychiatry; ATTEND Psychiatry & Neurology Psychiatry
DX: F25.0 Schizoaffective disorder, bipolar type (principal); F15.20 Other stimulant dependence, uncomplicated; F17.210 Nicotine dependence, cigarettes, uncomplicated; F60.9 Personality disorder, unspecified; F10.10 Alcohol abuse, uncomplicated; E03.9 Hypothyroidism, unspecified; Z79.899 Other long term (current) drug therapy; F12.90 Cannabis use, unspecified, uncomplicated; Z03.818 Encounter for observation for suspected exposure to other biological agents ruled out
CPT/HCPCS: 36415; 71045; 80053; 80061; 80178; 83036; 84443; 85025; 85610; 85730; 87081; 87635; 99285

== ENCOUNTER 2021-10-04 14:29 | Inpatient (IN) | payer MEDICARE, MEDICAID ==
[~2021-10-04] VITALS: Ht 177.8 cm; Wt 96.5 kg
[~2021-10-04 14:29] MED LIST changes: +BENZ1TAB7 PO; +LEVO25TA2 PO; +LIT300C PO; -LITH300C43; +OXCA300T16 PO; +PALI6TAB PO; -PALI6TAB3 PO; +PANT40TA54 PO
[2021-10-04] MEDS ORDERED: QUEtiapine 25mg tablet PO STA (14:41)
--- NOTE | 2021-10-04 14:45 | NUR ---
Pt cooperative and pleasant, flighty speech, reorientable.
[2021-10-04 15:15] LABS: BASOPHILS % (AUTO) 0.5 % (0-1); EOSINOPHILS # (AUTO) 0.1 X10'3 (0-0.9); EOSINOPHILS % (AUTO) 1.2 % (0-6); HEMATOCRIT 39.4 % (42.0-52.0); HEMOGLOBIN 13.5 g/dl (14.0-17.9); LYMPHOCYTES # (AUTO) 1.7 X10'3 (1.1-4.8); LYMPHOCYTES % (AUTO) 19.7 % (21-51); MEAN CORPUSCULAR HEMOGLOBIN 30.2 PG (27.0-31.0); MEAN CORPUSCULAR HGB CONC 34.4 g/dL (33.0-36.5); MEAN CORPUSCULAR VOLUME 87.8 FL (78-98); MEAN PLATELET VOLUME 7.8 FL (7.4-10.4); MONOCYTES # (AUTO) 0.6 X10'3 (0-0.9); MONOCYTES % (AUTO) 7.4 % (2-12); NEUTROPHILS # (AUTO) 6.2 X10'3 (1.8-7.7); NEUTROPHILS % (AUTO) 71.2 % (42-75); PLATELET COUNT 213 X10'3 (140-440); RED BLOOD COUNT 4.48 X10'6 (4.70-6.10); RED CELL DISTRIBUTION WIDTH 12.7 % (11.5-14.5); WHITE BLOOD COUNT 8.7 X10'3 (4.5-11.0)
[2021-10-04 15:17] LABS: CLARITY,URINE CLEAR (Clear); GLUCOSE, URINE NEGATIVE (Neg); KETONES,URINE NEGATIVE (Neg); LEUKOCYTE ESTERASE ,URINE NEGATIVE (Neg); NITRITES, URINE NEGATIVE (Neg); OCCULT BLOOD,URINE SMALL (Neg); PH,URINE 6.5 (4.8-8.0); PROTEIN,URINE NEGATIVE (Neg); UROBILINOGEN,URINE 0.2 E.U/dL (0.2-1.0)
[2021-10-04 15:18] LABS: COLOR,URINE STRAW (Yellow); UA COLLECTION TYPE CLN CATCH MIDSTREAM
[2021-10-04 15:23] LABS: URINE AMPHETAMINE SCREEN NEGATIVE (Neg); URINE BARBITUATE SCREEN NEGATIVE (Neg); URINE BENZODIAZEPINES SCREEN NEGATIVE (Neg); URINE CANNABINOID SCREEN NEGATIVE (Neg); URINE COCAINE SCREEN NEGATIVE (Neg); URINE METHADONE SCREEN NEGATIVE (Neg); URINE OPIATE SCREEN NEGATIVE (Neg); URINE PHENCYCLIDINE SCREEN NEGATIVE (Neg)
[2021-10-04 15:30] LABS: BACTERIA,URINE NONE SEEN /HPF (Neg); RBC,URINE NONE SEEN /HPF (0-2); SQUAMOUS EPITHELIAL CELL,UR NONE SEEN /LPF (FEW); WBC,URINE NONE SEEN /HPF (0-4)
--- NOTE | 2021-10-04 15:30 | NUR ---
Pt resting comfortably in bed, eating some snacks.
[2021-10-04 15:31] LABS: ALANINE AMINOTRANSFERASE 27 U/L (12-78); ALBUMIN/GLOBULIN RATIO 1.4 (1.1-1.5); ALKALINE PHOSPHATASE 86 IU/L (46-116); ANION GAP 8 (8-16); ASPARTATE AMINO TRANSFERASE 15 U/L (10-37); BILIRUBIN,TOTAL 0.2 MG/DL (0.1-1.0); BLOOD UREA NITROGEN 11 MG/DL (7-18); BUN/CREATININE RATIO 15.5 (5.4-32.0); CALCIUM 8.6 MG/DL (8.5-10.1); CHLORIDE 106 MMOL/L (99-107); CREATININE 0.71 MG/DL (0.60-1.10); GLUCOSE 84 MG/DL (70-104); POTASSIUM 4.1 MMOL/L (3.5-5.1); SODIUM 138 MMOL/L (135-145); TOTAL CARBON DIOXIDE 23.6 MMOL/L (24-32); TOTAL PROTEIN 6.9 G/DL (6.4-8.2); eGFR > 90 ML/MIN
[2021-10-04 15:40] LABS: ETHANOL < 0.010 GM/DL (0.0-0.010)
--- NOTE | 2021-10-04 17:01 | NUR ---
Assumed care of patient. Pt. up to restroom, and back to bed.
--- NOTE | 2021-10-04 17:16 | NUR ---
Patient on the phone to his brother Pankaj. Yelling about people trying to steal his money. Telling his brother that he is compliant. Security called as patient would not be redirected. Up to the bathroom and back to bed.
--- NOTE | 2021-10-04 19:34 | NUR ---
ASSUMED CARE AND IS BED RESTING WITH NO APPARENT DISTRESS AND WILL BE TRANSFERED TO [facility].
[2021-10-04] MEDS ORDERED: HALO5TAB PO (19:35)
[2021-10-04] MEDS ORDERED: PALI6TAB6 PO (19:35)
[2021-10-04] MEDS ORDERED: PANT-47 PO (19:35)
[2021-10-04] MEDS ORDERED: OXCA300T4 PO (19:35)
[2021-10-04] MEDS ORDERED: LEVO25TA2 PO (19:35)
[2021-10-04] MEDS ORDERED: LITH600C PO (19:35)
[2021-10-04] MEDS ORDERED: BENZ1TAB7 PO (19:35)
[2021-10-04 21:10] VITALS: BP 136/86
[2021-10-04] MEDS ORDERED: magnesium hydroxide 30ml (MOM) UD suspension PO PRN ×2 (21:10)
[2021-10-04] MEDS ORDERED: mag hydrox/Alum hydrox/simeth 30ml oral suspension PO PRN ×2 (21:10)
[2021-10-04] MEDS ORDERED: acetaminophen 325mg tablet PO PRN ×4 (21:10)
[2021-10-04] MEDS ORDERED: haloperidol 5mg tablet PO ONE (21:20)
[2021-10-04] MEDS ORDERED: benztropine 1mg tablet PO ONE (21:20)
[2021-10-04] MEDS ORDERED: lithium carbonate 150mg capsule PO ONE (21:20)
[2021-10-04] MEDS ORDERED: oxcarbazepine 150mg tablet PO ONE (21:20)
--- NOTE | 2021-10-04 21:20 | NUR ---
PATIENT DISCHARTED TO [facility] AT 2100. PATIENT IN NO APPARENT DISTRESS AND SIGNED ALL THE REQUIRED DOCUMENTS REQUESTED PER DEPARTMENT POLICY. TRANSFERED IN A WHEEL CHAIR.
--- NOTE | 2021-10-04 21:46 | NUR ---
Admission note: Derick is on LPS conservatorship due to GD. Derick is overhydrating and refusing treatment and necessary medication. Pt is currently on a 5150 for GD.
[2021-10-05 08:00] VITALS: BP 114/88
[2021-10-05 08:05] LABS: CHOL/HDL RATIO 3.8 (0.00-4.99); CHOLESTEROL 165 MG/DL (0-200); HDL CHOLESTEROL 44 MG/DL (35-60); LDL CHOLESTEROL 105 MG/DL (50-100); TRIGLYCERIDES 78 MG/DL (20-135)
[2021-10-05] MEDS: haloperidol 5mg tablet PO SCH ×2 (08:25→20:13)
[2021-10-05] MEDS: PALIPERIDONE 3 MG TAB.ER.24 PO SCH (08:25)
[2021-10-05] MEDS: benztropine 1mg tablet PO SCH ×2 (08:25→20:13)
[2021-10-05] MEDS: oxcarbazepine 150mg tablet PO SCH ×2 (08:26→20:13)
[2021-10-05] MEDS: pantoprazole 40mg Tablet.DR PO SCH (08:26)
[2021-10-05] MEDS: levoTHYROXINE 25mcg tablet PO SCH (08:26)
[2021-10-05] MEDS: lithium carbonate 150mg capsule PO SCH ×2 (08:26→20:13)
--- NOTE | 2021-10-05 15:47 | NUR ---
Nursing Progress Note: Legal hold: LPS Conserved Client on voluntary/involuntary status for GD Report received from nurse Carito TERRELL with use of SBAR. Why are they here: Derick is on LPS conservatorship due to GD. Derick is overhydrating and refusing treatment and necessary medication. Assessment What has happened this shift: Pt politely declined to get up for breakfast stating that he wasn't hungry because he ate a lot of junk food yesterday. Pt was up before morning snack. Pt ate 100% of lunch. Pt reports that he smokes a pack of cigarettes daily though declined a nicotine patch as he states it makes him crave cigarettes more. Pt reports that he is here because he was at his [facility] counselor appointment and he told them that his gums were bleeding because of some ammonia he drank 2 or 3 years ago so now his veins are so thin that his gums bleed. Pt reports that made them get all weird. He was walking outside with his counselor and an ambulance pulled up for him. [facility] told him he was just going to have his blood levels checked. Pt indicates he feels they kind of tricked him. Reality orientation provided that his gums may be bleeding due to gingivitis. Asked pt if he had seen a dentist recently. Pt reported that he had and they told him that he needed to have his teeth cleaned "but these are my teeth." Pt showed this RN his teeth which appear to be clean and in good condition. Complimented pt on his nice teeth. Educated pt that it's possible he may need the plaque/billy scraped off of his gums as it gets built up and can cause gingivitis and gum bleeding. Pt did not refute the idea. Pt is friendly, jovial, polite, and cooperative with care. Pt calls this nurse "ma'am." Pt socializes and gets along well with peers. Pt told another nurse that he has a pet [place] at home that he feeds. S/I, H/I: Pt denies. A/VH: Pt denies. Sleep: Pt slept 6.75 hours last night per noc shift report. ADL's: Independent Group attendance: No Were meds taken: Yes Any med S/E: None noted or reported. Mental Status Exam Appearance: Pt has gained some weight since his last stay here. Pt has very short dark hair, he is bald on top, he has a goatee, he is dressed in clean green unit scrubs. Eye contact: Good. Behavior: Pleasant, cooperative, socializes with staff and peers. Speech: Clear, audible, normal rate and rhythm. Mood: Good, mildly elevated. Affect: Animated, jovial. Thought process: Pleasantly delusional. Thought Content: He has thin veins now from drinking ammonia a few years ago this is why his gums bleed. Cognition: A/O X 2, he was only off on the date by one day, he thought today was the 5th instead of the 05 of October. Insight: Poor Judgment: Fair Interventions PRN's used: None Therapeutic interventions: Reestablishment of rapport, therapeutic conversation, active listening, medication administration/education/monitoring, encouragement to attend groups, provided distraction, redirection, reality orientation, positive reinforcement, and Q 15 minute safety checks. Restraints/seclusion/emergency medication: None Justification of Continued Inpatient Treatment: Pt is gravely disabled. It was reported that he has been noncompliant with treatment and overhydrating. He needs stabilization in a safe and therapeutic environment. His board and care, Ray Medina has agreed to take him back once he is stable.
[2021-10-05 19:00] VITALS: BP 130/70
--- NOTE | 2021-10-06 01:36 | NUR ---
Nursing Progress Note: Derick Legal hold: LPS Conserved Client on voluntary/involuntary status for GD Report received from nurse Desiree TERRELL with use of SBAR. Why are they here: Derick is on LPS conservatorship due to GD. Derick is overhydrating and refusing treatment and necessary medication. Assessment What has happened this shift: Received pt pacing the hallways. Pt states he had just eaten dinner and feels like he is in a food coma so he is trying to work it off. Pt polite, cooperative with care and states he is doing great and has no complaints. Pt up for snacks and took all HS medications without issue. S/I, H/I: Pt denies. A/VH: Pt denies. Sleep: ADL's: Independent Group attendance: No Were meds taken: Yes Any med S/E: None noted or reported. Mental Status Exam Appearance: Pt has very short dark hair, he is bald on top, has a goatee, is dressed in clean green unit scrubs. Eye contact: Good. Behavior: Pleasant, cooperative, socializes with staff and peers. Speech: Clear, audible, normal rate and rhythm. Mood: Good, mildly elevated. Affect: Animated, jovial. Thought process: Pleasantly delusional. Thought Content: He is pacing the unit to work off his dinner. Cognition: A/O X 2 Insight: Poor Judgment: Fair Interventions PRN's used: None Therapeutic interventions: Reestablishment of rapport, therapeutic conversation, active listening, medication administration/education/monitoring, encouragement to attend groups, provided distraction, redirection, reality orientation, positive reinforcement, and Q 15 minute safety checks. Restraints/seclusion/emergency medication: None Justification of Continued Inpatient Treatment: Pt is gravely disabled. It was reported that he has been noncompliant with treatment and overhydrating. He needs stabilization in a safe and therapeutic environment. His board and care, Ray Medina has agreed to take him back once he is stable.
[2021-10-06] MEDS: benztropine 1mg tablet PO SCH ×2 (07:23→20:18)
[2021-10-06] MEDS: levoTHYROXINE 25mcg tablet PO SCH (07:24)
[2021-10-06] MEDS: lithium carbonate 150mg capsule PO SCH ×2 (07:24→20:19)
[2021-10-06] MEDS: PALIPERIDONE 3 MG TAB.ER.24 PO SCH (07:24)
[2021-10-06] MEDS: pantoprazole 40mg Tablet.DR PO SCH (07:24)
[2021-10-06] MEDS: oxcarbazepine 150mg tablet PO SCH (07:24)
[2021-10-06] MEDS: haloperidol 5mg tablet PO SCH ×2 (07:24→20:18)
[2021-10-06 08:00] VITALS: BP 124/82
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
[2021-10-06 19:00] VITALS: BP 130/80
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
[2021-10-07] MEDS: PALIPERIDONE 3 MG TAB.ER.24 PO SCH (08:28)
[2021-10-07] MEDS: lithium carbonate 150mg capsule PO SCH ×2 (08:29→20:26)
[2021-10-07] MEDS: oxcarbazepine 150mg tablet PO SCH (08:29)
[2021-10-07] MEDS: pantoprazole 40mg Tablet.DR PO SCH (08:30)
[2021-10-07] MEDS: levoTHYROXINE 25mcg tablet PO SCH (08:30)
[2021-10-07] MEDS: benztropine 1mg tablet PO SCH ×2 (08:30→20:26)
[2021-10-07] MEDS: haloperidol 5mg tablet PO SCH ×2 (08:30→20:26)
[2021-10-07 08:41] VITALS: BP 118/75
--- NOTE | 2021-10-07 15:52 | NUR ---
Nursing Progress Note: Derick Legal hold: LPS Conserved Client on voluntary/involuntary status for GD Report received from nurse CRN with use of SBAR. Why are they here: Derick is on LPS conservatorship due to GD. Derick is overhydrating and refusing treatment and necessary medication. Assessment What has happened this shift: Pt. received sleeping this shift, woke to receive his medication, and 1:1 assessment completed at the bedside, pt. denies SI, HI, A/VH, he reported he was admitted because I has liver and kidney problems pt. reports his plans are to go back to my board and care and back to my old place Pt. presents as guarded but cooperative, he ate all his meals in the main dining room with cohorts, except for breakfast he reported I never eat breakfast. Pt. has been OOB most of the shift, often observed socially interacting with staff and others. S/I, H/I: Denies A/VH: Denies Sleep: One nap. ADL's: Independent Group attendance: NA Were meds taken: Yes Any med S/E: None noted or reported. Mental Status Exam Appearance: Male with shaved head, wearing green unit scrubs. Eye contact: Good. Behavior: Pleasant, socializes with staff and peers. Speech: Clear, normal rate Mood: Elevated Affect: Animated at times Thought process: Delusional. Thought Content: His ancestors history. Cognition: A/O X 3. Insight: Poor Judgment: Fair Interventions PRN's used: None Therapeutic interventions: Reestablishment of rapport, therapeutic conversation, active listening, medication administration/education/monitoring, encouragement to attend groups, provided distraction, redirection, reality orientation, positive reinforcement, and Q 15 minute safety checks. Restraints/seclusion/emergency medication: None Justification of Continued Inpatient Treatment: Pt is gravely disabled. It was reported that he has been noncompliant with treatment and overhydrating. He needs stabilization in a safe and therapeutic environment. His board and care, Ray Medina has agreed to take him back once he is stable.
[2021-10-07 20:24] VITALS: BP 121/75
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
[2021-10-08] MEDS: benztropine 1mg tablet PO SCH ×2 (07:22→20:24)
[2021-10-08] MEDS: levoTHYROXINE 25mcg tablet PO SCH (07:22)
[2021-10-08] MEDS: pantoprazole 40mg Tablet.DR PO SCH (07:22)
[2021-10-08] MEDS: lithium carbonate 150mg capsule PO SCH ×2 (07:22→20:25)
[2021-10-08] MEDS: haloperidol 5mg tablet PO SCH ×2 (07:22→20:24)
[2021-10-08] MEDS: oxcarbazepine 150mg tablet PO SCH (07:23)
[2021-10-08] MEDS: PALIPERIDONE 3 MG TAB.ER.24 PO SCH (07:23)
--- NOTE | 2021-10-08 08:34 | NUR ---
Derick's Public Guardian, Mike, called to report that Derick can return to [facility] once he has stabilized. He reported Derick has a sodium deficiency and a vit D deficiency which he is not currently being treated for. Mike reported that recently Derick has been drinking copious amounts of water which should be monitored. Information Assurance Analyst will pass this along to the tx team. BART Rollins
[2021-10-08 08:45] VITALS: BP 122/72
--- NOTE | 2021-10-08 13:18 | NUR ---
Nursing Progress Note: Legal hold: LPS Client on involuntary status for GD Report received from nurse with use of SBAR: XANDER Miller Why are they here: Derick is on LPS conservatorship due to GD. Derick is overhydrating and refusing treatment and necessary medication. Assessment What has happened this shift: Received pt. sleeping in bed at the beginning of the shift, he refused breakfast and remained in bed throughout much of the morning as is his routine. Pt. awoke for lunch, and afterwards retreated back to be; 1:1 was completed at bedside. Pt. continues to present as cooperative and pleasant, he denies all MH s/s and reports he believes he will be leaving tomorrow and is anxious to get back to [facility]. Pt. continues on with a circumstantial thought process, he continues to make delusional statements and states, "I'm okay, except these people won't leave me alone." When further questioned by this investment underwriter regarding what people he was talking about, pt. stated, "People in high places. I can't tell you." Pt. was again up in the afternoon socializing appropriately with others. Fluids continue to be monitored r/t hx of over hydration. S/I, H/I: Denies A/VH: Denies, does not appear to be internally preoccupied Sleep: Sleep hours are 6.5, and pt. sleeps throughout much of the morning as is his routine ADL's: Some encouragement and direction required Group attendance: No, despite encouragement Were meds taken: Yes Any med S/E: None Mental Status Exam Appearance: Somewhat disheveled r/t laying in bed Eye contact: Good Behavior: Cooperative and fatigued Speech: WNL Mood: Animated Affect: Appropriate Thought process:Some circumstantiality Thought Content: Delusions Cognition: A&O X3 (not to reason here) Insight: Poor Judgment: Poor Interventions PRN's used: None Therapeutic interventions: Maintained a safe and supportive environment, ensured contract for safety, provided clear and simple instructions, attempted to orient to reality, encouraged participation on the unit, and monitored water intake, and maintained Q15min safety checks. Restraints/seclusion/emergency medication: N/A Justification of Continued Inpatient Treatment: Per Dr. Bello, pt. continues to require medication adjustments and a safe and supportive environment. He will discharge back to [facility].
[2021-10-08 20:00] VITALS: BP 124/75
--- NOTE | 2021-10-09 01:48 | NUR ---
Nursing Progress Note: Derick Legal hold: LPS Client on involuntary status for GD Report received from nurse with use of SBAR: Negrito TERRELL Why are they here: Derick is on LPS conservatorship due to GD. Derick is overhydrating and refusing treatment and necessary medication. Assessment What has happened this shift: Received pt. lying in bed resting at change of shift. Pt calm and cooperative with assessment. States he is OK. He states he never gets depressed then says he does things to keep himself busy so he doesnt get depressed. He states sometimes he is sad but doesnt dwell on it. Pt up for snacks and took all HS medications without issue. S/I, H/I: Denies A/VH: Denies, does not appear to be internally preoccupied Sleep: ADL's: Some encouragement and direction required Group attendance: No, despite encouragement Were meds taken: Yes Any med S/E: None Mental Status Exam Appearance: Somewhat disheveled r/t laying in bed Eye contact: Good Behavior: Cooperative and fatigued Speech: WNL Mood: Animated Affect: Appropriate Thought process: Some circumstantiality Thought Content: Delusions/Tangential Cognition: A&O X3 (not to reason here) Insight: Poor Judgment: Poor Interventions PRN's used: None Therapeutic interventions: Maintained a safe and supportive environment, ensured contract for safety, provided clear and simple instructions, attempted to orient to reality, encouraged participation on the unit, and monitored water intake, and maintained Q15min safety checks. Restraints/seclusion/emergency medication: N/A Justification of Continued Inpatient Treatment: Per Dr. Bello, pt. continues to require medication adjustments and a safe and supportive environment. He will discharge back to [facility].
[2021-10-09] MEDS: benztropine 1mg tablet PO SCH ×2 (07:23→20:07)
[2021-10-09] MEDS: PALIPERIDONE 3 MG TAB.ER.24 PO SCH (07:23)
[2021-10-09] MEDS: levoTHYROXINE 25mcg tablet PO SCH (07:24)
[2021-10-09] MEDS: pantoprazole 40mg Tablet.DR PO SCH (07:24)
[2021-10-09] MEDS: lithium carbonate 150mg capsule PO SCH ×2 (07:24→20:07)
[2021-10-09] MEDS: haloperidol 5mg tablet PO SCH ×2 (07:24→20:07)
[2021-10-09] MEDS: oxcarbazepine 150mg tablet PO SCH (07:25)
[2021-10-09 08:00] VITALS: BP 140/90
--- NOTE | 2021-10-09 13:00 | NUR ---
Pt. off this unit at this time, accompanied by security, to attend court hearing.
--- NOTE | 2021-10-09 14:13 | NUR ---
Pt. returned from court.
--- NOTE | 2021-10-09 14:49 | NUR ---
Initial: Pt admit dx bipolar disorder, and acute psychosis per EMR. PO intake mostly 100% of regular meals though pt has refused two breakfast meals; pt stated he never eats breakfast per cage shift manager. Pt meeting estimated nutritional needs. LBM 10/09, bowel care available PRN. No nutrition intervention at this time. Will continue to monitor. Recommendations: 1. Continue regular diet as tolerated 2. Routine bowel care 3. Weekly wt Addendum: 10/09/21 at [address] Amended: Links added. Addendum: 10/09/21 at [address] ANNA has reviewed and approves of above note.
--- NOTE | 2021-10-09 15:18 | NUR ---
Nursing Progress Note: Legal hold: LPS Client on involuntary status for GD Report received from nurse with use of SBAR: XANDER Garcia Why are they here: Derick is on LPS conservatorship due to GD. Derick is overhydrating and refusing treatment and necessary medication. Assessment What has happened this shift: Received pt. sleeping in bed at the beginning of the shift, he again refused breakfast as is his routine. Pt. was provided education regarding his court hearing regarding his conservatorship this afternoon and was provided with clean clothes and encouraged to shower. This chart writer questioned pt. regarding his desire to get off of conservatorship and he laughed and stated in what appeared to be a delusional manner, "I'm undecided, I probably shouldn't, my grandpa was injured in the war." He continued on in a circumstantial manner to talk about all of the injuries his grandfather had received. Later, pt. dressed in his own clothing for court and attended snack. He was encouraged to attend group, however stated, "I don't need to go, I'm here for medical reasons, I'm not crazy." Pt. attended his court hearing and per social work assistant will remain on conservatorship for two more weeks. Fluids continue to be monitored. r/t hx of over hydration. S/I, H/I: Denies A/VH: Denies, does not appear to be internally preoccupied Sleep: Sleep hours are 7.75 ADL's: Some encouragement and direction required Group attendance: No, despite encouragement Were meds taken: Yes Any med S/E: None Mental Status Exam Appearance: Somewhat disheveled r/t laying in bed Eye contact: Good Behavior: Cooperative and fatigued Speech: WNL Mood: Animated Affect: Appropriate Thought process:Some circumstantiality Thought Content: Delusions Cognition: A&O X3 (not to reason here) Insight: Fair Judgment: Poor Interventions PRN's used: None Therapeutic interventions: Maintained a safe and supportive environment, ensured contract for safety, provided clear and simple instructions, attempted to orient to reality, encouraged participation on the unit, and monitored water intake, and maintained Q15min safety checks. Restraints/seclusion/emergency medication: N/A Justification of Continued Inpatient Treatment: Per Dr. Bello, pt. continues to require medication adjustments and a safe and supportive environment. He will discharge back to [facility].
[2021-10-09 19:38] VITALS: BP 132/84
--- NOTE | 2021-10-10 00:54 | NUR ---
Nursing Progress Note: Derick Legal hold: LPS Client on involuntary status for GD Report received from nurse with use of SBAR: Negrito RN Why are they here: Derick is on LPS conservatorship due to GD. Derick is overhydrating and refusing treatment and necessary medication. Assessment What has happened this shift: Received pt. in his room sitting on the bed. Pt calm and cooperative with care, states he is not doing too bad. He stated he had court today and will remain on conservatorship for 2 more weeks. He denies depression and anxiety this evening, denies SI/HI, however the pt then states there is this lashell talking to me from the freeway saying he will take me away. He describes his mood as pretty good. Pt. attended his court hearing and per protective services social worker will remain on conservatorship for two more weeks. Pt up for snacks in community room and took all HS medications without issue. S/I, H/I: Denies A/VH: Denies, does not appear to be internally preoccupied Sleep ADL's: Some encouragement and direction required Group attendance: Were meds taken: Yes Any med S/E: None Mental Status Exam Appearance: Somewhat disheveled r/t laying in bed Eye contact: Good Behavior: Cooperative and fatigued Speech: WNL Mood: Animated Affect: Appropriate Thought process: Some circumstantiality Thought Content: Delusions Cognition: A&O X3 (not to reason here) Insight: Fair Judgment: Poor Interventions PRN's used: None Therapeutic interventions: Maintained a safe and supportive environment, ensured contract for safety, provided clear and simple instructions, attempted to orient to reality, encouraged participation on the unit, and monitored water intake, and maintained Q15min safety checks. Restraints/seclusion/emergency medication: N/A Justification of Continued Inpatient Treatment: Per Dr. Bello, pt. continues to require medication adjustments and a safe and supportive environment. He will discharge back to [facility].
[2021-10-10] MEDS: oxcarbazepine 150mg tablet PO SCH (07:53)
[2021-10-10] MEDS: PALIPERIDONE 3 MG TAB.ER.24 PO SCH (07:53)
[2021-10-10] MEDS: benztropine 1mg tablet PO SCH ×2 (07:54→20:04)
[2021-10-10] MEDS: levoTHYROXINE 25mcg tablet PO SCH (07:54)
[2021-10-10] MEDS: pantoprazole 40mg Tablet.DR PO SCH (07:54)
[2021-10-10] MEDS: haloperidol 5mg tablet PO SCH ×2 (07:54→20:04)
[2021-10-10] MEDS: lithium carbonate 150mg capsule PO SCH ×2 (07:54→20:04)
[2021-10-10 08:00] VITALS: BP 109/66
--- NOTE | 2021-10-10 12:11 | NUR ---
COU[employer]COME Derick had court yesterday regarding conservatorship. He is being released from conservatorship on 10/23/21. He reported his plan is to return to [facility] [place] upon discharge and remain there while off conservatorship. Per Mike [facility], they do not agree with this decision and are consulting with their complex commercial litigation paralegal to determine whether or not they should go back to court to try to keep him on conservatorship. BART Rollins
--- NOTE | 2021-10-10 15:41 | NUR ---
Nursing Progress Note: Derick Legal hold: LPS Conserved Client on voluntary/involuntary status for GD Report received from FRANCOISE Garcia with use of SBAR. Why are they here: Derick is on LPS conservatorship due to GD. Derick is overhydrating and refusing treatment and necessary medication. Assessment What has happened this shift: Pt. received sleeping, woke to receive his medication, and 1:1 assessment completed; pt. denies SI, HI, A/VH, and he reports he was admitted for medical reasons with my liver and kidneys His plans for discharge is to go back to my board and care in [place] Pt. presents as guarded. Pt. ate his meals in the main dining room with cohorts. Pt. approached engineering technical writer this afternoon presenting as upbeat and animated discussing his grandmothers accomplishments he engaged with cohorts and sat in the tv room until dinner. S/I, H/I: Denies A/VH: Denies Sleep: Napped 1 hr. ADL's: Independent Group attendance: No Were meds taken: Yes Any med S/E: None noted or reported. Mental Status Exam Appearance: Male with shaved head, wearing green unit scrubs. Eye contact: Good. Behavior: Pleasant Speech: Clear Mood: Upbeat Affect: Animated at times Thought process: Linear Thought Content: Family Cognition: A/O X 3. Insight: Poor Judgment: Fair Interventions PRN's used: None Therapeutic interventions: Reestablishment of rapport, therapeutic conversation, active listening, medication administration/education/monitoring, encouragement to attend groups, provided distraction, redirection, reality orientation, positive reinforcement, and Q 15 minute safety checks. Restraints/seclusion/emergency medication: None Justification of Continued Inpatient Treatment: Pt is gravely disabled. It was reported that he has been noncompliant with treatment and overhydrating. He needs stabilization in a safe and therapeutic environment. His board and care, Ray Medina has agreed to take him back once he is stable.
[2021-10-10 20:00] VITALS: BP 119/74
--- NOTE | 2021-10-11 00:53 | NUR ---
Nursing Progress Note: Derick Legal hold: LPS Conserved Client on voluntary/involuntary status for GD Report received from Desiree OWUSU with use of SBAR. Why are they here: Derick is on LPS conservatorship due to GD. Derick is overhydrating and refusing treatment and necessary medication. Assessment What has happened this shift: Pt. received in his room lying down resting. Pt calm and cooperative with care, pt. denies SI, HI, A/VH and states he is kind of bored here but at least he has plenty to eat. Patient also stated he has been doing pushups on his free time and went into detail about how he does them. Pt up for snacks and is friendly with other peers in the community room. Took all HS medications without issue. S/I, H/I: Denies A/VH: Denies Sleep: ADL's: Independent Group attendance: Were meds taken: Yes Any med S/E: None noted or reported. Mental Status Exam Appearance: Male with shaved head, wearing green unit scrubs. Eye contact: Good. Behavior: Pleasant Speech: Clear Mood: Upbeat Affect: Animated at times Thought process: Linear Thought Content: Family Cognition: A/O X 3. Insight: Poor Judgment: Fair Interventions PRN's used: None Therapeutic interventions: Reestablishment of rapport, therapeutic conversation, active listening, medication administration/education/monitoring, encouragement to attend groups, provided distraction, redirection, reality orientation, positive reinforcement, and Q 15 minute safety checks. Restraints/seclusion/emergency medication: None Justification of Continued Inpatient Treatment: Pt is gravely disabled. It was reported that he has been noncompliant with treatment and overhydrating. He needs stabilization in a safe and therapeutic environment. His board and care, Ray Medina has agreed to take him back once he is stable.
[2021-10-11 07:55] VITALS: BP 115/93
[2021-10-11] MEDS: benztropine 1mg tablet PO SCH ×2 (08:18→20:06)
[2021-10-11] MEDS: pantoprazole 40mg Tablet.DR PO SCH (08:18)
[2021-10-11] MEDS: haloperidol 5mg tablet PO SCH ×2 (08:18→20:06)
[2021-10-11] MEDS: oxcarbazepine 150mg tablet PO SCH (08:18)
[2021-10-11] MEDS: PALIPERIDONE 3 MG TAB.ER.24 PO SCH (08:18)
[2021-10-11] MEDS: levoTHYROXINE 25mcg tablet PO SCH (08:18)
[2021-10-11] MEDS: lithium carbonate 150mg capsule PO SCH ×2 (08:18→20:06)
--- NOTE | 2021-10-11 17:42 | NUR ---
Nursing Progress Note: Derick Legal hold: LPS Conserved Client on voluntary/involuntary status for GD Report received from FRANCOISE Garcia with use of SBAR. Why are they here: Derick is on LPS conservatorship due to GD. Derick is overhydrating and refusing treatment and necessary medication. Assessment What has happened this shift: Pt. received sleeping in bed at start of shift. Pt. awoke for medications but refused breakfast. Pt. went back to sleep. 1:1 done at bedside, pt. denies SI/HI, A/V hallucinations. Pt. is in a jovial mood, asking this writer technical publications how he is. Pt. observed conversing with peers and staff. Pt. isolated to his room most of the day coming out mostly for meals and snacks. [facility] ordered for tomorrow to monitor pt.s sodium level. Pt.s water intake has not been excessive today. S/I, H/I: Denies A/VH: Denies Sleep: Napped intermittently throughout the day. ADL's: Independent Group attendance: No Were meds taken: Yes Any med S/E: None noted or reported. Mental Status Exam Appearance: Male with shaved head, wearing green unit scrubs. Eye contact: Good. Behavior: Pleasant and cooperative. Isolates to his room mostly. Speech: WNL Mood: Euthymic Affect: Congruent with mood. Smiling. Thought process: Linear Thought Content: Circumstantial. Cognition: A/O X 3. Insight: Poor Judgment: Fair Interventions PRN's used: None Therapeutic interventions: Reestablishment of rapport, therapeutic conversation, active listening, medication administration/education/monitoring, encouragement to attend groups, provided distraction, redirection, reality orientation, positive reinforcement, and Q 15 minute safety checks. Restraints/seclusion/emergency medication: None Justification of Continued Inpatient Treatment: Pt is gravely disabled. It was reported that he has been noncompliant with treatment and overhydrating. He needs stabilization in a safe and therapeutic environment. His board and care, Ray Medina has agreed to take him back once he is stable.
[2021-10-11 20:27] VITALS: BP 126/77
--- NOTE | 2021-10-12 00:51 | NUR ---
Nursing Progress Note: Derick Legal hold: LPS Conserved Client on voluntary/involuntary status for GD Report received from FRANCOISE Ramírez with use of SBAR. Why are they here: Derick is on LPS conservatorship due to GD. Derick is overhydrating and refusing treatment and necessary medication. Assessment What has happened this shift: Received pt up in the hallway doing pushups with another peer. 1:1 assessment done at bedside. Pt states he is going to get some blood work done and then he gets to leave. Pt denies MH symptoms but states he gets sad when someone dies. States his overall mood is good. Pt up for snacks and took all HS medications. S/I, H/I: Denies A/VH: Denies Sleep: ADL's: Independent Group attendance: No Were meds taken: Yes Any med S/E: None noted or reported. Mental Status Exam Appearance: Male with shaved head, wearing green unit scrubs. Eye contact: Good. Behavior: Pleasant and cooperative. Speech: WNL Mood: Euthymic Affect: Congruent with mood. Smiling. Thought process: Linear Thought Content: Circumstantial. Cognition: A/O X 3. Insight: Poor Judgment: Fair Interventions PRN's used: None Therapeutic interventions: Reestablishment of rapport, therapeutic conversation, active listening, medication administration/education/monitoring, encouragement to attend groups, provided distraction, redirection, reality orientation, positive reinforcement, and Q 15 minute safety checks. Restraints/seclusion/emergency medication: None Justification of Continued Inpatient Treatment: Pt is gravely disabled. It was reported that he has been noncompliant with treatment and overhydrating. He needs stabilization in a safe and therapeutic environment. His board and care, Ray Medina has agreed to take him back once he is stable.
[2021-10-12 08:00] VITALS: BP 114/75
[2021-10-12 08:07] LABS: ALBUMIN 3.7 G/DL (3.4-5.0); ANION GAP 9 (8-16); BLOOD UREA NITROGEN 18 MG/DL (7-18); CALCIUM 8.7 MG/DL (8.5-10.1); CHLORIDE 108 MMOL/L (99-107); CREATININE 0.82 MG/DL (0.60-1.10); GLUCOSE 97 MG/DL (70-104); POTASSIUM 4.5 MMOL/L (3.5-5.1); SODIUM 142 MMOL/L (135-145); TOTAL CARBON DIOXIDE 25.2 MMOL/L (24-32); eGFR > 90 ML/MIN
[2021-10-12] MEDS: oxcarbazepine 150mg tablet PO SCH (08:36)
[2021-10-12] MEDS: PALIPERIDONE 3 MG TAB.ER.24 PO SCH (08:36)
[2021-10-12] MEDS: haloperidol 5mg tablet PO SCH ×2 (08:37→20:52)
[2021-10-12] MEDS: pantoprazole 40mg Tablet.DR PO SCH (08:37)
[2021-10-12] MEDS: lithium carbonate 150mg capsule PO SCH ×2 (08:37→20:52)
[2021-10-12] MEDS: benztropine 1mg tablet PO SCH ×2 (08:37→20:52)
[2021-10-12] MEDS: levoTHYROXINE 25mcg tablet PO SCH (08:37)
--- NOTE | 2021-10-12 12:56 | NUR ---
Emailed [facility] to inform them that Derick is ready for discharge and to please coordinate transfer back to [facility] next week. BART Rollins
--- NOTE | 2021-10-12 17:45 | NUR ---
Nursing Progress Note: Derick Legal hold: LPS Conserved Client on voluntary/involuntary status for GD Report received from FRANCOISE Cunningham with use of SBAR. Why are they here: Derick is on LPS conservatorship due to GD. Derick is overhydrating and refusing treatment and necessary medication. Assessment What has happened this shift: Pt. received sleeping in bed at start of shift. Pt. awoke for medications but refused breakfast. Pt. went back to sleep. 1:1 done at bedside, pt. denies SI/HI, A/V hallucinations. When asked about if he feels his medications are working pt. states, I dont think the medications do anything But everyone is entitled to their opinion. Pt. reports he is going to be getting off of his conservatorship. When asked what he is going to do, pt. states, I will drink a tall Pepsi and find my kids. I have a 8 kids with multiple different women Pt. stayed in his room and slept most of the AM. Pt. comes out of his room for meals and group. Pt. helped decorate a folding machine setter during group and Pt. is in a jovial mood and proudly displaying the folding machine setter. Pt. observed conversing with peers and staff. S/I, H/I: Denies A/VH: Denies Sleep: Napped intermittently throughout the day. ADL's: Independent Group attendance: Yes Were meds taken: Yes Any med S/E: Denies. None observed. Mental Status Exam Appearance: Male with shaved head, wearing green unit scrubs. Eye contact: Good. Behavior: Pleasant and cooperative. Social with peers and staff. Withdraws to his room often. Speech: WNL Mood: Euthymic and jovial Affect: Congruent with mood. Smiling. Thought process: Linear Thought Content: Circumstantial. Cognition: A/O X 3. Insight: Poor Judgment: Fair Interventions PRN's used: None Therapeutic interventions: Reestablishment of rapport, therapeutic conversation, active listening, medication administration/education/monitoring, encouragement to attend groups, provided distraction, redirection, reality orientation, positive reinforcement, and Q 15 minute safety checks. Restraints/seclusion/emergency medication: None Justification of Continued Inpatient Treatment: Pt is gravely disabled. It was reported that he has been noncompliant with treatment and overhydrating. He needs stabilization in a safe and therapeutic environment. His board and care, Ray Medina has agreed to take him back once he is stable.
[2021-10-12 19:00] VITALS: BP 125/76
--- NOTE | 2021-10-13 00:28 | NUR ---
Nursing Progress Note: Derick Legal hold: LPS Conserved Client on voluntary/involuntary status for GD Report received from FRANCOISE Ramírez with use of SBAR. Why are they here: Derick is on LPS conservatorship due to GD. Derick is overhydrating and refusing treatment and necessary medication. Assessment What has happened this shift: Pt is very pleasant with staff and peers. He walks the halls and sits in the community room smiling and socializing. He shakes this RN's hand and greets her. He says he is going "great". He states that he loves to drink water and he has been told he is overhydrating but he believes that cannot be true. "I have to flush all the toxins out of my system everyday." RN educates him on the dangers over overhydration, pt verbalizes understanding. S/I, H/I: Denies A/VH: Denies Sleep: see sleep assessment ADL's: Independent Group attendance: No Were meds taken: Yes Any med S/E: None noted or reported. Mental Status Exam Appearance: Male with shaved head, wearing green unit scrubs. Eye contact: Good. Behavior: Pleasant and cooperative. Speech: WNL Mood: Euthymic Affect: Congruent with mood. Smiling. Thought process: Linear Thought Content: Circumstantial. Cognition: A/O X 3. Insight: Poor Judgment: Fair Interventions PRN's used: None Therapeutic interventions: Reestablishment of rapport, therapeutic conversation, active listening, medication administration/education/monitoring, encouragement to attend groups, provided distraction, redirection, reality orientation, positive reinforcement, and Q 15 minute safety checks. Restraints/seclusion/emergency medication: None Justification of Continued Inpatient Treatment: Pt is gravely disabled. It was reported that he has been noncompliant with treatment and overhydrating. He needs stabilization in a safe and therapeutic environment. His board and care, Ray Medina has agreed to take him back once he is stable.
[2021-10-13 07:39] VITALS: BP 129/87
[2021-10-13] MEDS: PALIPERIDONE 3 MG TAB.ER.24 PO SCH (08:01)
[2021-10-13] MEDS: lithium carbonate 150mg capsule PO SCH ×2 (08:01→20:34)
[2021-10-13] MEDS: levoTHYROXINE 25mcg tablet PO SCH (08:02)
[2021-10-13] MEDS: benztropine 1mg tablet PO SCH ×2 (08:02→20:35)
[2021-10-13] MEDS: oxcarbazepine 150mg tablet PO SCH (08:02)
[2021-10-13] MEDS: pantoprazole 40mg Tablet.DR PO SCH (08:02)
[2021-10-13] MEDS: haloperidol 5mg tablet PO SCH ×2 (08:02→20:36)
--- NOTE | 2021-10-13 16:50 | NUR ---
Nursing Progress Note: Derick Legal hold: LPS Conserved Client on voluntary/involuntary status for GD Report received from nurse CRN with use of SBAR. Why are they here: Derick is on LPS conservatorship due to GD. Derick is overhydrating and refusing treatment and necessary medication. Assessment What has happened this shift: Pt. received sleeping , woke to receive his medication, and 1:1 assessment completed; pt. denies SI, HI, A/VH, he reported he was admitted d/t liver and kidney problems pt. reports his plans are go back to my board and care Pt. ate his meals in the main dining room with cohorts, refused breakfast stating I never eat breakfast. Pt. has been up and socializing most of the shift, often observed socially interacting with staff and others. S/I, H/I: Denies A/VH: Denies Sleep: One nap. ADL's: Independent Group attendance: NA Were meds taken: Yes Any med S/E: None noted or reported. Mental Status Exam Appearance: Male with shaved head, wearing green unit scrubs. Eye contact: Good. Behavior: Pleasant, socializing Speech: Clear Mood: Elevated Affect: Animated Thought process: Linear Thought Content: Discharge Cognition: A/O X 3. Insight: Poor Judgment: Fair Interventions PRN's used: None Therapeutic interventions: Reestablishment of rapport, therapeutic conversation, active listening, medication administration/education/monitoring, encouragement to attend groups, provided distraction, redirection, reality orientation, positive reinforcement, and Q 15 minute safety checks. Restraints/seclusion/emergency medication: None Justification of Continued Inpatient Treatment: Pt is gravely disabled. It was reported that he has been noncompliant with treatment and overhydrating. He needs stabilization in a safe and therapeutic environment. His board and care, Ray Medina has agreed to take him back once he is stable.
[2021-10-13 20:20] VITALS: BP 116/75
--- NOTE | 2021-10-14 01:04 | NUR ---
Nursing Progress Note: Derick Legal hold: LPS Conserved Client on voluntary/involuntary status for GD Report received from RN with use of SBAR. Why are they here: Derick is on LPS conservatorship due to GD. Derick is overhydrating and refusing treatment and necessary medication. Assessment What has happened this shift: Pt is very pleasant with staff and peers. He walks the halls and socializes. He eats snack and takes his medications without issue. S/I, H/I: Denies A/VH: Denies Sleep: see sleep assessment ADL's: Independent Group attendance: No Were meds taken: Yes Any med S/E: None noted or reported. Mental Status Exam Appearance: Male with shaved head, wearing green unit scrubs. Eye contact: Good. Behavior: Pleasant and cooperative. Speech: WNL Mood: Euthymic Affect: Congruent with mood. Smiling. Thought process: Linear Thought Content: Circumstantial. Cognition: A/O X 3. Insight: Poor Judgment: Fair Interventions PRN's used: None Therapeutic interventions: Reestablishment of rapport, therapeutic conversation, active listening, medication administration/education/monitoring, encouragement to attend groups, provided distraction, redirection, reality orientation, positive reinforcement, and Q 15 minute safety checks. Restraints/seclusion/emergency medication: None Justification of Continued Inpatient Treatment: Pt is gravely disabled. It was reported that he has been noncompliant with treatment and overhydrating. He needs stabilization in a safe and therapeutic environment. His board and care, Ray Medina has agreed to take him back once he is stable.
[2021-10-14 08:00] VITALS: BP 114/75
[2021-10-14] MEDS: lithium carbonate 150mg capsule PO SCH ×2 (08:09→20:25)
[2021-10-14] MEDS: haloperidol 5mg tablet PO SCH ×2 (08:09→20:22)
[2021-10-14] MEDS: benztropine 1mg tablet PO SCH ×2 (08:10→20:22)
[2021-10-14] MEDS: pantoprazole 40mg Tablet.DR PO SCH (08:10)
[2021-10-14] MEDS: PALIPERIDONE 3 MG TAB.ER.24 PO SCH (08:10)
[2021-10-14] MEDS: levoTHYROXINE 25mcg tablet PO SCH (08:10)
[2021-10-14] MEDS: oxcarbazepine 150mg tablet PO SCH (08:10)
--- NOTE | 2021-10-14 15:17 | NUR ---
Nursing Progress Note: Derick Legal hold: LPS Conserved Client on voluntary/involuntary status for GD Report received from nurse CRN with use of SBAR. Why are they here: Derick is on LPS conservatorship due to GD. Derick is overhydrating and refusing treatment and necessary medication. Assessment What has happened this shift: Pt. received sleeping, woke to receive his medication, and 1:1 assessment completed. Pt. denies SI, HI, A/VH, he reported he was admitted Just to checkup on my liver and kidney He reports his plans are to go back to my old place Pt. presents cooperative and joyful. Pt. ate his meals in the dining room with cohorts, except for breakfast he reported Im not hungry in the morning. Pt. awake and OOB at 1000 he was observed socializing with staff and cohorts, he presents as animated and elated at times. Later in the afternoon he could be heard discussing his grandmother and his long standing relationship with the latter day. S/I, H/I: Denies A/VH: Denies Sleep: One nap. ADL's: Independent Group attendance: NA Were meds taken: Yes Any med S/E: None noted or reported. Mental Status Exam Appearance: Male with shaved head, wearing green unit scrubs. Eye contact: Good. Behavior: Pleasant, socializes with staff and peers. Speech: Clear Mood: Elevated Affect: Animated at times Thought process: Linear Thought Content: His discharge and future plans Cognition: A/O X 3. Insight: Poor Judgment: Fair Interventions PRN's used: None Therapeutic interventions: Reestablishment of rapport, therapeutic conversation, active listening, medication administration/education/monitoring, encouragement to attend groups, provided distraction, redirection, reality orientation, positive reinforcement, and Q 15 minute safety checks. Restraints/seclusion/emergency medication: None Justification of Continued Inpatient Treatment: Pt is gravely disabled. It was reported that he has been noncompliant with treatment and overhydrating. He needs stabilization in a safe and therapeutic environment. His board and care, [facility] has agreed to take him back once he is stable.
[2021-10-14 20:00] VITALS: BP 135/68
--- NOTE | 2021-10-15 01:53 | NUR ---
Nursing Progress Note: Legal hold: LPS Conserved Client on involuntary status for GD Report received from RN with use of SBAR. Why are they here: Derick is on LPS conservatorship due to GD. Derick is overhydrating and refusing treatment and necessary medication. Assessment What has happened this shift: Patient seen taking a nap at shift change. He easily wakes for 1:1. This patient is always cheerful and pleasant. He likes to talk to staff and peers alike. Patient says he's doing great, and is ready to return to [facility]. He says he's happy there. Patient says he's tuned up and ready to go. He denies all MH symptoms and none were observed. He is compliant with medications. S/I, H/I: Denies A/VH: Denies Sleep: see sleep assessment ADL's: Independent Group attendance: No Were meds taken: Yes Any med S/E: None noted or reported. Mental Status Exam Appearance: Male with shaved head, wearing green unit scrubs. Eye contact: Good. Behavior: Pleasant and cooperative, cheerful Speech: WNL Mood: Euthymic Affect: Congruent with mood. Smiling. Thought process: Linear Thought Content: Circumstantial. Cognition: A/O X 3. Insight: Poor Judgment: Fair Interventions PRN's used: None Therapeutic interventions: Reestablishment of rapport, therapeutic conversation, active listening, medication administration/education/monitoring, encouragement to attend groups, provided distraction, redirection, reality orientation, positive reinforcement, and Q 15 minute safety checks. Restraints/seclusion/emergency medication: None Justification of Continued Inpatient Treatment: Pt is gravely disabled. It was reported that he has been noncompliant with treatment and overhydrating. He needs stabilization in a safe and therapeutic environment. His board and care, [facility] has agreed to take him back once he is stable.
[2021-10-15 07:56] VITALS: BP 117/64
[2021-10-15] MEDS: lithium carbonate 150mg capsule PO SCH ×2 (08:10→20:18)
[2021-10-15] MEDS: levoTHYROXINE 25mcg tablet PO SCH (08:11)
[2021-10-15] MEDS: oxcarbazepine 150mg tablet PO SCH (08:11)
[2021-10-15] MEDS: haloperidol 5mg tablet PO SCH ×2 (08:11→20:17)
[2021-10-15] MEDS: PALIPERIDONE 3 MG TAB.ER.24 PO SCH (08:11)
[2021-10-15] MEDS: pantoprazole 40mg Tablet.DR PO SCH (08:11)
[2021-10-15] MEDS: benztropine 1mg tablet PO SCH ×2 (08:11→20:17)
--- NOTE | 2021-10-15 11:15 | NUR ---
Reassessment: Pt continues to mostly eat 100% Regular meals, though refuses breakfast as he isn't hungry in the morning per RN note. Pt is closely meeting nutrient needs. Recommend smoothie w/ lunch to help fully meet nutrition needs. [facility] 10/13, bowel care available PRN. No nutrition intervention implemented at this time. Will continue to monitor. Recommendations: 1. Continue regular diet as tolerated 2. Smoothie w/ lunch 3. Routine bowel care 4. Weekly wt Addendum: 10/15/21 at [address] Amended: Links added. Addendum: 10/15/21 at [address] I have reviewed assessment by manager internal
[2021-10-15 20:00] VITALS: BP 113/84
--- NOTE | 2021-10-16 01:14 | NUR ---
Nursing Progress Note: Derick Legal hold: LPS Conserved Client on involuntary status for GD Report received from RN with use of SBAR. Why are they here: Derick is on LPS conservatorship due to GD. Derick is overhydrating and refusing treatment and necessary medication. Assessment What has happened this shift: Patient is up in the rec room watching TV with peers. Pt is smiling and friendly with staff and peers, states he is doing fine. He denies MH symptoms and is ready to return to [facility]. Pt up for snacks in the community room and compliant with HS medications. Pt to bed shortly after med pass. S/I, H/I: Denies A/VH: Denies Sleep: ADL's: Independent Group attendance: No Were meds taken: Yes Any med S/E: None noted or reported. Mental Status Exam Appearance: Male with shaved head, wearing green unit scrubs. Eye contact: Good. Behavior: Pleasant and cooperative, cheerful Speech: WNL Mood: Euthymic Affect: Congruent with mood. Smiling. Thought process: Linear Thought Content: Circumstantial. Cognition: A/O X 3. Insight: Poor Judgment: Fair Interventions PRN's used: None Therapeutic interventions: Reestablishment of rapport, therapeutic conversation, active listening, medication administration/education/monitoring, encouragement to attend groups, provided distraction, redirection, reality orientation, positive reinforcement, and Q 15 minute safety checks. Restraints/seclusion/emergency medication: None Justification of Continued Inpatient Treatment: Pt is gravely disabled. It was reported that he has been noncompliant with treatment and overhydrating. He needs stabilization in a safe and therapeutic environment. His board and care, [facility] has agreed to take him back once he is stable.
[2021-10-16] MEDS ORDERED: PALI3TAB5 PO (07:42)
[2021-10-16] MEDS ORDERED: HALO5TAB PO (07:42)
[2021-10-16] MEDS ORDERED: LIT300C PO (07:42)
[2021-10-16] MEDS ORDERED: BENZ1TAB90 PO (07:42)
[2021-10-16] MEDS ORDERED: PANT40TA54 PO (07:42)
[2021-10-16] MEDS ORDERED: OXCA150T14 PO (07:42)
[2021-10-16] MEDS ORDERED: LEVO25TA7 PO (07:42)
[2021-10-16 07:51] VITALS: BP 102/63
[2021-10-16] MEDS: PALIPERIDONE 3 MG TAB.ER.24 PO SCH (08:40)
[2021-10-16] MEDS: lithium carbonate 150mg capsule PO SCH (08:40)
[2021-10-16] MEDS: haloperidol 5mg tablet PO SCH (08:40)
[2021-10-16] MEDS: benztropine 1mg tablet PO SCH (08:40)
[2021-10-16] MEDS: levoTHYROXINE 25mcg tablet PO SCH (08:40)
[2021-10-16] MEDS: pantoprazole 40mg Tablet.DR PO SCH (08:40)
[2021-10-16] MEDS: oxcarbazepine 150mg tablet PO SCH (08:40)
--- NOTE | 2021-10-16 10:53 | NUR ---
DISCHARGE NOTE: Patient was discharge from unit at 1040. Pt was A&Ox4. Pt was pleasant and friendly. Pt left with personal belongings. Pt being transported back to [facility]. Pt just got off of conservatorship and will remain at [facility]. Pt presents with some delusional thoughts, but remains calm and cooperative.
== END 2021-10-16 10:40 | DRG 885 ==
LOC: ER 14:30 → ADULT MH 17:15
PROVIDERS: ADMIT Psychiatry & Neurology Psychiatry; ATTEND Psychiatry & Neurology Psychiatry
DX: F25.0 Schizoaffective disorder, bipolar type (principal); F23 Brief psychotic disorder; E03.9 Hypothyroidism, unspecified; F17.210 Nicotine dependence, cigarettes, uncomplicated; F10.10 Alcohol abuse, uncomplicated; F15.10 Other stimulant abuse, uncomplicated; K21.9 Gastro-esophageal reflux disease without esophagitis; E66.3 Overweight; Z20.822 Contact with and (suspected) exposure to COVID-19; F60.9 Personality disorder, unspecified; K05.6 Periodontal disease, unspecified; H53.8 Other visual disturbances; Z79.899 Other long term (current) drug therapy; Z88.8 Allergy status to other drugs, medicaments and biological substances; Z68.30 Body mass index [BMI] 30.0-30.9, adult
CPT/HCPCS: 36415; 80048; 80053; 80061; 80178; 80305; 80320; 81001; 83721; 84443; 85025; 87081; 87635; 99285; C9803